=== PATIENT | male | born 1950 | race Hispanic/Latino ===

== ENCOUNTER 2020-10-14 10:15 | Day surgery (SDC) | payer OTHER ==
[2020-10-14 10:47] LABS: Absolute Lymphocytes (CBC) 1.8 K/uL (0.7-4.9); Basophils % 0.7 % (0-1.3); Hematocrit 34.5 % (39.6-49.0); Lymphocytes % 29.4 % (15.3-44.8); MPV 8.1 fL (7.6-11.3); RBC Red Blood Cell Count 3.85 M/uL (4.33-5.43)
[2020-10-14] MEDS ORDERED: NA CHLORIDE 0.9% 1,000 ML ONE (10:53)
[2020-10-14 11:06] LABS: Potassium 5.7 mmol/L (3.5-5.1)
--- NOTE | 2020-10-14 11:17 | RAD REPORT ---
EXAM DESCRIPTION: RAD - Chest Pa And Lat (2 Views) - 10/14/2020 10:48 am CLINICAL HISTORY: pre-op Chest pain. COMPARISON: Chest Pa And Lat (2 Views) dated 01/02/2018; CHEST PA AND LAT 2 VIEW dated 01/08/2008 FINDINGS: The lungs are clear. The heart is mildly prominent with single lead pacer/ defibrillator d evice. No displaced fractures. Sternotomy wires present.
[2020-10-14] MEDS ORDERED: CEFAZOLIN/SWI 1gm 1 GM/10 ML SYR ONE (11:39)
[2020-10-14] MEDS ORDERED: MIDAZOLAM HCL 2 MG/2 ML INJ ONE (11:56)
[2020-10-14] MEDS ORDERED: dexAMETHasone 10 MG/ML VIAL ONE (11:56)
[2020-10-14] MEDS ORDERED: propofoL 200 MG/20 ML VIAL IV ONE ×2 (11:56→13:23)
[2020-10-14] MEDS ORDERED: KETOROLAC 30 MG/ML INJ ONE (11:56)
[2020-10-14] MEDS ORDERED: FENTANYL CITR 100 MCG/2 ML ONE (11:56)
[2020-10-14] MEDS ORDERED: ONDANSETRON 4 MG/2 ML VIAL ONE (11:57)
[2020-10-14] MEDS ORDERED: LIDOCAINE 1% MPF 30 ML VIAL ONE (11:57)
--- NOTE | 2020-10-14 13:18 | P.BOP ---
Preoperative diagnosis: right buttock infected subQ mass with abscess, cellulitis Postoperative diagnosis: same Primary procedure: Excisional biopsy with abscess drainage of Secondary procedure: right buttock infected subQ mass with abscess Estimated blood loss: <10cc Specimen: right buttock infected subQ mass with abscess culture Findings: as above Anesthesia: MAC Transferred to: Recovery Room Condition: Good
[2020-10-14] MEDS: HYDROMORPHONE HCL 1 MG/ML INJ ONE ×2 (13:36→13:47)
[2020-10-14] MEDS ORDERED: HYDROMORPHONE HCL 1 MG/ML INJ ONE (14:24)
[2020-10-14] MEDS ORDERED: CODEINE 30MG/APAP 300MG TAB ONE (14:56)
[2020-10-14 15:18] VITALS: TEMP 98.1
[2020-10-14 15:20] VITALS: BP 111/64; O2SAT 98
--- NOTE | 2020-10-14 15:32 | DS ---
Diagnosis: Right buttock infected subcutaneous mass with abscess and cellulitis. Procedure: Excisional biopsy of infected right buttock subcutaneous mass with abscess drainage. Disposition: Home. Activity: As tolerated. No heavy lifting. Wet-to-dry dressing. Normal saline daily. NATY/WILFRED Voice ID: [id number] Report ID: [id number]
--- NOTE | 2020-10-14 15:35 | OP ---
Date of Procedure: 10/14/2020 Surgeon: Manuel Bae MD Preoperative Diagnosis: Right buttock infected subcutaneous mass with abscess and cellulitis. Postoperative Diagnosis: Right buttock infected subcutaneous mass with abscess and cellulitis. Procedure: Excisional biopsy of right buttock infected subcutaneus mass with abscess drainage. Anesthesia: MAC plus local. Indications: This is the case of a 70-year-old patient, came with a right buttock mass with an absce ss and cellulitis present, can barely sit. He came few hours ago to my office. He was booked today for excision of that lump and abscess drainage. The benefits, alternatives, and risks were fully exp lained, which include, but not limited to infection, bleeding, damage to adjacent structures, anesthe eric complication, recurrence, [place], and even . He also understands this may not relieve any sympt oms. He might need more than one surgical intervention. He also understands that he will need wound care. He signed a consent. Procedure In Detail: The patient was brought to the operating room, placed in supine position. Anes thesia was done without complication. The patient was placed in lateral decubitus position with prop er protection. The right buttock area and the sacral area were prepped and draped in usual sterile f ashion. Local anesthesia was applied followed by sharp incision of the skin all the way down to deep subcutaneous tissue. We noticed there was inflammatory mass present with an abscess deep inside. T he mass was removed. The pus was cultured. Then, the hemostasis was obtained with local anesthetic. The area was about 5 x 5 cm. The patient tolerated the procedure well. The area was packed with wet-to-dry dressing. The patient in his way to recovery in stable co ndition. HM/MODL Voice ID: [id number] Report ID: [id number]
--- NOTE | 2020-10-14 16:30 | EKG ---
Test Date: 2020-10-14 Test Time: 09:57:41 Acquisition Advisor: MEASUREMENT RESULTS: Intervals: Rate: 67 CT: 120 QRSD: 128 QT: 418 QTc: 441 [place]: P: 0 CT: 120 QRS: -5 T: 206 INTERPRETIVE STATEMENTS: Sinus tachycardia with blocked premature atrial complexes with premature supraventricular complexes Nonspecific intraventricular block T wave abnormality, consider inferior ischemia T wave abnormality, consider anterolateral ischemia Abnormal ECG Compared to ECG 06/05/2013 15:15:30 Atrial premature complex(es) now present T-wave abnormality now present Sinus rhythm no longer present ST (T wave) deviation no longer present Possible ischemia still present Electronically Signed On 10-14-20 16:29:38 CDT by Mason Zhang
--- NOTE | 2020-10-16 21:07 | OP ---
Surgeon: Manuel Bae MD Preoperative Diagnosis: Right buttock infected subcutaneous mass with abscess and cellulitis. Postoperative Diagnosis: Right buttock infected subcutaneous mass with abscess and cellulitis. Procedure: Excisional biopsy with abscess drainage of the right buttock infected subcutaneous mass. Specimen: Right buttock infected subcutaneous mass with abscess culture. Indication: This is the case of a 70-year-old patient who comes to us with a right buttock infected subcutaneous mass. There is cellulitis present. There is an abscess underneath. The benefits, alte rnatives, and risks of excision with drainage of an abscess were fully explained which include, but n ot limited to infection, bleeding, damage to adjacent structures, anesthesia complication, recurrence , [place], and even . He also understands this may not relieve his symptoms. He might need more mahad n one surgical intervention. He understood, signed a consent. Procedure In Detail: The patient was brought to the operating room, placed in supine position. Anes thesia was done without complication. The area of concern was marked by me and the patient in the ho lding room. The right buttock was prepped and draped in a sterile fashion. At that moment, I procee ded to make an incision in that area. Immediately we noticed this inflammatory mass present. We rem ron that area, removed the abscess that goes on and the pus was removed. Loculations were explored, opened. The patient tolerated the procedure well. Hemostasis was obtained. Area was packed with d ry dressing. The patient tolerated the procedure well. The patient was sent to Recovery in stable c ondition. Discharge Summary: Diagnosis: Right buttock inflammatory mass with abscess and cellulitis. Procedure: Excisional biopsy with abscess drainage of a right buttock infected subcutaneous mass. Disposition: Home. Condition: Stable. Activity: As tolerated. No heavy lifting. Wet-to-dry dressing. Normal saline. Medications: See orders. HM/MODL Voice ID: [id number] Report ID: [id number]
== END 2020-10-14 15:10 | disposition home or self-care (01) ==
LOC: OR 10:15
PROVIDERS: ATTEND Surgery
PROC: 0JB90ZZ Excision of Buttock Subcutaneous Tissue and Fascia, Open Approach (ICD-10-PCS; principal; 2020-10-14 12:15)
DX: R22.2 Localized swelling, mass and lump, trunk (principal)
CPT/HCPCS: 93005; 87070; 85025; 80048; 36415; 87205; 88305; 87075; 87077; 87186; 71046; 11403; J2704 ×2; J2250; J3010; J1170 ×2; J0690; J7030; J2405; J1100

== ENCOUNTER 2021-01-22 10:07 | Day surgery (SDC) | payer OTHER ==
[2021-01-21 12:37] LABS: Absolute Lymphocytes (CBC) 1.6 K/uL (0.7-4.9); Basophils % 0.8 % (0-1.3); Hematocrit 33.1 % (39.6-49.0); Lymphocytes % 21.6 % (15.3-44.8); MPV 8.9 fL (7.6-11.3); RBC Red Blood Cell Count 3.65 M/uL (4.33-5.43)
[2021-01-21 13:24] LABS: Potassium 4.5 mmol/L (3.5-5.1)
[2021-01-22] MEDS ORDERED: NA CHLORIDE 0.9% 1,000 ML ONE (10:36)
[2021-01-22] MEDS ORDERED: METHYLENE BLUE 0.5% 10 ML AMP ONE (11:40)
[2021-01-22] MEDS ORDERED: ROCURONIUM 50 MG/5 ML VIAL IV ONE (11:56)
[2021-01-22] MEDS ORDERED: propofoL 200 MG/20 ML VIAL IV ONE (11:56)
[2021-01-22] MEDS ORDERED: FENTANYL CITR 100 MCG/2 ML ONE (11:56)
[2021-01-22] MEDS ORDERED: MIDAZOLAM HCL 2 MG/2 ML INJ ONE (11:56)
[2021-01-22] MEDS ORDERED: LIDOCAINE 1% MPF 5 ML VIAL ONE (11:56)
[2021-01-22] MEDS ORDERED: CEFAZOLIN/NS 1gm 1 GM/50 ML BAG ONE (12:57)
[2021-01-22] MEDS: BUPIVACAINE 0.5% PF 10 ML VIAL ONE ×2 (13:15→13:30)
--- NOTE | 2021-01-22 13:35 | P.BOP ---
Preoperative diagnosis: infected pilonidal cyst Postoperative diagnosis: same Primary procedure: Wide excision of infected pilonidal cyst [id number] Estimated blood loss: <10cc Specimen: pilonidal cyst and culture Findings: infected pilonidal cyst Anesthesia: General Complications: None Drain(s): Other Transferred to: Recovery Room Condition: Good
[2021-01-22] MEDS ORDERED: NEOSTIGMINE 1 MG/ML -5 ML ONE (13:52)
[2021-01-22] MEDS ORDERED: KETOROLAC 30 MG/ML INJ ONE (13:52)
[2021-01-22] MEDS ORDERED: GLYCOPYRROLATE 0.2 MG/ML SYR ONE ×2 (13:52→13:53)
[2021-01-22] MEDS: MORPHINE 4 MG/ML SYR ONE ×2 (14:04→14:09)
[2021-01-22 14:07] VITALS: O2SAT 93
[2021-01-22 14:45] VITALS: BP 112/53; TEMP 97.5
[2021-01-22] MEDS ORDERED: HYDROCODONE/APAP 10/325 TAB ONE (15:00)
--- NOTE | 2021-01-23 00:42 | OP ---
Date of Procedure: 01/22/2021 Surgeon: Manuel Bae MD Preoperative Diagnosis: Infected pilonidal cyst. Postoperative Diagnosis: Infected pilonidal cyst. Procedure: Wide excision of infected pilonidal cyst, 8 x 4 x 3 cm. Anesthesia: General plus local. Complications: None. Packing: Kerlix roll, wet-to-dry. Findings: Infected pilonidal cyst. Specimen: Pilonidal cyst and culture. Indications: This is the case of a male who came to us with multiple abscess in the buttock and sacr um, diagnosed with infected pilonidal cyst underneath. The benefits, alternatives, and risk s of excision were fully explained which include, but not limited to infection, bleeding, damage to a djacent structures, anesthesia complication, recurrence, [place], and even . He also understands thi s may not relieve symptoms. He might need more than one surgical intervention. He understand he gilma l require wound care. He signed a consent. The area of concern was marked by me and the patient in the holding room. Procedure In Detail: The patient was brought to the operating room, placed in supine position. Anes thesia was done without complication. The patient was placed in prone position with proper protectio n. After that, perisacral and buttock area were prepped and draped in a sterile fashion. We found m ultiple openings. The patient has multiple sites of the buttocks and the sacrum, put methylene blue through that area to delineate the area and then proceed to do a wide excision of that region finding the patient to have a pilonidal cyst all the way down to coccyx. Mass was excised. Cultures were d one of the pus and the area was irrigated. Hemostasis obtained, covered with local anesthetic, and t hen the patient sent to recovery in stable condition. Sponge count and instrument counts correct. T he area was packed with Kerlix roll. The patient sent to recovery in stable condition. Disposition: Home. Wet-to-dry normal saline daily. The family had done wet dressing changes before . If they do not feel comfortable tomorrow, he might hold, and he can come also on Monday t o my office. We can help him do dressing changes too. NATY/WILFRED Voice ID: [id number] Report ID: [id number]
== END 2021-01-22 15:23 | disposition home or self-care (01) ==
LOC: OR 10:07
PROVIDERS: ATTEND Surgery
PROC: 0JB90ZZ Excision of Buttock Subcutaneous Tissue and Fascia, Open Approach (ICD-10-PCS; principal; 2021-01-22 12:00)
DX: L05.91 Pilonidal cyst without abscess (principal); Z20.822 Contact with and (suspected) exposure to COVID-19
CPT/HCPCS: 87070; 85025; 80048; 36415; 87205 ×2; 82947 ×2; 88304; 87075; 87077; 87186; 11770; U0003; J2704; J2250; J3010; J2710; J0690; J7030

== ENCOUNTER 2021-01-26 21:32 | Emergency (ER) | payer OTHER ==
[2021-01-27] MEDS ORDERED: HYDROCODONE/APAP 10/325 TAB ONE (00:41)
--- NOTE | 2021-01-27 01:21 | ER ---
Nurse's Notes [facility] Name: Hugo Liu JR. Age: 71 yrs Sex: Male : 1950 Arrival Date: 01/26/2021 Time: 21:36 Bed 12 Private MD: Diagnosis: Encounter for change or removal of surgical wound dressing Presentation: 01/26 22:30 Chief complaint: Patient states: post op bleeding. Coronavirus screen: Vaccine status: df1 Patient reports receiving the 2nd dose of the covid vaccine. The client reports previous COVID testing was negative. Date of collection: January 22, 2021. Ebola Screen: Patient negative for fever greater than or equal to 101.5 degrees Fahrenheit, and additional compatible Ebola Virus Disease symptoms Patient denies exposure to infectious person. Patient denies travel to an Ebola-affected area in the 21 days before illness onset. Initial Sepsis Screen: Does the patient meet any 2 criteria? No. Patient's initial sepsis screen is negative. Risk Assessment: Do you want to hurt yourself or someone else? Patient reports no desire to harm self or others. Onset of symptoms was January 26, 2021. 22:30 Method Of Arrival: Wheelchair df1 22:30 Acuity: MADDI 4 df1 22:32 Note Pt states excision of pilonidal cyst from left buttocks. Packing changed df1 yesterday. Pt states bleeding started after shower at 1700. Pressure applied but bleeding continues. Triage Assessment: 01/27 01:48 General: Appears obese, well groomed. Pain: Complains of pain in buttocks. wr Historical: - Allergies: 01:46 Codeine; wr - Social history:: Patient/guardian denies using. - Ebola Screening: : No symptoms or risks identified at this time. Vital Signs: 01/26 22:30 BP 149 / 83; Pulse 75; Resp 18; Temp 97.4; Pulse Ox 100% on R/A; Weight 106.59 kg; df1 Height 5 ft. 3 in. (160.02 cm); Pain 01/31; 01/27 01:48 BP 140 / 82; Pulse 76; Resp 20; Temp 97.4; Pulse Ox 100% ; Pain 8/10; wr 01/26 22:30 Body Mass Index 41.63 (106.59 kg, 160.02 cm) df1 ED Course: 01/26 21:36 Patient arrived in ED. wm 22:32 Triage completed. df1 22:38 Alfonso Masters NP is PHCP. pm1 22:38 Ceasar Espinoza MD is Attending Physician. pm1 01/27 01:19 Manuel Bae MD is Referral Physician. pm1 01:52 Arm band placed on. wr Administered Medications: 00:15 Drug: [place] (HYDROcodone-acetaminophen) 10 mg-325 mg 1 tabs Route: PO; wr Outcome: 01:20 Discharge ordered by . pm1 01:54 Patient left the ED. wr Signatures: Alfonso Masters NP DROSS PULLER pm1 Inga Barajas Willena Leny Ellison df1 Corrections: (The following items were deleted from the chart) 01:48 01:44 Allergies: PENICILLINS; wr wr
--- NOTE | 2021-01-27 01:21 | EDPHYS ---
Physician Documentation [facility] Name: Hugo Liu JR. Age: 71 yrs Sex: Male : 1950 Arrival Date: 01/26/2021 Time: 21:36 Bed 12 Private MD: ED Physician Ceasar Espinoza HPI: 01/26 23:56 This 71 yrs old Male presents to ER via Wheelchair with complaints of Recent pm1 Surgery, won't stop bleeding. 23:56 Patient presents to ED for recheck of: Surgical wound from pilonidal cyst removal. The pm1 affected area is on the coccyx. Previous treatment: Wound packing at home. The patient has been recently seen by a physician: Dr. Bae yesterday, Pilonidal cyst removal follow-up. Patient presenting to the ER today with complaints of bleeding from surgical wound. Patient with analysis removal by Dr. Bae last week. Patient followed up with in yesterday for reevaluation. Patient removed packing and was taking a shower. However bleeding would not stop after packing was replaced. Patient with planned visit by home health tomorrow. Historical: - Allergies: 01/27 01:46 Codeine; wr - Social history:: Patient/guardian denies using. - Ebola Screening: : No symptoms or risks identified at this time. ROS: 01/26 23:56 Constitutional: Negative for fever, chills, and weight loss, Cardiovascular: Negative pm1 for chest pain, palpitations, and edema, Respiratory: Negative for shortness of breath, cough, wheezing, and pleuritic chest pain, MS/Extremity: Negative for injury and deformity. Skin: Negative for injury, rash, and discoloration, Neuro: Negative for headache, weakness, numbness, tingling, and seizure. All other systems are negative. Exam: 23:56 Constitutional: This is a well developed, well nourished patient who is awake, alert, pm1 and in no acute distress. Head/Face: Normocephalic, atraumatic. 23:56 Cardiovascular: Exam negative for acute changes, Rate: normal, Rhythm: regular, Pulses: no pulse deficits are appreciated. 23:56 Respiratory: Exam negative for acute changes, respiratory distress, shortness of breath. 23:56 Skin: Wound recheck: Surgical wound to coccyx area without any signs of discharge, erythema, cellulitis. Mild bleeding present from packing. 23:56 Neuro: Exam negative for acute changes, Orientation: is normal, Motor: moves all fours. Vital Signs: 22:30 BP 149 / 83; Pulse 75; Resp 18; Temp 97.4; Pulse Ox 100% on R/A; Weight 106.59 kg; df1 Height 5 ft. 3 in. (160.02 cm); Pain 10; 01/27 01:48 BP 140 / 82; Pulse 76; Resp 20; Temp 97.4; Pulse Ox 100% ; Pain 8/10; wr 01/26 22:30 Body Mass Index 41.63 (106.59 kg, 160.02 cm) df1 MDM: 01/26 22:45 Patient medically screened. pm1 01/27 01:18 Data reviewed: vital signs. Data interpreted: Pulse oximetry: on room air is 100 %. pm1 Interpretation: normal. Counseling: I had a detailed discussion with the patient and/or guardian regarding: the historical points, exam findings, and any diagnostic results supporting the discharge/admit diagnosis, the need for outpatient follow up, a general surgeon, to return to the emergency department if symptoms worsen or persist or if there are any questions or concerns that arise at home. Administered Medications: 00:15 Drug: [place] (HYDROcodone-acetaminophen) 10 mg-325 mg 1 tabs Route: PO; wr Disposition Summary: 01/27/21 01:20 Discharge Ordered Location: Home pm1 Problem: new pm1 Symptoms: have improved pm1 Condition: Stable pm1 Diagnosis - Encounter for change or removal of surgical wound dressing pm1 Followup: pm1 - With: Emergency Department - When: As needed - Reason: Worsening of condition Followup: pm1 - With: Manuel Bae MD - When: 2 - 3 days - Reason: Recheck today's complaints, Continuance of care, Re-evaluation by your physician Discharge Instructions: - Discharge Summary Sheet pm1 - How to Change Your Wound Dressing, [id number] pm1 Forms: - Medication Reconciliation Form pm1 - Thank You Letter pm1 - Antibiotic Education pm1 - Prescription Opioid Use pm1 Addendum: 01/28/2021 03:01 Co-signature as Attending Physician, Ceasar Espinoza MD. m a2 Signatures: Alfonso Masters NP DICE MANAGER pm1 Ceasar Espinoza MD MD ma2 Anna Rosenbaum Corrections: (The following items were deleted from the chart) 01/27 01:48 01:44 Allergies: PENICILLINS; wr wr
[2021-01-27 02:07] VITALS: TEMP 97.4; O2SAT 100
[2021-01-27 02:09] VITALS: BP 140/82
== END 2021-01-27 01:54 | disposition home or self-care (01) ==
LOC: ER 21:32
DX: Z48.01 Encounter for change or removal of surgical wound dressing (principal)
CPT/HCPCS: 99283

== ENCOUNTER 2021-04-02 11:06 | Inpatient (IN) | payer OTHER ==
--- OUTSIDE RECORDS SUMMARY | 2021-04-02 11:08 | XMS REPORT | Continuity of Care Document ---
:1950 Author Organization [facility] t Address [address] [place] [address] [address] [place] [address] Care Team Providers Name Role Phone Antony VELA Attending Clinician Unavailable Problems This patient has no known problems. Allergies, Adverse Reactions, Alerts This patient has no known allergies or adverse reactions. Medications This patient has no known medications. Procedures This patient has no known procedures. Encounters Start End Encounter Admission Attending Care Care Encounter Source Date/Time Date/Time Type Type Clinicians Facility Department ID 2020-09-30 2020-09-30 Outpatient DANE [facility] [address] [facility] 05:08:00 13:20:00 SETH Results This patient has no known results.
[2021-04-02] MEDS ORDERED: ACETAMINOPHEN 500 MG TAB ONE ×2 (11:55→17:34)
--- NOTE | 2021-04-02 12:09 | RAD REPORT ---
EXAM DESCRIPTION: CT - Head Brain Wo Cont - 04/02/2021 12:02 pm CLINICAL HISTORY: repeated falls COMPARISON: Head Brain W/Wo Con dated 06/08/2018 TECHNIQUE: All CT scans are performed using dose optimization technique as appropriate and may inclu de automated exposure control or mA/KV adjustment according to patient size. FINDINGS: No intracranial hemorrhage, hydrocephalus or extra-axial fluid collection.No areas of brai n edema or evidence of midline shift. Remote right occipital infarct. The paranasal sinuses and mastoids are clear. The calvarium is intact. IMPRESSION: No acute intracranial abnormality.
[2021-04-02 12:56] LABS: Urine Blood Negative (Negative); Urine Glucose 2+ (Negative); Urine Protein 2+ (Negative); Urine pH 5.5 (5.0-7.0)
[2021-04-02] MEDS ORDERED: CEFTRIAXONE 1000 MG/VIAL ONE (12:57)
[2021-04-02] MEDS ORDERED: NA CHLORIDE 0.9% 3,000 ML ONE (13:04)
[2021-04-02 13:09] LABS: Urine Bacteria <20 /HPF (NONE SEEN); Urine Mucus 1+ /HPF (NONE SEEN); Urine RBC <5 /HPF (NONE SEEN)
[2021-04-02 13:11] LABS: SARS-COV-2 RT PCR NEGATIVE (NEGATIVE)
[2021-04-02 13:19] LABS: Absolute Lymphocytes (CBC) 0.6 K/uL (0.7-4.9); Basophils % 0.3 % (0-1.3); Hematocrit 29.3 % (39.6-49.0); Lymphocytes % 6.3 % (15.3-44.8); MPV 8.2 fL (7.6-11.3); RBC Red Blood Cell Count 3.58 M/uL (4.33-5.43)
[2021-04-02 13:24] LABS: Protime INR 1.1
[2021-04-02 13:38] LABS: ALT/SGPT 20 U/L (12-78); AST/SGOT 12 U/L (15-37); Albumin 2.7 g/dL (3.4-5.0); Alkaline Phosphatase 84 U/L (45-117); Amylase 39 U/L (25-115); BUN Blood Urea Nitrogen 36 mg/dL (7-18); Bicarbonate 23 mmol/L (21-32); Bilirubin Direct 0.1 mg/dL (0-0.2); Bilirubin Total 0.4 mg/dL (0.2-1.0); Creatine Phosphokinase 203 U/L (39-308); Glucose Level 331 mg/dL (74-106); Lipase 78 U/L (73-393); Potassium 4.5 mmol/L (3.5-5.1); Protein, Total 7.4 g/dL (6.4-8.2); Sodium Level 137 mmol/L (136-145); Troponin (Emerg Dept Use Only) < 0.02 ng/mL (0.0-0.045)
[2021-04-02 13:44] LABS: Blood Morphology Comment NOT SEEN (NOT SEEN); Platelet Estimate ADEQ; White Blood Cell Scan OK (OK)
[2021-04-02 13:49] LABS: CKMB Creatine Kinase MB < 1.0 ng/mL (1.0-3.6)
--- NOTE | 2021-04-02 14:23 | RAD REPORT ---
EXAM DESCRIPTION: RAD - Chest Single View - 04/02/2021 2:10 pm CLINICAL HISTORY: FEVER COMPARISON: Chest Pa And Lat (2 Views) dated 10/14/2020; Chest Pa And Lat (2 Views) dated 01/02/2018; CHEST PA AND LAT 2 VIEW dated 01/08/2008 FINDINGS: Lines: None. Lungs: No evidence of edema or pneumonia. Pleural: No significant pleural effusions or pneumothorax. Cardiac: Cardiomegaly. Defibrillator. Sternotomy. Bones: No acute fractures. Other: IMPRESSION: No acute cardiopulmonary disease.
--- NOTE | 2021-04-02 14:27 | RAD REPORT ---
EXAM DESCRIPTION: CTAbdomen Pelvis Wo Contrast - 04/02/2021 2:15 pm CLINICAL HISTORY: Fever, polyuria COMPARISON: CT ABD PELVIS W CONTRAST dated 08/26/2011 TECHNIQUE: CT of the abdomen and pelvis was performed. All CT scans are performed using dose optimization technique as appropriate and may include automated exposure control or mA/KV adjustment according to patient size. FINDINGS: Lower chest: Pacemaker. Coronary artery calcifications. Mild circumferential thickened dis sebas esophagus. Liver: No acute abnormality or suspicious lesions. Biliary: Cholecystectomy. Stomach: Valery-en-Y gastric bypass. Duodenum: No significant focal abnormality. Pancreas: No significant abnormality. Spleen: No significant abnormality. Adrenal: No suspicious lesions. Kidney/ureter: No hydronephrosis. Bilateral nephrolithiasis. No ureteral calculi identified. Retroperitoneum: No retroperitoneal adenopathy. Vascular: Atherosclerosis Bowel: No significant focal abnormality. Peritoneum: Tubular hypoattenuating structure within the small bowel mesenteries. See image 43, serie s 201. This is likely postsurgical from prior hernia repair. There were postsurgical changes at this location on the prior CT from 08/26/2011. Bladder: Grossly unremarkable. Reproductive: Mild prostatomegaly. Bones: No acute fracture. Moderate disc height loss at L4-5. Other: n/a IMPRESSION: No acute intra-abdominal or pelvic finding. Nonobstructive bilateral nephrolithiasis. Ad ditional findings as noted above.
--- NOTE | 2021-04-02 16:34 | ER ---
Nurse's Notes [facility] Name: Hugo Liu Jr Age: 71 yrs Sex: Male : 1950 Arrival Date: 04/02/2021 Time: 11:08 Bed 16 Private MD: Jose Boston Diagnosis: Sepsis, unspecified organism Presentation: 04/02 11:48 Chief complaint: Spouse and/or significant other states: fever, frequent falls, ss dizziness and frequent urination that began 2 days ago. Coronavirus screen: Client denies travel out of the [place] in the last 14 days. Ebola Screen: Patient denies exposure to infectious person. Patient denies travel to an Ebola-affected area in the 21 days before illness onset. Initial Sepsis Screen: Does the patient meet any 2 criteria? No. Patient's initial sepsis screen is negative. Does the patient have a suspected source of infection? No. Patient's initial sepsis screen is negative. Risk Assessment: Do you want to hurt yourself or someone else? Patient reports no desire to harm self or others. Onset of symptoms was March 31, 2021. 11:48 Method Of Arrival: Ambulatory ss 11:48 Acuity: MADDI 2 ss Historical: - Allergies: 11:50 Codeine; ss 11:50 Cipro; ss - PMHx: 11:50 Diabetes mellitus; Hypertensive disorder; [place]; Crohn's disease; ss - PSHx: 11:50 defibrillator; CABG; ss - Immunization history:: Client reports receiving the 2nd dose of the Covid vaccine. - Social history:: Smoking status: Patient denies any tobacco usage or history of. Screenin:26 Abuse screen: Denies threats or abuse. Nutritional screening: No deficits noted. bb Tuberculosis screening: Fall Risk None identified. Assessment: 13:00 General: Appears in no apparent distress. comfortable, Behavior is calm, cooperative, ld1 appropriate for age. Pain: Denies pain. Neuro: Level of Consciousness is awake, alert, obeys commands, Oriented to person, place, time, situation. 13:00 Cardiovascular: Capillary refill < 3 seconds Patient's skin is warm and dry. ld1 Respiratory: Airway is patent Respiratory effort is even, unlabored, Respiratory pattern is regular, symmetrical. GI: Abdomen is non-distended, obese. : Reports urinary frequency. EENT: No signs and/or symptoms were reported regarding the EENT system. Derm: No signs and/or symptoms reported regarding the dermatologic system. Musculoskeletal: No signs and/or symptoms reported regarding the musculoskeletal system. 14:31 Reassessment: Patient appears in no apparent distress at this time. No changes from ld1 previously documented assessment. Patient and/or family updated on plan of care and expected duration. Pain level reassessed. Patient is alert, oriented x 3, equal unlabored respirations, skin warm/dry/pink. 15:30 Reassessment: Patient appears in no apparent distress at this time. No changes from ld1 previously documented assessment. Patient and/or family updated on plan of care and expected duration. Pain level reassessed. 16:21 Reassessment: Patient appears in no apparent distress at this time. No changes from ld1 previously documented assessment. Patient and/or family updated on plan of care and expected duration. Pain level reassessed. 17:39 Reassessment: Notified ERP of VS. See [facility] for orders. ld1 17:44 Reassessment: Notified ERP of VS. ERP at bedside. ld1 18:12 Reassessment:. Reassessment: Patient states symptoms have not improved. Respiratory: ld1 Airway is patent Respiratory effort is labored, Respiratory pattern is hyperventilation tachypnea the patient has moderate shortness of breath. 18:12 Reassessment: Notified Dr. Arenas and ERP of change in patient vital signs. See MAR for ld1 orders. 20:24 Reassessment: report called to Darrius DAVIDSON for room 223. bb Vital Signs: 11:48 BP 120 / 71; Pulse 102; Resp 16; Temp 99.3(O); Pulse Ox 99% on R/A; Weight 111.13 kg; ss Height 5 ft. 3 in. (160.02 cm); Pain 0/10; 13:40 BP 92 / 41; Pulse 94; Resp 35; Pulse Ox 96% on R/A; ld1 13:51 Temp 100.3(O); ld1 14:31 BP 102 / 61; Pulse 90; Resp 30; Pulse Ox 96% on R/A; ld1 15:30 BP 104 / 58; Pulse 88; Resp 31; Pulse Ox 95% on R/A; ld1 16:21 BP 102 / 58; Pulse 85; Resp 26; Pulse Ox 95% on R/A; ld1 17:19 BP 125 / 84; Pulse 109; Resp 25; Temp 102.1; Pulse Ox 88% ; ld1 17:39 BP 132 / 113; Pulse 110; Resp 45; Pulse Ox 86% on 3 lpm NC; ld1 18:12 BP 100 / 63; Pulse 106; Resp 44; Temp 101.4(O); Pulse Ox 98% on 50% Venturi mask; ld1 20:08 BP 92 / 58; Pulse 90; Resp 28 S; Temp 100(O); Pulse Ox 98% on 2 lpm NC; bb 11:48 Body Mass Index 43.40 (111.13 kg, 160.02 cm) ss ED Course: 11:08 Patient arrived in ED. as 11:08 Jose Boston MD is Private Physician. as 11:50 Triage completed. ss 11:50 Arm band placed on left wrist. ss 12:02 CT Head Brain wo Cont In Process Unspecified. EDMS 12:11 Alfonso Masters NP is PHCP. pm1 12:11 Johnie Armenta MD is Attending Physician. pm1 12:41 Jesika Macario RN is Primary Nurse. ld1 12:59 Urine Microscopic Only Sent. ld1 13:09 Inserted saline lock: 20 gauge in left antecubital area, using aseptic technique. Blood tp1 collected. intraosseous access. 14:10 Chest Single View XRAY In Process Unspecified. EDMS 14:15 Abdomen In Process Unspecified. EDMS 16:33 Marcell Arenas DO is Hospitalizing Provider. pm1 20:25 No provider procedures requiring assistance completed. Patient admitted, IV remains in bb place. 20:26 Patient has correct armband on for positive identification. bb Administered Medications: 11:56 Drug: Tylenol 1000 mg Route: PO; ss 13:22 Drug: NS 0.9% (30 ml/kg) 30 ml/kg Route: IV; Rate: bolus; Site: right antecubital; ld1 20:23 Follow up: IV Intake: 3300ml ld1 13:22 Drug: Rocephin (cefTRIAXone) 1 grams Route: IV; Rate: calculated rate; Site: right ld1 antecubital; 14:02 CANCELLED (Physician Discretion): Tylenol 1000 mg PO once pm1 17:19 Drug: Cefepime 1 grams Route: IVPB; Rate: 200 ml/hr; Infused Over: 30 mins; Site: right ld1 antecubital; 18:11 Follow up: Response: No adverse reaction; IV Status: Completed infusion; IV Intake: ld1 100ml 17:39 Drug: Tylenol 1000 mg Route: PO; ld1 18:11 Follow up: Response: No adverse reaction ld1 18:08 CANCELLED (Physician Discretion): Lasix (furosemide) 20 mg IVP once; give over 2 minutespm1 18:08 CANCELLED (Physician Discretion): Lasix (furosemide) 20 mg IVP once; give over 2 minutespm1 18:10 Drug: Lasix (furosemide) 40 mg Route: IVP; Site: right forearm; ld1 18:11 Follow up: Response: No adverse reaction ld1 18:11 Drug: vancoMYCIN 1 grams Route: IVPB; Infused Over: 2 hrs; Site: right antecubital; ld1 Intake: 18:11 IV: 100ml; Total: 100ml. ld1 20:23 IV: 3300ml; Total: 3400ml. ld1 Outcome: 16:33 Decision to Hospitalize by Provider. pm1 20:25 Admitted to Tele accompanied by tech, family with patient, via wheelchair, room 223, bb Report called to Darrius DAVIDSON 20:25 Condition: stable 20:25 Instructed on the need for admit. 20:26 Patient left the ED. bb Signatures: Dispatcher [employer] Bridgette Elaine Brenda, RN RN bb Smirch, Shelby, RN RN ss Marinas, Patrick, NP CAFE SERVER pm1 Jesika Macario RN RN ld1 Savannah Renae [facility]
--- NOTE | 2021-04-02 16:35 | EDPHYS ---
Physician Documentation [facility] Name: Hugo Liu Jr Age: 71 yrs Sex: Male : 1950 Arrival Date: 04/02/2021 Time: 11:08 Bed 16 Private MD: Jose Boston ED Physician Johnie Armenta HPI: 04/02 12:49 This 71 yrs old Male presents to ER via Ambulatory with complaints of Fever, pm1 Urinary Frequency, repeated falls. 12:49 Onset: The symptoms/episode began/occurred 2 day(s) ago. Associated signs and symptoms: pm1 Pertinent positives: Dizziness with changing position, Pertinent negatives: chest pain, cough, diarrhea, nausea, shortness of breath, vomiting. Severity of symptoms: in the emergency department the symptoms are worse. The patient has not experienced similar symptoms in the past. The patient has not recently seen a physician. Patient presents ER with complaints of urinary frequency without any pain. Patient denies flank pain and abdominal pain. Patient also reports fever onset 2 days ago. Dizziness with changing positions resulting in fall. Pilonidal cyst removal from January still requiring packing and dressing change. Surgical wound has decreased in size and is almost healed per . Historical: - Allergies: 11:50 Codeine; ss 11:50 Cipro; ss - PMHx: 11:50 Diabetes mellitus; Hypertensive disorder; [place]; Crohn's disease; ss - PSHx: 11:50 defibrillator; CABG; ss - Immunization history:: Client reports receiving the 2nd dose of the Covid vaccine. - Social history:: Smoking status: Patient denies any tobacco usage or history of. ROS: 12:49 Eyes: Negative for injury, pain, redness, and discharge, ENT: Negative for injury, pm1 pain, and discharge, Neck: Negative for injury, pain, and swelling, Cardiovascular: Negative for chest pain, palpitations, and edema, Respiratory: Negative for shortness of breath, cough, wheezing, and pleuritic chest pain, Abdomen/GI: Negative for abdominal pain, nausea, vomiting, diarrhea, and constipation, Back: Negative for injury and pain. 12:49 MS/Extremity: Negative for injury and deformity, Skin: Negative for injury, rash, and discoloration, Neuro: Negative for headache, weakness, numbness, tingling, and seizure. 12:49 Constitutional: Positive for fever, Negative for body aches. 12:49 : Positive for urinary frequency, Negative for flank pain, burning with urination, difficulty urinating. 12:49 All other systems are negative. Exam: 12:49 Constitutional: This is a well developed, well nourished patient who is awake, alert, pm1 and in no acute distress. Head/Face: Normocephalic, atraumatic. 12:49 Back: No spinal tenderness. No costovertebral tenderness. Full range of motion. MS/ Extremity: Pulses equal, no cyanosis. Neurovascular intact. Full, normal range of motion. 12:49 Cardiovascular: Exam negative for acute changes, Rate: normal, Rhythm: regular, Pulses: no pulse deficits are appreciated, Heart sounds: normal. 12:49 Respiratory: Exam negative for acute changes, respiratory distress, shortness of breath, Breath sounds: are clear throughout. 12:49 Abdomen/GI: Exam negative for acute changes, Inspection: obese Palpation: abdomen is soft and non-tender, in all quadrants. 12:49 Skin: Appearance: normal except for affected area, Wound recheck: Pilonidal cyst removal without any signs of cellulitis -negative for warmth, redness, discharge. 12:49 Neuro: Exam negative for acute changes, Orientation: is normal, Mentation: is normal, Motor: is normal, moves all fours. Vital Signs: 11:48 BP 120 / 71; Pulse 102; Resp 16; Temp 99.3(O); Pulse Ox 99% on R/A; Weight 111.13 kg; ss Height 5 ft. 3 in. (160.02 cm); Pain 0/10; 13:40 BP 92 / 41; Pulse 94; Resp 35; Pulse Ox 96% on R/A; ld1 13:51 Temp 100.3(O); ld1 14:31 BP 102 / 61; Pulse 90; Resp 30; Pulse Ox 96% on R/A; ld1 15:30 BP 104 / 58; Pulse 88; Resp 31; Pulse Ox 95% on R/A; ld1 16:21 BP 102 / 58; Pulse 85; Resp 26; Pulse Ox 95% on R/A; ld1 17:19 BP 125 / 84; Pulse 109; Resp 25; Temp 102.1; Pulse Ox 88% ; ld1 17:39 BP 132 / 113; Pulse 110; Resp 45; Pulse Ox 86% on 3 lpm NC; ld1 18:12 BP 100 / 63; Pulse 106; Resp 44; Temp 101.4(O); Pulse Ox 98% on 50% Venturi mask; ld1 20:08 BP 92 / 58; Pulse 90; Resp 28 S; Temp 100(O); Pulse Ox 98% on 2 lpm NC; bb 11:48 Body Mass Index 43.40 (111.13 kg, 160.02 cm) MDM: 12:26 Patient medically screened. pm1 15:16 Physician consultation: Jose Boston MD was called at 15:16, was contacted at 15:16, pm1 regarding admission, would like admission per Dr. Paul Pierre MD. 15:29 Counseling: I had a detailed discussion with the patient and/or guardian regarding: the pm1 historical points, exam findings, and any diagnostic results supporting the discharge/admit diagnosis, lab results, radiology results, the need for further work-up and treatment in the hospital. 16:29 Data reviewed: vital signs. Data interpreted: Pulse oximetry: on room air is 95 %. pm1 Interpretation: normal. 16:29 Physician consultation: Marcell Arenas DO regarding admission, patient's condition, and pm1 will see patient in ED, would like further tests performed, echocardiogram. 04/02 11:54 Order name: COVID-19/FLU A+B (Document "Date of Onset" if Symptomatic) 04/02 11:54 Order name: COVID-19/FLU A+B; Complete Time: 13:16 EDMS 04/02 12:28 Order name: Amylase, Serum pm1 04/02 12:28 Order name: Basic Metabolic Panel pm1 04/02 12:28 Order name: Blood Culture Adult (2) pm1 04/02 12:28 Order name: CBC with Diff; Complete Time: 13:50 pm1 04/02 12:28 Order name: CPK; Complete Time: 13:50 pm1 04/02 12:28 Order name: Ckmb; Complete Time: 13:50 pm1 04/02 12:28 Order name: LFT's; Complete Time: 13:50 pm1 04/02 12:28 Order name: Lactate; Complete Time: 14:31 pm1 04/02 12:28 Order name: Lipase; Complete Time: 13:50 pm1 04/02 12:28 Order name: Procalcitonin; Complete Time: 14:31 pm1 04/02 12:28 Order name: Protime (+inr); Complete Time: 13:50 pm1 04/02 12:28 Order name: Ptt, Activated; Complete Time: 13:50 pm1 04/02 11:51 Order name: CT Head Brain wo Cont; Complete Time: 12:12 iw 04/02 12:28 Order name: Troponin (emerg Dept Use Only); Complete Time: 13:50 pm1 04/02 12:28 Order name: Urine Microscopic Only; Complete Time: 13:16 pm1 04/02 12:28 Order name: Chest Single View XRAY; Complete Time: 14:31 pm1 04/02 12:28 Order name: Amylase; Complete Time: 13:50 EDMS 04/02 12:28 Order name: Basic Metabolic Panel; Complete Time: 13:50 EDMS 04/02 12:57 Order name: Urine Dipstick-Ancillary; Complete Time: 13:16 EDMS 04/02 13:15 Order name: Glucose, Ancillary Testing; Complete Time: 13:16 EDMS 04/02 13:19 Order name: CBC Smear Scan; Complete Time: 13:50 EDMS 04/02 14:14 Order name: Abdomen ; Complete Time: 14:31 EDMS 04/02 16:28 Order name: Echo w/ Doppler pm1 04/02 18:07 Order name: Lactate Sepsis 2 HR Follow-up; Complete Time: 18:21 EDMS 04/02 19:08 Order name: Lactate; Complete Time: 20:09 EDMS 04/02 12:28 Order name: Accucheck; Complete Time: 13:22 pm1 04/02 12:28 Order name: Cardiac monitoring; Complete Time: 12:58 pm1 04/02 12:28 Order name: EKG - Nurse/Tech; Complete Time: 12:58 pm1 04/02 12:28 Order name: IV Saline Lock - Large Bore; Complete Time: 12:58 pm1 04/02 12:28 Order name: Labs collected and sent; Complete Time: 12:59 pm1 04/02 12:28 Order name: O2 Per Protocol; Complete Time: 12:59 pm1 04/02 12:28 Order name: O2 Sat Monitoring; Complete Time: 12:59 pm1 04/02 12:28 Order name: Urine Dipstick-Ancillary (obtain specimen); Complete Time: 12:59 pm1 Administered Medications: 11:56 Drug: Tylenol 1000 mg Route: PO; ss 13:22 Drug: NS 0.9% (30 ml/kg) 30 ml/kg Route: IV; Rate: bolus; Site: right antecubital; ld1 20:23 Follow up: IV Intake: 3300ml ld1 13:22 Drug: Rocephin (cefTRIAXone) 1 grams Route: IV; Rate: calculated rate; Site: right ld1 antecubital; 14:02 CANCELLED (Physician Discretion): Tylenol 1000 mg PO once pm1 17:19 Drug: Cefepime 1 grams Route: IVPB; Rate: 200 ml/hr; Infused Over: 30 mins; Site: right ld1 antecubital; 18:11 Follow up: Response: No adverse reaction; IV Status: Completed infusion; IV Intake: ld1 100ml 17:39 Drug: Tylenol 1000 mg Route: PO; ld1 18:11 Follow up: Response: No adverse reaction ld1 18:08 CANCELLED (Physician Discretion): Lasix (furosemide) 20 mg IVP once; give over 2 minutespm1 18:08 CANCELLED (Physician Discretion): Lasix (furosemide) 20 mg IVP once; give over 2 minutespm1 18:10 Drug: Lasix (furosemide) 40 mg Route: IVP; Site: right forearm; ld1 18:11 Follow up: Response: No adverse reaction ld1 18:11 Drug: vancoMYCIN 1 grams Route: IVPB; Infused Over: 2 hrs; Site: right antecubital; ld1 Disposition Summary: 04/02/21 16:33 Hospitalization Ordered Hospitalization Status: Inpatient Admission pm1 Provider: Marcell Arenas pm1 Location: Telemetry/MedSurg (Inpatient) pm1 Condition: Stable pm1 Problem: new pm1 Symptoms: have improved pm1 Bed/Room Type: Standard pm1 Room Assignment: 223(04/02/21 17:57) ja1 Diagnosis - Sepsis, unspecified organism pm1 Forms: - Medication Reconciliation Form pm1 - SBAR form pm1 Addendum: 04/05/2021 11:23 Co-signature as Attending Physician, Johnie Armenta MD I agree with the assessment and k dr plan of care. Signatures: Dispatcher [employer] EDMS Johnie Armenta MD MD [facility] Amberly Stevenson RN RN Jorge Cormier, COOKING CASING AND DRYING SUPERVISOR-C COOKING CASING AND DRYING SUPERVISOR-Cla1 Alfonso Masters, COMPUTER SECURITY COORDINATOR COMPUTER SECURITY COORDINATOR pm1 Richard Hernandez, RN RN ja1 Jesika Macario RN RN ld1 Corrections: (The following items were deleted from the chart) 04/02 14:02 14:02 Tylenol 1000 mg PO once ordered. pm1 pm1 14:14 12:29 Abdomen Pelvis W Con+CT.RAD.BRZ ordered. EDMS EDMS 17:57 16:33 pm1 ja1 18:08 17:52 Lasix (furosemide) 20 mg IVP once; give over 2 minutes ordered. pm1 pm1 18:08 18:08 Lasix (furosemide) 20 mg IVP once; give over 2 minutes ordered. pm1 pm1
--- NOTE | 2021-04-02 17:05 | P.HP ---
Certification for Inpatient Patient admitted to: Inpatient With expected LOS: >2 Midnights Patient will require the following post-hospital care: None Practitioner: I am a practitioner with admitting privileges, knowledge of patient current condition, hospital course, and medical plan of care. Services: Services provided to patient in accordance with Admission requirements found in Title 42 Section 412.3 of the Code of Federal Regulations Patient History Date of Service: 04/02/21 Primary Care Provider: Dr. Boston Reason for admission: fever History of Present Illness: 71-year-old male with history of diabetes, hypertension, hyperlipidemia, CAD with prior CABG, Crohn's. Patient presented with fever, dizziness and fall. Patient denies any cough, shortness of breath, chest pain, nausea, vomiting, diarrhea, constipation, or dysuria. Some polyuria noted. Patient reported fever over the last 2 days. T- max was 103. Patient had some fatigue and dizziness and fell today in his buttocks. Patient called PCP. PCP recommended for the patient to be evaluated in the emergency room. In the ER patient was evaluated. White count 9, hemoglobin 9.3. Platelet count of 180. Procalcitonin and lactic acid elevated. Troponin unremarkable. Sodium 137, potassium 4.5. BUN of 36, creatinine 1.69 with a GFR 40. Glucose 334. Urinalysis unremarkable. CT head unremarkable. Chest x-ray unremarkable. CT abdomen and pelvis unremarkable except nonobstructive nephrolithiasis. Patient given IV sepsis bolus in the emergency room for possible sepsis. Patient given Rocephin in the ER. Cultures obtained. Allergies ciprofloxacin [From Cipro] Adverse Reaction (Verified 01/21/21 11:48) Shortness of breath paper tape Adverse Reaction (Uncoded 01/21/21 11:48) blisters Home medications list reviewed: Yes Home Medications: Aspirin [Aspirin EC 81 MG] 81 mg PO DAILY 04/29/16 Clopidogrel Bisulfate [Plavix*] 75 mg PO DAILY 04/29/16 Cyanocobalamin [Vitamin B-12*] 1,000 mcg IM SEECOM 04/29/16 Metformin HCl [Glucophage] 1,000 mg PO BID 04/29/16 Simvastatin [Zocor*] 20 mg PO BEDTIME 04/29/16 Thiamine HCl [Vitamin B-1*] 100 mg PO DAILY 04/29/16 carvediloL [Coreg*] 1.5 tab PO BID 04/29/16 hydroCHLOROthiazide [Hydrodiuril*] 25 mg PO Q48H 04/29/16 Calcium Carbonate/Vitamin D3 [Calcium 600-Vit D3 200 Tablet] 1 each PO DAILY 06/17/16 Latanoprost [Xalatan] 1 drop OP DAILY 06/17/16 Liraglutide [Victoza 2-Gelacio] 1.8 mg SQ DAILY 06/17/16 Losartan Potassium 12.5 mg PO DAILY AT SUPPER 06/17/16 Multivitamin [Multivitamins] 1 each PO DAILY 06/17/16 Adalimumab [Humira Pen] 1 dose SQ SEECOM 10/14/20 Folic Acid 1 tab PO DAILY 10/14/20 Furosemide 1 tab PO DAILY 10/14/20 Magnesium Oxide [Magnesium] 2 tab PO DAILY 10/14/20 Mesalamine [Apriso] 3 tab PO DAILY 10/14/20 Methotrexate [Methotrexate*] 2.5 tab PO DAILY 10/14/20 Pantoprazole [Protonix Tab*] 1 tab PO DAILY 10/14/20 Spironolactone 1 tab PO BID 10/14/20 Vit A/Vit C/Vit E/Zinc/Copper [Preservision Areds Softgel] 1 each PO DAILY 02/03/21 - Past Medical/Surgical History Diabetic: Yes -: DM Type 2 -: HTN -: CAD with CABG -: Crohn's -: Pacemaker with defibrillator -: Hyperlipidemia -: GERD -: Anemia chronic disease -: ICD -: CABG -: Cholecystectomy Psychosocial/ Personal History: - Family History Family History: Reviewed- Non-Contributory - Social History Alcohol use: No CD- Drugs: No Caffeine use: No Place of Residence: Home Review of Systems General: Fever, Weakness, Malaise, As per HPI Eyes: Unremarkable Respiratory: Unremarkable Cardiovascular: Unremarkable Genitourinary: Frequency Musculoskeletal: As per HPI Integumentary: As per HPI Neurological: Unremarkable Lymphatics: Unremarkable Physical Examination - Studies Laboratory Data (last 24 hrs) 04/02/21 13:04: PT 12.7 H, INR 1.10, APTT 27.8 04/02/21 13:04: WBC 9.70, Hgb 9.3 L, Hct 29.3 L, Plt Count 180 04/02/21 13:04: Sodium 137, Potassium 4.5, BUN 36 H, Creatinine 1.69 H, Glucose 331 H, Total Bilirubin 0.4, AST 12 L, ALT 20, Alkaline Phosphatase 84, Amylase 39, Lipase 78 Assessment and Plan - Plan COVID: Negative Influenza: Negative CXR: COMPARISON: Chest Pa And Lat (2 Views) dated 10/14/2020; Chest Pa And Lat (2 Views) dated 01/02/2018; CHEST PA AND LAT 2 VIEW dated 01/08/2008 FINDINGS: Lines: None. Lungs: No evidence of edema or pneumonia. Pleural: No significant pleural effusions or pneumothorax. Cardiac: Cardiomegaly. Defibrillator. Sternotomy. Bones: No acute fractures. IMPRESSION: No acute cardiopulmonary disease. CT head: COMPARISON: Head Brain W/Wo Con dated 06/08/2018 TECHNIQUE: All CT scans are performed using dose optimization technique as appropriate and may include automated exposure control or mA/KV adjustment according to patient size. FINDINGS: No intracranial hemorrhage, hydrocephalus or extra-axial fluid collection.No areas of brain edema or evidence of midline shift. Remote right occipital infarct. The paranasal sinuses and mastoids are clear. The calvarium is intact. IMPRESSION: No acute intracranial abnormality. CT Ab/Pelvis: COMPARISON: CT ABD PELVIS W CONTRAST dated 08/26/2011 TECHNIQUE: CT of the abdomen and pelvis was performed. All CT scans are performed using dose optimization technique as appropriate and may include automated exposure control or mA/KV adjustment according to patient size. FINDINGS: Lower chest: Pacemaker. Coronary artery calcifications. Mild cir cumferential thickened distal esophagus. Liver: No acute abnormality or suspicious lesions. Biliary: Cholecystectomy. Stomach: Valery-en-Y gastric bypass. Duodenum: No significant focal abnormality. Pancreas: No significant abnormality. Spleen: No significant abnormality. Adrenal: No suspicious lesions. Kidney/ureter: No hydronephrosis. Bilateral nephrolithiasis. No ureteral calculi identified. Retroperitoneum: No retroperitoneal adenopathy. Vascular: Atherosclerosis Bowel: No significant focal abnormality. Peritoneum: Tubular hypoattenuating structure within the small bowel mesenteries. See image 43, series 201. This is likely postsurgical from prior hernia repair. There were postsurgical changes at this location on the prior CT from 08/26/2011. Bladder: Grossly unremarkable. Reproductive: Mild prostatomegaly. Bones: No acute fracture. Moderate disc height loss at L4-5. IMPRESSION: No acute intra-abdominal or pelvic finding. Nonobstructive bilateral nephrolithiasis. Additional findings as noted above. Physical Exam: GENERAL: Blood pressure improved. Blood pressure around 102/58. Patient had T- max of 100.3 in the ER. Patient appears warm. VITAL SIGNS: Reviewed HEENT: Head is normocephalic and atraumatic. Extraocular muscles are intact. Pupils are equal, round, and reactive to light and accommodation. Nares appeared normal. Mouth is well hydrated and without lesions. Mucous membranes are moist. NECK: Supple. No carotid bruits. No lymphadenopathy or thyromegaly. LUNGS: Clear to auscultation. No crackles or wheezes are heard. HEART: Regular rate and rhythm, no appreciable gallops, rubs, murmurs or extra heart sounds ABDOMEN: Soft, nontender, and nondistended. Positive bowel sounds. No hepatosplenomegaly was noted. EXTREMITIES: Patient with wound to the buttocks region. No significant erythema, exudate noted. Skin appears improved and healing from prior pilonidal cyst removal NEUROLOGIC: The patient is oriented to person, place and time. Strength and sensation are grossly intact. Face is symmetric. SKIN: No edema noted. Patient appears warm. Impression: Fever, fatigue with sepsis suspected bacteremia with history of pilonidal cyst with I&D and prior culture positive for MRSA Diabetes mellitus type 2 with hyperglycemia Hypertension CAD with prior CABG and pacemaker defibrillator Hyperlipidemia Chronic diastolic CHF History of Crohn's GERD Anemia chronic disease Plan: Fever, fatigue with sepsis suspected bacteremia with history of pilonidal cyst with wide excision of cyst and prior culture positive for MRSA: Patient mated for further valuation and treatment. Sepsis was suspected. Etiology unknown at this time. Patient with history of pilonidal cyst and wide excision of cyst. No evidence of cellulitis to the area. Covid test negative. Influenza test negative. Chest x-ray unremarkable. Urinalysis negative. CT abdomen unremarkable. Need to rule out other etiologies. Will obtain blood cultures, urine culture. Will obtain echocardiogram. With his history of MRSA will start IV cefepime and vancomycin. Will consult infectious disease for recommendations. We will continue monitor closely. Continue sepsis protocol. Patient given fluid bolus in the emergency room. Repeat lactic acid. Reassess tomorrow. Diabetes mellitus type 2 with hyperglycemia: Continue Accu-Cheks and sliding scale. Will check hemoglobin A1c. Hold Metformin. Patient also takes Victoza at home. Will need to consider starting Lantus. Hypertension: Continue with losartan and carvedilol. Will decrease dose due to his sepsis and low blood pressure. Parameters in place to hold if blood pressure systolic less than 120. CAD with prior CABG and pacemaker defibrillator: Continue aspirin and Plavix. Chronic CHF: Hold Lasix and Aldactone at this time due to current sepsis. May need to restart once blood pressure improved. Hyperlipidemia: Restart Zocor History of Crohn's: Continue with Plaquenil and mesalamine GERD: Continue Protonix Anemia of chronic disease: We will check iron and B12 studies. Code Status: Full Code DVT prophylaxis: Lovenox Advanced Care Planning-30 minutes: Home at discharge Discharge Plan: Home Plan to discharge in: Greater than 2 days - Advance Directives Does patient have a Living Will: No Does patient have a Durable POA for Healthcare: No - Code Status/Comfort Care Code Status Assessed: Yes (Full code) Time Spent Managing Pts Care (In Minutes): 55
[2021-04-02] MEDS ORDERED: CEFEPIME 1 GM/VIAL ONE (17:10)
[2021-04-02] MEDS ORDERED: NA CHLORIDE 0.9% 100 ML ONE (17:11)
[2021-04-02] MEDS ORDERED: VANCOMYCIN 1 GM in NA CHLORIDE 0.9% 250 ML IVPB SCH (17:49)
[2021-04-02] MEDS ORDERED: ONDANSETRON 4 MG/2 ML VIAL IV PRN (17:49)
[2021-04-02] MEDS: carvediloL 12.5 MG TAB PO SCH (18:00)
[2021-04-02] MEDS ORDERED: VANCOMYCIN 1 GM in NA CHLORIDE 0.9% 250 ML IVPB ONE ×2 (18:00→21:00)
[2021-04-02] MEDS ORDERED: FUROSEMIDE 20 MG/ 2ML VIAL ONE (18:06)
[2021-04-02] MEDS ORDERED: CEFEPIME 1 GM in NA CHLORIDE 0.9% 100 ML IV SCH (21:00)
[2021-04-02] MEDS: NA CHLORIDE 0.9% 1,000 ML IV SCH (21:17)
[2021-04-02] MEDS: ENOXAPARIN 40 MG/0.4 ML SQ SCH (22:53)
[2021-04-02] MEDS: INSULIN -REGULAR HUMAN 50 UNIT/0.5 ML ML SQ SCH (22:54)
[2021-04-02] MEDS: MESALAMINE 400 MG CAPSULE.DR PO SCH (22:55)
--- NOTE | 2021-04-03 00:16 | P.INFCA ---
Sepsis Focused Assessment - Focused Assessment Complete? Sepsis Focused Assessment Completed?: Yes - Sepsis Screen Result Severe Sepsis: Negative Septic Shock: Negative - Evaluation Current stage of sepsis: Resolved - Vital Signs Reviewed: Yes Temperature: 98.4 F Heart rate: 84 Blood Pressure: 109/58 Respiratory Rate: 18 O2 Sat by Pulse Oximetry: 94 - Examination Date exam was performed: 04/03/21 Time exam was performed: 20:00 Heart: Regular rate/rhythm Lungs: Crackles Peripheral pulses: 3+ Normal Peripheral pulse location: Radial Capillary refill: <2 Seconds Skin examination: Normal turgor
[2021-04-03] MEDS: ACETAMINOPHEN 500 MG TAB PO PRN ×4 (00:25→23:49)
[2021-04-03 02:37] VITALS: BMI 43.3
[2021-04-03] MEDS: NA CHLORIDE 0.9% 1,000 ML IV SCH (03:49)
[2021-04-03] MEDS: carvediloL 12.5 MG TAB PO SCH ×2 (05:04→17:35)
[2021-04-03] MEDS ORDERED: FUROSEMIDE 20 MG/ 2ML VIAL IV ONE (05:37)
--- NOTE | 2021-04-03 05:51 | P.PN ---
Subjective Date of Service: 04/03/21 Primary Care Provider: Dr. Boston Chief Complaint: fever Subjective: Other (Improvement. IV fluids held due to his CHF. Patient given Lasix. T-max 102.1) Physical Examination - Vital Signs Temperature: 99.4 F Blood Pressure: 96/60 Pulse: 80 Respirations: 19 Pulse Ox (%): 96 - Studies Laboratory Data (last 24 hrs) 04/02/21 13:04: PT 12.7 H, INR 1.10, APTT 27.8 04/02/21 13:04: WBC 9.70, Hgb 9.3 L, Hct 29.3 L, Plt Count 180 04/02/21 13:04: Sodium 137, Potassium 4.5, BUN 36 H, Creatinine 1.69 H, Glucose 331 H, Total Bilirubin 0.4, AST 12 L, ALT 20, Alkaline Phosphatase 84, Amylase 39, Lipase 78 Assessment & Plan Discharge Plan: Home Plan to discharge in: Greater than 2 days Physician Review Additional Text: COVID: Negative Influenza: Negative CXR: COMPARISON: Chest Pa And Lat (2 Views) dated 10/14/2020; Chest Pa And Lat (2 Views) dated 01/02/2018; CHEST PA AND LAT 2 VIEW dated 01/08/2008 FINDINGS: Lines: None. Lungs: No evidence of edema or pneumonia. Pleural: No significant pleural effusions or pneumothorax. Cardiac: Cardiomegaly. Defibrillator. Sternotomy. Bones: No acute fractures. IMPRESSION: No acute cardiopulmonary disease. CT head: COMPARISON: Head Brain W/Wo Con dated 06/08/2018 TECHNIQUE: All CT scans are performed using dose optimization technique as appropriate and may include automated exposure control or mA/KV adjustment according to patient size. FINDINGS: No intracranial hemorrhage, hydrocephalus or extra-axial fluid collection.No areas of brain edema or evidence of midline shift. Remote right occipital infarct. The paranasal sinuses and mastoids are clear. The calvarium is intact. IMPRESSION: No acute intracranial abnormality. CT Ab/Pelvis: COMPARISON: CT ABD PELVIS W CONTRAST dated 08/26/2011 TECHNIQUE: CT of the abdomen and pelvis was performed. All CT scans are performed using dose optimization technique as appropriate and may include automated exposure control or mA/KV adjustment according to patient size. FINDINGS: Lower chest: Pacemaker. Coronary artery calcifications. Mild circumferential thickened distal esophagus. Liver: No acute abnormality or suspicious lesions. Biliary: Cholecystectomy. Stomach: Valery-en-Y gastric bypass. Duodenum: No significant focal abnormality. Pancreas: No significant abnormality. Spleen: No significant abnormality. Adrenal: No suspicious lesions. Kidney/ureter: No hydronephrosis. Bilateral nephrolithiasis. No ureteral calculi identified. Retroperitoneum: No retroperitoneal adenopathy. Vascular: Atherosclerosis Bowel: No significant focal abnormality. Peritoneum: Tubular hypoattenuating structure within the small bowel mesenteries. See image 43, series 201. This is likely postsurgical from prior hernia repair. There were postsurgical changes at this location on the prior CT from 08/26/2011. Bladder: Grossly unremarkable. Reproductive: Mild prostatomegaly. Bones: No acute fracture. Moderate disc height loss at L4-5. IMPRESSION: No acute intra-abdominal or pelvic finding. Nonobstructive bilateral nephrolithiasis. Additional findings as noted above. Follow up CXR 04/03/2021 COMPARISON: Chest Single View dated 04/02/2021; Chest Pa And Lat (2 Views) dated 10/14/2020; Chest Pa And Lat (2 Views) dated 01/02/2018; CHEST PA AND LAT 2 VIEW dated 01/08/2008 FINDINGS: Lines: None. Lungs: Increased prominence of the pulmonary interstitium. Pleural: No significant pleural effusions or pneumothorax. Cardiac: Cardiomegaly. ICD. Sternotomy. Bones: No acute fractures. IMPRESSION: Interval development of interstitial edema. Physical Exam: GENERAL: T-max 100.1. Vital signs improved. Currently on 2 L per nasal cannula. VITAL SIGNS: Reviewed HEENT: Neck supple LUNGS: Decreased at the bases. Currently on 2 L per nasal cannula HEART: Regular rate and rhythm, no appreciable gallops, rubs, murmurs or extra heart sounds ABDOMEN: Soft, nontender, and nondistended. Positive bowel sounds. No hepatosplenomegaly was noted. EXTREMITIES: Patient with wound to the buttocks region. No significant erythema, exudate noted. Skin appears improved and healing from prior pilonidal cyst removal NEUROLOGIC: The patient is oriented to person, place and time. Strength and sensation are grossly intact. Face is symmetric. SKIN: No edema noted. Patient appears warm. Impression: Fever, fatigue with sepsis suspected bacteremia with history of pilonidal cyst with I&D and prior culture positive for MRSA Diabetes mellitus type 2 with hyperglycemia Hypertension CAD with prior CABG and pacemaker defibrillator Hyperlipidemia Acute on chronic diastolic CHF History of Crohn's GERD Anemia chronic disease with iron and B12 deficiency Acute on chronic renal disease stage II Plan: Fever, fatigue with sepsis suspected bacteremia with history of pilonidal cyst with wide excision of cyst and prior culture positive for MRSA: Patient overall stable. T-max 102.1. Patient currently on vancomycin and cefepime. Still no clear etiology of fever. Lasix was given yesterday after sepsis bolus. Will discontinue IV fluids for now due to his history of CHF. Now with acute on chronic CHF. Continue with his diuretic therapyLasix and Aldactone with parameters in place. I have made adjustments to decrease his blood pressure medication for now. Await echocardiogram. Chest x-ray shows CHF pattern. Await urine, wound, and blood culture results. Infectious disease consulted. Await recommendations. Continue to monitor for now. Diabetes mellitus type 2 with hyperglycemia: Hemoglobin A1c 8.4. Continue Accu- Cheks and sliding scale. Hold Metformin for now due to his acute renal insufficiency. Patient also takes Victoza at home. Will consider Lantus during his hospitalization if blood sugars remain elevated. Hypertension: Blood pressures have been low due to his sepsis. Will restart losartan and carvedilol but adjust dose accordingly due to his low blood pressure. Parameters in place. CAD with prior CABG and pacemaker defibrillator: Continue aspirin 81 mg daily and Plavix 25 mg daily Acute on chronic diastolic CHF: Patient was given sepsis bolus. This caused him to require oxygen. Patient appears overloaded. Patient was given Lasix yesterday. Will hold fluids at this time due to his CHF. Home medications restartedLasix and Aldactone with parameters in place. Hold hydrochlorot hiazide. Continue to wean off oxygen. Will recheck chest x-ray tomorrow. Continue to adjust medication accordingly. Hyperlipidemia: LDL 34. Continue statin medication. History of Crohn's: Patient takes Humira at home. Continue with home medication. Will verify home medication. GERD: Continue Protonix Anemia of chronic disease with iron and B12 deficiency: Restart iron. Continue with vitamin supplementation. Acute on chronic renal disease stage II: We will adjust medication accordingly. Continue with above plan of care. Hold IV fluids for right now Code Status: Full Code DVT prophylaxis: Lovenox Advanced Care Planning-30 minutes: Home at discharge Time Spent Managing Pts Care (In Minutes): 55
[2021-04-03 06:05] LABS: Absolute Lymphocytes (CBC) 1.2 K/uL (0.7-4.9); Basophils % 0.4 % (0-1.3); Hematocrit 28.8 % (39.6-49.0); Lymphocytes % 16.5 % (15.3-44.8); MPV 8.1 fL (7.6-11.3)
[2021-04-03 06:45] LABS: Ferritin 133.2 ng/mL (26-388); Magnesium 2.7 mg/dL (1.8-2.4); Potassium 4.4 mmol/L (3.5-5.1); Thyroid Stimulating Hormone 2.12 uIU/mL (0.360-3.740)
[2021-04-03] MEDS: INSULIN -REGULAR HUMAN 50 UNIT/0.5 ML ML SQ SCH ×4 (07:30→21:11)
--- NOTE | 2021-04-03 07:45 | RAD REPORT ---
EXAM DESCRIPTION: RAD - Chest Single View - 04/03/2021 6:51 am CLINICAL HISTORY: follow up sepsis COMPARISON: Chest Single View dated 04/02/2021; Chest Pa And Lat (2 Views) dated 10/14/2020; Chest Pa And Lat (2 Views) dated 01/02/2018; CHEST PA AND LAT 2 VIEW dated 01/08/2008 FINDINGS: Lines: None. Lungs: Increased prominence of the pulmonary interstitium. Pleural: No significant pleural effusions or pneumothorax. Cardiac: Cardiomegaly. ICD. Sternotomy. Bones: No acute fractures. Other: IMPRESSION: Interval development of interstitial edema.
[2021-04-03] MEDS ORDERED: DOCUSATE NA 100 MG CAP PO PRN (08:15)
[2021-04-03] MEDS: LOSARTAN POTASSIUM 50 MG TABLET PO SCH (09:00)
[2021-04-03] MEDS: SPIRONOLACTONE 25 MG TABLET PO SCH ×2 (09:00→20:44)
[2021-04-03] MEDS ORDERED: CALCIUM CARBONATE PO SCH (09:00)
[2021-04-03] MEDS ORDERED: MESALAMINE 0.375 GM PO SCH (09:00)
[2021-04-03] MEDS ORDERED: HOME MED 1 EA UNK (Magnesium Oxide [Magnesium] 400 MG Tablet) PO SCH (09:00)
[2021-04-03] MEDS ORDERED: HOME MED 1 EA UNK (Multivitamin [Multivitamins] Capsule) PO SCH (09:00)
[2021-04-03] MEDS ORDERED: VITAMIN D3 PO SCH (09:00)
[2021-04-03] MEDS ORDERED: VANCOMYCIN 2 GM in NA CHLORIDE 0.9% 500 ML IVPB SCH (09:00)
[2021-04-03] MEDS ORDERED: HOME MED 1 EA UNK (Vit A/Vit C/Vit E/Zinc/Copper [Preservision Areds Softgel] Capsule) PO SCH (09:00)
[2021-04-03] MEDS: MULTIVITAMIN TAB PO SCH (09:47)
[2021-04-03] MEDS: PANTOPRAZOLE 40MG TABLET PO SCH (09:47)
[2021-04-03] MEDS: FERROUS SULFATE 325 MG TAB PO SCH ×2 (09:47→20:45)
[2021-04-03] MEDS: CLOPIDOGREL 75 MG TABLET PO SCH (09:47)
[2021-04-03] MEDS: MESALAMINE 400 MG CAPSULE.DR PO SCH ×2 (09:47→20:44)
[2021-04-03] MEDS: CYANOCOBALAMIN 1,000 MCG TAB PO SCH (09:47)
[2021-04-03] MEDS: THIAMINE HCL 100 MG TABLET PO SCH (09:47)
[2021-04-03] MEDS: ENOXAPARIN 40 MG/0.4 ML SQ SCH (09:48)
[2021-04-03] MEDS: FOLIC ACID 1 MG TABLET PO SCH (09:48)
[2021-04-03] MEDS: ASPIRIN EC 81 MG TAB PO SCH (09:48)
[2021-04-03] MEDS: TRAMADOL HCL 50 MG TAB PO PRN (10:52)
--- NOTE | 2021-04-03 15:29 | CON ---
Date of Consultation: 04/03/2021 Reason For Service: Perisacral chronic wound. History Of Present Illness: This is a case of a male, known by us since patient has a history of inf ected pilonidal cyst several weeks ago with area left to close by secondary intention. He has been p acking for the last a little bit more than a month. He was seen a few days ago. The area is excelle nt, looking great. It is probably 90% already closed. He has some episodes of fever and the etiolog y of that is unknown. So, they admitted him to the hospital and they asked me to take a look at this wound, make sure it is not the cause of the fever. Past Medical History: Include diabetes, hypertension, hyperlipidemia, coronary artery disease, Crohn disease. Medications: Reviewed. Allergies: CIPRO. Past Surgical History: Cholecystectomy, CABG, excisional biopsy of pilonidal cyst. Infected pilonid al cyst. Social History: He does not smoke. He does not drink alcohol. Review of Systems: Ten-points is otherwise unremarkable. Physical Examination: General: The patient is awake, alert. Abdomen: Soft and depressible. Chest: Clear. Integumentary: The patient's sacral area shows a well-healing wound and is about 90% closed. Excell ent granulation tissue. No cellulitis present. No fluctuance. No crepitus. Extremities: Good capillary refill. Laboratory Data: WBC count is 7, hemoglobin of 8.9, INR is 1.1, and chloride is 111. Assessment: A 71-year-old patient with history of fever, but the area of the previous bilateral cyst looks intact. He is about 90% healed, at this moment healing good and solid granulation tissue form ing. No fluctuance. No crepitus. I encouraged the primary doctor to continue the search for any ot her etiologies of the fever. When he gets discharged, [facility] since we see him every week. NATY/WILFRED Voice ID: [id number] Report ID: [id number]
[2021-04-03] MEDS ORDERED: CEFEPIME 1 GM in NA CHLORIDE 0.9% 100 ML IV SCH (17:00)
[2021-04-03] MEDS: VANCOMYCIN 2 GM in NA CHLORIDE 0.9% 500 ML IVPB SCH (20:42)
[2021-04-03] MEDS: ATORVASTATIN 10 MG TAB PO SCH (20:45)
[2021-04-03] MEDS ORDERED: OCUVITE (VIT A,C & E/LUTEIN/MINERAL) TABLET PO SCH (21:00)
[2021-04-04] MEDS: carvediloL 12.5 MG TAB PO SCH ×2 (06:00→17:03)
[2021-04-04] MEDS: ACETAMINOPHEN 500 MG TAB PO PRN (06:04)
[2021-04-04 06:31] LABS: Basophils % 0.6 % (0-1.3); Hematocrit 27.5 % (39.6-49.0); Lymphocytes % 19.1 % (15.3-44.8); MPV 8.6 fL (7.6-11.3); RBC Red Blood Cell Count 3.39 M/uL (4.33-5.43)
--- NOTE | 2021-04-04 06:33 | P.PN ---
Subjective Date of Service: 04/04/21 Primary Care Provider: Dr. Boston Chief Complaint: fever Subjective: Improving Physical Examination - Vital Signs Temperature: 100.2 F Blood Pressure: 119/70 Pulse: 95 Respirations: 19 Pulse Ox (%): 97 Assessment & Plan Discharge Plan: Home Plan to discharge in: 48 Hours Physician Review Additional Text: COVID: Negative Influenza: Negative CXR: COMPARISON: Chest Pa And Lat (2 Views) dated 10/14/2020; Chest Pa And Lat (2 Views) dated 01/02/2018; CHEST PA AND LAT 2 VIEW dated 01/08/2008 FINDINGS: Lines: None. Lungs: No evidence of edema or pneumonia. Pleural: No significant pleural effusions or pneumothorax. Cardiac: Cardiomegaly. Defibrillator. Sternotomy. Bones: No acute fractures. IMPRESSION: No acute cardiopulmonary disease. CT head: COMPARISON: Head Brain W/Wo Con dated 06/08/2018 TECHNIQUE: All CT scans are performed using dose optimization technique as appropriate and may include automated exposure control or mA/KV adjustment according to patient size. FINDINGS: No intracranial hemorrhage, hydrocephalus or extra-axial fluid collection.No areas of brain edema or evidence of midline shift. Remote right occipital infarct. The paranasal sinuses and mastoids are clear. The calvarium is intact. IMPRESSION: No acute intracranial abnormality. CT Ab/Pelvis: COMPARISON: CT ABD PELVIS W CONTRAST dated 08/26/2011 TECHNIQUE: CT of the abdomen and pelvis was performed. All CT scans are performed using dose optimization technique as appropriate and may include automated exposure control or mA/KV adjustment according to patient size. FINDINGS: Lower chest: Pacemaker. Coronary artery calcifications. Mild circumferential thickened distal esophagus. Liver: No acute abnormality or suspicious lesions. Biliary: Cholecystectomy. Stomach: Valery-en-Y gastric bypass. Duodenum: No significant focal abnormality. Pancreas: No significant abnormality. Spleen: No significant abnormality. Adrenal: No suspicious lesions. Kidney/ureter: No hydronephrosis. Bilateral nephrolithiasis. No ureteral calculi identified. Retroperitoneum: No retroperitoneal adenopathy. Vascular: Atherosclerosis Bowel: No significant focal abnormality. Peritoneum: Tubular hypoattenuating structure within the small bowel mesenteri es. See image 43, series 201. This is likely postsurgical from prior hernia repair. There were postsurgical changes at this location on the prior CT from 08/26/2011. Bladder: Grossly unremarkable. Reproductive: Mild prostatomegaly. Bones: No acute fracture. Moderate disc height loss at L4-5. IMPRESSION: No acute intra-abdominal or pelvic finding. Nonobstructive bilateral nephrolithiasis. Additional findings as noted above. Follow up CXR 04/03/2021 COMPARISON: Chest Single View dated 04/02/2021; Chest Pa And Lat (2 Views) dated 10/14/2020; Chest Pa And Lat (2 Views) dated 01/02/2018; CHEST PA AND LAT 2 VIEW dated 01/08/2008 FINDINGS: Lines: None. Lungs: Increased prominence of the pulmonary interstitium. Pleural: No significant pleural effusions or pneumothorax. Cardiac: Cardiomegaly. ICD. Sternotomy. Bones: No acute fractures. IMPRESSION: Interval development of interstitial edema. Follow up CXR 04/04/21: COMPARISON: April 03 TECHNIQUE: AP portable chest image was obtained 04/04/2021 8:10 am . FINDINGS: No new mass or consolidation. Interstitial markings remain prominent but improved. Alveolar opacities show complete or near complete resolution as well. Cardiac silhouette is enlarged but improved. Upper lobe vasculature has decreased in prominence. Trachea is midline. Defibrillator is in place. No new tube or line. No measurable pleural effusion and no pneumothorax. No acute bony abnormality seen. No acute aortic findings suspected. IMPRESSION: The edema/ CHF pattern has shown substantial improvement from April 03. Physical Exam: GENERAL: T-max 100.4. Vital signs improved. Currently on 2 L per nasal cannula. VITAL SIGNS: Reviewed HEENT: Neck supple LUNGS: Breath sounds improved. Currently on 2 L per nasal cannula HEART: Regular rate and rhythm, no appreciable gallops, rubs, murmurs or extra heart sounds ABDOMEN: Soft, nontender, and nondistended. Positive bowel sounds. No hepatosplenomegaly was noted. EXTREMITIES: Patient with wound to the buttocks region. No erythema noted the other day. Surgery evaluated this yesterday. NEUROLOGIC: The patient is oriented to person, place and time. Strength and sensation are grossly intact. Face is symmetric. SKIN: No edema noted. Patient appears warm. Impression: Fever, fatigue with sepsis with no clear etiology suspect bacteremia with noted history of pilonidal cyst with I&D and prior culture positive for MRSA Diabetes mellitus type 2 with hyperglycemia Hypertension CAD with prior CABG and pacemaker defibrillator Hyperlipidemia Acute on chronic diastolic CHF History of Crohn's GERD Anemia chronic disease with iron and B12 deficiency Acute on chronic renal disease stage II Plan: Fever, fatigue with sepsis no clear etiology suspect bacteremia with noted history of pilonidal cyst with wide excision of cyst and prior culture positive for MRSA: Patient improved. Fever improved. Patient remains on IV vancomycin and cefepime. No clear etiology for fever. Blood culture still negative. Case discussed at length with surgery yesterday who evaluated wound. Surgery believes this is not the source of his infection. Covid negative. Influenza test negative. Initial chest x-ray did not reveal any evidence of pneumonia. Urinalysis unremarkable. CT abdomen pelvisnegative. Continue with current treatment at this time. Await blood culture results and echocardiogram. Infectious disease consulted. Await recommendations by infectious disease. Patient remains on medicine for treatment of his CHF. I will turn to service over to the hospitalist team tomorrow. I will go over the plan of care with him. Diabetes mellitus type 2 with hyperglycemia: Hemoglobin A1c 8.4. Continue Accu- Cheks and sliding scale. Restart Metformin. Patient also takes Victoza at home. Will consider Lantus during his hospitalization if blood sugars remain elevated. Hypertension: Blood pressures have been low due to his sepsis. Continue losartan 12.5 mg daily and carvedilol 12.5 mg twice daily but doses adjusted accordingly due to his low blood pressure. Parameters in place. CAD with prior CABG and pacemaker defibrillator: Continue aspirin 81 mg daily and Plavix 25 mg daily Acute on chronic diastolic CHF: Patient was overloaded after sepsis bolus. IV fluids discontinued yesterday. Continue with home medicationLasix 20 mg daily and Aldactone 25 mg twice daily. Continue to hold hydrochlorothiazide. CXR shows improvement. Continue to wean off oxygen. Echocardiogram to be obtained. Recheck chest x-ray tomorrow. Will provide incentive spirometer. Hyperlipidemia: LDL 34. Continue statin medication-Lipitor 10 mg daily. History of Crohn's: Patient takes Humira at home. HOLD Methotrexate. Will verify home medication. GERD: Continue Protonix 40 mg daily. Anemia of chronic disease with iron and B12 deficiency: Continue iron 325 mg twice daily and Vitamin B12 daily. Continue with vitamin supplementation. Acute on chronic renal disease stage II: Renal function improved. IV fluids discontinued. Continue to monitor and adjust medication. Code Status: Full Code DVT prophylaxis: Lovenox Advanced Care Planning-30 minutes: Home at discharge Time Spent Managing Pts Care (In Minutes): 55
[2021-04-04 06:41] LABS: Magnesium 2.3 mg/dL (1.8-2.4); Potassium 4.1 mmol/L (3.5-5.1)
[2021-04-04] MEDS: INSULIN -REGULAR HUMAN 50 UNIT/0.5 ML ML SQ SCH ×4 (07:30→21:46)
--- NOTE | 2021-04-04 08:29 | RAD REPORT ---
EXAM DESCRIPTION: RAD - Chest Single View - 04/04/2021 8:10 am CLINICAL HISTORY: CHF COMPARISON: April 03 TECHNIQUE: AP portable chest image was obtained 04/04/2021 8:10 am . FINDINGS: No new mass or consolidation. Interstitial markings remain prominent but improved. Alveola r opacities show complete or near complete resolution as well. Cardiac silhouette is enlarged but improved. Upper lobe vasculature has decreased in prominence. Trac hea is midline. Defibrillator is in place. No new tube or line. No measurable pleural effusion and no pneumothorax. No acute bony abnormality seen. No acute aortic findings suspected. IMPRESSION: The edema/ CHF pattern has shown substantial improvement from April 03.
[2021-04-04] MEDS: THIAMINE HCL 100 MG TABLET PO SCH (09:00)
[2021-04-04] MEDS: MULTIVITAMIN TAB PO SCH (09:00)
[2021-04-04] MEDS ORDERED: MESALAMINE 0.375 GM PO SCH (09:00)
[2021-04-04] MEDS ORDERED: [UNRECOGNIZED DRUG - OTHER] OPTH SCH (09:00)
[2021-04-04] MEDS ORDERED: VANCOMYCIN 2 GM in NA CHLORIDE 0.9% 500 ML IVPB SCH (09:00)
[2021-04-04] MEDS: LOSARTAN POTASSIUM 50 MG TABLET PO SCH (09:00)
[2021-04-04] MEDS ORDERED: MAGNESIUM OXIDE 400 MG TAB PO SCH (09:00)
[2021-04-04] MEDS ORDERED: MULTIVITAMIN TAB PO SCH (09:00)
[2021-04-04] MEDS: ENOXAPARIN 40 MG/0.4 ML SQ SCH (09:00)
[2021-04-04] MEDS: CALCIUM CARB 500MG/VIT D 200 IU TAB PO SCH (09:00)
[2021-04-04] MEDS: FERROUS SULFATE 325 MG TAB PO SCH ×2 (09:57→21:43)
[2021-04-04] MEDS: PANTOPRAZOLE 40MG TABLET PO SCH (09:57)
[2021-04-04] MEDS: CYANOCOBALAMIN 1,000 MCG TAB PO SCH (09:57)
[2021-04-04] MEDS: TRAMADOL HCL 50 MG TAB PO PRN (09:57)
[2021-04-04] MEDS: CLOPIDOGREL 75 MG TABLET PO SCH (09:57)
[2021-04-04] MEDS: FOLIC ACID 1 MG TABLET PO SCH (09:57)
[2021-04-04] MEDS: [UNRECOGNIZED DRUG - OTHER] PO SCH ×2 (09:58→21:54)
[2021-04-04] MEDS: SPIRONOLACTONE 25 MG TABLET PO SCH ×2 (09:58→21:43)
[2021-04-04] MEDS: ASPIRIN EC 81 MG TAB PO SCH (09:58)
[2021-04-04] MEDS: MESALAMINE 1.2 GM PO SCH ×2 (09:59→21:54)
[2021-04-04] MEDS: HYDROCODONE/APAP 5/325 MG TAB PO PRN (11:43)
[2021-04-04] MEDS: Meropenem 1 GM/100 ML BAG IV SCH (11:43)
[2021-04-04] MEDS: FUROSEMIDE 20 MG TABLET PO SCH (11:43)
--- NOTE | 2021-04-04 13:30 | CON ---
Reason For Consultation: Fevers of unknown origin. History Of Present Illness: Patient is a 71-year-old male with significant history of a pilonidal cy st which is being followed by surgical team. The patient's wound is improving. He came in with feve r and dizziness and fall which he believed that happened because he got up from his lying position ca using him to feel dizzy and falling down, which initiated discomfort to his lower back. The patient denies any headache, nausea, vomiting, chest pain, abdominal pain, constipation, or diarrhea. No cherise rtness of breath. Had some burning urination yesterday but which has resolved already. Patient also has noted increased frequency of urination T-max of 103. Patient was started on IV antibiotic, vanc omycin and cefepime. Past Medical History: Pilonidal cyst, diabetes mellitus, morbid obesity, hypertension, coronary javier ry disease with CABG, Crohn disease, pacemaker with defibrillator, hyperlipidemia, gastroesophageal r eflux disease, anemia of chronic disease, cholecystectomy. Social History: Nonsmoker, nondrinker. Family History: Noncontributory. Medications: Vancomycin, cefepime. See MAR for other medications. Allergies: CIPRO, CODEINE, PAPER TAPE. Review of Systems: A 10-point review was performed. Physical Examination: General: This is a 71-year-old male, sitting in the easy chair, not in any acute cardiopulmonary dis tress. Vital Signs: T-max of 100.2, pulse 95, respirations 18, blood pressure 119/70. HEENT: Unremarkable. Neck: Supple. Lungs: Clear to auscultation. Heart: S1, S2. Regular. Abdomen: Soft. Bowel sounds present. Extremity: No edema. Tenderness noted in the lower back region and pilonidal cyst, which has good g ranulation tissue. No foul odor noted. Packing gauze had no excessive secretions. Laboratory Data: Shows WBC 5, hemoglobin 8.6, platelets 161. Chemistry shows sodium 140, potassium 4.1, chloride 108, bicarb 22, BUN 19, creatinine 1.01, glucose is 192. Urinalysis shows less than 5 WBC. Micro data blood cultures no growth for 24 hours. Wound sacral cultures from the pilonidal cys t growing 2+ coag positive, most likely colonization. Assessment And Plan: A 71-year-old male with fevers of unknown etiology, possible viral versus bacte rial, as patient's procalcitonin was high at 4.07 today, down from 5.82 and also his lactic acid leve l was high, possible incidental bacterial infection with negative blood cultures. We will continue e mpiric antibiotic. Recommend to switch cefepime to meropenem. Continue vancomycin while cultures ar e still growing multiple medical problems as described in the history and physical. Prognosis guarde d. We will follow the patient closely. No other recommendation at this time other than switching ce fepime to meropenem. We will follow. Thank you Dr. Arenas for consult. NF/MODL Voice ID: [id number] Report ID: [id number]
[2021-04-04 18:21] VITALS: O2SAT 98
[2021-04-04] MEDS ORDERED: HOME MED 1 EA UNK (Metformin Hcl [Glucophage] 1,000 MG Tablet) PO SCH (21:00)
[2021-04-04] MEDS: ATORVASTATIN 10 MG TAB PO SCH (21:43)
[2021-04-04] MEDS: METFORMIN HCL 500 MG TAB PO SCH (21:43)
[2021-04-04] MEDS: LATANOPROST 0.005% OPTH SCH (21:55)
[2021-04-04] MEDS: VANCOMYCIN 2 GM in NA CHLORIDE 0.9% 500 ML IVPB SCH (21:56)
[2021-04-04] MEDS ORDERED: NA CHLORIDE 0.9% 0 ML ONE (22:03)
[2021-04-05] MEDS: Meropenem 1 GM/100 ML BAG IV SCH ×2 (00:55→11:39)
[2021-04-05 04:07] LABS: Absolute Lymphocytes (CBC) 1.5 K/uL (0.7-4.9); Basophils % 0.4 % (0-1.3); Hematocrit 24.9 % (39.6-49.0); Lymphocytes % 29.7 % (15.3-44.8); MPV 8.3 fL (7.6-11.3); RBC Red Blood Cell Count 3.08 M/uL (4.33-5.43)
[2021-04-05 04:25] LABS: Potassium 3.9 mmol/L (3.5-5.1)
[2021-04-05] MEDS: carvediloL 12.5 MG TAB PO SCH ×2 (06:00→17:06)
--- NOTE | 2021-04-05 07:46 | RAD REPORT ---
EXAM DESCRIPTION: [place] Single View04/05/2021 6:04 am CLINICAL HISTORY: Shortness of breath COMPARISON: April 04 FINDINGS: The lungs appear clear of acute infiltrate. The heart remains enlarged. Postsurgical farmer ges involve the chest. Pacemaker lead in place IMPRESSION: Interstitial pulmonary edema appears resolved
[2021-04-05] MEDS: INSULIN -REGULAR HUMAN 50 UNIT/0.5 ML ML SQ SCH ×4 (08:11→21:54)
[2021-04-05] MEDS: CYANOCOBALAMIN 1,000 MCG TAB PO SCH (08:11)
[2021-04-05] MEDS: FERROUS SULFATE 325 MG TAB PO SCH ×2 (08:12→21:50)
[2021-04-05] MEDS: SPIRONOLACTONE 25 MG TABLET PO SCH ×2 (08:12→21:49)
[2021-04-05] MEDS: FOLIC ACID 1 MG TABLET PO SCH (08:12)
[2021-04-05] MEDS: ASPIRIN EC 81 MG TAB PO SCH (08:12)
[2021-04-05] MEDS: CALCIUM CARB 500MG/VIT D 200 IU TAB PO SCH (08:12)
[2021-04-05] MEDS: THIAMINE HCL 100 MG TABLET PO SCH (08:12)
[2021-04-05] MEDS: MULTIVITAMIN TAB PO SCH (08:12)
[2021-04-05] MEDS: METFORMIN HCL 500 MG TAB PO SCH ×2 (08:12→21:50)
[2021-04-05] MEDS: CLOPIDOGREL 75 MG TABLET PO SCH (08:13)
[2021-04-05] MEDS: PANTOPRAZOLE 40MG TABLET PO SCH (08:13)
[2021-04-05] MEDS: FUROSEMIDE 20 MG TABLET PO SCH (08:13)
[2021-04-05] MEDS: MESALAMINE 1.2 GM PO SCH ×2 (08:16→21:51)
[2021-04-05] MEDS: MAGNESIUM 500 MG PO SCH (08:16)
[2021-04-05] MEDS: LOSARTAN POTASSIUM 25 MG TABLET PO SCH (08:16)
[2021-04-05] MEDS: [UNRECOGNIZED DRUG - OTHER] PO SCH ×2 (08:17→21:53)
[2021-04-05] MEDS: ENOXAPARIN 40 MG/0.4 ML SQ SCH (08:19)
[2021-04-05] MEDS ORDERED: FUROSEMIDE 20 MG TABLET PO SCH (09:00)
[2021-04-05] MEDS ORDERED: POTASSIUM CL SA 10 MEQ TAB PO ONE ×2 (09:00)
--- NOTE | 2021-04-05 11:59 | P.PN ---
Subjective Date of Service: 04/05/21 Primary Care Provider: Dr. Boston Chief Complaint: fever Patient seen examined at bedside, doing well with no acute complaints. Tolerating antibiotics well with no nausea/vomiting/diarrhea. Review of Systems 10-point ROS is otherwise unremarkable Physical Examination - Vital Signs Temperature: 97.9 F Blood Pressure: 113/63 Pulse: 82 Respirations: 16 Pulse Ox (%): 95 - Physical Exam General: Alert, In no apparent distress HEENT: Atraumatic Neck: Supple, JVD not distended Respiratory: Clear to auscultation bilaterally, Normal air movement Cardiovascular: Regular rate/rhythm Gastrointestinal: Normal bowel sounds, Soft and benign Integumentary: Other (Sacral wound status post removal of pilonidial cyst in January of this year.) Assessment And Plan - Plan Antibiotics: Vancomycin Start: 04/03 Assessment/plan Fever of unknown origin Patient had fever on admission. Was empirically placed on vancomycin and cefepime, cefepime was Dc discontinued in meropenem was started. However patient has been afebrile since 04/03, and as such Merrem has been discontinued. Continue monotherapy with vancomycin. Blood culture showed no growth. Wound cultures growing MRSA. Possible source of infection include: Sacral wound status post pilonidial cyst removal versus CHF exacerbation/pulmonary edema. Sacral wound not likely source of infection as area is clean dry and intact with no clinical signs infection. No drainage or odor noted. However wound cultures are growing MRSA. Interstitial pulmonary edema since resolved on repeat imaging. WBC within normal range, procalcitonin down trending. If patient continues to improve clinically, can be sent home on oral doxycycline for antibiotic duration of 7-10 days. Diabetes Hemoglobin A1c of 8.4%. Strict glucose monitoring needed for proper wound healing and infection control. Anemia Continue to monitor H&H CAD -medical management per primary team -plan of care discussed with Dr. Reddy -thank you for consultation Physician Review Additional Text: COVID: Negative Influenza: Negative CXR: COMPARISON: Chest Pa And Lat (2 Views) dated 10/14/2020; Chest Pa And Lat (2 Views) dated 01/02/2018; CHEST PA AND LAT 2 VIEW dated 01/08/2008 FINDINGS: Lines: None. Lungs: No evidence of edema or pneumonia. Pleural: No significant pleural effusions or pneumothorax. Cardiac: Cardiomegaly. Defibrillator. Sternotomy. Bones: No acute fractures. IMPRESSION: No acute cardiopulmonary disease. CT head: COMPARISON: Head Brain W/Wo Con dated 06/08/2018 TECHNIQUE: All CT scans are performed using dose optimization technique as appropriate and may include automated exposure control or mA/KV adjustment according to patient size. FINDINGS: No intracranial hemorrhage, hydrocephalus or extra-axial fluid collection.No areas of brain edema or evidence of midline shift. Remote right occipital infarct. The paranasal sinuses and mastoids are clear. The calvarium is intact. IMPRESSION: No acute intracranial abnormality. CT Ab/Pelvis: COMPARISON: CT ABD PELVIS W CONTRAST dated 08/26/2011 TECHNIQUE: CT of the abdomen and pelvis was performed. All CT scans are performed using dose optimization technique as appropriate and may include automated exposure control or mA/KV adjustment according to patient size. FINDINGS: Lower chest: Pacemaker. Coronary artery calcifications. Mild circumferential thickened distal esophagus. Liver: No acute abnormality or suspicious lesions. Biliary: Cholecystectomy. Stomach: Valery-en-Y gastric bypass. Duodenum: No significant focal abnormality. Pancreas: No significant abnormality. Spleen: No significant abnormality. Adrenal: No suspicious lesions. Kidney/ureter: No hydronephrosis. Bilateral nephrolithiasis. No ureteral calculi identified. Retroperitoneum: No retroperitoneal adenopathy. Vascular: Atherosclerosis Bowel: No significant focal abnormality. Peritoneum: Tubular hypoattenuating structure within the small bowel mesenteries. See image 43, series 201. This is likely postsurgical from prior hernia repair. There were postsurgical changes at this location on the prior CT from 08/26/2011. Bladder: Grossly unremarkable. Reproductive: Mild prostatomegaly. Bones: No acute fracture. Moderate disc height loss at L4-5. IMPRESSION: No acute intra-abdominal or pelvic finding. Nonobstructive bilateral nephrolithiasis. Additional findings as noted above. Follow up CXR 04/03/2021 COMPARISON: Chest Single View dated 04/02/2021; Chest Pa And Lat (2 Views) dated 10/14/2020; Chest Pa And Lat (2 Views) dated 01/02/2018; CHEST PA AND LAT 2 VIEW dated 01/08/2008 FINDINGS: Lines: None. Lungs: Increased prominence of the pulmonary interstitium. Pleural: No significant pleural effusions or pneumothorax. Cardiac: Cardiomegaly. ICD. Sternotomy. Bones: No acute fractures. IMPRESSION: Interval development of interstitial edema. Follow up CXR 04/04/21: COMPARISON: April 03 TECHNIQUE: AP portable chest image was obtained 04/04/2021 8:10 am . FINDINGS: No new mass or consolidation. Interstitial markings remain prominent but improved. Alveolar opacities show complete or near complete resolution as well. Cardiac silhouette is enlarged but improved. Upper lobe vasculature has decreas ed in prominence. Trachea is midline. Defibrillator is in place. No new tube or line. No measurable pleural effusion and no pneumothorax. No acute bony abnormality seen. No acute aortic findings suspected. IMPRESSION: The edema/ CHF pattern has shown substantial improvement from April 03. Physical Exam: GENERAL: T-max 100.4. Vital signs improved. Currently on 2 L per nasal cannula. VITAL SIGNS: Reviewed HEENT: Neck supple LUNGS: Breath sounds improved. Currently on 2 L per nasal cannula HEART: Regular rate and rhythm, no appreciable gallops, rubs, murmurs or extra heart sounds ABDOMEN: Soft, nontender, and nondistended. Positive bowel sounds. No hepatosplenomegaly was noted. EXTREMITIES: Patient with wound to the buttocks region. No erythema noted the other day. Surgery evaluated this yesterday. NEUROLOGIC: The patient is oriented to person, place and time. Strength and sensation are grossly intact. Face is symmetric. SKIN: No edema noted. Patient appears warm. Impression: Fever, fatigue with sepsis with no clear etiology suspect bacteremia with noted history of pilonidal cyst with I&D and prior culture positive for MRSA Diabetes mellitus type 2 with hyperglycemia Hypertension CAD with prior CABG and pacemaker defibrillator Hyperlipidemia Acute on chronic diastolic CHF History of Crohn's GERD Anemia chronic disease with iron and B12 deficiency Acute on chronic renal disease stage II Plan: Fever, fatigue with sepsis no clear etiology suspect bacteremia with noted hist ory of pilonidal cyst with wide excision of cyst and prior culture positive for MRSA: Patient improved. Fever improved. Patient remains on IV vancomycin and cefepime. No clear etiology for fever. Blood culture still negative. Case discussed at length with surgery yesterday who evaluated wound. Surgery believes this is not the source of his infection. Covid negative. Influenza t est negative. Initial chest x-ray did not reveal any evidence of pneumonia. Urinalysis unremarkable. CT abdomen pelvisnegative. Continue with current treatment at this time. Await blood culture results and echocardiogram. Infectious disease consulted. Await recommendations by infectious disease. Patient remains on medicine for treatment of his CHF. I will turn to service over to the hospitalist team tomorrow. I will go over the plan of care with him. Diabetes mellitus type 2 with hyperglycemia: Hemoglobin A1c 8.4. Continue Accu- Cheks and sliding scale. Restart Metformin. Patient also takes Victoza at home. Will consider Lantus during his hospitalization if blood sugars remain elevated. Hypertension: Blood pressures have been low due to his sepsis. Continue losartan 12.5 mg daily and carvedilol 12.5 mg twice daily but doses adjusted accordingly due to his low blood pressure. Parameters in place. CAD with prior CABG and pacemaker defibrillator: Continue aspirin 81 mg daily and Plavix 25 mg daily Acute on chronic diastolic CHF: Patient was overloaded after sepsis bolus. IV fluids discontinued yesterday. Continue with home medicationLasix 20 mg daily and Aldactone 25 mg twice daily. Continue to hold hydrochlorothiazide. CXR shows improvement. Continue to wean off oxygen. Echocardiogram to be obtained. Recheck chest x-ray tomorrow. Will provide incentive spirometer. Hyperlipidemia: LDL 34. Continue statin medication-Lipitor 10 mg daily. History of Crohn's: Patient takes Humira at home. HOLD Methotrexate. Will verify home medication. GERD: Continue Protonix 40 mg daily. Anemia of chronic disease with iron and B12 deficiency: Continue iron 325 mg twice daily and Vitamin B12 daily. Continue with vitamin supplementation. Acute on chronic renal disease stage II: Renal function improved. IV fluids discontinued. Continue to monitor and adjust medication. Code Status: Full Code DVT prophylaxis: Lovenox Advanced Care Planning-30 minutes: Home at discharge
--- NOTE | 2021-04-05 13:56 | ECHO ---
HEIGHT: 5 ft 3 in WEIGHT: 244 lb 11.41 oz DATE OF STUDY: 04/05/[address]: Marcell Arenas DO 2-DIMENSIONAL: YES M.MODE: YES DOPPLER: YES COLOR FLOW: YES TDS: NO PORTABLE: NO DEFINITY: NO BUBBLE STUDY: NO DIAGNOSIS: BACTEREMIA CARDIAC HISTORY: CATHERIZATION: SURGERY: PROSTHETIC VALVE: PACEMAKER: MEASUREMENTS (cm) DIASTOLIC (NORMALS) SYSTOLIC (NORMALS) IVSd (0.6-1.2) LA Diam (1.9-4.0) LVEF 55% LVIDd (3.5-5.7) LVIDs (2.0-3.5) %FS % LVPWd (0.6-1.2) Ao Diam 3.2 (2.0-3.7) 2 DIMENSIONAL ASSESSMENT: RIGHT ATRIUM: NORMAL LEFT ATRIUM: NORMAL RIGHT VENTRICLE: NORMAL LEFT VENTRICLE: NORMAL TRICUSPID VALVE: NORMAL MITRAL VALVE: TRACE OF MITRAL REGURGITATION PULMONIC VALVE: NORMAL AORTIC VALVE: TRACE OF AORTIC REGURGITATION PERICARDIAL EFFUSION: NONE AORTIC ROOT: NORMAL. LEFT VENTRICULAR WALL MOTION: NORMAL. DOPPLER/COLOR FLOW: SEE BELOW. COMMENTS: LEFT VENTRICULAR EJECTION FRACTION APPEARS NORMAL WITH 55%. POOR WINDOWS. NO CLEAR VEGETATION IS SSEEN BUT (POOR QUALITY ECHO) RECOMMEND TRANSESOPHAGEAL ECHOCARDIOGRAM IF CLINICALLY INDICATED. TECHNOLOGIST: MIKE MIKE
[2021-04-05] MEDS: VANCOMYCIN 2 GM in NA CHLORIDE 0.9% 500 ML IVPB SCH (21:00)
[2021-04-05] MEDS: JUVEN PACKET PO SCH (21:00)
[2021-04-05] MEDS: LATANOPROST 0.005% OPTH SCH (21:50)
[2021-04-05] MEDS: ATORVASTATIN 10 MG TAB PO SCH (21:50)
[2021-04-05] MEDS: HYDROCODONE/APAP 5/325 MG TAB PO PRN (23:00)
[2021-04-06] MEDS: carvediloL 12.5 MG TAB PO SCH (06:00)
[2021-04-06] MEDS: JUVEN PACKET PO SCH (09:00)
[2021-04-06] MEDS: LOSARTAN POTASSIUM 25 MG TABLET PO SCH (09:00)
[2021-04-06] MEDS: INSULIN -REGULAR HUMAN 50 UNIT/0.5 ML ML SQ SCH ×3 (09:56→16:38)
[2021-04-06] MEDS: CLOPIDOGREL 75 MG TABLET PO SCH (09:57)
[2021-04-06] MEDS: SPIRONOLACTONE 25 MG TABLET PO SCH (09:57)
[2021-04-06] MEDS: FOLIC ACID 1 MG TABLET PO SCH (09:57)
[2021-04-06] MEDS: CALCIUM CARB 500MG/VIT D 200 IU TAB PO SCH (09:57)
[2021-04-06] MEDS: ASPIRIN EC 81 MG TAB PO SCH (09:58)
[2021-04-06] MEDS: FUROSEMIDE 20 MG TABLET PO SCH (09:58)
[2021-04-06] MEDS: MULTIVITAMIN TAB PO SCH (09:58)
[2021-04-06] MEDS: FERROUS SULFATE 325 MG TAB PO SCH (09:58)
[2021-04-06] MEDS: CYANOCOBALAMIN 1,000 MCG TAB PO SCH (09:58)
[2021-04-06] MEDS: PANTOPRAZOLE 40MG TABLET PO SCH (09:58)
[2021-04-06] MEDS: THIAMINE HCL 100 MG TABLET PO SCH (09:58)
[2021-04-06] MEDS: ENOXAPARIN 40 MG/0.4 ML SQ SCH (10:06)
[2021-04-06] MEDS: METFORMIN HCL 500 MG TAB PO SCH (10:06)
[2021-04-06] MEDS: MESALAMINE 1.2 GM PO SCH (10:06)
[2021-04-06] MEDS: [UNRECOGNIZED DRUG - OTHER] PO SCH (10:07)
[2021-04-06] MEDS: MAGNESIUM 500 MG PO SCH (10:07)
--- NOTE | 2021-04-06 11:22 | P.PN ---
Subjective Date of Service: 04/06/21 Primary Care Provider: Dr. Boston Chief Complaint: fever Patient seen examined at bedside, clinically improving. Will Dc IV vancomycin and switched to oral Bactrim double-strength tabs b.i.d.. Review of Systems 10-point ROS is otherwise unremarkable Physical Examination - Vital Signs Temperature: 96.9 F Blood Pressure: 116/65 Pulse: 75 Respirations: 18 Pulse Ox (%): 98 - Studies Laboratory Last Values WBC 9.70 K/uL (4.3-10.9) 04/02/21 13:04 RBC 3.58 M/uL (4.33-5.43) L 04/02/21 13:04 Hgb 9.3 g/dL (13.6-17.9) L 04/02/21 13:04 Hct 29.3 % (39.6-49.0) L 04/02/21 13:04 MCV 81.8 fL (80-100) D 04/02/21 13:04 MCH 25.8 pg (27.0-35.0) L D 04/02/21 13:04 MCHC 31.6 g/dL (32.0-36.0) L 04/02/21 13:04 RDW 15.6 % (12.1-15.2) H 04/02/21 13:04 Plt Count 180 K/uL (152-406) 04/02/21 13:04 MPV 8.2 fL (7.6-11.3) 04/02/21 13:04 Neutrophils % 88.8 % (41.7-73.7) H 04/02/21 13:04 Lymphocytes % 6.3 % (15.3-44.8) L 04/02/21 13:04 Monocytes % 4.6 % (3.3-12.3) 04/02/21 13:04 Eosinophils % 0.0 % (0-4.4) 04/02/21 13:04 Basophils % 0.3 % (0-1.3) 04/02/21 13:04 Absolute Neutrophils 8.6 K/uL (1.8-8.0) H 04/02/21 13:04 Absolute Lymphocytes 0.6 K/uL (0.7-4.9) L 04/02/21 13:04 Absolute Monocytes 0.4 K/uL (0.1-1.3) 04/02/21 13:04 Absolute Eosinophils 0.0 K/uL (0-0.5) 04/02/21 13:04 Absolute Basophils 0.0 K/uL (0-0.5) 04/02/21 13:04 Platelet Estimate Adeq 04/02/21 13:04 Morphology Comment Not seen (NOT SEEN) 04/02/21 13:04 PT 12.7 SECONDS (9.5-12.5) H 04/02/21 13:04 INR 1.10 04/02/21 13:04 APTT 27.8 SECONDS (24.3-36.9) 04/02/21 13:04 Sodium 137 mmol/L (136-145) 04/02/21 13:04 Potassium 4.5 mmol/L (3.5-5.1) 04/02/21 13:04 Chloride 103 mmol/L (98-107) 04/02/21 13:04 Carbon Dioxide 23 mmol/L (21-32) 04/02/21 13:04 BUN 36 mg/dL (7-18) H 04/02/21 13:04 Creatinine 1.69 mg/dL (0.55-1.3) H 04/02/21 13:04 Estimated GFR 40 mL/min (=/>90) L 04/02/21 13:04 Glucose 331 mg/dL (74-106) H 04/02/21 13:04 POC Glucose 324 mg/dL (65-120) H 04/02/21 13:03 Lactic Acid 4.8 mmol/L (0.4-2.0) H* 04/02/21 13:04 Calcium 8.3 mg/dL (8.5-10.1) L 04/02/21 13:04 Total Bilirubin 0.4 mg/dL (0.2-1.0) 04/02/21 13:04 Direct Bilirubin 0.1 mg/dL (0-0.2) 04/02/21 13:04 AST 12 U/L (15-37) L 04/02/21 13:04 ALT 20 U/L (12-78) 04/02/21 13:04 Alkaline Phosphatase 84 U/L (45-117) 04/02/21 13:04 Creatine Kinase 203 U/L (39-308) 04/02/21 13:04 CK-MB (CK-2) < 1.0 ng/mL (1.0-3.6) L 04/02/21 13:04 Rapid Troponin I < 0.02 ng/mL (0.0-0.045) 04/02/21 13:04 Serum Total Protein 7.4 g/dL (6.4-8.2) 04/02/21 13:04 Albumin 2.7 g/dL (3.4-5.0) L 04/02/21 13:04 Globulin 4.7 g/dL (2.3-3.5) H 04/02/21 13:04 Albumin/Globulin Ratio 0.6 (1.1-1.8) L 04/02/21 13:04 Amylase 39 U/L (25-115) 04/02/21 13:04 Lipase 78 U/L (73-393) 04/02/21 13:04 Procalcitonin 5.82 ng/mL (<0.050) H 04/02/21 13:04 Urine pH 5.5 (5.0-7.0) 04/02/21 12:54 Ur Specific [place] 1.020 (1.005-1.030) 04/02/21 12:54 Glucose (UA)(Auto) 2+ (Negative) H 04/02/21 12:54 Urine Ketones Trace (Negative) H 04/02/21 12:54 Urine Blood Negative (Negative) 04/02/21 12:54 Urine Nitrite Negative (Negative) 04/02/21 12:54 Ur Leukocyte Esterase Negative (Negative) 04/02/21 12:54 Urine RBC <5 /HPF (NONE SEEN) 04/02/21 12:55 Urine WBC <5 /HPF (<5) 04/02/21 12:55 Ur Squamous Epith Cells <5 /HPF (NONE SEEN) 04/02/21 12:55 Urine Bacteria <20 /HPF (NONE SEEN) 04/02/21 12:55 Hyaline Casts >10 /LPF (NONE SEEN) 04/02/21 12:55 Urine Mucus 1+ /HPF (NONE SEEN) 04/02/21 12:55 Urine Culture Reflexed Not needed 04/02/21 12:55 Urine Total Protein 2+ (Negative) H 04/02/21 12:54 Influenza Type A RNA Negative (NEGATIVE) 04/02/21 11:54 Influenza Type B RNA Negative (NEGATIVE) 04/02/21 11:54 SARS-CoV-2 RNA (RT-PCR) Negative (NEGATIVE) 04/02/21 11:54 Smear Scan Ok (OK) 04/02/21 13:04 Assessment And Plan - Plan Physcial Exam: General: Alert, In no apparent distress HEENT: Atraumatic Neck: Supple, JVD not distended Respiratory: Clear to auscultation bilaterally, Normal air movement Cardiovascular: Regular rate/rhythm Gastrointestinal: Normal bowel sounds, Soft and benign Integumentary: Other (Sacral wound status post removal of pilonidial cyst in January of this year.) Antibiotics: Bactrim Start: 04/06 Vancomycin Start: 04/03 Stop: 04/06 Assessment/plan Fever of unknown origin Patient had fever on admission. Was empirically placed on vancomycin and cef epime, then switched to vancomycin and meropenem. Clinically improving, afebrile, no white count. De escalated to oral Bactrim double-strength tablets b.i.d. Recommend completing a 14 day total antimicrobial course. Blood culture showed no growth. Wound cultures growing MRSA. Possible source of infection include: Sacral wound status post pilonidial cyst removal versus CHF exacerbation/pulmonary edema. Sacral wound not likely source of infection as area is clean dry and intact with no clinical signs infection. No drainage or odor noted. However wound cultures are growing MRSA. Interstitial pulmonary edema since resolved on repeat imaging. WBC within normal range, procalcitonin down trending. Diabetes Hemoglobin A1c of 8.4%. Strict glucose monitoring needed for proper wound h ealing and infection control. Anemia Continue to monitor H&H CAD -medical management per primary team -plan of care discussed with Dr. Reddy -thank you for consultation Physician Review Additional Text: COVID: Negative Influenza: Negative CXR: COMPARISON: Chest Pa And Lat (2 Views) dated 10/14/2020; Chest Pa And Lat (2 Views) dated 01/02/2018; CHEST PA AND LAT 2 VIEW dated 01/08/2008 FINDINGS: Lines: None. Lungs: No evidence of edema or pneumonia. Pleural: No significant pleural effusions or pneumothorax. Cardiac: Cardiomegaly. Defibrillator. Sternotomy. Bones: No acute fractures. IMPRESSION: No acute cardiopulmonary disease. CT head: COMPARISON: Head Brain W/Wo Con dated 06/08/2018 TECHNIQUE: All CT scans are performed using dose optimization technique as appropriate and may include automated exposure control or mA/KV adjustment according to patient size. FINDINGS: No intracranial hemorrhage, hydrocephalus or extra-axial fluid collection.No areas of brain edema or evidence of midline shift. Remote right occipital infarct. The paranasal sinuses and mastoids are clear. The calvarium is intact. IMPRESSION: No acute intracranial abnormality. CT Ab/Pelvis: COMPARISON: CT ABD PELVIS W CONTRAST dated 08/26/2011 TECHNIQUE: CT of the abdomen and pelvis was performed. All CT scans are performed using dose optimization technique as appropriate and may include automated exposure control or mA/KV adjustment according to patient size. FINDINGS: Lower chest: Pacemaker. Coronary artery calcifications. Mild circumferential thickened distal esophagus. Liver: No acute abnormality or suspicious lesions. Biliary: Cholecystectomy. Stomach: Valery-en-Y gastric bypass. Duodenum: No significant focal abnormality. Pancreas: No significant abnormality. Spleen: No significant abnormality. Adrenal: No suspicious lesions. Kidney/ureter: No hydronephrosis. Bilateral nephrolithiasis. No ureteral calculi identified. Retroperitoneum: No retroperitoneal adenopathy. Vascular: Atherosclerosis Bowel: No significant focal abnormality. Peritoneum: Tubular hypoattenuating structure within the small bowel mesenteries. See image 43, series 201. This is likely postsurgical from prior hernia repair. There were postsurgical changes at this location on the prior CT from 08/26/2011. Bladder: Grossly unremarkable. Reproductive: Mild prostatomegaly. Bones: No acute fracture. Moderate disc height loss at L4-5. IMPRESSION: No acute intra-abdominal or pelvic finding. Nonobstructive bilateral nephrolithiasis. Additional findings as noted above. Follow up CXR 04/03/2021 COMPARISON: Chest Single View dated 04/02/2021; Chest Pa And Lat (2 Views) dated 10/14/2020; Chest Pa And Lat (2 Views) dated 01/02/2018; CHEST PA AND LAT 2 VIEW dated 01/08/2008 FINDINGS: Lines: None. Lungs: Increased prominence of the pulmonary interstitium. Pleural: No significant pleural effusions or pneumothorax. Cardiac: Cardiomegaly. ICD. Sternotomy. Bones: No acute fractures. IMPRESSION: Interval development of interstitial edema. Follow up CXR 04/04/21: COMPARISON: April 03 TECHNIQUE: AP portable chest image was obtained 04/04/2021 8:10 am . FINDINGS: No new mass or consolidation. Interstitial markings remain prominent but improved. Alveolar opacities show complete or near complete resolution as well. Cardiac silhouette is enlarged but improved. Upper lobe vasculature has decreased in prominence. Trachea is midline. Defibrillator is in place. No new tube or line. No measurable pleural effusion and no pneumothorax. No acute bony abnormality seen. No acute aortic findings suspected. IMPRESSION: The edema/ CHF pattern has shown substantial improvement from April 03. Physical Exam: GENERAL: T-max 100.4. Vital signs improved. Currently on 2 L per nasal cannula. VITAL SIGNS: Reviewed HEENT: Neck supple LUNGS: Breath sounds improved. Currently on 2 L per nasal cannula HEART: Regular rate and rhythm, no appreciable gallops, rubs, murmurs or extra heart sounds ABDOMEN: Soft, nontender, and nondistended. Positive bowel sounds. No hepatosplenomegaly was noted. EXTREMITIES: Patient with wound to the buttocks region. No erythema noted the other day. Surgery evaluated this yesterday. NEUROLOGIC: The patient is oriented to person, place and time. Strength and sensation are grossly intact. Face is symmetric. SKIN: No edema noted. Patient appears warm. Impression: Fever, fatigue with sepsis with no clear etiology suspect bacteremia with noted history of pilonidal cyst with I&D and prior culture positive for MRSA Diabetes mellitus type 2 with hyperglycemia Hypertension CAD with prior CABG and pacemaker defibrillator Hyperlipidemia Acute on chronic diastolic CHF History of Crohn's GERD Anemia chronic disease with iron and B12 deficiency Acute on chronic renal disease stage II Plan: Fever, fatigue with sepsis no clear etiology suspect bacteremia with noted history of pilonidal cyst with wide excision of cyst and prior culture positive for MRSA: Patient improved. Fever improved. Patient remains on IV vancomycin and cefepime. No clear etiology for fever. Blood culture still negative. Case discussed at length with surgery yesterday who evaluated wound. Surgery believes this is not the source of his infection. Covid negative. Influenza test negative. Initial chest x-ray did not reveal any evidence of pneumonia. Urinalysis unremarkable. CT abdomen pelvisnegative. Continue with current treatment at this time. Await blood culture results and echocardiogram. Infectious disease consulted. Await recommendations by infectious disease. Patient remains on medicine for treatment of his CHF. I will turn to service over to the hospitalist team tomorrow. I will go over the plan of care with him. Diabetes mellitus type 2 with hyperglycemia: Hemoglobin A1c 8.4. Continue Accu- Cheks and sliding scale. Restart Metformin. Patient also takes Victoza at home. Will consider Lantus during his hospitalization if blood sugars remain elevated. Hypertension: Blood pressures have been low due to his sepsis. Continue losartan 12.5 mg daily and carvedilol 12.5 mg twice daily but doses adjusted accordingly due to his low blood pressure. Parameters in place. CAD with prior CABG and pacemaker defibrillator: Continue aspirin 81 mg daily and Plavix 25 mg daily Acute on chronic diastolic CHF: Patient was overloaded after sepsis bolus. IV fluids discontinued yesterday. Continue with home medicationLasix 20 mg daily and Aldactone 25 mg twice daily. Continue to hold hydrochlorothiazide. CXR shows improvement. Continue to wean off oxygen. Echocardiogram to be obtained. Recheck chest x-ray tomorrow. Will provide incentive spirometer. Hyperlipidemia: LDL 34. Continue statin medication-Lipitor 10 mg daily. History of Crohn's: Patient takes Humira at home. HOLD Methotrexate. Will verify home medication. GERD: Continue Protonix 40 mg daily. Anemia of chronic disease with iron and B12 deficiency: Continue iron 325 mg twice daily and Vitamin B12 daily. Continue with vitamin supplementation. Acute on chronic renal disease stage II: Renal function improved. IV fluids discontinued. Continue to monitor and adjust medication. Code Status: Full Code DVT prophylaxis: Lovenox Advanced Care Planning-30 minutes: Home at discharge
[2021-04-06 12:08] LABS: Absolute Lymphocytes (CBC) 1.4 K/uL (0.7-4.9); Basophils % 0.6 % (0-1.3); Hematocrit 28.6 % (39.6-49.0); Lymphocytes % 27.6 % (15.3-44.8); MPV 8.3 fL (7.6-11.3); RBC Red Blood Cell Count 3.55 M/uL (4.33-5.43)
[2021-04-06] MEDS: HYDROCODONE/APAP 5/325 MG TAB PO PRN (12:21)
[2021-04-06 12:24] LABS: Potassium 3.7 mmol/L (3.5-5.1)
[2021-04-06 14:36] VITALS: BP 123/66; TEMP 97.2
[2021-04-06] MEDS ORDERED: SMZ./TMP. 800/160 MG TABLET PO SCH (21:00)
--- NOTE | 2021-04-07 08:44 | P.PN ---
Subjective Date of Service: 04/05/21 Patient is clinically doing well. Patient's cultures have been unremarkable. The wound culture shows MRSA but blood culture is negative. At this time, will await blood cultures in the morning. If afebrile and labs are stable anticipate discharge home. Review of Systems 10-point ROS is otherwise unremarkable Physical Examination - Vital Signs Temperature: 97.2 F Blood Pressure: 123/66 Pulse: 86 Respirations: 15 Pulse Ox (%): 98 - Physical Exam General: Alert, In no apparent distress, Oriented x3 HEENT: Atraumatic, PERRLA, EOMI Neck: Supple, JVD not distended Respiratory: Clear to auscultation bilaterally, Normal air movement Cardiovascular: Regular rate/rhythm, Normal S1 S2 Gastrointestinal: Normal bowel sounds, No tenderness Musculoskeletal: Erythema, Tenderness, Warmth Integumentary: Erythema, Warmth Neurological: Normal speech, Normal tone, Normal affect - Studies Medications List Reviewed: Yes Assessment & Plan - Problems (Diagnosis) (1) Pilonidal cyst with abscess Status: Acute (2) MRSA (methicillin resistant Staphylococcus aureus) infection Status: Acute (3) Crohn's disease Status: Acute (4) Diabetes Status: Acute (5) Hx of CABG Status: Acute (6) Hyperlipidemia Status: Acute (7) Hypertension Status: Acute (8) ICD (implantable cardioverter-defibrillator) in place Status: Acute - Plan 1. Continue with IV antibiotic 2. Continue with local wound care 3. Wound care consultation/surgical consultation; wound healing consultation 4. Hep-Lock IV 5. Monitor CBC 6. Strict blood sugar monitoring 7. Pain control 8. GI and DVT prophylaxis Discharge Plan: Home Plan to discharge in: Greater than 2 days - Advance Directives Does patient have a Living Will: No Does patient have a Durable POA for Healthcare: No - Code Status/Comfort Care Code Status Assessed: Yes Code Status: Full Code Critical Care: No Time Spent Managing PTS Care (In Minutes): 35
--- NOTE | 2021-04-07 08:45 | P.DS ---
Discharge Date: 04/06/21 Primary Care Provider: Dr. Boston Disposition: DC HOME/HOME HEALTH CARE Discharge Condition: GOOD Reason for Admission: fever - Problems (1) Pilonidal cyst with abscess Status: Acute (2) MRSA (methicillin resistant Staphylococcus aureus) infection Status: Acute (3) Crohn's disease Status: Acute (4) Diabetes Status: Acute (5) Hx of CABG Status: Acute (6) Hyperlipidemia Status: Acute (7) Hypertension Status: Acute (8) ICD (implantable cardioverter-defibrillator) in place Status: Acute Brief History of Present Illness: Patient is a 71-year-old male with history of diabetes, hypertension, hyperlipidemia, CAD with prior CABG, Crohn's. Patient presented with fever, dizziness and fall. Patient denies any cough, shortness of breath, chest pain, nausea, vomiting, diarrhea, constipation, or dysuria. Some polyuria noted. Patient reported fever over the last 2 days. T- max was 103. Patient had some fatigue and dizziness and fell today in his buttocks. Patient called PCP. PCP recommended for the patient to be evaluated in the emergency room. In the ER patient was evaluated. White count 9, hemoglobin 9.3. Platelet count of 180. Procalcitonin and lactic acid elevated. Troponin unremarkable. Sodium 137, potassium 4.5. BUN of 36, creatinine 1.69 with a GFR 40. Glucose 334. Urinalysis unremarkable. CT head unremarkable. Chest x-ray unremarkable. CT abdomen and pelvis unremarkable except nonobstructive nephrolithiasis. Patient given IV sepsis bolus in the emergency room for possible sepsis. Patient given Rocephin in the ER. Cultures obtained. Hospital Course: Patient clinical symptoms are stable. Patient has been afebrile. Patient's cultures are negative. Patient is clinically doing well and is stable for discharge home. Vital Signs/Physical Exam: Temp Pulse Resp BP Pulse Ox 97.2 F 86 15 123/66 98 04/07/21 08:44 04/07/21 08:44 04/07/21 08:44 04/07/21 08:44 04/07/21 08:44 General: Alert, In no apparent distress, Oriented x3 Laboratory Data at Discharge: WBC 5.00 K/uL (4.3-10.9) 04/06/21 12:00 Hgb 9.0 g/dL (13.6-17.9) L 04/06/21 12:00 Hct 28.6 % (39.6-49.0) L 04/06/21 12:00 Plt Count 215 K/uL (152-406) D 04/06/21 12:00 PT 12.7 SECONDS (9.5-12.5) H 04/02/21 13:04 INR 1.10 04/02/21 13:04 APTT 27.8 SECONDS (24.3-36.9) 04/02/21 13:04 Sodium 141 mmol/L (136-145) 04/06/21 12:00 Potassium 3.7 mmol/L (3.5-5.1) 04/06/21 12:00 BUN 17 mg/dL (7-18) 04/06/21 12:00 Creatinine 1.06 mg/dL (0.55-1.3) 04/06/21 12:00 Glucose 244 mg/dL (74-106) H 04/06/21 12:00 Magnesium 2.0 mg/dL (1.8-2.4) 04/05/21 03:35 Total Bilirubin 0.4 mg/dL (0.2-1.0) 04/02/21 13:04 AST 12 U/L (15-37) L 04/02/21 13:04 ALT 20 U/L (12-78) 04/02/21 13:04 Alkaline Phosphatase 84 U/L (45-117) 04/02/21 13:04 Triglycerides 205 mg/dL (<150) H 04/03/21 05:46 Cholesterol 137 mg/dL (<200) 04/03/21 05:46 HDL Cholesterol 62 mg/dL (40-60) H 04/03/21 05:46 Cholesterol/HDL Ratio 2.21 04/03/21 05:46 Amylase 39 U/L (25-115) 04/02/21 13:04 Lipase 78 U/L (73-393) 04/02/21 13:04 Home Medications: Aspirin [Aspirin EC 81 MG] 81 mg PO DAILY 04/29/16 Clopidogrel Bisulfate [Plavix*] 75 mg PO DAILY 04/29/16 Cyanocobalamin [Vitamin B-12*] 1,000 mcg IM SEECOM 04/29/16 Metformin HCl [Glucophage] 1,000 mg PO BID 04/29/16 Simvastatin [Zocor*] 20 mg PO BEDTIME 04/29/16 Thiamine HCl [Vitamin B-1*] 100 mg PO DAILY 04/29/16 carvediloL [Coreg*] 1.5 tab PO BID 04/29/16 hydroCHLOROthiazide [Hydrodiuril*] 25 mg PO Q48H 04/29/16 Calcium Carbonate/Vitamin D3 [Calcium 600-Vit D3 200 Tablet] 1 each PO DAILY 06/17/16 Latanoprost [Xalatan] 1 drop OP DAILY 06/17/16 Liraglutide [Victoza 2-Gelacio] 1.8 mg SQ DAILY 06/17/16 Losartan Potassium 12.5 mg PO DAILY AT SUPPER 06/17/16 Multivitamin [Multivitamins] 1 each PO DAILY 06/17/16 Adalimumab [Humira Pen] 1 dose SQ SEECOM 10/14/20 Folic Acid 1 tab PO DAILY 10/14/20 Furosemide 1 tab PO DAILY 10/14/20 Mesalamine [Apriso] 3 tab PO DAILY 10/14/20 Methotrexate [Methotrexate*] 5 tab PO DAILY 10/14/20 Pantoprazole [Protonix Tab*] 1 tab PO DAILY 10/14/20 Spironolactone 1 tab PO BID 10/14/20 Vit A/Vit C/Vit E/Zinc/Copper [Preservision Areds Softgel] 1 each PO BID 02/03/21 Magnesium Oxide 1 tab PO DAILY 04/04/21 Doxycycline Hyclate 100 mg PO BID #14 tablet. 04/06/21 rifAMPin [Rifampin] 300 mg PO DAILY #5 capsule 04/06/21 New Medications: Doxycycline Hyclate 100 mg PO BID #14 tablet. rifAMPin [Rifampin] 300 mg PO DAILY #5 capsule Physician Discharge Instructions: PROBLEM: Fever, MRSA GOAL: Clear understanding of disease process INSTRUCTIONS: OK TO DC IV AND DC HOME FOLLOW-UP WITH PRIMARY CARE PROVIDER IN 1-2 WEEKS FOLLOW-UP WITH SURGERY IN 1-2 WEEKS RETURN TO THE ER IF symptoms worsen CALL or TEXT DR. BLACK AT [phone] IF ANY QUESTIONS REGARDING HOSPITAL STAY. PLEASE CALL THE FLOOR AT [phone] IF ANY MEDICATION OR NURSING QUESTIONS. Diet: Diabetic Activity: Fall precautions E-script sent to [facility] in [place] Wound care: Wet to dry dressing on bottom with gauze and normal saline [facility] Services Needed: Home Health Name of Company: [facility] Date or Referral: IMMUNIZATION Influenza Vaccine Indicated: No Influenza Vaccine Given: Date Given: Pneumonia Vaccine Indicated: No Pneumonia Vaccine Given: Date Given: Diet: ADA Activity: Fall precautions Followup: Manuel Bae MD [ACTIVE - CAN ADMIT] - 1-2 Weeks (surgeon- call to schedule an appointment ) Jose Boston MD [Primary Care Provider] - 1-2 Weeks (PCP- call to schedule an appointment ) Time spent managing pt's care (in minutes): 35
== END 2021-04-06 17:00 | disposition home health service (06) | DRG 871 ==
LOC: ER 11:06 → ERHOLD 16:48 → 2ND 20:13
PROVIDERS: ADMIT Family Medicine; ATTEND Hospitalist
DX: A41.02 Sepsis due to Methicillin resistant Staphylococcus aureus (principal); I50.33 Acute on chronic diastolic (congestive) heart failure; K50.90 Crohn's disease, unspecified, without complications; I13.0 Hypertensive heart and chronic kidney disease with heart failure and stage 1 through stage 4 chronic kidney disease, or unspecified chronic kidney disease; L05.01 Pilonidal cyst with abscess; N18.2 Chronic kidney disease, stage 2 (mild); E11.22 Type 2 diabetes mellitus with diabetic chronic kidney disease; E11.65 Type 2 diabetes mellitus with hyperglycemia; D63.8 Anemia in other chronic diseases classified elsewhere; E78.5 Hyperlipidemia, unspecified; I25.10 Atherosclerotic heart disease of native coronary artery without angina pectoris; D50.9 Iron deficiency anemia, unspecified; E53.8 Deficiency of other specified B group vitamins; K21.9 Gastro-esophageal reflux disease without esophagitis; I25.2 Old myocardial infarction; Z88.5 Allergy status to narcotic agent; Z88.1 Allergy status to other antibiotic agents; Z95.1 Presence of aortocoronary bypass graft; Z91.048 Other nonmedicinal substance allergy status; Z79.82 Long term (current) use of aspirin; Z79.02 Long term (current) use of antithrombotics/antiplatelets; Z95.810 Presence of automatic (implantable) cardiac defibrillator; Z79.84 Long term (current) use of oral hypoglycemic drugs; Z79.899 Other long term (current) drug therapy; Z90.49 Acquired absence of other specified parts of digestive tract; Z20.822 Contact with and (suspected) exposure to COVID-19
CPT/HCPCS: 0240U; 11045; 36415; 36680; 70450; 71045; 74176; 80048; 80061; 80076; 80202; 81003; 81015; 82150; 82550; 82553; 82607; 82728; 82947; 83036; 83540; 83605; 83690; 83735; 84145; 84439; 84443; 84466; 84484; 85025; 85610; 85730; 87040; 87070; 87077; 87186; 87205; 93005; 93306; 94010; 99285; J0692; J1650; J1940; J2185; J3370; J7030; J7040; J7050

== ENCOUNTER 2022-11-02 07:36 | Day surgery (SDC) | payer OTHER ==
[2022-11-02] MEDS ORDERED: NA CHLORIDE 0.9% 1,000 ML ONE (08:15)
[2022-11-02] MEDS ORDERED: LIDOCAINE 1% MPF 5 ML VIAL ONE (09:52)
[2022-11-02] MEDS ORDERED: propofoL 200 MG/20 ML VIAL IV ONE (09:52)
[2022-11-02] MEDS ORDERED: SIMETHICONE 40 MG/ 0.6 ML ONE (10:15)
[2022-11-02 12:48] VITALS: O2SAT 98
[2022-11-02 12:50] VITALS: BP 119/72; TEMP 97.5
== END 2022-11-02 11:25 | disposition home or self-care (01) ==
LOC: OR 07:36
PROVIDERS: ATTEND Internal Medicine Gastroenterology
PROC: 0DBH8ZX Excision of Cecum, Via Natural or Artificial Opening Endoscopic, Diagnostic (ICD-10-PCS; 2022-11-02)
PROC: 0DBK8ZX Excision of Ascending Colon, Via Natural or Artificial Opening Endoscopic, Diagnostic (ICD-10-PCS; principal; 2022-11-02 10:15)
DX: R10.32 Left lower quadrant pain (principal); D12.2 Benign neoplasm of ascending colon; D50.9 Iron deficiency anemia, unspecified; Z86.010 Personal history of colon polyps; K64.8 Other hemorrhoids
CPT/HCPCS: 82947 ×2; 88305; 45380; J2704; J2001; J7030

== ENCOUNTER 2023-01-30 15:00 | Day surgery (SDC) | payer OTHER ==
[2023-01-27 15:41] LABS: Absolute Lymphocytes (CBC) 2.4 K/uL (0.7-4.9); Hematocrit 37.4 % (39.6-49.0); Lymphocytes % 35.9 % (15.3-44.8); MCV 90.2 fL (80-100); MPV 8.9 fL (7.6-11.3); Platelets 191 thou/uL (152-406); RBC Red Blood Cell Count 4.15 M/uL (4.33-5.43)
[2023-01-27 15:45] LABS: Protime INR 1.03
[2023-01-27 15:49] LABS: Potassium 4.4 mEq/L (3.5-5.1)
--- NOTE | 2023-01-27 16:35 | RAD REPORT ---
EXAM DESCRIPTION: RAD - Chest Pa And Lat (2 Views) - 01/27/2023 2:58 pm CLINICAL HISTORY: Preop . Hypertension COMPARISON: 2021 FINDINGS: The lungs appear clear of acute infiltrate. The heart is moderately enlarged. Pacemaker lead in place . Postsurgical changes involve the chest IMPRESSION: No acute abnormality is displayed
--- NOTE | 2023-01-30 12:23 | EKG ---
Test Date: 2023-01-27 Test Time: 14:46:32 Sales Development Specialist: ASA MEASUREMENT RESULTS: Intervals: Rate: 76 NV: 94 QRSD: 170 QT: 436 QTc: 490 [place]: P: NV: 94 QRS: 16 T: 207 INTERPRETIVE STATEMENTS: Sinus rhythm with short NV Nonspecific intraventricular block Possible Inferior infarct, age undetermined Abnormal ECG Compared to ECG 04/02/2021 12:49:37 Short NV interval now present Sinus tachycardia no longer present T-wave abnormality no longer present Possible ischemia no longer present Myocardial infarct finding still present Electronically Signed On 01-30-23 12:18:07 CDT by Brooks Glynn
[2023-01-30] MEDS ORDERED: NA CHLORIDE 0.9% 500 ML ONE (15:26)
[2023-01-30] MEDS ORDERED: LIDOCAINE 1% 20 ML MDV ONE (15:59)
[2023-01-30] MEDS ORDERED: ATROPINE SULF 1 MG/10 ML SYR IV ONE (16:00)
[2023-01-30] MEDS ORDERED: HEPARIN 10,000 UNIT/10 ML VIAL IV ONE (16:00)
[2023-01-30] MEDS ORDERED: FENTANYL CITR 100 MCG/2 ML ONE (16:00)
[2023-01-30] MEDS ORDERED: MIDAZOLAM HCL 2 MG/2 ML INJ ONE (16:00)
[2023-01-30] MEDS ORDERED: CLOPIDOGREL 75 MG TABLET ONE (16:01)
[2023-01-30 19:49] VITALS: BP 114/63; O2SAT 99
--- NOTE | 2023-01-31 03:20 | OP ---
Date of Procedure: 01/30/2023 Surgeon: ALEJO MONTERO Procedure Performed: 1.Selection coronary angiogram with bypass graft study. 2.Left heart catheterization. Indication: Chest pain with abnormal stress test. Access: Right femoral artery 6-Trinidadian closed with manual pressure. Complications: None. Bleeding: Less than 20 mL. Description Of Procedure: After risks, benefits, and alternatives were explained, patient agreed to procedure and signed informed consent. The patient was brought into the cardiac catheterization [facility], prepped and draped in usual sterile fashion. Then, I accessed the right femoral artery using micropuncture kit, fluoroscopy and ultrasound 6-Trinidadian Orbisonia sheath and then took a 6- Trinidadian JL4 catheter into aortic root, engaged left main, took standard views and then 6-Trinidadian JR4 ca theter engaged the RCA and SVG to OM and took standard views and then exchanged for 6-Trinidadian LI cath eter, engaged the ALLISON, took standard views and then the catheter was pushed over the wire into the L V, measured the LVEDP. Pullback not recorded in gradient. Then removed the catheter and sheath. Ma nual pressure was used for closure with good hemostasis. Findings: 1.Left main: Large with distal 30% stenosis. The LAD has proximal 70% stenosis and then becomes CT O. 2.Left circumflex: There is ostial 80% stenosis, but a large vessel. 3.RCA: Appears to be small and nondominant. 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 Bypass Graft Study: 1.Patent ALLISON to LAD. 2.Patent SVG to OM. 3.Occluded SVG to RCA. 4.LVEDP elevated at 26 mmHg. Conclusion: 1.Severe multivessel deering coronary artery disease as above with patent ALLISON to LAD, patent SVG to OM, and occluded SVG to RCA and RCA is occluded. 2.Elevated LVEDP. Plan: Medical management. /WILFRED Voice ID: [id number] Report ID: [id number]
== END 2023-01-30 20:02 | disposition home or self-care (01) ==
LOC: CCL 15:00
PROVIDERS: ATTEND Internal Medicine
DX: I25.10 Atherosclerotic heart disease of native coronary artery without angina pectoris (principal); I25.810 Atherosclerosis of coronary artery bypass graft(s) without angina pectoris; I25.82 Chronic total occlusion of coronary artery; I65.21 Occlusion and stenosis of right carotid artery; I48.11 Longstanding persistent atrial fibrillation; I10 Essential (primary) hypertension; E78.2 Mixed hyperlipidemia; E11.9 Type 2 diabetes mellitus without complications; Z95.810 Presence of automatic (implantable) cardiac defibrillator; Z87.891 Personal history of nicotine dependence; Z79.01 Long term (current) use of anticoagulants; Z79.84 Long term (current) use of oral hypoglycemic drugs; Z79.85 Long-term (current) use of injectable non-insulin antidiabetic drugs; Z79.899 Other long term (current) drug therapy; Z88.3 Allergy status to other anti-infective agents; Z91.09 Other allergy status, other than to drugs and biological substances
CPT/HCPCS: 93005; 85025; 80048; 36415; 83721; 85610; 82947; 85730; 71046; 93459; 76937; C1893; Q9966; C1887; J2001; J2250; J3010; J7040; J0461

== ENCOUNTER 2023-03-17 13:10 | Emergency (ER) | payer OTHER ==
--- OUTSIDE RECORDS SUMMARY | 2023-03-17 13:13 | XMS REPORT | Continuity of Care Document ---
:1950 Author Organization [facility] t Address [address] [place] [address] Care Team Providers Name Role Phone SETH VELA Attending Clinician Unavailable Problems This patient has no known problems. Allergies, Adverse Reactions, Alerts This patient has no known allergies or adverse reactions. Medications This patient has no known medications. Procedures This patient has no known procedures. Encounters Start End Encounter Admission Attending Care Care Encounter Source Date/Time Date/Time Type Type Clinicians Facility Department ID 2020-09-30 2020-09-30 Outpatient [facility] [id number] [facility] 05:08:00 13:20:00 SETH Results This patient has no known results.
--- NOTE | 2023-03-17 14:08 | RAD REPORT ---
EXAM DESCRIPTION: [place] Single View03/17/2023 1:57 pm CLINICAL HISTORY: Chest pain COMPARISON: 01/27/2023 FINDINGS: The lungs appear clear of acute infiltrate. The heart is borderline enlarged Postsurgical changes involve the chest left IMPRESSION: No acute abnormalities displayed
[2023-03-17 14:16] LABS: Absolute Lymphocytes (CBC) 1.5 K/uL (0.7-4.9); Hematocrit 39.2 % (39.6-49.0); Lymphocytes % 22.7 % (15.3-44.8); MCV 91.6 fL (80-100); MPV 9.1 fL (7.6-11.3); Platelets 201 thou/uL (152-406); RBC Red Blood Cell Count 4.28 M/uL (4.33-5.43)
[2023-03-17 14:30] LABS: Protime INR 1.05
[2023-03-17 14:41] LABS: ALT/SGPT 17 U/L (16-61); AST/SGOT 19 U/L (15-37); Albumin 3.5 g/dL (3.4-5.0); Alkaline Phosphatase 86 U/L (45-117); BUN Blood Urea Nitrogen 28 mg/dL (7-18); Bicarbonate 23 mEq/L (21-32); Bilirubin Total 0.3 mg/dL (0.2-1.0); Glomerular Filtration Rate 44 ml/min (=/>90); Glucose Level 229 mg/dL (74-106); Magnesium 2.4 mg/dL (1.6-2.4); NT PRO-BNP 1131 pg/mL (<125); Potassium 4.1 mEq/L (3.5-5.1); Protein, Total 7.5 g/dL (6.4-8.2); Sodium Level 138 mEq/L (136-145); Troponin High Sensitivity 23.1 pg/mL (<58.9)
[2023-03-17 15:18] LABS: Bilirubin Direct < 0.1 mg/dL (0-0.2); Bilirubin Indirect, Calculated ND mg/dL (0.2-0.8)
--- NOTE | 2023-03-17 15:37 | ER ---
Nurse's Notes [facility] Name: Hugo Liu Jr Age: 73 yrs Sex: Male : 1950 Arrival Date: 03/17/2023 Time: 13:10 Bed 16 Private MD: Diagnosis: Chest pain, dysrhythmia, defibrillator activation Presentation: 03/17 13:23 Chief complaint: Patient states: Left sided chest pain onset Monday. Pt states that cm10 his defibrillator has been going off. Pt states that the pain feels like a knife is being stabbed in his chest. Pt also reports, headache and dizziness. Coronavirus screen: Vaccine status: Patient reports receiving the 2nd dose of the covid vaccine. Ebola Screen: Patient denies travel to an Ebola-affected area in the 21 days before illness onset. No symptoms or risks identified at this time. Initial Sepsis Screen: Does the patient meet any 2 criteria? No. Patient's initial sepsis screen is negative. Does the patient have a suspected source of infection? No. Patient's initial sepsis screen is negative. Risk Assessment: Do you want to hurt yourself or someone else? Patient reports no desire to harm self or others. Onset of symptoms was March 17, 2023. 13:23 Method Of Arrival: Wheelchair cm10 13:23 Acuity: MADDI 2 cm10 Historical: - Allergies: 13:25 Cipro; cm10 13:25 Paper Tape; cm10 13:26 Codeine; cm10 - PMHx: 13:25 Crohn's Disease; diabetes mellitus; Hypertensive disorder; TN; cm10 - PSHx: 13:25 CABG; defibrillator; cm10 - Immunization history:: Adult Immunizations. - Social history:: Smoking status: Patient denies any tobacco usage or history of. Screenin:33 [facility] ED Fall Risk Assessment (Adult) History of falling in the last 3 months, db including since admission No falls in past 3 months (0 pts) Confusion or Disorientation No (0 pts) Intoxicated or Sedated No (0 pts) Impaired Gait No (0 pts) Mobility Assist Device Used No (0 pt) Altered Elimination No (0 pt) Score/Fall Risk Level 0 - 2 = Low Risk Oriented to surroundings, Maintained a safe environment. Abuse screen: Denies threats or abuse. Denies injuries from another. Nutritional screening: No deficits noted. Tuberculosis screening: No symptoms or risk factors identified. Assessment: 15:33 Reassessment: Patient appears in no apparent distress at this time. Patient and/or db family updated on plan of care and expected duration. Pain level reassessed. Patient is alert, oriented x 3, equal unlabored respirations, skin warm/dry/pink. General: Appears in no apparent distress. comfortable, Behavior is calm, cooperative. Pain: Complains of pain in chest Pain does not radiate. Pain began 1 day ago. Neuro: Level of Consciousness is awake, alert, obeys commands, Oriented to person, place, time, situation, Appropriate for age. Cardiovascular: Reports chest pain, since FEELING SHOCK FROM DEFIBRILLATOR YESTERDAY AND TODAY. 16:38 Reassessment: Patient appears in no apparent distress at this time. Patient and/or db family updated on plan of care and expected duration. Pain level reassessed. Patient is alert, oriented x 3, equal unlabored respirations, skin warm/dry/pink. RESTING FAMILY AT BEDSIDE. 16:39 Reassessment: ATTEMPTED TO GIVE REPORT. NURSE STATES IS IN A ROOM, UNAVAILABLE, AND db REQUESTS A CALL BACK. 16:42 Reassessment: Patient appears in no apparent distress at this time. PT AMBULATORY TO RESTROOM. 16:52 Reassessment: REPORT GIVEN TO SALVATORE DAVIDSON AT [facility]. 17:00 Reassessment: Patient appears in no apparent distress at this time. Patient and/or db family updated on plan of care and expected duration. Pain level reassessed. Patient is alert, oriented x 3, equal unlabored respirations, skin warm/dry/pink. 17:10 Reassessment: Patient appears in no apparent distress at this time. UPON HAVING PT SIGN db TRANSPORT FORM. PT REQUESTS TO GO TO [facility] IN [place] BECAUSE ASSISTANT DESIGNER IS THERE. NOTIFIED DR. POLANCO. DR. POLANCO ATTEMPTED TO CALL [facility] FOR TRANSFER. ROOM NOT AVAILABLE. NOTIFIED PT ROOM NOT AVAILABLE AT THIS TIME. PT STATES WILL GO TO [facility] BECAUSE ROOM IS AVAILABLE AND WILL NOTIFY HIS ASSISTANT DESIGNER. NOTIFIED DR. POLANCO THAT PATIENT NOW WILL GO TO [facility]. 17:33 Reassessment: EMS ARRIVAL FOR PATIENT TRANSPORT. Vital Signs: 13:23 BP 113 / 61; Pulse 79; Resp 18; Temp 97.7(IR); Pulse Ox 99% ; Weight 102.06 kg; Height cm10 5 ft. 3 in. ; Pain 7/10; 15:00 BP 110 / 59; Pulse 75; Resp 16; Pulse Ox 98% on R/A; db 16:00 BP 115 / 64; Pulse 72; Resp 20; Pulse Ox 96% on R/A; db 17:00 BP 130 / 83; Pulse 71; Resp 18; Pulse Ox 99% on R/A; db 13:23 Body Mass Index 39.86 (102.06 kg, 160.02 cm) cm10 13:23 Pain Scale: Adult cm10 ED Course: 13:13 Patient arrived in ED. mg5 13:13 Joe Polanco MD is Attending Physician. sp3 13:25 Triage completed. cm10 13:26 Arm band placed on Patient placed in an exam room. EKG completed in triage. Results cm10 shown to MD. 13:45 Missed attempt(s): 22 gauge in right forearm. bc6 13:51 Basic Metabolic Panel Sent. bc6 13:51 CBC with Diff Sent. bc6 13:51 LFT's Sent. bc6 13:51 Magnesium Sent. bc6 13:51 NT PRO-BNP Sent. bc6 13:51 PT-INR Sent. bc6 13:51 Troponin HS Sent. bc6 13:51 Inserted saline lock: 22 gauge in right forearm, using aseptic technique. Blood bc6 collected. 13:59 XRAY Chest (1 view) In Process Unspecified. EDMS 15:32 Sera Gordillo, RN is Primary Nurse. db 15:35 Patient has correct armband on for positive identification. Bed in low position. Call db light in reach. Side rails up X 1. Client placed on continuous cardiac and pulse oximetry monitoring. NIBP monitoring applied. Warm blanket given. 15:40 transfer initiated with [facility] transfer center to arrainge transfer to the [address] 15:57 Pt accepted in transfer to [facility] by Dr. Aleksandr Larsen. em1 16:58 Per pt request, transfer initiated with [facility]; appropriate bed not em available, will notify pt and provider. 17:50 Provided Education on: TRANSFER. db 17:50 No provider procedures requiring assistance completed. Patient transferred, IV remains db in place. Patient maintains SpO2 saturation greater than 95% on room air. Administered Medications: No medications were administered Medication: 15:34 VIS not applicable for this client. db Outcome: 15:36 ER care complete, transfer ordered by . sp3 17:50 Transferred by ground EMS to [facility] form completed. db X-rays sent w/ patient. 17:50 Condition: stable 17:50 Instructed on the need for transfer, 17:51 Patient left the ED. db Signatures: Dispatcher [employer] Thang Elaine em1 Joe Polanco MD MD sp3 Sera Gordillo RN RN db Alyson Adams 6 June Bae RN RN cm10 Monse Stevenson mg5 Corrections: (The following items were deleted from the chart) 13:26 13:25 Allergies: Codeine; cm10 cm10
--- NOTE | 2023-03-17 15:37 | EDPHYS ---
Physician Documentation [facility] Name: Hugo Liu Jr Age: 73 yrs Sex: Male : 1950 Arrival Date: 03/17/2023 Time: 13:10 Bed 16 Private MD: ED Physician Joe Polanco HPI: 03/17 13:40 This 73 yrs old Male presents to ER via Wheelchair with complaints of Chest sp3 Pain, Breathing Difficulty, Dizziness. 13:40 73-year-old male with a history of diabetes, hypertension, prior OR, defibrillator in sp3 place now presents to the ED with chest pain for 3 days and patient's defibrillator being discharged each of those 3 days with multiple discharges today. Patient states that he has had off-and-on episodes of dizziness and shortness of breath during these times as well. Currently he has only mild chest pain and is not as bad as it has been in the past 3 days. He currently denies headache, neck pain, fever, URI symptoms, back pain, abdominal pain, nausea, vomiting, diarrhea, extremity pain, syncope, near syncope, known sick contacts, travel history, or any other signs or symptoms at this time. . Historical: - Allergies: 13:25 Cipro; cm10 13:25 Paper Tape; cm10 13:26 Codeine; cm10 - PMHx: 13:25 Crohn's Disease; diabetes mellitus; Hypertensive disorder; OR; cm10 - PSHx: 13:25 CABG; defibrillator; cm10 - Immunization history:: Adult Immunizations. - Social history:: Smoking status: Patient denies any tobacco usage or history of. ROS: 13:42 Constitutional: Negative for fever, chills, and weight loss, Eyes: Negative for injury, sp3 pain, redness, and discharge, ENT: Negative for injury, pain, and discharge, Neck: Negative for injury, pain, and swelling, Abdomen/GI: Negative for abdominal pain, nausea, vomiting, diarrhea, and constipation, Back: Negative for injury and pain, MS/Extremity: Negative for injury and deformity, Skin: Negative for injury, rash, and discoloration, Neuro: Negative for headache, weakness, numbness, tingling, and seizure, Psych: Negative for depression, anxiety, suicide ideation, homicidal ideation, and hallucinations, Allergy/Immunology: Negative for hives, rash, and allergies, Endocrine: Negative for neck swelling, polydipsia, polyuria, polyphagia, and marked weight changes, Hematologic/Lymphatic: Negative for swollen nodes, abnormal bleeding, and unusual bruising, 13:42 All other systems are negative, Exam: 13:42 Constitutional: This is a well developed, well nourished patient who is awake, alert, sp3 and in no acute distress. Head/Face: Normocephalic, atraumatic. Eyes: Pupils equal round and reactive to light, extra-ocular motions intact. Lids and lashes normal. Conjunctiva and sclera are non-icteric and not injected. Cornea within normal limits. Periorbital areas with no swelling, redness, or edema. ENT: Nares patent. No nasal discharge, no septal abnormalities noted. External auditory canals are clear. Oropharynx with no redness, swelling, or masses, exudates, or evidence of obstruction, uvula midline. Mucous membranes moist. Neck: Trachea midline, no thyromegaly or masses palpated, and no cervical lymphadenopathy. Supple, full range of motion without nuchal rigidity, or vertebral point tenderness. No Meningismus. Chest/axilla: Normal chest wall appearance and motion. Nontender with no deformity. No lesions are appreciated. Cardiovascular: Regular rate and rhythm with a normal S1 and S2. No gallops, murmurs, or rubs. Normal PMI, no JVD. No pulse deficits. Respiratory: Lungs have equal breath sounds bilaterally, clear to auscultation and percussion. No rales, rhonchi or wheezes noted. No increased work of breathing, no retractions or nasal flaring. Abdomen/GI: Soft, non-tender, with normal bowel sounds. No distension or tympany. No guarding or rebound. No evidence of tenderness throughout. Back: No spinal tenderness. No costovertebral tenderness. Full range of motion. Skin: Warm, dry with normal turgor. Normal color with no rashes, no lesions, and no evidence of cellulitis. MS/ Extremity: Pulses equal, no cyanosis. Neurovascular intact. Full, normal range of motion. Neuro: Awake and alert, GCS 15, oriented to person, place, time, and situation. Cranial nerves II-XII grossly intact. Motor strength 5/5 in all extremities. Sensory grossly intact. Cerebellar exam normal. Normal gait. Psych: Awake, alert, with orientation to person, place and time. Behavior, mood, and affect are within normal limits. 13:42 ECG was reviewed by the Attending Physician. EKG demonstrates atrial fibrillation at a ventricular capture of 82 bpm with an intraventricular block noted consistent with incomplete left bundle and nonspecific diffuse ST/T changes without evidence of ischemia and unchanged from prior EKG dated January 27, 2023. Vital Signs: 13:23 BP 113 / 61; Pulse 79; Resp 18; Temp 97.7(IR); Pulse Ox 99% ; Weight 102.06 kg; Height cm10 5 ft. 3 in. ; Pain 7/10; 15:00 BP 110 / 59; Pulse 75; Resp 16; Pulse Ox 98% on R/A; db 16:00 BP 115 / 64; Pulse 72; Resp 20; Pulse Ox 96% on R/A; db 17:00 BP 130 / 83; Pulse 71; Resp 18; Pulse Ox 99% on R/A; db 13:23 Body Mass Index 39.86 (102.06 kg, 160.02 cm) cm10 13:23 Pain Scale: Adult cm10 MDM: 13:15 Patient medically screened. sp3 13:43 Data reviewed: vital signs, nurses notes, old medical records, lab test result(s), EKG, sp3 radiologic studies. ED course: 73-year-old male with chest pain for 3 days with multiple episodes of his defibrillator being discharged. Only mild chest pain currently. Work-up will include EKG, chest x-ray, laboratory values and general observation. Differential diagnosis is broad and includes angina, dysrhythmia, acute coronary syndrome, electrolyte abnormality, among others. I am not highly suspicious for sepsis, shock, aortic pathology including dissection and/or aneurysm, or any other critical pathology at this time.. 15:34 ED course: Patient troponin is negative and no cardiac events here in the ED. Due to sp3 over capacity, we will be transferring patient to Dr. Sandhu at [facility] with cardiology consultation over there with subsequent defibrillator query. I spoke to Dr. Trevino who has accepted the patient on Dr. Sandhu's behalf. I have discussed this with patient and they are okay with the transfer and subsequent care there.. 17:07 ED course: Patient has ready bed at [facility] in [place] however he wants to be sp3 transferred to [facility]. Unsuccessful attempts x2 to contact [facility]. Patient at this point wants to leave AMA with his paperwork and results and he wants to drive himself there. I have urged him to the stay within our system secondary to him already having a bed. However we will oblige with his request at this time and he knows he may return here at any time if he changes his mind. His defibrillator has not fired while he has been in this emergency department. Vital signs are currently stable and he is in no acute distress.. 03/17 13:15 Order name: Basic Metabolic Panel; Complete Time: 15:21 3 03/17 13:15 Order name: CBC with Diff; Complete Time: 15:3 03/17 13:15 Order name: LFT's; Complete Time: 15:3 03/17 13:15 Order name: Magnesium; Complete Time: 15: 3 03/17 13:15 Order name: NT PRO-BNP; Complete Time: 15:21 sp3 03/17 13:15 Order name: PT-INR; Complete Time: 15:10 3 03/17 13:15 Order name: Troponin HS; Complete Time: 15:21 3 03/17 13:15 Order name: XRAY Chest (1 view); Complete Time: 14:12 3 03/17 13:15 Order name: EKG; Complete Time: 13:15 3 03/17 13:15 Order name: Cardiac monitoring; Complete Time: 15:34 3 03/17 13:15 Order name: EKG - Nurse/Tech; Complete Time: 13:28 sp3 03/17 13:15 Order name: IV Saline Lock; Complete Time: 13:51 3 03/17 13:15 Order name: Labs collected and sent; Complete Time: 13:51 sp3 03/17 13:15 Order name: O2 Per Protocol; Complete Time: 15:34 sp3 03/17 13:15 Order name: O2 Sat Monitoring; Complete Time: 15:34 sp3 Administered Medications: No medications were administered Disposition Summary: 03/17/23 15:36 Transfer Ordered Notes: Transfer Location: [facility] sp3 Reason: Higher level of care sp3 Condition: Stable sp3 Problem: an acute exacerbation sp3 Symptoms: have worsened sp3 Accepting Physician: Dr. Sandhu(03/17/23 17:51) db Diagnosis - Chest pain, dysrhythmia, defibrillator activation sp3 Forms: - Medication Reconciliation Form sp3 - SBAR form sp3 Signatures: Dispatcher [employer] EDJoe Garcia MD MD sp3 Sera Gordillo RN RN db June Bae RN RN cm10 Corrections: (The following items were deleted from the chart) 13:26 13:25 Allergies: Codeine; cm10 cm10 17:51 15:36 Dr. Sandhu sp3 db
[2023-03-17 18:55] VITALS: TEMP 97.7
[2023-03-17 19:28] VITALS: BP 130/83; O2SAT 99
--- NOTE | 2023-03-20 16:55 | EKG ---
Test Date: 2023-03-17 Test Time: 13:19:30 [employer] Depositing Machine Operator: CARROLL MEASUREMENT RESULTS: Intervals: Rate: 82 UT: 142 QRSD: 168 QT: 426 QTc: 497 [place]: P: UT: 142 QRS: 21 T: 205 INTERPRETIVE STATEMENTS: Sinus rhythm with occasional premature ventricular complexes Nonspecific intraventricular block Abnormal ECG Compared to ECG 01/27/2023 14:46:32 Ventricular premature complex(es) now present Short UT interval no longer present Myocardial infarct finding no longer present Electronically Signed On 03-20-23 16:52:31 RIVETER by Brooks Glynn
== END 2023-03-17 17:51 | disposition short-term general hospital (02) ==
LOC: ER 13:10
DX: R07.9 Chest pain, unspecified (principal); I49.9 Cardiac arrhythmia, unspecified; T82.897A Other specified complication of cardiac prosthetic devices, implants and grafts, initial encounter; Z95.810 Presence of automatic (implantable) cardiac defibrillator; E11.9 Type 2 diabetes mellitus without complications; I10 Essential (primary) hypertension; Z88.1 Allergy status to other antibiotic agents; Z88.5 Allergy status to narcotic agent; Z91.048 Other nonmedicinal substance allergy status
CPT/HCPCS: 36415; 71045; 80048; 80076; 83735; 83880; 84484; 85025; 85610; 93005; 99285

== ENCOUNTER 2023-12-03 06:35 | Inpatient (IN) | payer OTHER ==
[2023-12-03] MEDS ORDERED: ASPIRIN 81 MG CHEWABLE TABLET ONE (07:03)
[2023-12-03 07:17] LABS: Absolute Lymphocytes (CBC) 1.8 K/uL (0.7-4.9); Absolute Monocytes 0.5 K/uL (0.1-1.3); Absolute Neutrophil 3.9 K/uL (1.8-8.0); Basophils % 0.7 % (0-1.3); Eosinophils % 0.6 % (0-4.4); Hematocrit 38.2 % (39.6-49.0); Hemoglobin 12.3 g/dL (13.6-17.9); Lymphocytes % 28.7 % (15.3-44.8); MCH 30.1 pg (27.0-35.0); MCHC 32.3 g/dL (32.0-36.0); MCV 93.3 fL (80-100); MPV 8.7 fL (7.6-11.3); Monocytes % 7.8 % (3.3-12.3); Neutrophils % 62.2 % (41.7-73.7); Nucleated Red Blood Cells % 0.2 % (0-0); Platelets 242 thou/uL (152-406); RBC Red Blood Cell Count 4.09 M/uL (4.33-5.43); Red Cell Distribution Width 15.5 % (12.1-15.2)
[2023-12-03] MEDS ORDERED: MAGNESIUM SULFATE 1 gm IVPB 1 GM/100 ML BAG IV ONE (07:22)
[2023-12-03] MEDS ORDERED: AMIODARONE HCL 150 MG/3 ML INJ IV ONE (07:22)
[2023-12-03] MEDS ORDERED: AMIODARONE IN DEXTROSE,ISO-OSM 360 MG/200 ML BAG IV ONE (07:29)
--- NOTE | 2023-12-03 07:30 | RAD REPORT ---
EXAM DESCRIPTION: RAD - Chest Single View - 12/03/2023 7:21 am CLINICAL HISTORY: CHEST PAIN COMPARISON: <Comparisons> FINDINGS: Lines: Defibrillator. Lungs: Low lung volumes with pulmonary vascular engorgement. Pleural: No significant pleural effusions or pneumothorax. Cardiac: Cardiomegaly. Mediastinum: Within normal limits. Bones: No acute fractures. Other: Sternotomy. IMPRESSION: Decreased lung volumes with pulmonary vascular congestion and likely interstitial edema.
[2023-12-03 07:35] LABS: Anion Gap 14.7 mEq/L (5.0-15.0); Magnesium 2.2 mg/dL (1.6-2.4); Potassium 4.7 mEq/L (3.5-5.1); Troponin High Sensitivity 26.2 pg/mL (<58.9)
--- NOTE | 2023-12-03 08:41 | ER ---
Nurse's Notes [facility] Name: Hugo Liu Jr Age: 73 yrs Sex: Male : 1950 Arrival Date: 12/03/2023 Time: 06:35 Bed 15 Private MD: Diagnosis: Persistent atrial fibrillation-with rapid ventricular rate;Hypotension, unspecified Presentation: 12/02 06:45 Chief complaint: Patient states: chest pain for the past two days. pain 01/01. ha1 06:45 Coronavirus screen: Vaccine status: Patient reports receiving the 2nd dose of the covid ha1 vaccine. Agile. Ebola Screen: No symptoms or risks identified at this time. Initial Sepsis Screen: Does the patient meet any 2 criteria? No. Patient's initial sepsis screen is negative. Does the patient have a suspected source of infection? No. Patient's initial sepsis screen is negative. Risk Assessment: Do you want to hurt yourself or someone else? Patient reports no desire to harm self or others. Onset of symptoms was December 03, 2023. 06:45 Method Of Arrival: Wheelchair ha1 06:45 Acuity: MADDI 2 ha1 Triage Assessment: 06:46 General: Appears uncomfortable, Behavior is calm, cooperative. Pain: Complains of pain ha1 in chest Pain does not radiate. Pain currently is 9 out of 10 on a pain scale. Quality of pain is described as heavy, pressure, sharp, Pain began suddenly. Neuro: Level of Consciousness is awake, alert, obeys commands, Oriented to person, place, time, situation. Cardiovascular: Reports chest pain, Heart tones S1 S2 present Capillary refill < 3 seconds Patient's skin is warm and dry. Rhythm is atrial fibrillation Chest pain began 2 days ago. Respiratory: Airway is patent Respiratory effort is even, unlabored, Respiratory pattern is regular, symmetrical. GI: No signs and/or symptoms were reported involving the gastrointestinal system. Abdomen is round non-distended. : No signs and/or symptoms were reported regarding the genitourinary system. Musculoskeletal: Circulation, motion, and sensation intact. Historical: - Allergies: 06:56 Cipro; ha1 06:56 Codeine; ha1 06:56 paper tape; ha1 - PMHx: 06:56 Congestive heart failure; Crohn's Disease; diabetes mellitus; Hypercholesterolemia; ha1 Hypertensive disorder; MA; - PSHx: 06:56 CABG; defibrillator; ha1 - Immunization history:: Adult Immunizations up to date. - Infectious Disease History:: Denies. - Social history:: Smoking status: Patient denies any tobacco usage or history of. - Family history:: not pertinent. - Hospitalizations: : No recent hospitalization is reported. Screenin:46 [facility] ED Fall Risk Assessment (Adult) History of falling in the last 3 months, ha1 including since admission No falls in past 3 months (0 pts) Confusion or Disorientation No (0 pts) Intoxicated or Sedated No (0 pts) Impaired Gait Yes (1 pt) Mobility Assist Device Used Yes (1 pt) Altered Elimination No (0 pt) Score/Fall Risk Level 3 or more points = High Risk Oriented to surroundings, Maintained a safe environment, Educated pt \T\ family on fall prevention, incl call for assistance when getting out of bed, Hourly rounding (assess needs \T\ fall precautionary measures) done. Abuse screen: Denies threats or abuse. Denies injuries from another. Nutritional screening: No deficits noted. Tuberculosis screening: No symptoms or risk factors identified. Assessment: 06:50 General: Appears uncomfortable, Behavior is calm, cooperative, appropriate for age. rg5 06:50 Pain: Complains of pain in chest Pain currently is 10 out of 10 on a pain scale. rg5 Quality of pain is described as crushing, Pain began 2 hours ago. Is continuous. Neuro: Level of Consciousness is awake, alert, obeys commands, Oriented to person, place, time, Denies weakness. Cardiovascular: Chest pain is described as Pain is 10 out of 10 on a pain scale. quality is crushing. Respiratory: Airway is patent Trachea midline Respiratory effort is even, unlabored, Respiratory pattern is regular, symmetrical. GI: No signs and/or symptoms were reported involving the gastrointestinal system. Abdomen is round. : No signs and/or symptoms were reported regarding the genitourinary system. EENT: No deficits noted. Derm: Skin is intact, Skin is dry, Skin is normal, Skin temperature is warm. Musculoskeletal: Range of motion: intact in all extremities. 07:57 Reassessment: No changes from previously documented assessment. Patient is alert, bp oriented x 3, equal unlabored respirations, skin warm/dry/pink. Cardiovascular: Rhythm is atrial fibrillation with rapid ventricular response. 10:38 Reassessment: ICU ADMIT IN PROCESS, ROOM CLEAN ETA 30 MIN. bp 10:59 Reassessment: REPORT TO MITZY DAVIDSON ICU. bp Vital Signs: 06:46 BP 96 / 73; Pulse 136; Resp 19; Temp 98; Pulse Ox 98% on R/A; Pain 10/10; rg5 07:00 BP 88 / 73; Pulse 142; Resp 20; Pulse Ox 96% ; bp 07:57 BP 101 / 86; Pulse 125; Resp 24; Pulse Ox 97% ; bp 08:03 BP 101 / 86; Pulse 110; rn 09:10 BP 98 / 69; Pulse 103; Resp 22; Pulse Ox 97% ; bp 10:27 BP 109 / 68; Pulse 89; Resp 15; Pulse Ox 96% ; bp 10:58 BP 109 / 68; Pulse 92; Resp 16; Pulse Ox 95% ; bp 06:46 Pain Scale: Adult rg5 ED Course: 06:38 Patient arrived in ED. [id number] 06:44 Inserted saline lock: 20 gauge in left forearm, using aseptic technique. Blood rg5 collected. Flushed with 10 mL NS. 06:46 Patient has correct armband on for positive identification. Placed in gown. Bed in low ha1 position. Call light in reach. Adult w/ patient. 06:46 Client placed on continuous cardiac and pulse oximetry monitoring. NIBP monitoring ha1 applied. night monitor on. 06:48 Rey Frank MD is Attending Physician. bo1 06:50 Door closed. Noise minimized. Warm blanket given. rg5 06:50 Inserted saline lock: 20 gauge in right forearm, using aseptic technique. Blood rg5 collected. Flushed with 10 mL NS. 06:56 Triage completed. ha1 07:00 Real Merlos, STUART is Primary Nurse. rg5 07:15 Attending Physician role handed off by Rey Frank MD rn 07:15 Austen Pierre MD is Attending Physician. rn 07:23 XRAY Chest (1 view) In Process Unspecified. EDMS 08:39 Ceasar Bravo MD is Hospitalizing Provider. rn 10:26 No provider procedures requiring assistance completed. Patient admitted, IV remains in bp place. Patient maintains SpO2 saturation greater than 95% on room air. 10:30 Provided Education on: N/A. bp 10:30 Arm band placed on. bp Administered Medications: 07:07 Drug: Aspirin PO Chewable Tablet 324 mg PO once; 81 mg tablets x 4 Route: PO; rg5 10:33 Follow up: Response: No adverse reaction bp 07:10 Drug: Magnesium Sulfate IVPB 1 grams IVPB once over 1 hrs Route: IVPB; Infused Over: 1 rg5 hrs; Site: left forearm; 10:32 Follow up: IV Status: Completed infusion; IV Intake: 100ml bp 07:15 CANCELLED (Duplicate Order): [id number] mg IVP once; Over 2 minutes rn 07:16 Not Given (Duplicate Order): calcium chloride1 grams IVP once rn 07:20 Drug: amiodarone IVPB 150 mg 100 ml IVPB once over 10 mins; (mix in D5W) Volume: 100 rg5 ml; Route: IVPB; Infused Over: 10 mins; Site: right forearm; 10:32 Follow up: IV Status: Completed infusion; IV Intake: 100ml bp 07:56 Drug: amiodarone IVPB 900 mg, D5W IV 500 ml IVPB at 1 mg/min continuous; for 6 hrs, bp then change to 0.5 mg/min Route: IVPB; Rate: 1 mg/min; Site: right antecubital; 10:32 Follow up: IV Status: Infusion continued upon admission bp Medication: 06:50 VIS not applicable for this client. rg5 Intake: 10:32 IV: 100ml; Total: 100ml. bp 10:32 IV: 100ml; Total: 200ml. bp Outcome: 08:40 Decision to Hospitalize by Provider. rn 10:26 Instructed on the need for admit, bp 10:30 Admitted to ICU accompanied by nurse, family with patient, via stretcher, room 6, with bp chart, Report called to MITZY DAVIDSON 10:30 Condition: stable 11:05 Patient left the ED. eb Signatures: Dispatcher [employer] EDMS Austen Pierre MD MD rn Peltier, Brian, RN RN bp Botello, Elizabeth eb Jeffries, Jennifer [id number] Rufina Sweeney RN RN [email or web address] Rey Frank MD MD bo1 Gallardo, Rommel RN RN rg5 Corrections: (The following items were deleted from the chart) 07:48 06:50 Inserted saline lock: 20 gauge in right forearm, using aseptic technique. rg5 rg5 10:58 10:30 Admitted to ICU accompanied by nurse, family with patient, via stretcher, room 6, bp with chart, Report called to MITZY DAVIDSON bp
--- NOTE | 2023-12-03 08:41 | EDPHYS ---
Physician Documentation [facility] Name: Hugo Liu Jr Age: 73 yrs Sex: Male : 1950 Arrival Date: 12/03/2023 Time: 06:35 Bed 15 Private MD: ED Physician Austen Pierre HPI: 12/02 07:21 This 73 yrs old Male presents to ER via Wheelchair with complaints of rn palpitations, heart racing. 07:21 The patient presents with a history of irregular heart beat, heart racing. Context: The rn symptoms occur at rest. Onset: The symptoms/episode began/occurred 2 day(s) ago. Duration: The patient or guardian reports a single episode, that is still ongoing. Modifying factors: The symptoms are aggravated by nothing. The symptoms are alleviated by nothing. Associated signs and symptoms: Pertinent positives: chest pain, SOB, Pertinent negatives: fever. Severity of symptoms: At their worst the symptoms were moderate in the emergency department the symptoms are unchanged. The patient has experienced similar episodes in the past. Pt reports heart racing and palpitations for 2 days, still ongoing, saw Dr. Glynn recently, patient has not been taking his metoprolol or lasix in preparation for study. No fever/chills. + chest pain/sob/palpitations. No abd pain. No bleeding. . Historical: - Allergies: 06:56 Cipro; ha1 06:56 Codeine; ha1 06:56 paper tape; ha1 - PMHx: 06:56 Congestive heart failure; Crohn's Disease; diabetes mellitus; Hypercholesterolemia; ha1 Hypertensive disorder; VT; - PSHx: 06:56 CABG; defibrillator; ha1 - Immunization history:: Adult Immunizations up to date. - Infectious Disease History:: Denies. - Social history:: Smoking status: Patient denies any tobacco usage or history of. - Family history:: not pertinent. - Hospitalizations: : No recent hospitalization is reported. ROS: 07:21 Constitutional: Negative for fever, chills, and weight loss, Neck: Negative for injury, rn pain, and swelling, Cardiovascular: + palpitations and chest pain Respiratory: + sob Abdomen/GI: Negative for abdominal pain, nausea, vomiting, diarrhea, and constipation, MS/Extremity: Negative for injury and deformity, Skin: Negative for injury, rash, and discoloration, Neuro: Negative for headache, weakness, numbness, tingling, and seizure, Exam: 07:21 Constitutional: This is a well developed, well nourished patient who is awake, alert, rn appears anxious Cardiovascular: Tachycardic, irregular Respiratory: Mild tachypnea, diminished at bases Abdomen/GI: Soft, non-tender MS/ Extremity: Pulses equal, no cyanosis. Neuro: Awake and alert, GCS 15 Vital Signs: 06:46 BP 96 / 73; Pulse 136; Resp 19; Temp 98; Pulse Ox 98% on R/A; Pain 10/10; rg5 07:00 BP 88 / 73; Pulse 142; Resp 20; Pulse Ox 96% ; bp 07:57 BP 101 / 86; Pulse 125; Resp 24; Pulse Ox 97% ; bp 08:03 BP 101 / 86; Pulse 110; rn 09:10 BP 98 / 69; Pulse 103; Resp 22; Pulse Ox 97% ; bp 10:27 BP 109 / 68; Pulse 89; Resp 15; Pulse Ox 96% ; bp 10:58 BP 109 / 68; Pulse 92; Resp 16; Pulse Ox 95% ; bp 06:46 Pain Scale: Adult rg5 MDM: 06:48 Patient medically screened. bo1 08:37 Differential diagnosis: arrythmia, dehydration, stress disorder. Data reviewed: vital rn signs, nurses notes, lab test result(s), EKG, radiologic studies, and as a result, I will admit patient. Consideration of Admission/Observation Patient was admitted/placed on observation. Escalation of care including admission/observation considered. Care significantly affected by the following chronic conditions: Diabetes, Hypertension, Afib. Counseling: I had a detailed discussion with the patient and/or guardian regarding the historical points, exam findings, and any diagnostic results supporting the discharge/admit diagnosis, lab results, radiology results, the need for further work-up and treatment in the hospital. Response to treatment: the patient's symptoms have markedly improved after treatment, and as a result, I will admit patient. ED course: I personally spent 35 minutes engaged in work directly related to the individual patient's care. This does not include any time spent performing procedures. The patient has been deemed critically ill because of wide-complex tachycardia, most likely atrial fibrillation with rapid ventricular rate and aberrant conduction, requiring resuscitation as well as amiodarone infusion for rate control in the setting of hypotension and chest pain.. 12/02 06:49 Order name: Basic Metabolic Panel; Complete Time: 07:36 bo1 12/02 06:49 Order name: CBC with Diff; Complete Time: 07:33 bo1 12/02 06:49 Order name: Troponin HS; Complete Time: 07:36 bo1 12/02 06:49 Order name: D-Dimer; Complete Time: 07:33 bo1 12/02 06:49 Order name: Magnesium; Complete Time: 07:36 bo1 12/02 06:49 Order name: NT PRO-BNP; Complete Time: 07:36 bo1 12/02 09:23 Order name: Basic Metabolic Panel EDMS 12/02 09:23 Order name: Basic Metabolic Panel EDMS 12/02 09:23 Order name: Basic Metabolic Panel EDMS 12/02 09:23 Order name: CBC with Automated Diff EDMS 12/02 09:23 Order name: CBC with Automated Diff EDMS 12/02 09:23 Order name: CBC with Automated Diff EDMS 12/02 09:23 Order name: Magnesium EDMS 12/02 09:23 Order name: Magnesium EDMS 12/02 09:23 Order name: Magnesium EDMS 12/02 09:23 Order name: NT PRO-BNP EDMS 12/02 09:23 Order name: NT PRO-BNP EDMS 12/02 09:23 Order name: NT PRO-BNP EDMS 12/02 09:23 Order name: Troponin High Sensitivity EDMS 12/02 09:23 Order name: Troponin High Sensitivity EDMS 12/02 09:23 Order name: Troponin High Sensitivity EDMS 12/02 09:23 Order name: Troponin High Sensitivity EDMS 12/02 06:49 Order name: XRAY Chest (1 view); Complete Time: 07:33 bo1 12/02 10:55 Order name: CT; Complete Time: 11:02 EDMS 12/02 09:18 Order name: CONS Physician Consult EDMS 12/02 06:49 Order name: Cardiac monitoring; Complete Time: 06:54 bo1 12/02 06:49 Order name: EKG - Nurse/Tech; Complete Time: 06:54 bo1 12/02 06:49 Order name: IV Saline Lock; Complete Time: 06:54 bo1 12/02 06:49 Order name: Labs collected and sent; Complete Time: 06:54 bo1 12/02 06:49 Order name: O2 Per Protocol; Complete Time: 06:54 bo1 12/02 06:49 Order name: O2 Sat Monitoring; Complete Time: 06:54 bo1 Administered Medications: 07:07 Drug: Aspirin PO Chewable Tablet 324 mg PO once; 81 mg tablets x 4 Route: PO; rg5 10:33 Follow up: Response: No adverse reaction bp 07:10 Drug: Magnesium Sulfate IVPB 1 grams IVPB once over 1 hrs Route: IVPB; Infused Over: 1 rg5 hrs; Site: left forearm; 10:32 Follow up: IV Status: Completed infusion; IV Intake: 100ml bp 07:15 CANCELLED (Duplicate Order): mg IVP once; Over 2 minutes rn 07:16 Not Given (Duplicate Order): calcium chloride1 grams IVP once rn 07:20 Drug: amiodarone IVPB 150 mg 100 ml IVPB once over 10 mins; (mix in D5W) Volume: 100 rg5 ml; Route: IVPB; Infused Over: 10 mins; Site: right forearm; 10:32 Follow up: IV Status: Completed infusion; IV Intake: 100ml bp 07:56 Drug: amiodarone IVPB 900 mg, D5W IV 500 ml IVPB at 1 mg/min continuous; for 6 hrs, bp then change to 0.5 mg/min Route: IVPB; Rate: 1 mg/min; Site: right antecubital; 10:32 Follow up: IV Status: Infusion continued upon admission bp Disposition Summary: 12/03/23 08:40 Hospitalization Ordered Notes: Hospitalization Status: Inpatient Admission rn Provider: Ceasar Bravo rn Location: Intensive Care Unit rn Condition: Fair rn Problem: new rn Symptoms: have improved rn Bed/Room Type: Standard rn Room Assignment: 6-(12/03/23 09:56) ja1 Diagnosis - Persistent atrial fibrillation - with rapid ventricular rate rn - Hypotension, unspecified rn Forms: - Medication Reconciliation Form rn - SBAR form rn - Leadership Thank You Letter management intern time excluding procedures: 08:37 Critical care time: Bedside Care: 35 minutes. Total time: 35 minutes rn Signatures: Dispatcher [employer] Austen Barnett MD MD rn Aguilar, Jose, RN RN Ganesh Gudino RN RN bp Rufina Sweeney RN RN ha1 Rey Frank MD MD bo1 Real Merlos, RN RN rg5 Corrections: (The following items were deleted from the chart) 06:49 06:49 Chest Single View+RAD.RAD.BRZ ordered. EDMS EDMS 06:50 06:50 D-DIMER+COAG.LAB.BRZ ordered. EDMS EDMS 06:50 06:50 MAGNESIUM+C.LAB.BRZ ordered. EDMS EDMS 06:50 06:50 PROBNP+C.LAB.BRZ ordered. EDMS EDMS 07:15 07:03 Diltiazem IVP 20 mg IVP once; Over 2 minutes ordered. albino colin 09:56 08:40 cristi ring
[2023-12-03] MEDS ORDERED: AMIODARONE HCL 450 MG in D5W 241 ML IV SCH (09:00)
--- NOTE | 2023-12-03 09:13 | P.HP ---
Patient History Date of Service: 12/03/23 Allergies ciprofloxacin [From Cipro] Adverse Reaction (Verified 01/30/23 13:57) Shortness of breath paper tape Adverse Reaction (Uncoded 01/30/23 13:57) blisters Home Medications: Cyanocobalamin [Vitamin B-12*] 1,000 mcg IM SEECOM 04/29/16 Metformin HCl [Glucophage] 1,000 mg PO BID 04/29/16 Simvastatin [Zocor*] 20 mg PO BEDTIME 04/29/16 Calcium Carbonate/Vitamin D3 [Calcium 600-Vit D3 200 Tablet] 1 each PO DAILY 06/17/16 Latanoprost [Xalatan] 1 drop OP DAILY 06/17/16 Liraglutide [Victoza 2-Gelacio] 1.8 mg SQ DAILY 06/17/16 Multivitamin [Multivitamins] 1 each PO DAILY 06/17/16 Adalimumab [Humira Pen] 1 dose SQ SEECOM 10/14/20 Folic Acid 1 tab PO DAILY 10/14/20 Furosemide 1 tab PO DAILY 10/14/20 Mesalamine [Apriso] 3 tab PO DAILY 10/14/20 Methotrexate [Methotrexate*] 5 tab PO DAILY 10/14/20 Pantoprazole [Protonix Tab*] 1 tab PO DAILY 10/14/20 Spironolactone 1 tab PO BID 10/14/20 Magnesium Oxide 1 tab PO DAILY 04/04/21 Dapagliflozin Propanediol [Farxiga] 10 mg PO DAILY 10/31/22 Rivaroxaban [Xarelto] 20 mg PO DAILY 10/31/22 Vit C/E/Zn/Coppr/Lutein/Zeaxan [Preservision Areds 2 Softgel] 1 each PO BID 10/31/22 - Past Medical/Surgical History Diabetic: Yes -: DM Type 2 -: HTN -: CAD with CABG -: Crohn's -: Pacemaker with defibrillator -: Hyperlipidemia -: GERD -: Anemia chronic disease -: ICD -: CABG -: Cholecystectomy Psychosocial/ Personal History: - Social History Alcohol use: No CD- Drugs: No Caffeine use: No Physical Examination - Studies Laboratory Data (last 24 hrs) 12/03/23 12/03/23 07:00 07:00 WBC 6.30 Hgb 12.3 L Hct 38.2 L Plt Count 242 Sodium 137 Potassium 4.7 BUN 30 H Creatinine 1.68 H Glucose 155 H Magnesium 2.2 Assessment and Plan - Advance Directives Does patient have a Living Will: No Does patient have a Durable POA for Healthcare: No
--- NOTE | 2023-12-03 09:14 | P.HP ---
Certification for Inpatient Patient admitted to: Inpatient With expected LOS: <2 Midnights <Jennifer Armas - Last Filed: 12/03/23 13:58> Patient History Date of Service: 12/03/23 Reason for admission: A-fib RVR History of Present Illness: 73-year-old male with history of diabetes, hypertension, hyperlipidemia, CAD with prior CABG, congestive heart failure, chronic anticoagulation Xarelto, congestive heart failure, ND, Crohn's presents to the emergency room with palpitations. He reports symptoms started 2 days ago, he report recently discontinued metoprolol and Lasix by cardiology Dr. Glynn. He reports medication was discontinued for an upcoming test. He reports associated chest pain, shortness of breath, shortness of breath worse with exertion. He reports headache, no reported slurred speech, facial drooping, focal deficits, is at bedside, plan to admit for A-fib RVR to ICU on amiodarone drip, chest pain rule out ND, cardiology to consult. EKG wide-complex tachycardia, most likely atrial fibrillation with rapid ventricular rate and aberrant conduction, on telemetry - Past Medical/Surgical History Diabetic: Yes -: DM Type 2 -: HTN -: CAD with CABG -: Crohn's -: Pacemaker with defibrillator -: Hyperlipidemia -: GERD -: Anemia chronic disease -: ICD -: CABG -: Cholecystectomy Psychosocial/ Personal History: - Family History Mother -: Heart disease, Hypertension, Diabetes, Stroke - Social History Alcohol use: No CD- Drugs: No Caffeine use: No <Jennifer Armas - Last Filed: 12/03/23 13:58> Date of Service: 12/03/23 <Ceasar Bravo - Last Filed: 12/04/23 01:59> Allergies ciprofloxacin [From Cipro] Adverse Reaction (Verified 01/30/23 13:57) Shortness of breath paper tape Adverse Reaction (Uncoded 01/30/23 13:57) blisters Home Medications: Cyanocobalamin [Vitamin B-12*] 1,000 mcg IM SEECOM 04/29/16 Metformin HCl [Glucophage] 1,000 mg PO BID 04/29/16 Simvastatin [Zocor*] 20 mg PO BEDTIME 04/29/16 Latanoprost [Xalatan] 1 drop OP DAILY 06/17/16 Multivitamin [Multivitamins] 1 each PO DAILY 06/17/16 Adalimumab [Humira Pen] 1 dose SQ SEECOM 10/14/20 Mesalamine [Apriso] 2.4 gm PO BID 10/14/20 Methotrexate [Methotrexate*] 5 tab PO DAILY 10/14/20 Pantoprazole [Protonix Tab*] 1 tab PO DAILY 10/14/20 Spironolactone 1 tab PO BID 10/14/20 Magnesium Oxide 800 mg PO BID 04/04/21 Dapagliflozin Propanediol [Farxiga] 10 mg PO DAILY 10/31/22 Rivaroxaban [Xarelto] 20 mg PO DAILY 10/31/22 Vit C/E/Zn/Coppr/Lutein/Zeaxan [Preservision Areds 2 Softgel] 1 each PO BID 10/31/22 Amiodarone HCl [Pacerone] 400 mg PO DAILY 12/03/23 Aspirin 81 mg PO DAILY 12/03/23 Calcium Carb/Vitamin D3/Vit K1 [Calcium + D Soft Chewable Tab] 500 mg PO BID 12/03/23 Tirzepatide [Mounjaro] 7.5 mg SQ Q7D 12/03/23 Review of Systems Per HPI <Jennifer Armas - Last Filed: 12/03/23 13:58> Physical Examination - Physical Exam General: Alert, Oriented x3, Mild distress HEENT: Atraumatic, Normocephalic Neck: Supple, JVD not distended Respiratory: Normal air movement, Crackles/rales Cardiovascular: Normal pulses, Irregular heart rate/rhythm Capillary refill: <2 Seconds Gastrointestinal: No tenderness, Other (Obese abdomen) Musculoskeletal: No swelling, No contractures Integumentary: No breakdown, No significant lesion Neurological: Normal speech, Normal strength at 5/5 x4 extr, Cranial nerves 3-12 intact - Studies Laboratory Data (last 24 hrs) 12/03/23 12/03/23 07:00 07:00 WBC 6.30 Hgb 12.3 L Hct 38.2 L Plt Count 242 Sodium 137 Potassium 4.7 BUN 30 H Creatinine 1.68 H Glucose 155 H Magnesium 2.2 <Jennifer Armas - Last Filed: 12/03/23 13:58> - Studies Laboratory Data (last 24 hrs) 12/03/23 12/03/23 07:00 07:00 WBC 6.30 Hgb 12.3 L Hct 38.2 L Plt Count 242 Sodium 137 Potassium 4.7 BUN 30 H Creatinine 1.68 H Glucose 155 H Magnesium 2.2 <Ceasar Bravo Saima - Last Filed: 12/04/23 01:59> Assessment and Plan - Plan A-fib RVR wide-complex tachycardia, Elevated troponin Chest pain rule out ND Cardiology consult, telemetry, admit to ICU Amiodarone drip, Trend troponin 73-year-old male with history of diabetes, hypertension, hyperlipidemia, CAD with prior CABG, congestiv he reports being on chronic anticoagulation Xarelto, e heart failure, ND, Crohn's presents to the emergency room with palpitations. He reports symptoms started 2 days ago, he report recently discontinued metoprolol and Lasix by cardiology Dr. Glynn. He reports medication was discontinued for an upcoming test. He reports associated chest pain, shortness of breath, shortness of breath worse with exertion. He reports headache, no reported slurred speech, facial drooping, focal deficits, is at bedside, EKG wide-complex tachycardia, likely atrial fibrillation with rapid ventricular rate and aberrant conduction, on telemetry Hyperlipidemia Hypertension Resume home meds Diabetes Accu-Cheks, sliding scale Full code DVT Diet cardiac Disposition Home independent prior Discharge Plan: Home - Advance Directives Does patient have a Living Will: No Does patient have a Durable POA for Healthcare: No - Code Status/Comfort Care Code Status: Full Code Critical Care: Yes Time Spent Managing Pts Care (In Minutes): 65 <Jennifer Armas - Last Filed: 12/03/23 13:58> Date of Service: 12/03/23 Patient was seen and examined. Events of the last 24 hours have been noted. Spoke with with RUBEN regarding patient's clinical picture after evaluating and examining the patient independently. I performed a substantial part of the MDM d uring this patient's care today. I personally made or approved the documented management plan and acknowledge its risk of complications. I agree with the findings and documentation provided in the RUBEN's notes. Patient presented with atrial fibrillation with rapid ventricular response. Patient also with non-STEMI. Contiue amiodarone and lovenox for now-on Xarelto at home. Patient with recent cardiac catheterization. Seen by Cardiology today and plan is to continue with medical intervention. No additional interventions at this time. <Ceasar Bravo - Last Filed: 12/04/23 01:59>
[2023-12-03] MEDS ORDERED: ONDANSETRON 4 MG/2 ML VIAL IV PRN (09:19)
[2023-12-03] MEDS: FUROSEMIDE 40 MG/4 ML VIAL IV ONE (09:22)
[2023-12-03] MEDS: MORPHINE 4 MG/ML SYR IV ONE (09:56)
[2023-12-03] MEDS ORDERED: FUROSEMIDE 40 MG/4 ML VIAL ONE (10:04)
--- NOTE | 2023-12-03 10:55 | RAD REPORT ---
EXAM DESCRIPTION: CT - Head Brain Wo Cont - 12/03/2023 10:17 am CLINICAL HISTORY: SU COMPARISON: Head Brain Wo Cont dated 04/02/2021; Head Brain W/Wo Con dated 06/08/2018 TECHNIQUE: All CT scans are performed using dose optimization technique as appropriate and may inclu de automated exposure control or mA/KV adjustment according to patient size. FINDINGS: No intracranial hemorrhage, hydrocephalus or extra-axial fluid collection.No areas of brai n edema or evidence of midline shift. Remote right occipital lobe infarct. The paranasal sinuses and mastoids are clear. The calvarium is intact. IMPRESSION: No acute intracranial abnormality.
[2023-12-03] MEDS: ENOXAPARIN 100 MG/ML SYR SQ SCH (13:43)
[2023-12-03] MEDS: HYDROCODONE/APAP 5/325 MG TAB PO PRN (16:25)
--- NOTE | 2023-12-03 19:57 | CON ---
Date of Consultation: 12/03/2023 Reason For Consultation: Atrial fibrillation with left ventricular response and chest pain. History Of Present Illness: A 73-year-old male with history of diabetes; hypertension; dyslipidemia; coronary artery disease, status post CABG, status post coronary angiogram in January; has congestive heart failure; atrial fibrillation, on Xarelto, presented to the emergency room with shortness of br eath with palpitations and chest discomfort. He apparently was on Lasix, recently was discontinued d ue to significant low blood pressure and while evaluation in the emergency room, he was in atrial fib rillation with rapid ventricular response. After the heart rate went down, the patient is chest pain free. Past Medical History: As outlined above in the HPI. Medications: Refer consult sheet for detailed list. Allergies: CIPROFLOXACIN. Past Surgical History: CABG. Family History: No premature coronary artery disease or cancer. Social History: He does not smoke or drink. Does not use any drugs. Review of Systems: All systems reviewed and were negative except mentioned in HPI. Physical Examination: Vital Signs: Reviewed. Head and Neck: Pupils are equal, reactive to light. Intact eye movements. No JVD. No cervical lym phadenopathy. Neck is supple. Thyroid is not enlarged. Lungs: Clear to auscultation bilaterally. No rhonchi, wheezing, or crackles. No accessory muscle u se. Heart: Irregular. No extra sounds. Abdomen: Soft, nontender. Bowel sounds positive. No organomegaly. No masses or hernia. No rigidi ty or rebound. Extremities: No clubbing, cyanosis. Intact pulses. Trace edema. Neurologic: Alert, awake, oriented x3. No acute focal deficits appreciated. Investigations: BUN 30, creatinine 1.68. Troponin 26, then 279. NT proBNP is 2639. Assessment And Recommendations: 1.Atrial fibrillation with rapid ventricular response. Agree with amiodarone now. Continue IV amio darone load and once the 24 hours load is completed, change to 200 mg twice a day. Also, start him o n anticoagulant with Eliquis 2.5 mg twice a day. 2.Elevated troponin. There is no chest pain now. This is probably related to the fast heart rate t hat he had earlier as a demand. He is known to have 3 bypass grafts, one of them is occluded and the right coronary artery is totally occluded and no intervention was recommended back on January. At t his point, continue medical management for coronary artery disease including aspirin, high-dose stati n, Lipitor 40 mg at bedtime, and we will try to get his heart rate controlled with amiodarone. He mi ght benefit from low-dose beta-rosa. However, the limitation is his blood pressure. 3.Acute renal failure and this is much better now to keep the diuretics on hold for now and we will re-dose Lasix based on his symptoms. 4.Dyslipidemia. Recommend Lipitor 40 mg at bedtime. 5.Congestive heart failure, appears to be euvolemic. Avoid diuresis for now given the kidney dysfun ction. SR/MODL Voice ID: [id number] Report ID: [id number]
[2023-12-04] MEDS ORDERED: CYANOCOBALAMIN 1000 MCG IM SCH (02:00)
[2023-12-04] MEDS: Tirzepatide [Mounjaro] 7.5 MG/0.5 ML Pen.Injctr SQ SCH (02:00)
[2023-12-04 05:02] LABS: Absolute Lymphocytes (CBC) 1.2 K/uL (0.7-4.9); Absolute Monocytes 0.7 K/uL (0.1-1.3); Absolute Neutrophil 6.5 K/uL (1.8-8.0); Basophils % 0.5 % (0-1.3); Eosinophils % 0.3 % (0-4.4); Hemoglobin 12.4 g/dL (13.6-17.9); Lymphocytes % 13.9 % (15.3-44.8); MCH 30.6 pg (27.0-35.0); MCHC 32.7 g/dL (32.0-36.0); MCV 93.4 fL (80-100); MPV 8.5 fL (7.6-11.3); Monocytes % 7.8 % (3.3-12.3); Neutrophils % 77.5 % (41.7-73.7); Nucleated Red Blood Cells % 0.2 % (0-0); Platelets 219 thou/uL (152-406); RBC Red Blood Cell Count 4.07 M/uL (4.33-5.43); Red Cell Distribution Width 14.9 % (12.1-15.2)
[2023-12-04 05:13] LABS: Albumin 3.5 g/dL (3.4-5.0); Bilirubin Direct 0.2 mg/dL (0-0.2); Bilirubin Indirect, Calculated 0.2 mg/dL (0.2-0.8); Bilirubin Total 0.4 mg/dL (0.2-1.0); Globulin 3.5 g/dL (2.3-3.5)
[2023-12-04 05:15] LABS: Anion Gap 9.8 mEq/L (5.0-15.0); Magnesium 2.1 mg/dL (1.6-2.4); Potassium 4.8 mEq/L (3.5-5.1)
[2023-12-04] MEDS: PANTOPRAZOLE 40MG TABLET PO SCH (08:17)
[2023-12-04] MEDS: AMIODARONE HCL 200 MG TAB PO SCH (08:17)
[2023-12-04] MEDS: SPIRONOLACTONE 25 MG TABLET PO SCH (08:17)
[2023-12-04] MEDS: METFORMIN HCL 500 MG TAB PO SCH (08:17)
[2023-12-04] MEDS: ASPIRIN 81 MG CHEWABLE TABLET PO SCH (08:17)
[2023-12-04] MEDS: MAGNESIUM OXIDE 400 MG TAB PO SCH (08:18)
[2023-12-04] MEDS ORDERED: ADALIMUMAB 40 MG/0.8 ML SQ SCH (09:00)
[2023-12-04] MEDS: **PT MED**Dapagliflozin Propanediol [Farxiga] 10 MG Tablet PO SCH (09:00)
[2023-12-04] MEDS: MESALAMINE 1.2 GM PO SCH (09:00)
[2023-12-04] MEDS: LATANOPROST OPTH SCH ×2 (09:00→21:14)
[2023-12-04] MEDS: [UNRECOGNIZED DRUG - OTHER] PO SCH (09:00)
[2023-12-04] MEDS: CALCIUM CARB 500MG/VIT D 200 IU TAB PO SCH (09:33)
[2023-12-04] MEDS: METHOTREXATE 2.5 MG TAB PO SCH (09:33)
[2023-12-04] MEDS: MULTIVITAMIN TAB PO SCH (09:33)
--- NOTE | 2023-12-04 10:16 | P.PN ---
Subjective Date of Service: 12/04/23 Chief Complaint: A-fib RVR Pt is resting comfortably in bed. He reports that he is feeling better. Off amiodarone drip. Pt is getting amiodarone drip 200mg po BID and eliquis. Waiting for cardiology recommendation. Troponin is trending down. Continue medical management for elevated troponin. No other complaints. Review of Systems General: Unremarkable Eyes: Unremarkable ENT: Unremarkable Respiratory: Unremarkable Cardiovascular: Palpitations Gastrointestinal: Unremarkable Genitourinary: Unremarkable Musculoskeletal: Unremarkable Integumentary: Unremarkable Neurological: Unremarkable Lymphatics: Unremarkable Physical Examination - Vital Signs Temperature: 98.1 F Blood Pressure: 107/59 Pulse: 89 Respirations: 22 Pulse Ox (%): 94 - Physical Exam General: Alert, In no apparent distress, Oriented x3 HEENT: Atraumatic, Normocephalic, PERRLA Neck: Supple, 2+ carotid pulse no bruit, JVD not distended Respiratory: Clear to auscultation bilaterally Cardiovascular: No edema, Normal pulses, Regular rate/rhythm Capillary refill: <2 Seconds Gastrointestinal: Normal bowel sounds, Soft and benign, Non-distended Musculoskeletal: No clubbing, No swelling Integumentary: No rashes, No breakdown, No significant lesion Neurological: Normal gait, Normal speech, Normal strength at 5/5 x4 extr Lymphatics: No axilla or inguinal lymphadenopathy Assessment And Plan - Plan Atrial fibrillation with rapid ventricular response: Will continue telemetry, amiodarone 200mg po BID and Eliquis 2.5mg po BID. cardiology is following. Off amiodarone drip. . Hx of CAD and Elevated troponin. Pt denies any chest pain. Likely due to A. fib with RVR. troponin is trending down. Will continue medical management. Pt has history of 3 bypass grafts, one of them is occluded and the right coronary artery is totally occluded and no intervention. Will continue aspirin, high-dose statin, Lipitor 40 mg qhs. Pt complains of dizziness. Will check EKG and troponin. Acute renal failure: cr is 1.52. Rico avoid nephrotxins and monitor renal function. Dyslipidemia: Recommend Lipitor 40 mg at bedtime. Congestive heart failure: Will monitor volume status and BP. Hold diuretic to due ANNA MARIE. Pt appear euvolemic. DM II: Continue accuchek, SSI and ADA diet. DVT ppx: SCD Code: full
--- NOTE | 2023-12-04 12:06 | P.PN ---
Subjective Date of Service: 12/04/23 Chief Complaint: A-fib RVR Subjective: No new changes, No C/O voiced, Tolerating diet, Ambulating, Improving Review of Systems 10-point ROS is otherwise unremarkable Physical Examination - Vital Signs Temperature: 98.1 F Blood Pressure: 99/68 Pulse: 104 Respirations: 15 Pulse Ox (%): 97 - Physical Exam General: Alert, In no apparent distress HEENT: Atraumatic, PERRLA, EOMI Neck: Supple, JVD not distended Respiratory: Clear to auscultation bilaterally, Normal air movement Cardiovascular: Regular rate/rhythm, Normal S1 S2 Gastrointestinal: Normal bowel sounds, No tenderness Musculoskeletal: No tenderness Integumentary: No rashes Neurological: Normal speech, Normal tone, Normal affect Lymphatics: No axilla or inguinal lymphadenopathy - Studies Medications List Reviewed: Yes Assessment And Plan - Current Problems (Diagnosis) (1) Atrial fibrillation Current Visit: Yes Status: Acute Plan: rate better controlled, in sinus rhythm today continue amiodarone 200 mg po BID switch loveon to patient home xarelto on discharge. (2) Hx of CABG Current Visit: No Status: Acute Plan: patient had recent angiogram that shows patent ALLISON and SVG-OM, occluded SVG- Rpda Cardiac enzymes are trending down. continue ASAa Lipitor 40 mg daily (3) Hypertension Current Visit: No Status: Acute Plan: patient BP is soft, continue to monitor.
--- NOTE | 2023-12-04 13:44 | EKG ---
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
[2023-12-04] MEDS: ATORVASTATIN 10 MG TAB PO SCH (21:09)
[2023-12-05 05:47] LABS: Absolute Basophils 0.1 K/uL (0-0.5); Absolute Eosinophils 0.1 K/uL (0-0.5); Absolute Lymphocytes (CBC) 2.1 K/uL (0.7-4.9); Absolute Monocytes 0.7 K/uL (0.1-1.3); Absolute Neutrophil 3.8 K/uL (1.8-8.0); Basophils % 0.8 % (0-1.3); Eosinophils % 1.1 % (0-4.4); Hematocrit 37.9 % (39.6-49.0); Hemoglobin 12.4 g/dL (13.6-17.9); Lymphocytes % 31.7 % (15.3-44.8); MCH 30.6 pg (27.0-35.0); MCHC 32.6 g/dL (32.0-36.0); MCV 93.6 fL (80-100); MPV 9.1 fL (7.6-11.3); Neutrophils % 56.4 % (41.7-73.7); Nucleated Red Blood Cells % 0.2 % (0-0); Platelets 236 thou/uL (152-406); RBC Red Blood Cell Count 4.05 M/uL (4.33-5.43); Red Cell Distribution Width 15.7 % (12.1-15.2)
[2023-12-05 06:05] LABS: Anion Gap 12.6 mEq/L (5.0-15.0); Magnesium 2.6 mg/dL (1.6-2.4); Potassium 4.6 mEq/L (3.5-5.1)
[2023-12-05 07:24] LABS: Phosphorus 4.3 mg/dL (2.5-4.9)
[2023-12-05] MEDS: MIDODRINE HCL 5 MG TABLET PO SCH ×2 (09:59→20:44)
--- NOTE | 2023-12-05 10:52 | P.PN ---
Subjective Date of Service: 12/05/23 Chief Complaint: A-fib RVR Pt is resting comfortably in bed. He feels tired and dizzy. BP is low. Will add midodrine. Continue amiodarone drip 200mg po BID and eliquis. Troponin is trending down. Continue medical management for elevated troponin per cardiology. No other complaints. Review of Systems General: Weakness Eyes: Unremarkable ENT: Unremarkable Respiratory: Unremarkable Cardiovascular: Unremarkable Gastrointestinal: Unremarkable Genitourinary: Unremarkable Musculoskeletal: Unremarkable Neurological: Unremarkable Lymphatics: Unremarkable Physical Examination - Vital Signs Temperature: 97.6 F Blood Pressure: 87/65 Pulse: 99 Respirations: 15 Pulse Ox (%): 96 - Physical Exam General: Alert, In no apparent distress, Oriented x3 HEENT: Atraumatic, Normocephalic, PERRLA Neck: Supple, 2+ carotid pulse no bruit, JVD not distended Respiratory: Clear to auscultation bilaterally, Normal air movement, Diminished Cardiovascular: No edema, Normal pulses, Regular rate/rhythm, Normal S1 S2 Capillary refill: <2 Seconds Gastrointestinal: Normal bowel sounds, Soft and benign, Non-distended Musculoskeletal: No clubbing, No swelling, No contractures Integumentary: No rashes, No breakdown, No significant lesion Neurological: Normal gait, Normal speech, Normal strength at 5/5 x4 extr, Normal tone, Sensation intact Lymphatics: No axilla or inguinal lymphadenopathy - Studies Medications List Reviewed: Yes Assessment And Plan - Plan Atrial fibrillation with rapid ventricular response: Will continue telemetry, amiodarone 200mg po BID and Eliquis 2.5mg po BID. Cardiology is following. Off amiodarone drip. Hx of CAD and Elevated troponin. Pt denies any chest pain. Likely due to A. fib with RVR. troponin is trending down. Will continue medical management. Pt has history of 3 bypass grafts, one of them is occluded and the right coronary artery is totally occluded and no intervention. Will continue aspirin, high-dose statin, Lipitor 40 mg qhs. Pt complains of dizziness. Will check EKG and troponin. Hypotension: Will hold BP meds and add midodrine. Monitor BP. Acute renal failure: Cr is 2.14 <- 1.52. Will avoid nephrotxins and monitor renal function. Dyslipidemia: Recommend Lipitor 40 mg at bedtime. Congestive heart failure: Will monitor volume status and BP. Hold diuretic to due ANNA MARIE. Pt appear euvolemic. DM II: Continue accuchek, SSI and ADA diet. Will stop Metformin. DVT ppx: SCD Code: full
[2023-12-05 11:24] LABS: Specific Gravity 1.029 (1.005-1.030); Sqamous Epithelial <5 /HPF (None Seen); Urine Bacteria None Seen /HPF (<20); Urine Bilirubin 1+ (Negative); Urine Blood 3+ (Negative); Urine Clarity Extremely Turbid (Clear); Urine Color Yellow (Yellow); Urine Culture Reflex Order REFLEXED; Urine Glucose 4+ (Over) (Negative); Urine Ketones NEGATIVE (Negative); Urine Microscopic Reflex YN ORDER UMIC; Urine Mucus Slight /HPF (None Seen); Urine Nitrite NEGATIVE (Negative); Urine Protein TRACE (Negative); Urine RBC >50 /HPF (None Seen); Urine Urobilinogen 1+ (Normal); Urine pH 5.5 (5.0-7.0)
[2023-12-05] MEDS: FUROSEMIDE 100 MG in NA CHLORIDE 0.9% 90 ML IV SCH (13:22)
[2023-12-05] MEDS: CEFTRIAXONE 1,000 MG in NA CHLORIDE 0.9% 50 ML IVPB SCH (16:13)
--- NOTE | 2023-12-05 16:35 | P.PN ---
Subjective Date of Service: 12/05/23 Chief Complaint: A-fib RVR Subjective: No new changes, No C/O voiced, Tolerating diet, Ambulating, Improving Review of Systems 10-point ROS is otherwise unremarkable Physical Examination - Vital Signs Temperature: 97.6 F Blood Pressure: 91/73 Pulse: 99 Respirations: 19 Pulse Ox (%): 95 - Physical Exam General: Alert, In no apparent distress HEENT: Atraumatic, PERRLA, EOMI Neck: Supple, JVD not distended Respiratory: Clear to auscultation bilaterally, Normal air movement Cardiovascular: Regular rate/rhythm, Normal S1 S2 Gastrointestinal: Normal bowel sounds, No tenderness Musculoskeletal: No tenderness Integumentary: No rashes Neurological: Normal speech, Normal tone, Normal affect Lymphatics: No axilla or inguinal lymphadenopathy - Studies Medications List Reviewed: Yes Assessment And Plan - Current Problems (Diagnosis) (1) Atrial fibrillation Current Visit: Yes Status: Acute Plan: rate better controlled, in sinus rhythm today continue amiodarone 200 mg po BID switch loveonx to patient home xarelto on discharge. (2) Hx of CABG Current Visit: No Status: Acute Plan: patient had recent angiogram that shows patent ALLISON and SVG-OM, occluded SVG- Rpda but still report angina plan for coronary angiogram in am continue ASA Lipitor 40 mg daily (3) Hypertension Current Visit: No Status: Acute Plan: patient BP is soft, continue to monitor. (4) SOB (shortness of breath) Current Visit: Yes Status: Acute Plan: start patient on lasix drip at 2.5 mg/hr and monitor input and output plan for right heart cath in am
[2023-12-05 16:44] LABS: Thyroid Stimulating Hormone 16.5 uIU/mL (0.358-3.740); Uric Acid 6.6 mg/dL (3.5-7.2)
--- NOTE | 2023-12-05 17:42 | CON ---
Date of Consultation: 12/05/2023 Reason For Consultation: Elevated BUN and creatinine. History Of Present Illness: This is a pleasant 73-year-old gentleman with significant past medical h istory of hypertension, diabetes since 1999, complicated with neuropathy, no retinopathy, hypertensio n, hyperlipidemia, chronic kidney disease, baseline creatinine 1.6. The patient apparently had some lab workup as outpatient, found to have abnormality in his thyroid function. For that reason, he vis ited with his Primary. His Primary advised to hold his diuresis. Visited with the cardiology to get approval. Cardiology evaluated, held the diuresis, placed on Lovenox, and they planned for cardiac cath. The patient also mentioned that he was on amiodarone 400 b.i.d., which is decreased lately. The patient denied taking any nonsteroidal. No IV contrast. The patient found to have some decrease in his urine output. As outpatient, patient is on spironolactone, methotrexate, mesalamine, metform in, and calcium carbonate. The patient not on any SASHA inhibitor. The patient admitted to the hospital 2 days ago. Blood pressure being on the lower side on the mid 9 0. Patient was orthostatic. The patient was started on low dose of Lasix with midodrine. Reviewing the record for the patient, the patient's creatinine as an outpatient back in January 2023, 1.6; in February, 1.6; and in October 2023, it is 2.2, with the GFR used to be in November 21 and upon admission it was 43. Past Medical History: Includes: 1.Diabetes complicated with neuropathy since 1999. 2.Hypertension. 3.CAD complicated with congestive heart failure, status post CABG and ICD. 4.Crohn disease. 5.GERD. Past Surgical History: Include CABG, cholecystectomy, ICD. Family History: Positive for heart disease. Social History: Denied smoking. Denied drinking. Denied drugs abuse. Allergies: TO CIPRO. Home Medications: Include vitamins, metformin, lansoprazole, Humira, mesalamine, methotrexate, panto prazole, spironolactone, amiodarone, aspirin, calcium carbonate. Review of Systems: Head and Neck: No red eye. No ear pain. GI: No nausea. No vomiting. : No polyuria. No dysuria. No hematuria. Has decreased urine output. 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 Respiratory: Has shortness of breath. Has palpitation. Cardiovascular: Has chest pain. Endocrine: No polydipsia. Skin: No rash. Neuro: Has neuropathy. Physical Examination: Vital Signs: Blood pressure of 94/69, pulse of 109, afebrile. Chest: Clear to auscultation. Heart: S1, S2. Regular. Tachycardic. Abdomen: Soft, nontender. Extremity: No edema. Neurologic: Alert. No focality. Laboratory Data: For the patient, upon admission, creatinine 1.5, GFR of 31. Today's lab data; sodi um 137, potassium 4.6, bicarb 20, BUN 32, creatinine 2.1, GFR 32. WBC 6.7, hemoglobin 12.4. Current Medications: The patient on, include Lasix drip 2.5, methotrexate, midodrine 5 mg, calcium c arbonate, spironolactone, amiodarone 200 b.i.d., atorvastatin, pantoprazole. Assessment And Plan: 1.Acute kidney injury, mostly secondary to cardiorenal. Looked to me even with the finding on the c hest x-ray and elevation in BNP, looked to me it is more cardiorenal with poor perfusion ATN secondar y to overdiuresis. The patient lying flat. No respiratory symptoms. I will discuss with the cardio logy, especially with the preparation for cardiac cath. 2.To hold the diuresis. Increase midodrine. Start the patient on gentle hydration and we will foll ow up. I had long discussion with the patient in the presence of the that planning for cardiac cath is mandatory to check for the heart, but that is going to carry a risk for acute kidney injury i ncluding exposing to dialysis, recommended to proceed with the cardiac cath taking the risk with the gentle hydration. The patient verbalized understanding with his . 3.Hypertension, currently blood pressure on the lower side. Hold all blood pressure medications and we will consider holding the diuresis. I will hold spironolactone for the time being. 4.Marginal electrolyte imbalance. Hold spironolactone. 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 I will send for a workup to evaluate the chronicity of the disease. We will send for renal ultrasound with history o f autoimmune disease. We will send for serology and we will follow up the patient. Thank you, Dr. Bravo, for allowing us to participate in the care of your patient. MICAH Voice ID: [id number] Report ID: [id number]
[2023-12-05] MEDS: NA CHLORIDE 0.9% 1,000 ML IV SCH (18:22)
--- NOTE | 2023-12-05 20:14 | RAD REPORT ---
EXAM DESCRIPTION: US - Renal Ultrasound-Complete - 12/05/2023 5:20 pm CLINICAL HISTORY: ANNA MARIE COMPARISON: Renal Ultrasound-Complete dated 04/14/2022 TECHNIQUE: Sonographic grayscale and color flow images of the kidneys and bladder were obtained. FINDINGS: Both kidneys are normal in size, and morphology. Bilateral mild cortical thinning. The right kidney measures 9.7 cm in length. No hydronephrosis, or focal mass. Small calculi at the pe lvis, largest measuring 7 mm. The left kidney measures 12.5 cm in length. No hydronephrosis, focal mass, or echogenic calculi. The urinary bladder is decompressed with Law catheter placed. IMPRESSION: Small right renal echogenic calculi, up to 7 mm. No hydronephrosis.
[2023-12-05] MEDS: ACETYLCYST 20% 800 MG/4 ML VIAL PO SCH (20:43)
[2023-12-06 06:19] LABS: Percent Reticulocyte Count 2.33 % (0.4-2.05); RBC Red Blood Cell Count 3.76 M/uL (4.33-5.43)
[2023-12-06 06:37] LABS: Albumin 3.1 g/dL (3.4-5.0); Anion Gap 12.5 mEq/L (5.0-15.0); Phosphorus 4.1 mg/dL (2.5-4.9); Potassium 4.5 mEq/L (3.5-5.1)
[2023-12-06 07:04] LABS: Rheumatoid Factor NEG (NEG)
[2023-12-06] MEDS ORDERED: NA CHLORIDE 0.9% 500 ML ONE (08:52)
[2023-12-06] MEDS ORDERED: LIDOCAINE 1% 20 ML MDV ONE (08:53)
[2023-12-06] MEDS ORDERED: HEPA 1000U/500MLS 2,000 UNIT/1,000 ML BAG IV ONE (08:53)
[2023-12-06] MEDS ORDERED: MIDAZOLAM HCL 2 MG/2 ML INJ ONE (08:53)
[2023-12-06] MEDS ORDERED: FENTANYL CITR 100 MCG/2 ML ONE (08:54)
[2023-12-06] MEDS ORDERED: HEPARIN 10,000 UNIT/10 ML VIAL IV ONE (08:54)
[2023-12-06] MEDS ORDERED: ATROPINE SULF 1 MG/10 ML SYR IV ONE (08:54)
[2023-12-06] MEDS ORDERED: HEPARIN 5000 UNIT/ML 1 ML VIAL ONE (08:54)
[2023-12-06] MEDS ORDERED: TICAGRELOR 90 MG TABLET PO ONE (08:54)
[2023-12-06] MEDS ORDERED: CLOPIDOGREL 75 MG TABLET ONE (08:55)
[2023-12-06] MEDS ORDERED: ASPIRIN 325 MG TAB ONE (08:55)
[2023-12-06] MEDS: METHOTREXATE 2.5 MG TAB PO SCH (10:00)
--- NOTE | 2023-12-06 10:26 | P.PN ---
Subjective Date of Service: 12/06/23 Chief Complaint: A-fib RVR Pt is resting comfortably in bed. He is NPO for cardiac cath. Pt received lasix drip yesterday. Continue amiodarone drip 200mg po BID and eliquis. Troponin is trending down. No other complaints. Review of Systems General: Weakness Eyes: Unremarkable ENT: Unremarkable Respiratory: Unremarkable Cardiovascular: Unremarkable Gastrointestinal: Unremarkable Genitourinary: Unremarkable Musculoskeletal: Unremarkable Integumentary: Unremarkable Neurological: Unremarkable Lymphatics: Unremarkable Physical Examination - Vital Signs Temperature: 97.6 F Blood Pressure: 95/73 Pulse: 105 Respirations: 17 Pulse Ox (%): 97 - Physical Exam General: Alert, In no apparent distress, Oriented x3 HEENT: Atraumatic, Normocephalic, PERRLA Neck: Supple, 2+ carotid pulse no bruit, JVD not distended Respiratory: Clear to auscultation bilaterally, Normal air movement Cardiovascular: No edema, Normal pulses, Regular rate/rhythm Capillary refill: <2 Seconds Gastrointestinal: Normal bowel sounds, Soft and benign, Non-distended Musculoskeletal: No clubbing, No swelling, No contractures Integumentary: No rashes, No breakdown, No significant lesion Neurological: Normal gait, Normal speech, Normal strength at 5/5 x4 extr Lymphatics: No axilla or inguinal lymphadenopathy - Studies Medications List Reviewed: Yes Assessment And Plan - Plan Atrial fibrillation with rapid ventricular response: Will continue telemetry, amiodarone 200mg po BID and Eliquis 2.5mg po BID. Cardiology is following. Off amiodarone drip. Hx of CAD and Elevated troponin. Pt denies any chest pain. Likely due to A. fib with RVR. troponin is trending down. He is NPO for cardiac cath this am. Cardiology is following. Pt has history of 3 bypass grafts, one of them is occluded and the right coronary artery is totally occluded and no intervention. Will continue aspirin, high-dose statin, Lipitor 40 mg qhs. Hypotension: Will hold BP meds and add midodrine. Monitor BP. Acute renal failure: Cr is 1.61<- 2.14 <- 1.52. Will avoid nephrotxins and monitor renal function. Dyslipidemia: Recommend Lipitor 40 mg at bedtime. Congestive heart failure: Will monitor volume status and BP. Pt received lasix drip on 12/05/23. Pt appear euvolemic. Hypothyroidism: TSH is 16.5, free T4 1.4. Will continue synthroid. DM II: Continue accuchek, SSI and ADA diet. Will stop Metformin. DVT ppx: SCD Code: full
[2023-12-06] MEDS: LEVOTHYROXINE SOD 0.075 MG TAB PO SCH (12:18)
--- NOTE | 2023-12-06 16:33 | EKG ---
Test Date: 2023-12-03 Test Time: 06:46:39 [employer] Bookkeeper: LORRI MEASUREMENT RESULTS: Intervals: Rate: 133 MT: QRSD: 164 QT: 310 QTc: 461 [place]: P: MT: QRS: 30 T: 217 INTERPRETIVE STATEMENTS: Atrial fibrillation with rapid ventricular response with premature ventricular or aberrantly conducted complexes Nonspecific intraventricular block Abnormal ECG Compared to ECG 10/30/2023 15:03:33 Ventricular premature complex(es) now present Sinus rhythm no longer present Electronically Signed On 12-06-23 16:30:36 CDT by Brooks Glynn
--- NOTE | 2023-12-06 17:20 | P.PN ---
Subjective Date of Service: 12/06/23 Chief Complaint: A-fib RVR Subjective: No new changes, No C/O voiced, Tolerating diet, Ambulating, Improving Review of Systems 10-point ROS is otherwise unremarkable Physical Examination - Vital Signs Temperature: 97.6 F Blood Pressure: 102/68 Pulse: 107 Respirations: 17 Pulse Ox (%): 97 - Physical Exam General: Alert, In no apparent distress HEENT: Atraumatic, PERRLA, EOMI Neck: Supple, JVD not distended Respiratory: Clear to auscultation bilaterally, Normal air movement Cardiovascular: Regular rate/rhythm, Normal S1 S2 Gastrointestinal: Normal bowel sounds, No tenderness Musculoskeletal: No tenderness Integumentary: No rashes Neurological: Normal speech, Normal tone, Normal affect Lymphatics: No axilla or inguinal lymphadenopathy - Studies Medications List Reviewed: Yes Assessment And Plan - Current Problems (Diagnosis) (1) Atrial fibrillation Current Visit: Yes Status: Acute Plan: rate better controlled, in sinus rhythm today continue amiodarone 200 mg po BID switch loveonx to patient home xarelto on discharge. 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 (4) SOB (shortness of breath) Current Visit: Yes Status: Acute Plan: patient right heart cath done today and shows mild pulmonary hypertension with normal filling pressure and high wedge, most likely secondary to diastolic dysfunction continue with gentle hydration after recent heart cath to avoid contrast nephropathy. appreciate Nephrology team input.
--- NOTE | 2023-12-07 02:07 | PN ---
Date of Progress Note: 12/06/2023 Subjective: The patient was admitted with acute kidney injury secondary to cardiorenal. The patient was planned for cardiac cath today, status post cardiac cath, tolerated the cath. The patient was p repared with hydration. The patient was seen by Cardiology. Right heart cath showed mild pulmonary hypertension with normal filling pressure and high wedge. Physical Examination: Vital Signs: Blood pressure of 96/58, pulse of 107, afebrile. Chest: Clear to auscultation. Heart: S1, S2. Regular. Abdomen: Soft, nontender. Extremities: No edema. Neuro: Alert. No focality. Laboratory Data: Hemoglobin 12.4. Sodium 137, potassium 4.5, bicarb 26, BUN 29, creatinine down to 1.6. Calcium 8.8, phosphorus 4.1. Current Medications: The patient is on include aspirin, ceftriaxone, methotrexate, midodrine, Loveno x, amiodarone, pantoprazole, Mucomyst. Assessment And Plan: 1.Acute kidney injury secondary to over diuresis, status post contrast exposure. I am going to cont inue hydration for the time being for 10 hours after the cardiac cath, and we will continue to monito r. We will review cardiac cath with Cardiology and decide about the diuresis after. 2.Hypertension. Currently, blood pressure on the lower side. Continue hydration. Hold blood press ure medication. Continue midodrine. 3.Coronary artery disease with congestive heart failure, stable. Looks on the dry side. We will follow up with Cardiology. 4.Right heart failure, as by Cardiology. EMILY/WILFRED Voice ID: [id number] Report ID: [id number]
[2023-12-07] MEDS: NA CHLORIDE 0.9% 500 ML ONE (04:38)
[2023-12-07] MEDS: NA CHLORIDE 0.9% 500 ML IV ONE (04:41)
--- NOTE | 2023-12-07 07:12 | ECHO ---
HEIGHT: 5 ft 3 in WEIGHT: 208 lb 11.2 oz DATE OF STUDY: 12/05/[address]: Khanh Duff MD 2-DIMENSIONAL: YES M.MODE: YES DOPPLER: YES COLOR FLOW: YES TDS: YES PORTABLE: YES DEFINITY: BUBBLE STUDY: DIAGNOSIS: ORTHOSTATIC HYPOTENSION/ CONGESTIVE HEART FAILURE CARDIAC HISTORY: CATHERIZATION: YES SURGERY: YES PROSTHETIC VALVE: NO PACEMAKER: NO MEASUREMENTS (cm) DIASTOLIC (NORMALS) SYSTOLIC (NORMALS) IVSd 1.0 (0.6-1.2) LA Diam (1.9-4.0) LVEF 25-30% LVIDd 4.3 (3.5-5.7) LVIDs 3.9 (2.0-3.5) %FS 10% LVPWd 0.9 (0.6-1.2) Ao Diam 3.3 (2.0-3.7) 2 DIMENSIONAL ASSESSMENT: RIGHT ATRIUM: NORMAL LEFT ATRIUM: NORMAL RIGHT VENTRICLE: NORMAL, PACEMAKER LEAD SEEN LEFT VENTRICLE: MODERATE DILATED TRICUSPID VALVE: TRACE TRICUSPID REGURGITATION MITRAL VALVE: MILD MITRAL REGURGITATION PULMONIC VALVE: NORMAL AORTIC VALVE: NORMAL PERICARDIAL EFFUSION: NONE AORTIC ROOT: NORMAL LEFT VENTRICULAR WALL MOTION: SEVERE GLOBAL HYPOKINESIS WITH ANTERIOR/ SEPTAL LATERAL WALL SEVERE HYPOKINESIS DOPPLER/COLOR FLOW: DIASTOLIC DYSFUNCTION COMMENTS: 1. SEVERE GLOBAL HYPOKINESIS, EJECTION FRACTION 25-30%, SEVERE REDUCED LEFT VENTRICULAR SYSTOLIC FUCNTION 2. DIASTOLIC DYSFUNCTION 3. NORMAL FILLING PRESSURE TECHNOLOGIST: MIKE AVILA [facility]
[2023-12-07 07:15] LABS: Absolute Lymphocytes (CBC) 1.5 K/uL (0.7-4.9); Absolute Monocytes 0.4 K/uL (0.1-1.3); Absolute Neutrophil 4.2 K/uL (1.8-8.0); Basophils % 0.6 % (0-1.3); Eosinophils % 0.7 % (0-4.4); Hematocrit 36.5 % (39.6-49.0); Hemoglobin 11.5 g/dL (13.6-17.9); Lymphocytes % 24.3 % (15.3-44.8); MCHC 31.5 g/dL (32.0-36.0); MCV 95.1 fL (80-100); MPV 9.6 fL (7.6-11.3); Monocytes % 6.8 % (3.3-12.3); Neutrophils % 67.6 % (41.7-73.7); Platelets 197 thou/uL (152-406); RBC Red Blood Cell Count 3.83 M/uL (4.33-5.43); Red Cell Distribution Width 15.5 % (12.1-15.2)
[2023-12-07 07:37] LABS: Albumin 3.2 g/dL (3.4-5.0); T3 Free 1.41 pg/mL (2.18-3.98)
[2023-12-07] MEDS ORDERED: DEXTROSE 50% IV SCH (09:15)
[2023-12-07] MEDS ORDERED: NA CHLORIDE 0.9% IV SCH (09:15)
[2023-12-07] MEDS ORDERED: AMIODARONE HCL IV SCH ×2 (09:15)
[2023-12-07] MEDS ORDERED: WATER IV SCH (09:15)
--- NOTE | 2023-12-07 09:35 | P.PN ---
Subjective Date of Service: 12/07/23 Chief Complaint: A-fib RVR Subjective: No new changes, No C/O voiced, Tolerating diet, Ambulating, Improving Review of Systems 10-point ROS is otherwise unremarkable Physical Examination - Vital Signs Temperature: 97.4 F Blood Pressure: 84/63 Pulse: 105 Respirations: 20 Pulse Ox (%): 92 - Physical Exam General: Alert, In no apparent distress HEENT: Atraumatic, PERRLA, EOMI Neck: Supple, JVD not distended Respiratory: Clear to auscultation bilaterally, Normal air movement Cardiovascular: Irregular heart rate/rhythm Gastrointestinal: Normal bowel sounds, No tenderness Musculoskeletal: No tenderness Integumentary: No rashes Neurological: Normal speech, Normal tone, Normal affect Lymphatics: No axilla or inguinal lymphadenopathy - Studies Medications List Reviewed: Yes Assessment And Plan - Current Problems (Diagnosis) (1) Atrial fibrillation Current Visit: Yes Status: Acute Plan: rate still running fast overnight, will give amiodarone 150 mg IV x1 then start drip pat next 24 hours switch loveonx to patient home xarelto on discharge. 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 continue midodrine (4) SOB (shortness of breath) Current Visit: Yes Status: Acute Plan: patient right heart cath done today and shows mild pulmonary hypertension with normal filling pressure and high wedge, most likely secondary to diastolic dysfunction continue with gentle hydration after recent heart cath to avoid contrast nephropathy. appreciate Nephrology team input.
[2023-12-07] MEDS: AMIODARONE HCL 150 MG in D5W 100 ML IV SCH (09:36)
[2023-12-07] MEDS: AMIODARONE HCL 900 MG in Dextrose 5%-Water 482 ML IV SCH (10:27)
--- NOTE | 2023-12-07 13:26 | OP ---
Date of Procedure: 12/06/2023 Surgeon: Khanh Duff Procedures Performed: 1.Left heart catheterization. 2.Right heart catheterization. 3.Selective coronary angiogram of bypass graft. Indication For Procedure: Acute exacerbation of heart failure. Complications: None. Estimated Blood Loss: Less than 50 cc. Sedation Time: 30 minutes with 1 of Versed and 25 of fentanyl. Access: Right common femoral artery, closed by Angioseal . Description Of Procedure: After risks, and benefits, and alternatives were explained to the patient, the patient agreed to proceed with procedure and signed informed consent. The patient was brought [facility] to the lab pack chemist, prepped and draped in a sterile fashion. Time-out was performed. Sedation was administered. Next, IJ access ultrasound guided micropuncture technique was obtained. A 7-Maltese sh eath introduced, groin catheter was advanced for measurement, the measurement wand was removed. Ahmadi th was removed. Then, manual compression was applied. Also, right common femoral artery access was obtained using an ultrasound-guided micropuncture technique. JL4 catheter was advanced over a J-wire . The catheter was pulled back to the that was exchanged for the angiogram. A t the end of procedure, catheter was removed over the J-wire. Sheath was removed and Airseal was raisa lied. The patient was moved back to recovery in stable condition. Findings: 1.Left main, distal 50% to 60% disease. 2.LAD, proximal mild luminal irregularities, mid stent diffuse 60% disease, then arteries occluded. proximal 70% disease and mild LI, mid to distally occluded. Continues as small OM1 that had 80% disease. 3.RCA, proximal mild LI, then mid 90% to 100% multiple lesion and then mid to distal LAD 100% occlud ed. Grafts: 1.ALLISON to LAD branch patent. and diagonal. 2.SVG to OM2 is patent and gives collaterals to the RPDA and RPLV. SU/MODL Voice ID: [id number] Report ID: [id number]
--- NOTE | 2023-12-07 13:47 | P.PN ---
Subjective Date of Service: 12/07/23 Chief Complaint: A-fib RVR Pt is resting comfortably in bed. Pt received lasix drip on 12/05/23 before the cardiac cath. Cardiac cath shows mild pulm htn due to diastolic heart failure. Continue amiodarone drip 200mg po BID and eliquis. Troponin is trending down. He was transferred out of the ICU yesterday. No other complaints. Review of Systems General: Unremarkable Eyes: Unremarkable ENT: Unremarkable Respiratory: Unremarkable Cardiovascular: Unremarkable Gastrointestinal: Unremarkable Genitourinary: Unremarkable Musculoskeletal: Unremarkable Integumentary: Unremarkable Neurological: Unremarkable Lymphatics: Unremarkable Physical Examination - Vital Signs Temperature: 97.2 F Blood Pressure: 105/69 Pulse: 111 Respirations: 20 Pulse Ox (%): 96 - Physical Exam General: Alert, In no apparent distress, Oriented x3 HEENT: Atraumatic, Normocephalic, PERRLA Neck: Supple, 2+ carotid pulse no bruit, JVD not distended Respiratory: Clear to auscultation bilaterally, Normal air movement Cardiovascular: No edema, Normal pulses, Regular rate/rhythm, Normal S1 S2 Capillary refill: <2 Seconds Gastrointestinal: Normal bowel sounds, Soft and benign, Non-distended Musculoskeletal: No clubbing, No swelling, No contractures Integumentary: No rashes, No breakdown, No significant lesion, No tenderness/swelling Neurological: Normal gait, Normal speech, Normal strength at 5/5 x4 extr, Normal tone, Sensation intact Lymphatics: No axilla or inguinal lymphadenopathy - Studies Medications List Reviewed: Yes Assessment And Plan - Plan Atrial fibrillation with rapid ventricular response: Will continue telemetry, amiodarone 200mg po BID and Eliquis 2.5mg po BID. Cardiology is following. Off amiodarone drip. Hx of CAD and Elevated troponin. Pt denies any chest pain. Likely due to A. fib with RVR. troponin is trending down. Cardiology did right heart cath which showed mild pulm htn. Pt has history of 3 bypass grafts, one of them is occluded and the right coronary artery is totally occluded and no intervention. Will continue aspirin, high-dose statin, Lipitor 40 mg qhs. Mild Pulm Htn: per right heart cath. This is due to diastolic heart failure. Hypotension: Will hold BP meds. Continue midodrine and gentle hydration. Monitor BP. Acute renal failure: Cr is 1.3 <- 1.61<- 2.14 <- 1.52. Will avoid nephrotxins and monitor renal function. Dyslipidemia: Recommend Lipitor 40 mg at bedtime. Congestive heart failure: Will monitor volume status and BP. Pt received lasix drip on 12/05/23. Pt appear euvolemic. Hypothyroidism: TSH is 16.5, free T4 1.4. Will continue synthroid. DM II: Continue accuchek, SSI and ADA diet. Will stop Metformin. DVT ppx: SCD Code: full
[2023-12-07] MEDS: CEFDINIR 300 MG CAP PO SCH (15:53)
--- NOTE | 2023-12-07 19:44 | PN ---
Date of Progress Note: 12/07/2023 Subjective: The patient was admitted to the hospital with congestive heart failure and acute kidney injury secondary to cardiorenal/prerenal. The patient had cardiac cath, no intervention, found to goins ve pulmonary hypertension, elevation of the wedge pressure. Physical Examination: Vital Signs: Blood pressure 106/69, pulse of 111, afebrile. The patient had good urine output of 13 00. Chest: Faint crackles on the right base. Heart: S1, S2. Regular. Tachy. Abdomen: Soft, nontender. Extremities: No edema. Laboratory Data: Hemoglobin 11.5. Sodium 139, potassium 4, bicarb 25, BUN 22, creatinine 1.3, GFR 5 9, calcium 8.7, phosphorus 3, albumin 3.2, corrected calcium is 9.5. Current Medications: The patient on include: 1.Aspirin. 2.Methotrexate. 3.Cefdinir. 4.Amiodarone drip. 5.Atorvastatin. 6.Zofran. 7.Levothyroxine. Assessment And Plan: 1.Acute kidney injury secondary to overdiuresis/superimposed with contrast, recovered, back close to baseline. Looked to me with the presence of the high wedge pressure and the finding on the lung exa m, I am going to resume the patient on low dose of Lasix. We will discontinue IV fluid and we will m onitor. 2.Cardiac arrhythmia, as by Cardiology. 3.Elevated wedge pressure, right heart failure, coronary artery disease. Follow up Cardiology. Res ume Lasix. EMILY/WILFRED Voice ID: [id number] Report ID: [id number]
[2023-12-08 06:27] LABS: Anion Gap 7.9 mEq/L (5.0-15.0); Phosphorus 2.7 mg/dL (2.5-4.9); Potassium 3.9 mEq/L (3.5-5.1)
[2023-12-08] MEDS: FUROSEMIDE 20 MG/ 2ML VIAL IV SCH (09:41)
[2023-12-08] MEDS: FUROSEMIDE 20 MG TABLET PO SCH (11:00)
--- NOTE | 2023-12-08 14:48 | P.PN ---
Subjective Date of Service: 12/08/23 Chief Complaint: A-fib RVR Subjective: New changes (still in atrial flutter/Fib) Review of Systems 10-point ROS is otherwise unremarkable Physical Examination - Vital Signs Temperature: 97.2 F Blood Pressure: 95/60 Pulse: 112 Respirations: 16 Pulse Ox (%): 97 - Physical Exam General: Alert, In no apparent distress HEENT: Atraumatic, PERRLA, EOMI Neck: Supple, JVD not distended Respiratory: Clear to auscultation bilaterally, Normal air movement Cardiovascular: Regular rate/rhythm, Normal S1 S2 Gastrointestinal: Normal bowel sounds, No tenderness Musculoskeletal: No tenderness Integumentary: No rashes Neurological: Normal speech, Normal tone, Normal affect Lymphatics: No axilla or inguinal lymphadenopathy - Studies Medications List Reviewed: Yes Assessment And Plan - Current Problems (Diagnosis) (1) Atrial fibrillation Current Visit: Yes Status: Acute Plan: rate still running fast overnight, EKG shows 2:1 atrial flutter, have been loaded with Amiodarone and was on drip until IV infiltrated will give amiodarone 150 mg IV x1 agree with Digoxin 500 mcg IV x1 then 250 mcg IV in 8 hours followed by another 250 mcg IV in another 8 hours if patient stays in AF overnight then consider transferring to tertiary center for EP evaluation for possible ablation. switch loveonx to patient home xarelto on discharge. 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 continue midodrine (4) SOB (shortness of breath) Current Visit: Yes Status: Acute Plan: patient right heart cath done today and shows mild pulmonary hypertension with normal filling pressure and high wedge, most likely secondary to diastolic dysfunction continue with gentle hydration after recent heart cath to avoid contrast nephropathy. appreciate Nephrology team input.
[2023-12-08] MEDS: DIGOXIN 0.25 MG/ML AMP IV ONE (15:16)
[2023-12-08] MEDS: AMIODARONE HCL 150 MG in D5W 100 ML IV SCH (15:34)
[2023-12-08] MEDS: NA CHLORIDE 0.9% 50 ML ONE (15:35)
[2023-12-08] MEDS: DIGOXIN 0.25 MG/ML AMP IV SCH (23:00)
--- NOTE | 2023-12-09 02:21 | PN ---
Date of Progress Note: 12/08/2023 Chief Complaint: Acute on chronic kidney injury, cardiorenal syndrome. Subjective: The patient underwent cardiac catheterization during this admission. Right heart cardiac cath showed mild pulmonary hypertension. Review of Systems: Denies chest pain, palpitation. Physical Examination: Lungs: Diminished breath sounds in the bases. Heart: S1, S2. Abdomen: Soft, benign. Extremities: Slight edema. Laboratory Data: BUN 29, creatinine 1.6, calcium 8.8, phosphorus 4.1, potassium 4.5, sodium 137, bicarbonate 26. Impression And Plan: 1. Acute kidney injury secondary to volume depletion. Diuretics were stopped when the patient developed hypovolemia. The patient will continue hydration. The patient underwent hydration with IV fluids. After cardiac catheterization, he was medicated with Mucomyst. 2. Hypertension. Blood pressure somewhat declining. Continue hydration. Blood pressure medication on hold. Continue midodrine. 3. Coronary artery disease, congestive heart failure. Continue IV fluids. Monitor urine output. 4. Right heart failure, fu with cardiology. HUMBERTO/WILFRED Voice ID: [id number] Report ID: [id number] MTDD
[2023-12-09 05:14] LABS: Hepatitis C RNA (PCR) <15 IU/mL; Hepatitis C Virus RNA (PCR)log <1.18 log IU/mL
[2023-12-09] MEDS: DIGOXIN 0.25 MG/ML AMP IV SCH (06:18)
[2023-12-09 08:43] LABS: Albumin 3.2 g/dL (3.4-5.0); Anion Gap 6.4 mEq/L (5.0-15.0); Phosphorus 3.5 mg/dL (2.5-4.9); Potassium 4.4 mEq/L (3.5-5.1)
--- NOTE | 2023-12-09 11:48 | P.PN ---
Subjective Date of Service: 12/09/23 Chief Complaint: A-fib RVR Subjective: No new changes, No C/O voiced, Tolerating diet, Ambulating, Improving Review of Systems 10-point ROS is otherwise unremarkable Physical Examination - Vital Signs Temperature: 96.4 F Blood Pressure: 109/61 Pulse: 113 Respirations: 16 Pulse Ox (%): 96 - Physical Exam General: Alert, In no apparent distress HEENT: Atraumatic, PERRLA, EOMI Neck: Supple, JVD not distended Respiratory: Clear to auscultation bilaterally, Normal air movement Cardiovascular: Irregular heart rate/rhythm Gastrointestinal: Normal bowel sounds, No tenderness Musculoskeletal: No tenderness Integumentary: No rashes Neurological: Normal speech, Normal tone, Normal affect Lymphatics: No axilla or inguinal lymphadenopathy - Studies Medications List Reviewed: Yes Assessment And Plan - Current Problems (Diagnosis) (1) Atrial fibrillation Current Visit: Yes Status: Acute Plan: rate still running fast overnight, EKG shows 2:1 atrial flutter, have been loaded with Amiodarone and was on drip until IV infiltrated will give amiodarone 150 mg IV x1 agree with Digoxin 500 mcg IV x1 then 250 mcg IV in 8 hours followed by another 250 mcg IV in another 8 hours if patient stays in AF by monday then will attempt DELPHINE DCCV switch loveonx to patient home xarelto on discharge. 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 continue midodrine (4) SOB (shortness of breath) Current Visit: Yes Status: Acute Plan: patient right heart cath done today and shows mild pulmonary hypertension with normal filling pressure and high wedge, most likely secondary to diastolic dysfunction continue with gentle hydration after recent heart cath to avoid contrast nephropathy. appreciate Nephrology team input.
--- NOTE | 2023-12-09 12:05 | P.PN ---
Subjective Date of Service: 12/09/23 Chief Complaint: A-fib RVR Subjective: No new changes Physical Examination - Vital Signs Temperature: 96.4 F Blood Pressure: 109/61 Pulse: 113 Respirations: 16 Pulse Ox (%): 96 - Physical Exam General: Other (chronically ill-appearing) HEENT: Atraumatic, Normocephalic Neck: Supple, JVD not distended Respiratory: Other (symmetric chest expansion) Cardiovascular: No rubs, No murmurs Gastrointestinal: No rebound, No guarding Musculoskeletal: No warmth Integumentary: No warmth Neurological: Other (nonfocal) Urinary: Other (no bladder distention) External genitalia: Deferred Rectal: Deferred - Studies Medications List Reviewed: Yes Assessment And Plan - Plan 1. ANNA MARIE 2/2 prerenal state. [place] by mouth fluid intake. Monitor renal panel. 2. Hypertension. BP low normal. Hold BP meds. 3. Coronary artery disease, chronic diastolic heart failure. TTE on 12/05/2023 showed low LVEF 25-30%. Continue cardioprudent medications. Do not limit by mouth fluid intake and less he develops hyponatremia less than 130 mEq/L.
--- NOTE | 2023-12-09 12:46 | P.PN ---
Subjective Date of Service: 12/09/23 Chief Complaint: A-fib RVR Pt is resting comfortably in bed. Pt received lasix drip on 12/05/23 before the cardiac cath. Cardiac cath showed mild pulm htn due to diastolic heart failure. Continue amiodarone drip 200mg po BID and eliquis. Troponin is trending down. Cardiology plans to do DELPHINE cardioversion if heart rate is elevated over the weekend. No other complaints. Review of Systems General: Unremarkable Eyes: Unremarkable ENT: Unremarkable Respiratory: Unremarkable Cardiovascular: Palpitations Gastrointestinal: Unremarkable Genitourinary: Unremarkable Musculoskeletal: Unremarkable Integumentary: Unremarkable Neurological: Unremarkable Lymphatics: Unremarkable Physical Examination - Vital Signs Temperature: 96.4 F Blood Pressure: 109/61 Pulse: 113 Respirations: 16 Pulse Ox (%): 96 - Physical Exam General: Alert, In no apparent distress, Oriented x3, Obese HEENT: Atraumatic, Normocephalic, PERRLA Neck: Supple, 2+ carotid pulse no bruit Respiratory: Clear to auscultation bilaterally, Normal air movement Cardiovascular: No edema, Normal pulses, Regular rate/rhythm Capillary refill: <2 Seconds Gastrointestinal: Normal bowel sounds, Soft and benign, Non-distended Musculoskeletal: No clubbing, No swelling, No contractures Integumentary: No rashes, No breakdown, No significant lesion Neurological: Normal gait, Normal speech, Normal strength at 5/5 x4 extr, Normal tone, Sensation intact Lymphatics: No axilla or inguinal lymphadenopathy - Studies Medications List Reviewed: Yes Assessment And Plan - Plan Atrial fibrillation with rapid ventricular response: Will continue telemetry, amiodarone 200mg po BID and lovenox 100mg subq BID. Cardiology is following. His heart rate is high. EKG shows 2:1 atrial flutter. cardiology loaded him with Amiodarone and was on drip until IV infiltrated. We gave amiodarone 150 mg IV x1. We gave Digoxin 500 mcg IV x1, then 250 mcg IV in 8 hours followed by another 250 mcg IV in another 8 hours. Will do DELPHINE cardioversion if A. fib persists over the weekend. Hx of CAD and Elevated troponin. Pt denies any chest pain. Likely due to A. fib with RVR. troponin is trending down. Cardiology did right heart cath which showed mild pulm htn. Pt has history of 3 bypass grafts, one of them is occluded and the right coronary artery is totally occluded and no intervention. Will continue aspirin, high-dose statin, Lipitor 40 mg qhs. Mild Pulm Htn: per right heart cath. This is due to diastolic heart failure. Hypotension: Will hold BP meds. Continue midodrine and gentle hydration. Monitor BP. Acute renal failure: Cr is 1.13 <- 1.3 <- 1.61<- 2.14 <- 1.52. Will avoid nephrotxins and monitor renal function. Dyslipidemia: Recommend Lipitor 40 mg at bedtime. Congestive heart failure: Will monitor volume status and BP. Pt received lasix drip on 12/05/23. Pt appear euvolemic. Hypothyroidism: TSH is 16.5, free T4 1.4. Will continue synthroid 75mg po daily. DM II: Continue accuchek, SSI and ADA diet. Will stop Metformin. DVT ppx: lovenox Code: full
--- NOTE | 2023-12-10 04:32 | P.PN ---
Date of Service: 12/08/23 Subjective Patient's heart rate is still been elevated. I added digoxin. Cardiology said to give another dose of amiodarone. Reassess tachyarrhythmia after digoxin completed. Physical Examination - Vitals - Physical Exam General: Alert, Oriented x3, Mild distress Respiratory: Normal air movement, Crackles/rales Cardiovascular: Irregular heart rate/rhythm Gastrointestinal: No tenderness, Other (Obese abdomen) Musculoskeletal: No swelling, No contractures Integumentary: No breakdown, No significant lesion Neurological: No focal deficits Assessment and Plan - Assessment/Plan Assessment/Plan A-fib RVR Wide-complex tachycardia, Elevated troponin Chest pain rule out ME Rate still not controlled and will continue with amiodarone but will add digoxin Hyperlipidemia Hypertension Strict blood pressure control Diabetes Strict blood sugar control Full code DVT Diet cardiac Disposition Home independent prior Discharge Plan: Home - Advance Directives Does patient have a Living Will: No Does patient have a Durable POA for Healthcare: No - Code Status/Comfort Care Code Status: Full Code Critical Care: Yes Time Spent Managing Pts Care (In Minutes): 65
[2023-12-10 07:26] LABS: Absolute Eosinophils 0.1 K/uL (0-0.5); Absolute Lymphocytes (CBC) 1.7 K/uL (0.7-4.9); Absolute Monocytes 0.6 K/uL (0.1-1.3); Absolute Neutrophil 3.3 K/uL (1.8-8.0); Basophils % 0.4 % (0-1.3); Eosinophils % 1.6 % (0-4.4); Hematocrit 34.3 % (39.6-49.0); Lymphocytes % 29.8 % (15.3-44.8); MCH 30.4 pg (27.0-35.0); MCHC 32.2 g/dL (32.0-36.0); MCV 94.3 fL (80-100); MPV 8.5 fL (7.6-11.3); Monocytes % 10.3 % (3.3-12.3); Neutrophils % 57.9 % (41.7-73.7); Nucleated Red Blood Cells % 0.2 % (0-0); Platelets 232 thou/uL (152-406); RBC Red Blood Cell Count 3.64 M/uL (4.33-5.43); Red Cell Distribution Width 15.2 % (12.1-15.2)
[2023-12-10 07:44] LABS: Albumin 3.1 g/dL (3.4-5.0); Anion Gap 10.1 mEq/L (5.0-15.0); Potassium 4.1 mEq/L (3.5-5.1)
--- NOTE | 2023-12-10 08:24 | P.PN ---
Subjective Date of Service: 12/10/23 Chief Complaint: A-fib RVR Pt is resting comfortably in bed. Pt received lasix drip on 12/05/23 before the cardiac cath. Cardiac cath showed mild pulm htn due to diastolic heart failure. Continue amiodarone drip 200mg po BID and eliquis. Troponin is trending down. Cardiology plans to do DELPHINE cardioversion if A. fib persists over the weekend. No other complaints. Review of Systems General: Unremarkable Eyes: Unremarkable ENT: Unremarkable Respiratory: Unremarkable Cardiovascular: Palpitations Gastrointestinal: Unremarkable Genitourinary: Unremarkable Musculoskeletal: Unremarkable Integumentary: Unremarkable Neurological: Unremarkable Lymphatics: Unremarkable Physical Examination - Vital Signs Temperature: 96.4 F Blood Pressure: 109/61 Pulse: 113 Respirations: 16 Pulse Ox (%): 96 - Physical Exam General: Alert, In no apparent distress, Oriented x3 HEENT: Atraumatic, Normocephalic, PERRLA Neck: Supple, 2+ carotid pulse no bruit Respiratory: Clear to auscultation bilaterally, Normal air movement Cardiovascular: No edema, Normal pulses, Regular rate/rhythm, Normal S1 S2 Capillary refill: <2 Seconds Gastrointestinal: Normal bowel sounds, Soft and benign, Non-distended Musculoskeletal: No clubbing, No swelling, No contractures Integumentary: No rashes, No breakdown, No significant lesion Neurological: Normal gait, Normal speech, Normal strength at 5/5 x4 extr Lymphatics: No axilla or inguinal lymphadenopathy - Studies Medications List Reviewed: Yes Assessment And Plan - Plan Atrial fibrillation with rapid ventricular response: Will continue telemetry, amiodarone 200mg po BID and lovenox 100mg subq BID. Cardiology is following. His heart rate is high. EKG shows 2:1 atrial flutter. cardiology loaded him with Amiodarone and was on drip until IV infiltrated. We gave amiodarone 150 mg IV x1. We gave Digoxin 500 mcg IV x1, then 250 mcg IV in 8 hours followed by another 250 mcg IV in another 8 hours. Will do DELPHINE cardioversion if A. fib persists over the weekend. Hx of CAD and Elevated troponin. Pt denies any chest pain. Likely due to A. fib with RVR. troponin is trending down. Cardiology did right heart cath which showed mild pulm htn. Pt has history of 3 bypass grafts, one of them is occluded and the right coronary artery is totally occluded and no intervention. Will continue aspirin, high-dose statin, Lipitor 40 mg qhs. Mild Pulm Htn: per right heart cath. This is due to diastolic heart failure. Hypotension: Will hold BP meds. Continue midodrine and gentle hydration. Monitor BP. Acute renal failure: Cr is 1.25<-1.13 <- 1.3 <- 1.61<- 2.14 <- 1.52. Will avoid nephrotxins and monitor renal function. Dyslipidemia: Recommend Lipitor 40 mg at bedtime. Congestive heart failure: Will monitor volume status and BP. Pt received lasix drip on 12/05/23. Pt appear euvolemic. Hypothyroidism: TSH is 16.5, free T4 1.4. Will continue synthroid 75mg po daily. DM II: Continue accuchek, SSI and ADA diet. Will stop Metformin. DVT ppx: lovenox Code: full
--- NOTE | 2023-12-10 11:23 | P.PN ---
Subjective Date of Service: 12/10/23 Chief Complaint: A-fib RVR Subjective: No new changes Physical Examination - Vital Signs Temperature: 96.4 F Blood Pressure: 124/82 Pulse: 90 Respirations: 16 Pulse Ox (%): 96 - Physical Exam General: Other (chronically ill-appearing) HEENT: Atraumatic, Normocephalic Neck: Supple, JVD not distended Respiratory: Other (symmetric chest expansion) Cardiovascular: No rubs, No murmurs Gastrointestinal: Soft and benign, No rebound Musculoskeletal: No clubbing Integumentary: No warmth Neurological: Other (nonfocal) Urinary: Other (no bladder distention) External genitalia: Deferred Rectal: Deferred - Studies Medications List Reviewed: Yes Assessment And Plan - Plan 1. ANNA MARIE 2/2 prerenal state. SCr decreased to 1.3. Bantam by mouth fluid intake. Monitor renal panel. 2. Hypertension. BP low normal. Hold BP meds. 3. Coronary artery disease, chronic diastolic heart failure. TTE on 12/05/2023 showed low LVEF 25-30%. Continue cardioprudent medications. Do not limit by mouth fluid intake and less he develops hyponatremia less than 130 mEq/L. 4. Anemia. Monitor CBC.
--- NOTE | 2023-12-10 11:46 | P.PN ---
Subjective Date of Service: 12/10/23 Chief Complaint: A-fib RVR Subjective: No new changes, No C/O voiced, Tolerating diet, Ambulating, Other (felt dizzy upon walking to bathroom.) Review of Systems 10-point ROS is otherwise unremarkable Physical Examination - Vital Signs Temperature: 96.4 F Blood Pressure: 124/82 Pulse: 90 Respirations: 16 Pulse Ox (%): 96 - Physical Exam General: Alert, In no apparent distress HEENT: Atraumatic, PERRLA, EOMI Neck: Supple, JVD not distended Respiratory: Clear to auscultation bilaterally, Normal air movement Cardiovascular: Irregular heart rate/rhythm Gastrointestinal: Normal bowel sounds, No tenderness Musculoskeletal: No tenderness Integumentary: No rashes Neurological: Normal speech, Normal tone, Normal affect Lymphatics: No axilla or inguinal lymphadenopathy - Studies Medications List Reviewed: Yes Assessment And Plan - Current Problems (Diagnosis) (1) Atrial fibrillation Current Visit: Yes Status: Acute Plan: rate still running fast overnight, EKG shows 2:1 atrial flutter, continue Amiodarone 200 mg po BID continue Digoxin 125 mcg daily DELPHINE DCCV in am switch loveonx to patient home xarelto on discharge. (2) Hx of CABG Current Visit: No Status: Acute Plan: patient had coronary angiogram today that shows patent ALLISON and SVG-OM, occluded SVG-Rpda patient will need staged PCI of LM into LCX and possible RCA SUPERVISOR DRYING AND SOFTENING PCI as outpatient continue ASA Lipitor 40 mg daily (3) Hypertension Current Visit: No Status: Acute Plan: patient BP is soft, continue to monitor. continue midodrine (4) SOB (shortness of breath) Current Visit: Yes Status: Acute Plan: patient right heart cath done today and shows mild pulmonary hypertension with normal filling pressure and high wedge, most likely secondary to diastolic dysfunction on lasix 20 mg daily appreciate Nephrology team input.
[2023-12-10 14:07] LABS: Abnormal Protein Band 1 REPORT; Albumin, (SPE) 3.3 g/dL (3.8-4.8); Alpha-1-Globulins 0.3 g/dL (0.2-0.3); Alpha-2-Globulins 0.8 g/dL (0.5-0.9); Beta 1 Globulin 0.5 g/dL (0.4-0.6); Gamma Globulins 0.7 g/dL (0.8-1.7); INTERPRETATION REPORT
[2023-12-10 20:24] LABS: Complement C3 110 mg/dL (82-185)
[2023-12-11 05:09] VITALS: BMI 37.0
[2023-12-11 06:33] LABS: Absolute Eosinophils 0.1 K/uL (0-0.5); Absolute Lymphocytes (CBC) 1.7 K/uL (0.7-4.9); Absolute Monocytes 0.7 K/uL (0.1-1.3); Absolute Neutrophil 2.7 K/uL (1.8-8.0); Basophils % 0.9 % (0-1.3); Eosinophils % 1.6 % (0-4.4); Hematocrit 34.7 % (39.6-49.0); Hemoglobin 11.2 g/dL (13.6-17.9); Lymphocytes % 32.3 % (15.3-44.8); MCH 30.5 pg (27.0-35.0); MCHC 32.4 g/dL (32.0-36.0); MCV 94.1 fL (80-100); MPV 8.3 fL (7.6-11.3); Monocytes % 12.7 % (3.3-12.3); Neutrophils % 52.5 % (41.7-73.7); Nucleated Red Blood Cells % 0.2 % (0-0); Platelets 241 thou/uL (152-406); RBC Red Blood Cell Count 3.69 M/uL (4.33-5.43); Red Cell Distribution Width 15.6 % (12.1-15.2)
[2023-12-11 06:42] LABS: Anion Gap 6.9 mEq/L (5.0-15.0); Potassium 4.9 mEq/L (3.5-5.1)
[2023-12-11] MEDS ORDERED: NA CHLORIDE 0.9% 500 ML ONE (07:34)
[2023-12-11] MEDS ORDERED: ATROPINE SULF 1 MG/10 ML SYR IV ONE (07:49)
[2023-12-11] MEDS ORDERED: METOPROLOL TARTRATE 5 MG/5 ML INJ IV ONE (07:49)
[2023-12-11] MEDS ORDERED: propofoL 200 MG/20 ML VIAL IV ONE (08:07)
[2023-12-11] MEDS ORDERED: LIDOCAINE 1% MPF 5 ML VIAL ONE (08:07)
[2023-12-11 08:40] VITALS: O2SAT 99
--- NOTE | 2023-12-11 08:45 | OP ---
Date of Procedure: 12/11/2023 Surgeon: Khanh Duff Procedure Performed: DELPHINE cardioversion. Indication For Procedure: Atrial fibrillation. Complications: None. Estimated Blood Loss: None. Sedation: Sedation was done by Anesthesia Team. Description Of Procedure: After risks, benefits, and alternatives were explained to the patient, the patient agreed to proceed with the procedure and signed informed consent. The patient was brought b k to the OR and a time-out was performed. Sedation was administered by Anesthesia Team. Next, DELPHINE probe was inserted. Images were obtained and DELPHINE probe was removed. After that, synchronized cardi oversion with 200 joules was applied. The patient was converted back into sinus rhythm. The patient was moved to recovery in stable condition. Assessment And Plan: Atrial fibrillation, status post successful DELPHINE cardioversion. Plan will be to continue amiodarone 200 b.i.d. and start Eliquis 5 mg p.o. b.i.d. mary. SIRISHA Voice ID: [id number] Report ID: [id number]
[2023-12-11] MEDS: APIXABAN 5 MG TABLET PO SCH (09:43)
[2023-12-11 09:47] VITALS: BP 119/60
[2023-12-11 10:41] VITALS: TEMP 97.4
[2023-12-11 12:01] LABS: Anti-Double Strand DNA Antibod <1 IU/mL (<=4)
--- NOTE | 2023-12-11 12:27 | P.PN ---
Subjective Date of Service: 12/11/23 Chief Complaint: A-fib RVR Pt is resting comfortably in bed. Pt received lasix drip on 12/05/23 before the cardiac cath. Cardiac cath showed mild pulm htn due to diastolic heart failure. Continue amiodarone drip 200mg po BID and eliquis. Troponin is trending down. Cardiology did DELPHINE cardioversion today. No other complaints. Review of Systems General: Unremarkable Eyes: Unremarkable ENT: Unremarkable Respiratory: Unremarkable Cardiovascular: Unremarkable Gastrointestinal: Unremarkable Genitourinary: Unremarkable Musculoskeletal: Unremarkable Integumentary: Unremarkable Neurological: Unremarkable Lymphatics: Unremarkable Physical Examination - Vital Signs Temperature: 97.4 F Blood Pressure: 119/60 Pulse: 69 Respirations: 16 Pulse Ox (%): 98 - Physical Exam General: Alert, In no apparent distress, Oriented x3 HEENT: Atraumatic, Normocephalic, PERRLA Neck: Supple, 2+ carotid pulse no bruit Respiratory: Clear to auscultation bilaterally Cardiovascular: No edema, Normal pulses, Regular rate/rhythm, Normal S1 S2 Capillary refill: <2 Seconds Gastrointestinal: Normal bowel sounds, Soft and benign, Non-distended Musculoskeletal: No clubbing, No swelling, No contractures Integumentary: No rashes, No breakdown, No significant lesion Neurological: Normal gait, Normal speech, Normal strength at 5/5 x4 extr, Normal tone, Sensation intact Lymphatics: No axilla or inguinal lymphadenopathy - Studies Medications List Reviewed: Yes Assessment And Plan - Plan Atrial fibrillation with rapid ventricular response: Will continue telemetry, amiodarone 200mg po BID and lovenox 100mg subq BID. Cardiology is following. His heart rate is high. EKG shows 2:1 atrial flutter. cardiology loaded him with Amiodarone and was on drip until IV infiltrated. We gave amiodarone 150 mg IV x1. We gave Digoxin 500 mcg IV x1, then 250 mcg IV in 8 hours followed by another 250 mcg IV in another 8 hours. Cardiology did DELPHINE cardioversion this am. Hx of CAD and Elevated troponin. Pt denies any chest pain. Likely due to A. fib with RVR. troponin is trending down. Cardiology did right heart cath which showed mild pulm htn. Pt has history of 3 bypass grafts, one of them is occluded and the right coronary artery is totally occluded and no intervention. Will continue aspirin, high-dose statin, Lipitor 40 mg qhs. Mild Pulm Htn: per right heart cath. This is due to diastolic heart failure. Hypotension: Will hold BP meds. Continue midodrine and gentle hydration. Monitor BP. Acute renal failure: Cr is 1.3<- 1.25<-1.13 <- 1.3 <- 1.61<- 2.14 <- 1.52. Will avoid nephrotxins and monitor renal function. Dyslipidemia: Recommend Lipitor 40 mg at bedtime. Congestive heart failure: Will monitor volume status and BP. Pt received lasix drip on 12/05/23. Pt appear euvolemic. Hypothyroidism: TSH is 16.5, free T4 1.4. Will continue synthroid 75mg po daily. DM II: Continue accuchek, SSI and ADA diet. Will stop Metformin. DVT ppx: lovenox. Will start eliquis on dc. Code: full Dispo:pending hospital course.
--- NOTE | 2023-12-11 14:41 | P.PN ---
Subjective Date of Service: 12/11/23 Chief Complaint: A-fib RVR Subjective: No new changes, No C/O voiced, Tolerating diet, Ambulating, Improving Review of Systems 10-point ROS is otherwise unremarkable Physical Examination - Vital Signs Temperature: 97.4 F Blood Pressure: 119/60 Pulse: 69 Respirations: 16 Pulse Ox (%): 98 - Physical Exam General: Alert, In no apparent distress HEENT: Atraumatic, PERRLA, EOMI Neck: Supple, JVD not distended Respiratory: Clear to auscultation bilaterally, Normal air movement Cardiovascular: Regular rate/rhythm, Normal S1 S2 Gastrointestinal: Normal bowel sounds, No tenderness Musculoskeletal: No tenderness Integumentary: No rashes Neurological: Normal speech, Normal tone, Normal affect Lymphatics: No axilla or inguinal lymphadenopathy - Studies Medications List Reviewed: Yes Assessment And Plan - Current Problems (Diagnosis) (1) Atrial fibrillation Current Visit: Yes Status: Acute Plan: continue Amiodarone 200 mg po BID DELPHINE DCCV done switch loveonx to patient home xarelto on discharge. (2) Hx of CABG Current Visit: No Status: Acute Plan: patient had coronary angiogram today that shows patent ALLISON and SVG-OM, occluded SVG-Rpda patient will need staged PCI of LM into LCX and possible RCA PICKLE CUTTER PCI as outpatient continue ASA Lipitor 40 mg daily (3) Hypertension Current Visit: No Status: Acute Plan: patient BP is soft, continue to monitor. continue midodrine (4) SOB (shortness of breath) Current Visit: Yes Status: Acute Plan: patient right heart cath done today and shows mild pulmonary hypertension with normal filling pressure and high wedge, most likely secondary to diastolic dysfunction on lasix 20 mg daily appreciate Nephrology team input.
--- NOTE | 2023-12-11 14:45 | P.DS ---
Admission Date: 12/03/23 Discharge Date: 12/11/23 Disposition: ROUTINE DISCHARGE Discharge Condition: GOOD Reason for Admission: A-fib RVR Brief History of Present Illness: 73-year-old male with history of diabetes, hypertension, hyperlipidemia, CAD with prior CABG, congestive heart failure, chronic anticoagulation Xarelto, congestive heart failure, [place], Crohn's presents to the emergency room with palpitations. He reports symptoms started 2 days ago, he report recently discontinued metoprolol and Lasix by cardiology Dr. Glynn. He reports medication was discontinued for an upcoming test. He reports associated chest pain, shortness of breath, shortness of breath worse with exertion. He reports headache, no reported slurred speech, facial drooping, focal deficits, is at bedside, plan to admit for A-fib RVR to ICU on amiodarone drip, chest pain rule out TN, cardiology to consult. EKG wide-complex tachycardia, most likely atrial fibrillation with rapid ventricular rate and aberrant conduction, on telemetry Hospital Course: Pt is a 73yo male with past medical history of diabetes, hypertension, hyperlipidemia, CAD with prior CABG, congestive heart failure, chronic anticoagulation Xarelto, congestive heart failure, TN, and Crohn's disease who presented with palpitations x 2 days. Of note, pt's Bag Bleacher stopped his metoprolol and lasix. Pt started having palpitation, SOB and chest pain which made him to come to the ER for evaluation. Pt was admitted for A. fib with RVR. We gave lovenox 100mgsubq BID, amiodarone drip and later switched to amiodarone 200mg po BID. The palpitation persisted and the Bag Bleacher gave another round of amiodarone drip and iv digoxin. Cardiology later did DELPHINE cardioversion. Pt remained in normal sinus rhythm. Cardiology also did right heart cath which showed mild pulmonary hypertension due to diastolic heart failure. We gave a short course of midodrine for hypotension and monitored renal function. Cardiology resumed lasix 20mg po daily for CHF. Thyroid studies showed TSH of 16.5 and free T4 of 1.4. We continued synthroid 75mg po daily. We continued home med for other chronic medical problems. Pt was in NAD prior to discharge. Vital Signs/Physical Exam: Temp Pulse Resp BP Pulse Ox 97.4 F 69 16 119/60 98 12/11/23 14:41 08/19/24 14:41 12/11/23 14:41 12/11/23 14:41 12/11/23 14:41 Laboratory Data at Discharge: WBC 5.20 thou/uL (4.3-10.9) 12/11/23 05:56 Hgb 11.2 g/dL (13.6-17.9) L 12/11/23 05:56 Hct 34.7 % (39.6-49.0) L 12/11/23 05:56 Plt Count 241 thou/uL (152-406) 12/11/23 05:56 Sodium 141 mEq/L (136-145) 12/11/23 05:56 Potassium 4.9 mEq/L (3.5-5.1) D 12/11/23 05:56 BUN 21 mg/dL (7-18) H 12/11/23 05:56 Creatinine 1.30 mg/dL (0.70-1.30) 12/11/23 05:56 Glucose 131 mg/dL (74-106) H 12/11/23 05:56 Uric Acid 6.6 mg/dL (3.5-7.2) 12/05/23 05:01 Phosphorus 4.0 mg/dL (2.5-4.9) 12/10/23 06:22 Magnesium 2.6 mg/dL (1.6-2.4) H 12/05/23 05:01 Total Bilirubin 0.4 mg/dL (0.2-1.0) 12/04/23 04:44 AST 21 U/L (15-37) 12/04/23 04:44 ALT 30 U/L (16-61) 12/04/23 04:44 Alkaline Phosphatase 67 U/L (45-117) 12/04/23 04:44 Home Medications: Cyanocobalamin [Vitamin B-12*] 1,000 mcg IM SEECOM 04/29/16 Metformin HCl [Glucophage] 1,000 mg PO BID 04/29/16 Simvastatin [Zocor*] 20 mg PO BEDTIME 04/29/16 Latanoprost [Xalatan] 1 drop OP DAILY 06/17/16 Multivitamin [Multivitamins] 1 each PO DAILY 06/17/16 Adalimumab [Humira Pen] 1 dose SQ SEECOM 10/14/20 Mesalamine [Apriso] 2.4 gm PO BID 10/14/20 Methotrexate [Methotrexate*] 5 tab PO DAILY 10/14/20 Pantoprazole [Protonix Tab*] 1 tab PO DAILY 10/14/20 Spironolactone 1 tab PO BID 10/14/20 Magnesium Oxide 800 mg PO BID 04/04/21 Dapagliflozin Propanediol [Farxiga] 10 mg PO DAILY 10/31/22 Vit C/E/Zn/Coppr/Lutein/Zeaxan [Preservision Areds 2 Softgel] 1 each PO BID 10/31/22 Aspirin 81 mg PO DAILY 12/03/23 Calcium Carb/Vitamin D3/Vit K1 [Calcium + D Soft Chewable Tab] 500 mg PO BID 12/03/23 Tirzepatide [Mounjaro] 7.5 mg SQ Q7D 12/03/23 Amiodarone HCl [Cordarone*] 200 mg PO BID 30 Days #60 tab 12/11/23 Apixaban [Eliquis] 5 mg PO BID 30 Days #60 tab 12/11/23 Furosemide [Lasix*] 20 mg PO DAILY 60 Days #60 tab 12/11/23 Levothyroxine [Synthroid*] 0.075 mg PO DAILYAC 60 Days #60 tab 12/11/23 New Medications: Amiodarone HCl [Cordarone*] 200 mg PO BID 30 Days #60 tab Apixaban [Eliquis] 5 mg PO BID 30 Days #60 tab Furosemide [Lasix*] 20 mg PO DAILY 60 Days #60 tab Levothyroxine [Synthroid*] 0.075 mg PO DAILYAC 60 Days #60 tab Physician Discharge Instructions: Continue ad christina activity as tolerated. Take Lasix 20mg po daily, Eliquis 5mg po BID, amiodarone 200mg po BID and other home meds. Follow up with Cardiology and PCP within 1 - 2 weeks. Diet: AHA Activity: Ad christina Followup: Jose Boston MD [Primary Care Provider] -
--- NOTE | 2023-12-12 00:57 | PN ---
Date of Progress Note: 12/11/2023 Chief Complaint: Chronic kidney disease, acute kidney injury. Subjective: The patient developed acute kidney injury secondary to prerenal state and nonoliguric AT N. Renal function has improved. The patient has adequate p.o. fluid intake. Review of Systems: Denies chest pain, palpitation. Physical Examination: Lungs: Clear to auscultation bilaterally. Heart: S1, S2. Abdomen: Soft and benign. No rebound. Extremities: No edema. No clubbing. No cyanosis. Vital Signs: Blood pressure 124/82, heart rate 80, respiration 16, SpO2 of 96%. Impression And Plan: 1.Acute kidney injury secondary to prerenal state. Serum creatinine level is stabilizing. Continue p.o. fluid intake. Adequate hydration by mouth. 2.Hypertension. Blood pressure log will be evaluated. Blood pressure medication is on hold due to borderline hypotension. 3.Coronary artery disease, chronic diastolic congestive heart failure. TTE on December 05, 2023, show ed low LVEF 25% to 30%. The patient will continue beta-rosa. The patient will continue adequate hydration. The patient has chronic cardiorenal syndrome. Avoid nephrotoxic medication. Monitor blo od pressure and volemia. Continue low-sodium diet. 4.Anemia due to chronic kidney disease. Monitor CBC. Re-evaluate anemia outpatient. HUMBERTO/WILFRED Voice ID: [id number] Report ID: [id number]
--- NOTE | 2023-12-12 07:55 | TEE ---
TRANSESOPHAGEAL ECHOCARDIOGRAM REPORT CARDIOLOGY DEPARTMENT DATE OF STUDY: 12/11/2023 HEIGHT: 5'3" WEIGHT: 208 lbs DIAGNOSIS: ATRIAL FIBRILLATION/ CARDIOVERSION [employer]ER COMMENTS: DELPHINE CARDIAC HISTORY: CATHERIZATION: SURGERY: PROSTHETIC VALVE: PACEMAKER: 2 DIMENSIONAL ASSESSMENT: RIGHT ATRIUM: NOT ASSESSED LEFT ATRIUM: MODERATE DILATED RIGHT VENTRICLE: NOT ASSESSED LEFT VENTRICLE: NOT ASSESSED TRICUSPID VALVE: NOT ASSESSED MITRAL VALVE: NOT ASSESSED PULMONIC VALVE: NOT ASSESSED AORTIC VALVE: NOT ASSESSED PERICARDIAL EFFUSION: NONE AORTIC ROOT: NOT ASSESSED EJECTION FRACTION: LEFT VENTRICULAR WALL MOTION: DOPPLER/COLOR FLOW: COMMENTS: 1. NORMAL LEFT ATRIUM APPENDAGE, NO CLOT. TECHNOLOGIST: CEE RUSS
[2023-12-12] MEDS ORDERED: METHOTREXATE 2.5 MG TAB PO SCH (09:00)
--- NOTE | 2023-12-14 10:51 | OP ---
Date of Procedure: 12/06/2023 Surgeon: Khanh Duff Procedures Performed: 1.Left heart catheterization and right heart catheterization. 2.Selective coronary angiogram. Indication For Procedure: Heart failure. Complications: None. Estimated Blood Loss: Less than 50 cc. Sedation Time: 20 minutes with 1 of Versed and 25 of fentanyl. Access: Right common femoral artery, closed via an Angio-Seal. Right IJ, closed by manual compressi on. Description Of Procedure: After risks, and benefits, and alternatives were explained to patient, pat ient agreed to proceed with the procedure and signed informed consent. The patient was brought back to the earthmoving labourer, prepped and draped in a sterile fashion. Time-out was performed. Sedation was admi nistered. Next, the right IJ access was obtained using ultrasound-guided micropuncture technique. A 7-Mongolian sheath was inserted. The [place] catheter was inserted. Right heart numbers were got and the n the [place] was removed and sheath was removed. Manual compression was applied. Next, in the right c ommon femoral artery, 6-Mongolian access was obtained using ultrasound-guided micropuncture technique, a nd then we used a JL4 catheter to the left coronary angiogram and that was followed by JR4 catheter f or the right coronary angiogram and the graft angiogram and that was exchanged later for an LI beronica ter for a ALLISON angiogram. At the end of procedure, catheter was removed. Sheath was removed. Angio -Seal was applied. Findings: 1.Left main; distal 50% disease. 2.LAD; proximal mild luminal irregularities in mid stent, diffuse 50% disease, then occluded. 3.Left circ; ostial/proximal 70% calcified disease, then large OM2 that got diffuse 80% disease whic h gives collaterals also to RPDA. 4.RCA; proximal mild luminal irregularities, mid diffuse 90% to 100% disease, then distal occluded w ith [id number] collaterals. 5.ALLISON to LAD branch is patent, fill back into the LAD, diagonal. 6.SVG to OM is patent. Assessment And Plan: Significant [place] CAD with patent ALLISON to LAD and SVG to OM. Plan is to: 1.Continue medical management. 2.Consider staged PCI of left main into circ and possibly RCA MOTHER HELPER if patient is symptomatic. US/MODL Voice ID: [id number] Report ID: [id number]
--- NOTE | 2023-12-15 13:36 | EKG ---
Test Date: 2023-12-11 Test Time: 08:18:32 Resource Engineer: TYLER MEASUREMENT RESULTS: Intervals: Rate: 65 IL: 144 QRSD: 174 QT: 476 QTc: 495 [place]: P: 14 IL: 144 QRS: 39 T: 190 INTERPRETIVE STATEMENTS: Normal sinus rhythm Possible Left atrial enlargement Left ventricular hypertrophy with QRS widening Abnormal ECG Compared to ECG 12/08/2023 12:31:43 Left ventricular hypertrophy now present Uncertain supraventricular rhythm no longer present Electronically Signed On 12-15-23 13:30:33 CDT by Khanh Duff
--- NOTE | 2023-12-15 13:38 | EKG ---
Test Date: 2023-12-08 Test Time: 12:31:43 Tree Wrapper: HUMBERTO MEASUREMENT RESULTS: Intervals: Rate: 111 MT: QRSD: 162 QT: 448 QTc: 609 [place]: P: MT: QRS: 19 T: 224 INTERPRETIVE STATEMENTS: Atrial fibrillation vs Flutter with 2:1 block Nonspecific intraventricular block Abnormal ECG Compared to ECG 12/04/2023 10:19:47 Sinus rhythm no longer present Myocardial infarct finding no longer present Electronically Signed On 12-15-23 13:31:49 CDT by Khanh Duff
--- NOTE | 2023-12-15 13:40 | EKG ---
Test Date: 2023-12-03 Test Time: 14:22:58 Maintenance Machine Repairer: NT MEASUREMENT RESULTS: Intervals: Rate: 84 ID: [id number] QRSD: 204 QT: 470 QTc: 555 [place]: P: ID: [id number] QRS: 28 T: 219 INTERPRETIVE STATEMENTS: Sinus rhythm with 1st degree AV block with premature supraventricular complexes Nonspecific intraventricular block Possible Inferior infarct, age undetermined T wave abnormality, consider anterolateral ischemia Abnormal ECG Compared to ECG 12/03/2023 14:21:21 Atrial premature complex(es) now present First degree AV block now present Atrial fibrillation no longer present Myocardial infarct finding still present T-wave abnormality still present Possible ischemia still present Electronically Signed On 12-15-23 13:32:45 CDT by Khanh Duff
--- NOTE | 2023-12-15 13:41 | EKG ---
Test Date: 2023-12-03 Test Time: 14:17:46 Hand Shaker: RNNT MEASUREMENT RESULTS: Intervals: Rate: 81 NM: 238 QRSD: 200 QT: 472 QTc: 548 [place]: P: NM: 238 QRS: 25 T: 219 INTERPRETIVE STATEMENTS: Sinus rhythm with 1st degree AV block with premature atrial complexes Nonspecific intraventricular block Cannot rule out Septal infarct, age undetermined T wave abnormality, consider inferior ischemia T wave abnormality, consider anterolateral ischemia Abnormal ECG Compared to ECG 12/03/2023 06:46:39 Atrial premature complex(es) now present First degree AV block now present Myocardial infarct finding now present T-wave abnormality now present Possible ischemia now present Atrial fibrillation no longer present Ventricular premature complex(es) no longer present Electronically Signed On 12-15-23 13:33:03 CDT by Khanh Duff
--- NOTE | 2023-12-15 13:41 | EKG ---
Test Date: 2023-12-03 Test Time: 14:21:21 Vehicle Mechanic: NT MEASUREMENT RESULTS: Intervals: Rate: 88 IA: QRSD: 200 QT: 468 QTc: 566 [place]: P: IA: QRS: 26 T: 221 INTERPRETIVE STATEMENTS: Atrial fibrillation Nonspecific intraventricular block Cannot rule out Septal infarct, age undetermined T wave abnormality, consider inferior ischemia or digitalis effect T wave abnormality, consider anterolateral ischemia or digitalis effect Abnormal ECG Compared to ECG 12/03/2023 14:17:46 Sinus rhythm no longer present Atrial premature complex(es) no longer present First degree AV block no longer present Myocardial infarct finding still present T-wave abnormality still present Possible ischemia still present Electronically Signed On 12-15-23 13:32:52 CDT by Khanh Duff
[2023-12-15 19:18] LABS: C-ANCA Anti-Proteinase 3 <1.0 AI (<1.0); P-ANCA Anti-Myeloperoxidase Ab <1.0 AI (<1.0)
== END 2023-12-11 15:59 | disposition home or self-care (01) | DRG 280 ==
LOC: ER 06:35 → ERHOLD 09:14 → 3RD-ICU 10:40 → 4TH 12-06 14:58
PROVIDERS: ADMIT Hospitalist; ATTEND Hospitalist
PROC: 0T9B70Z Drainage of Bladder with Drainage Device, Via Natural or Artificial Opening (ICD-10-PCS; 2023-12-04)
PROC: 4A023N7 Measurement of Cardiac Sampling and Pressure, Left Heart, Percutaneous Approach (ICD-10-PCS; principal; 2023-12-06)
PROC: B2131ZZ Fluoroscopy of Multiple Coronary Artery Bypass Grafts using Low Osmolar Contrast (ICD-10-PCS; 2023-12-06)
PROC: B2111ZZ Fluoroscopy of Multiple Coronary Arteries using Low Osmolar Contrast (ICD-10-PCS; 2023-12-06)
PROC: B24BZZ4 Ultrasonography of Heart with Aorta, Transesophageal (ICD-10-PCS; 2023-12-11)
PROC: 5A2204Z Restoration of Cardiac Rhythm, Single (ICD-10-PCS; 2023-12-11)
DX: I48.19 Other persistent atrial fibrillation (principal); I50.23 Acute on chronic systolic (congestive) heart failure; I21.4 Non-ST elevation (NSTEMI) myocardial infarction; N17.0 Acute kidney failure with tubular necrosis; I13.0 Hypertensive heart and chronic kidney disease with heart failure and stage 1 through stage 4 chronic kidney disease, or unspecified chronic kidney disease; E87.1 Hypo-osmolality and hyponatremia; I27.20 Pulmonary hypertension, unspecified; N18.9 Chronic kidney disease, unspecified; E11.22 Type 2 diabetes mellitus with diabetic chronic kidney disease; E11.40 Type 2 diabetes mellitus with diabetic neuropathy, unspecified; D63.1 Anemia in chronic kidney disease; E78.00 Pure hypercholesterolemia, unspecified; I95.9 Hypotension, unspecified; E03.9 Hypothyroidism, unspecified; I48.92 Unspecified atrial flutter; I49.9 Cardiac arrhythmia, unspecified; I25.2 Old myocardial infarction; I25.10 Atherosclerotic heart disease of native coronary artery without angina pectoris; R00.0 Tachycardia, unspecified; Z88.5 Allergy status to narcotic agent; Z88.1 Allergy status to other antibiotic agents; Z95.1 Presence of aortocoronary bypass graft; Z79.82 Long term (current) use of aspirin; Z79.01 Long term (current) use of anticoagulants; Z90.49 Acquired absence of other specified parts of digestive tract; Z79.890 Hormone replacement therapy; Z91.048 Other nonmedicinal substance allergy status; Z95.810 Presence of automatic (implantable) cardiac defibrillator
CPT/HCPCS: 36415; 70450; 71045; 76770; 76937; 80048; 80069; 80076; 81001; 82533; 82570; 83520; 83735; 83880; 83970; 84100; 84156; 84165; 84439; 84443; 84481; 84484; 84550; 85025; 85044; 85379; 86021; 86038; 86160; 86225; 86430; 87086; 87088; 87522; 92960; 93005; 93306; 93312; 93461; 99152; 99285; C1887; C1893; J0282; J0461; J0696; J1160; J1644; J1650; J1940; J2001; J2250; J2704; J3010; J3475; J7030; J7040; J7060; J8610; Q9967

== ENCOUNTER 2024-04-02 15:20 | Inpatient (IN) | payer OTHER ==
--- NOTE | 2024-04-02 16:58 | RAD REPORT ---
EXAMINATION: ONE VIEW CHEST XR CLINICAL INDICATION: DYSPNEA TECHNIQUE: Frontal chest projection is submitted. Examination is limited by patient positioning and t echnique. COMPARISON: 01/16/2024 FINDINGS: Moderate bilateral pulmonary opacities likely represents pulmonary edema. The heart is moderately enl arged in size. No displaced fractures identified. Single-lead pacer defibrillator. IMPRESSION: Moderate CHF versus volume overload.
--- NOTE | 2024-04-02 19:44 | ER ---
Nurse's Notes [facility] Name: Hugo Liu Jr Age: 74 yrs Sex: Male : 1950 Arrival Date: 04/02/2024 Time: 15:20 Bed 17 Private MD: Diagnosis: CHF exacerbation Presentation: 04/02 16:01 Chief complaint: Patient states: SENT TO THE ER BY DR. ESPAÑA FOR SHORTNESS OF BREATH. cm10 PT REPORTS THAT HE HAS HAD SHORTNESS OF BREATH SINCE THANKS. Coronavirus screen: Client denies travel out of the [place] in the last 14 days. Ebola Screen: Patient denies travel to an Ebola-affected area in the 21 days before illness onset. No symptoms or risks identified at this time. Initial Sepsis Screen: Does the patient meet any 2 criteria? No. Patient's initial sepsis screen is negative. Does the patient have a suspected source of infection? No. Patient's initial sepsis screen is negative. Risk Assessment: Do you want to hurt yourself or someone else? Patient reports no desire to harm self or others. Onset of symptoms was April 02, 2024. 16:01 Method Of Arrival: Ambulatory cm10 16:01 Acuity: MADDI 3 cm10 Triage Assessment: 16:08 General: Appears in no apparent distress. comfortable, Behavior is calm, cooperative. cm10 Pain: Denies pain. Neuro: No deficits noted. Level of Consciousness is awake, alert, obeys commands, Oriented to person, place, time, situation, Appropriate for age. Respiratory: No deficits noted. Airway is patent Respiratory effort is even, unlabored, Respiratory pattern is regular, symmetrical. Historical: - Allergies: 16:02 Cipro; cm10 16:02 Codeine; cm10 16:02 paper tape; cm10 - Home Meds: 16:02 furosemide 20 mg oral tablet 1 tab daily [Active]; pantoprazole 40 mg oral tablet, cm10 delayed release (enteric coated) 1 tab daily [Active]; metformin 1,000 mg Oral tablet 1 tab 2 times per day [Active]; simvastatin 20 mg Oral tablet 1 tab every day at bedtime [Active]; Mounjaro 5 mg/0.5 mL subcutaneous Pen Injector 5 mg every week [Active]; mesalamine 1.2 gram oral tablet, delayed release (enteric coated) 2 tabs twice a day [Active]; Farxiga 10 mg oral tablet 1 tab daily [Active]; Humira Pen subcutaneous [Active]; Magnesium Oxide Oral [Active]; cyanocobalamin (vitamin B-12) 1,000 mcg/mL injection Kit every week [Active]; latanoprost 0.005 % ophthalmic (eye) drops 1 drop daily [Active]; AREDS [Active]; aspirin 81 mg Oral tablet,chewable [Active]; amiodarone 200 mg Oral tablet 1 tab daily [Active]; Eliquis 5 mg oral tablet 1 tab 2 times per day [Active]; levothyroxine 75 mcg tablet 1 tab daily [Active]; clopidogrel 75 mg oral tablet 1 tab daily [Active]; - PMHx: 16:02 Congestive heart failure; Crohn's Disease; diabetes mellitus; Hypercholesterolemia; cm10 Hypertensive disorder; IA; - PSHx: 16:02 CABG; defibrillator; cm10 - Immunization history:: Adult Immunizations up to date. - Infectious Disease History:: Denies. - Social history:: Smoking status: unknown. Screenin:15 Abuse screen: Denies threats or abuse. Nutritional screening: No deficits noted. ap3 Tuberculosis screening: No symptoms or risk factors identified. 19:15 [facility] ED Fall Risk Assessment (Adult) History of falling in the last 3 months, kj2 including since admission No falls in past 3 months (0 pts) Confusion or Disorientation No (0 pts) Intoxicated or Sedated No (0 pts) Impaired Gait No (0 pts) Mobility Assist Device Used No (0 pt) Altered Elimination No (0 pt) Score/Fall Risk Level 0 - 2 = Low Risk Maintained a safe environment, Hourly rounding (assess needs \T\ fall precautionary measures) done. Assessment: 19:00 Reassessment: Patient appears in no apparent distress at this time. Patient and/or kj2 family updated on plan of care and expected duration. Pain level reassessed. Patient is alert, oriented x 3, equal unlabored respirations, skin warm/dry/pink. 19:26 General: Appears in no apparent distress. Behavior is calm, cooperative, appropriate ap3 for age. Pain: Denies pain. Neuro: Level of Consciousness is awake, alert, obeys commands, Oriented to person, place, time, situation, Appropriate for age. Cardiovascular: Patient's skin is warm and dry. Respiratory: Reports shortness of breath Airway is patent Respiratory effort is even, unlabored. 20:30 Reassessment: Patient appears in no apparent distress at this time. Patient and/or kj2 family updated on plan of care and expected duration. Pain level reassessed. Patient is alert, oriented x 3, equal unlabored respirations, skin warm/dry/pink. 21:30 Reassessment: Patient appears in no apparent distress at this time. Patient and/or kj2 family updated on plan of care and expected duration. Pain level reassessed. Patient is alert, oriented x 3, equal unlabored respirations, skin warm/dry/pink. 22:34 Reassessment: Patient appears in no apparent distress at this time. Patient and/or kj2 family updated on plan of care and expected duration. Pain level reassessed. Patient is alert, oriented x 3, equal unlabored respirations, skin warm/dry/pink. 23:38 Reassessment: Patient appears in no apparent distress at this time. Patient and/or kj2 family updated on plan of care and expected duration. Pain level reassessed. Patient is alert, oriented x 3, equal unlabored respirations, skin warm/dry/pink. 04/03 00:30 Reassessment: Patient appears in no apparent distress at this time. Patient and/or kj2 family updated on plan of care and expected duration. Pain level reassessed. Patient is alert, oriented x 3, equal unlabored respirations, skin warm/dry/pink. 01:30 Reassessment: Patient appears in no apparent distress at this time. Patient and/or kj2 family updated on plan of care and expected duration. Pain level reassessed. Patient is alert, oriented x 3, equal unlabored respirations, skin warm/dry/pink. 02:30 Reassessment: Patient appears in no apparent distress at this time. Patient and/or kj2 family updated on plan of care and expected duration. Pain level reassessed. Patient is alert, oriented x 3, equal unlabored respirations, skin warm/dry/pink. 03:30 Reassessment: Patient appears in no apparent distress at this time. Patient and/or kj2 family updated on plan of care and expected duration. Pain level reassessed. Patient is alert, oriented x 3, equal unlabored respirations, skin warm/dry/pink. 04:30 Reassessment: Patient appears in no apparent distress at this time. Patient and/or kj2 family updated on plan of care and expected duration. Pain level reassessed. Patient is alert, oriented x 3, equal unlabored respirations, skin warm/dry/pink. 05:38 Reassessment: Patient appears in no apparent distress at this time. Patient and/or kj2 family updated on plan of care and expected duration. Pain level reassessed. Patient is alert, oriented x 3, equal unlabored respirations, skin warm/dry/pink. Vital Signs: 04/02 16:01 BP 113 / 63; Pulse 66; Resp 16; Temp 97.7(TE); Pulse Ox 98% ; Weight 97.52 kg; Height 5 cm10 ft. 3 in. ; Pain 0/10; 19:16 BP 119 / 67; Pulse 65; Pulse Ox 100% on R/A; ap3 20:15 BP 121 / 70; Pulse 62; Resp 18; Pulse Ox 100% on R/A; kj2 21:15 BP 116 / 60; Pulse 62; Resp 18; Pulse Ox 100% on R/A; kj2 22:36 BP 113 / 57; Pulse 63; Resp 20; Pulse Ox 99% on R/A; kj2 23:31 BP 101 / 63; Pulse 68; Resp 20; Pulse Ox 100% ; kj2 04/03 00:30 BP 118 / 64; Pulse 62; Resp 18; Pulse Ox 97% on R/A; kj2 01:30 BP 116 / 66; Pulse 60; Resp 18; Pulse Ox 100% on R/A; kj2 02:30 BP 118 / 62; Pulse 60; Resp 20; Pulse Ox 99% ; kj2 03:30 BP 100 / 60; Pulse 60; Resp 16; Pulse Ox 99% on R/A; kj2 04/02 16:01 Body Mass Index 38.09 (97.52 kg, 160.02 cm) cm10 04/02 16:01 Pain Scale: Adult cm10 ED Course: 04/02 15:25 Patient arrived in ED. sj2 15:29 Joe Polanco MD is Attending Physician. sp3 16:02 Triage completed. cm10 16:08 Arm band placed on left wrist. Patient placed in waiting room. cm10 16:54 XRAY Chest (1 view) In Process Unspecified. EDMS 19:04 EKG done, by ED staff, reviewed by Joe Polanco MD. ap3 19:14 Inserted saline lock: in right antecubital area, using aseptic technique. Blood ap3 collected. Flushed with 10 mL NS. 19:14 IV discontinued, bleeding controlled, Pressure dressing applied, IV blew when flushing. ap3 19:15 Patient has correct armband on for positive identification. Bed in low position. Call ap3 light in reach. Side rails up X 1. Adult w/ patient. Provided Education on: fall risk education. 19:21 Terrie Galicia, RN is Primary Nurse. kj2 19:43 Justine Donato MD is Hospitalizing Provider. sp3 22:39 No provider procedures requiring assistance completed. kj2 23:30 Inserted saline lock: 18 gauge in right upper arm, using aseptic technique. Blood kj2 collected. Flushed with 10 mL NS. Administered Medications: 20:47 Drug: Furosemide IVP 40 mg IVP once; give over 2 minutes Route: IVP; Site: left wrist; kj2 22:40 Follow up: Response: No adverse reaction kj2 Medication: 22:39 VIS not applicable for this client. kj2 Outcome: 19:43 Decision to Hospitalize by Provider. sp3 04/03 15:56 Patient left the ED. tm6 Signatures: Dispatcher [employer] EDMS Candelaria Pham, RN RN ap3 Joe Polanco MD MD sp3 June Bae, RN RN cm10 Tammy Lim RN RN tm6 Terrie Galicia, STUART RN kj2 Jonas [facility]
--- NOTE | 2024-04-02 19:44 | EDPHYS ---
Physician Documentation [facility] Name: Hugo Liu Jr Age: 74 yrs Sex: Male : 1950 Arrival Date: 04/02/2024 Time: 15:20 Bed 17 Private MD: ED Physician Joe Polanco HPI: 04/02 17:33 This 74 yrs old Male presents to ER via Ambulatory with complaints of sp3 Shortness Of Breath. 17:33 74-year-old male with history of CHF, Crohn's disease, diabetes presents with shortness sp3 of breath sent from Dr. Miner's office for evaluation and probable admission. Patient denies any other symptoms including fever, headache, neck pain, chest pain, back pain, abdominal pain, vomiting, diarrhea, syncope, near syncope, prolonged immobilization, prior DVT or PE, or any other signs or symptoms on ROS at this time.. Historical: - Allergies: 16:02 Cipro; cm10 16:02 Codeine; cm10 16:02 paper tape; cm10 - Home Meds: 16:02 furosemide 20 mg oral tablet 1 tab daily [Active]; pantoprazole 40 mg oral tablet, cm10 delayed release (enteric coated) 1 tab daily [Active]; metformin 1,000 mg Oral tablet 1 tab 2 times per day [Active]; simvastatin 20 mg Oral tablet 1 tab every day at bedtime [Active]; Mounjaro 5 mg/0.5 mL subcutaneous Pen Injector 5 mg every week [Active]; mesalamine 1.2 gram oral tablet, delayed release (enteric coated) 2 tabs twice a day [Active]; Farxiga 10 mg oral tablet 1 tab daily [Active]; Humira Pen subcutaneous [Active]; Magnesium Oxide Oral [Active]; cyanocobalamin (vitamin B-12) 1,000 mcg/mL injection Kit every week [Active]; latanoprost 0.005 % ophthalmic (eye) drops 1 drop daily [Active]; AREDS [Active]; aspirin 81 mg Oral tablet,chewable [Active]; amiodarone 200 mg Oral tablet 1 tab daily [Active]; Eliquis 5 mg oral tablet 1 tab 2 times per day [Active]; levothyroxine 75 mcg tablet 1 tab daily [Active]; clopidogrel 75 mg oral tablet 1 tab daily [Active]; - PMHx: 16:02 Congestive heart failure; Crohn's Disease; diabetes mellitus; Hypercholesterolemia; cm10 Hypertensive disorder; SD; - PSHx: 16:02 CABG; defibrillator; cm10 - Immunization history:: Adult Immunizations up to date. - Infectious Disease History:: Denies. - Social history:: Smoking status: unknown. ROS: 17:34 Constitutional: Negative for fever, chills, and weight loss, Eyes: Negative for injury, sp3 pain, redness, and discharge, ENT: Negative for injury, pain, and discharge, Neck: Negative for injury, pain, and swelling, Abdomen/GI: Negative for abdominal pain, nausea, vomiting, diarrhea, and constipation, Back: Negative for injury and pain, MS/Extremity: Negative for injury and deformity, Skin: Negative for injury, rash, and discoloration, Neuro: Negative for headache, weakness, numbness, tingling, and seizure, Psych: Negative for depression, anxiety, suicide ideation, homicidal ideation, and hallucinations, Allergy/Immunology: Negative for hives, rash, and allergies, Endocrine: Negative for neck swelling, polydipsia, polyuria, polyphagia, and marked weight changes, Hematologic/Lymphatic: Negative for swollen nodes, abnormal bleeding, and unusual bruising, 17:34 All other systems are negative, Exam: 17:34 Constitutional: This is a well developed, well nourished patient who is awake, alert, sp3 and in no acute distress. Head/Face: Normocephalic, atraumatic. Eyes: Pupils equal round and reactive to light, extra-ocular motions intact. Lids and lashes normal. Conjunctiva and sclera are non-icteric and not injected. Cornea within normal limits. Periorbital areas with no swelling, redness, or edema. Neck: Trachea midline, no thyromegaly or masses palpated, and no cervical lymphadenopathy. Supple, full range of motion without nuchal rigidity, or vertebral point tenderness. No Meningismus. Chest/axilla: Normal chest wall appearance and motion. Nontender with no deformity. No lesions are appreciated. Cardiovascular: Regular rate and rhythm with a normal S1 and S2. No gallops, murmurs, or rubs. Normal PMI, no JVD. No pulse deficits. Back: No spinal tenderness. No costovertebral tenderness. Full range of motion. Skin: Warm, dry with normal turgor. Normal color with no rashes, no lesions, and no evidence of cellulitis. Neuro: Awake and alert, GCS 15, oriented to person, place, time, and situation. Cranial nerves II-XII grossly intact. Motor strength 5/5 in all extremities. Sensory grossly intact. Cerebellar exam normal. Normal gait. Psych: Awake, alert, with orientation to person, place and time. Behavior, mood, and affect are within normal limits. 17:34 Respiratory: Bilateral Rales/crackles noted. Peripheral edema also noted. Vital signs are normal. Pulse oxygenation on room air 98%., 19:06 ECG was reviewed by the Attending Physician. EKG demonstrates normal sinus rhythm at 64 sp3 bpm with left bundle branch block nonspecific diffuse ST/T changes without evidence of acute ischemia. Vital Signs: 16:01 BP 113 / 63; Pulse 66; Resp 16; Temp 97.7(TE); Pulse Ox 98% ; Weight 97.52 kg; Height 5 cm10 ft. 3 in. ; Pain 0/10; 19:16 BP 119 / 67; Pulse 65; Pulse Ox 100% on R/A; ap3 20:15 BP 121 / 70; Pulse 62; Resp 18; Pulse Ox 100% on R/A; kj2 21:15 BP 116 / 60; Pulse 62; Resp 18; Pulse Ox 100% on R/A; kj2 22:36 BP 113 / 57; Pulse 63; Resp 20; Pulse Ox 99% on R/A; kj2 23:31 BP 101 / 63; Pulse 68; Resp 20; Pulse Ox 100% ; kj2 04/03 00:30 BP 118 / 64; Pulse 62; Resp 18; Pulse Ox 97% on R/A; kj2 01:30 BP 116 / 66; Pulse 60; Resp 18; Pulse Ox 100% on R/A; kj2 02:30 BP 118 / 62; Pulse 60; Resp 20; Pulse Ox 99% ; kj2 03:30 BP 100 / 60; Pulse 60; Resp 16; Pulse Ox 99% on R/A; kj2 04/02 16:01 Body Mass Index 38.09 (97.52 kg, 160.02 cm) cm10 04/02 16:01 Pain Scale: Adult cm10 MDM: 04/02 16:08 Medical Screening Exam initiated sp3 17:35 Data reviewed: vital signs, old medical records, lab test result(s), EKG, radiologic sp3 studies. ED course: 74-year-old male with shortness of breath with history of CHF. Differential diagnosis includes CHF, pneumonia, other peripheral edema, electrolyte abnormality and to lesser degree acute coronary syndrome or other abnormality. I am not highly suspicious of infection, sepsis, shock or any other critical process. Workup will include general labs, EKG, chest x-ray with probable pharmaceutical intervention with Lasix as needed and probable admission.. 04/02 16:21 Order name: Basic Metabolic Panel; Complete Time: 20:22 sp3 04/02 16:21 Order name: CBC with Diff; Complete Time: 19:58 sp3 04/02 16:21 Order name: LFT's; Complete Time: 20:22 sp3 04/02 16:21 Order name: Magnesium; Complete Time: 20:22 sp3 04/02 16:21 Order name: NT PRO-BNP; Complete Time: 20:22 sp3 04/02 16:21 Order name: PT-INR; Complete Time: 19:58 sp3 04/02 16:21 Order name: Troponin HS; Complete Time: 20:22 sp3 04/02 22:00 Order name: T4 Free EDMS 04/02 22:00 Order name: Thyroid Stimulating Hormone EDMS 04/02 22:00 Order name: Urinalysis w/ reflexes EDMS 04/02 22:00 Order name: CBC with Automated Diff EDMS 04/02 22:00 Order name: CBC with Automated Diff EDMS 04/02 22:00 Order name: Comprehensive Metabolic Panel EDMS 04/02 22:00 Order name: Comprehensive Metabolic Panel EDMS 04/02 22:00 Order name: Troponin High Sensitivity EDMS 04/03 08:21 Order name: Glucose, Ancillary Testing EDMS 04/02 16:21 Order name: XRAY Chest (1 view); Complete Time: 17:33 sp3 04/02 22:00 Order name: Echo with Doppler EDMS 04/02 16:21 Order name: EKG; Complete Time: 16:22 sp3 04/02 16:21 Order name: Cardiac monitoring; Complete Time: 18:58 sp3 04/02 16:21 Order name: EKG - Nurse/Tech; Complete Time: 19:05 sp3 04/02 16:21 Order name: IV Saline Lock; Complete Time: 01:56 sp3 04/02 16:21 Order name: Labs collected and sent; Complete Time: 19:14 sp3 04/02 16:21 Order name: O2 Per Protocol; Complete Time: 18:58 sp3 04/02 16:21 Order name: O2 Sat Monitoring; Complete Time: 18:58 sp3 Administered Medications: 20:47 Drug: Furosemide IVP 40 mg IVP once; give over 2 minutes Route: IVP; Site: left wrist; kj2 22:40 Follow up: Response: No adverse reaction kj2 Disposition Summary: 04/02/24 19:43 Hospitalization Ordered Notes: Hospitalization Status: Observation sp3 Provider: Justine Donato sp3 Condition: Stable sp3 Problem: an acute exacerbation sp3 Symptoms: have worsened sp3 Bed/Room Type: Standard sp3 Location: Telemetry/MedSurg (observation)(04/03/24 14:39) bd Room Assignment: 405(04/03/24 14:39) bd Diagnosis - CHF exacerbation sp3 Forms: - Medication Reconciliation Form sp3 - SBAR form sp3 - Leadership Thank You Letter sp3 Signatures: Dispatcher [employer] EDMS Ailyn Hyde Lacie, RN RN lg3 Joe Polanco MD MD sp3 June Bae RN RN cm10 Radha Caldwell f Terrie Galicia RN RN kj2 Corrections: (The following items were deleted from the chart) 20:49 19:43 Telemetry/MedSurg (observation) sp3 kmf 20:49 19:43 sp3 kmf 20:53 20:49 HLD3 kmf lg3 04/03 14:39 04/02 20:49 [facility] ER HOLD kmf bd 04/03 14:39 12 20:53 ERHOLD- lg3 bd
[2024-04-02 19:45] LABS: Absolute Lymphocytes (CBC) 1.1 K/uL (0.7-4.9); Absolute Monocytes 0.5 K/uL (0.1-1.3); Absolute Neutrophil 3.6 K/uL (1.8-8.0); Basophils % 0.7 % (0-1.3); Eosinophils % 0.8 % (0-4.4); Hematocrit 32.5 % (39.6-49.0); Hemoglobin 10.4 g/dL (13.6-17.9); Lymphocytes % 21.7 % (15.3-44.8); MCH 29.7 pg (27.0-35.0); MCV 92.7 fL (80-100); MPV 9.3 fL (7.6-11.3); Monocytes % 8.9 % (3.3-12.3); Neutrophils % 67.9 % (41.7-73.7); Nucleated Red Blood Cells % 0.1 % (0-0); Platelets 221 thou/uL (152-406); RBC Red Blood Cell Count 3.51 M/uL (4.33-5.43); Red Cell Distribution Width 15.7 % (12.1-15.2)
[2024-04-02 19:54] LABS: PT Prothrombin Time 14.5 SECONDS (9.4-12.5); Protime INR 1.3
[2024-04-02 20:11] LABS: Albumin 3.3 g/dL (3.4-5.0); Anion Gap 7.3 mEq/L (5.0-15.0); Bilirubin Direct 0.2 mg/dL (0-0.2); Bilirubin Indirect, Calculated 0.3 mg/dL (0.2-0.8); Bilirubin Total 0.5 mg/dL (0.2-1.0); Protein, Total 7.1 g/dL (6.4-8.2)
[2024-04-02 20:12] LABS: Albumin/Globulin Ratio 0.9 (1.1-1.8); Globulin 3.8 g/dL (2.3-3.5); Troponin High Sensitivity 21.2 pg/mL (<58.9)
[2024-04-02 20:14] LABS: Magnesium 1.8 mg/dL (1.6-2.4); Potassium 4.3 mEq/L (3.5-5.1)
[2024-04-02] MEDS ORDERED: FUROSEMIDE 40 MG/4 ML VIAL ONE (20:27)
--- NOTE | 2024-04-02 21:49 | P.HP ---
Certification for Inpatient Patient admitted to: Inpatient With expected LOS: >2 Midnights Practitioner: I am a practitioner with admitting privileges, knowledge of patient current condition, hospital course, and medical plan of care. Services: Services provided to patient in accordance with Admission requirements found in Title 42 Section 412.3 of the Code of Federal Regulations Patient History Date of Service: 04/02/24 Reason for admission: CHF exacerbation History of Present Illness: 74-year-old male presents to the ER with complaints of 2-week history of progressive shortness of breath. Worse in the last 3 days. He does report some orthopnea. Denies any fevers, chills or productive cough. Reports that he was recommended by his hook up to come to the ER. The patient does have a history of congestive heart failure, Crohn's disease, diabetes, hyperlipidemia, hypertension, coronary disease with previous CABG and placement of a defibrillator. He denies any recent changes in medications. States diet may not be tightly controlled. In addition to increased shortness of breath he does also report leg swelling. An echocardiogram from November 2023 showed an ejection fraction between 25 to 30% with diastolic dysfunction. His blood work did show an elevated BNP as well as an abnormal chest x-ray with concern of volume overload CHF exacerbation Allergies ciprofloxacin [From Cipro] Adverse Reaction (Verified 01/30/23 13:57) Shortness of breath paper tape Adverse Reaction (Uncoded 01/30/23 13:57) blisters Home Medications: Cyanocobalamin [Vitamin B-12*] 1,000 mcg IM SEECOM 04/29/16 Metformin HCl [Glucophage] 1,000 mg PO BID 04/29/16 Simvastatin [Zocor*] 20 mg PO BEDTIME 04/29/16 Latanoprost [Xalatan] 1 drop OP DAILY 06/17/16 Multivitamin [Multivitamins] 1 each PO DAILY 06/17/16 Adalimumab [Humira Pen] 1 dose SQ SEECOM 10/14/20 Mesalamine [Apriso] 2.4 gm PO BID 10/14/20 Methotrexate [Methotrexate*] 5 tab PO SEECOM 10/14/20 Pantoprazole [Protonix Tab*] 1 tab PO DAILY 10/14/20 Magnesium Oxide 800 mg PO BID 04/04/21 Dapagliflozin Propanediol [Farxiga] 10 mg PO DAILY 10/31/22 Vit C/E/Zn/Coppr/Lutein/Zeaxan [Preservision Areds 2 Softgel] 1 each PO BID 10/31/22 Aspirin 81 mg PO DAILY 12/03/23 Calcium Carb/Vitamin D3/Vit K1 [Calcium + D Soft Chewable Tab] 500 mg PO DAILY 12/03/23 Tirzepatide [Mounjaro] 7.5 mg SQ Q7D 12/03/23 Amiodarone HCl [Cordarone*] 200 mg PO BID 30 Days #60 tab 12/11/23 Apixaban [Eliquis] 5 mg PO BID 30 Days #60 tab 12/11/23 Levothyroxine [Synthroid*] 0.075 mg PO DAILYAC 60 Days #60 tab 12/11/23 Clopidogrel Bisulfate [Plavix*] 75 mg PO DAILY 30 Days #30 tab 01/20/24 - Past Medical/Surgical History Diabetic: Yes -: DM Type 2 -: HTN -: CAD with CABG -: Crohn's -: Pacemaker with defibrillator -: Hyperlipidemia -: GERD -: Anemia chronic disease -: pilonidal cyst -: ICD -: CABG -: Cholecystectomy Psychosocial/ Personal History: - Family History Mother -: Heart disease, Hypertension, Diabetes, Stroke - Social History Alcohol use: No CD- Drugs: No Caffeine use: No Review of Systems 10-point ROS is otherwise unremarkable Respiratory: Shortness of Breath, SOB with Excertion Cardiovascular: Orthopnea Physical Examination - Physical Exam General: Alert, Oriented x3 HEENT: Atraumatic, Normocephalic Respiratory: Normal air movement, Crackles/rales Cardiovascular: Regular rate/rhythm, Edema Gastrointestinal: Soft and benign, Non-distended Musculoskeletal: Swelling Integumentary: No rashes Neurological: Normal speech - Studies Laboratory Data (last 24 hrs) 04/02/24 04/02/24 04/02/24 19:10 19:10 19:10 WBC 5.30 Hgb 10.4 L Hct 32.5 L Plt Count 221 PT 14.5 H INR 1.30 Sodium 139 Potassium 4.3 BUN 24 H Creatinine 1.30 Glucose 121 H Magnesium 1.8 Total Bilirubin 0.5 AST 36 ALT 31 Alkaline Phosphatase 80 Assessment and Plan - Problems (Diagnosis) (1) CHF (congestive heart failure) Current Visit: Yes Status: Acute (2) Edema Current Visit: Yes Status: Acute (3) Dyspnea Current Visit: Yes Status: Acute - Plan 74-year-old male presents to the ER for progressive shortness of breath. CHF exacerbation, acute combined systolic and diastolic heart failure Pulmonary edema Coronary artery disease Hypertension Hyperlipidemia -- Admit patient to telemetry unit. Continue IV diuretics. Check echocardiogra m. Consider cardiology consultation. Await home medication reconciliation to be completed. History of Crohn's disease --Does not appear to be active currently. On Humira and methotrexate. Await f or medication reconciliation to confirm home medicines He may need to be taken off TNF inhibitors if he has severe heart failure diabetes -- Check blood sugars, sliding scale insulin Hypothyroidism -- TSH, free T4 restart home medications DVT: On Eliquis at home Code: Full - Advance Directives Does patient have a Living Will: Yes Does patient have a Durable POA for Healthcare: No
[2024-04-03 00:33] LABS: Thyroid Stimulating Hormone 4.32 uIU/mL (0.358-3.740)
[2024-04-03 03:00] VITALS: BMI 37.9
[2024-04-03 05:46] LABS: Absolute Eosinophils 0.1 K/uL (0-0.5); Absolute Lymphocytes (CBC) 1.5 K/uL (0.7-4.9); Absolute Monocytes 0.6 K/uL (0.1-1.3); Absolute Neutrophil 2.5 K/uL (1.8-8.0); Basophils % 0.6 % (0-1.3); Eosinophils % 1.1 % (0-4.4); Hematocrit 31.1 % (39.6-49.0); Hemoglobin 9.8 g/dL (13.6-17.9); Lymphocytes % 31.5 % (15.3-44.8); MCH 29.1 pg (27.0-35.0); MCHC 31.5 g/dL (32.0-36.0); MCV 92.2 fL (80-100); MPV 8.9 fL (7.6-11.3); Monocytes % 13.2 % (3.3-12.3); Neutrophils % 53.6 % (41.7-73.7); Platelets 203 thou/uL (152-406); RBC Red Blood Cell Count 3.37 M/uL (4.33-5.43)
[2024-04-03 05:53] LABS: Renal Epithelial <5 /HPF (None Seen); Specific Gravity 1.021 (1.005-1.030); Sqamous Epithelial None Seen /HPF (None Seen); Urine Bacteria <20 /HPF (<20); Urine Bilirubin NEGATIVE (Negative); Urine Blood Negative (Negative); Urine Clarity Clear (Clear); Urine Color Yellow (Yellow); Urine Culture Reflex Order NOT NEEDED; Urine Glucose NEGATIVE (Negative); Urine Ketones NEGATIVE (Negative); Urine Microscopic Reflex YN ORDER UMIC; Urine Nitrite NEGATIVE (Negative); Urine Protein NEGATIVE (Negative); Urine RBC <5 /HPF (None Seen); Urine Urobilinogen Normal (Normal); Urine WBC <5 /HPF (<5); Urine pH 5.5 (5.0-7.0)
[2024-04-03 05:57] LABS: Albumin 3.1 g/dL (3.4-5.0); Albumin/Globulin Ratio 0.9 (1.1-1.8); Anion Gap 7.5 mEq/L (5.0-15.0); Bilirubin Total 0.6 mg/dL (0.2-1.0); Globulin 3.4 g/dL (2.3-3.5); Potassium 3.5 mEq/L (3.5-5.1); Protein, Total 6.5 g/dL (6.4-8.2)
[2024-04-03] MEDS ORDERED: FUROSEMIDE 40 MG/4 ML VIAL ONE (08:09)
[2024-04-03] MEDS: FUROSEMIDE 40 MG/4 ML VIAL IV SCH (09:00)
[2024-04-03] MEDS ORDERED: ADALIMUMAB 40 MG/0.8 ML SQ SCH (18:15)
[2024-04-03] MEDS: FUROSEMIDE 20 MG/ 2ML VIAL IV ONE (18:26)
[2024-04-03] MEDS ORDERED: CYANOCOBALAMIN 1000MCG/ML INJ IM SCH (19:00)
[2024-04-03] MEDS: APIXABAN 5 MG TABLET PO SCH (20:03)
[2024-04-03] MEDS: HYDROCODONE/APAP 5/325 MG TAB PO ONE (20:03)
[2024-04-03] MEDS: MESALAMINE 400 MG CAPSULE.DR PO SCH (20:03)
[2024-04-03] MEDS: ATORVASTATIN 10 MG TAB PO SCH (20:03)
[2024-04-03] MEDS ORDERED: HOME MED 1 EA UNK (Simvastatin [Zocor*] 20 MG Tablet) PO SCH (21:00)
[2024-04-03] MEDS ORDERED: MESALAMINE 0.375 GM PO SCH (21:00)
[2024-04-03 23:57] VITALS: O2SAT 96
[2024-04-04] MEDS: LEVOTHYROXINE SOD 0.075 MG TAB PO SCH (05:14)
--- NOTE | 2024-04-04 07:53 | RAD REPORT ---
EXAMINATION: ONE VIEW CHEST XR CLINICAL INDICATION: Male, 74 years old.,CHF TECHNIQUE: Frontal chest projection is submitted. Examination is limited by patient positioning and t echnique. COMPARISON: 04/02/2024 FINDINGS: The lungs are well inflated and clear. Interval improvement of central interstitial prominence. No pn eumothorax or sizable effusion. Stable cardiomegaly. Mediastinal contours are unchanged with sequelae of median sternotomy and left chest wall pacer placement. IMPRESSION: No acute intrathoracic abnormalities. Stable cardiomegaly, with improvement of central congestive olu nges.
[2024-04-04] MEDS: ASPIRIN 81 MG CHEWABLE TABLET PO SCH (08:46)
[2024-04-04] MEDS: AMIODARONE HCL 200 MG TAB PO SCH (08:46)
[2024-04-04] MEDS: PANTOPRAZOLE 40MG TABLET PO SCH (08:46)
[2024-04-04] MEDS: CLOPIDOGREL 75 MG TABLET PO SCH (08:47)
[2024-04-04] MEDS: CALCIUM CARB PO SCH (09:00)
[2024-04-04] MEDS: **PT MED**Dapagliflozin Propanediol [Farxiga] 10 MG Tablet PO SCH (09:00)
[2024-04-04] MEDS: VITAMIN D3 PO SCH (09:00)
[2024-04-04] MEDS: VIT K1 PO SCH (09:00)
--- NOTE | 2024-04-04 11:10 | P.CNS ---
Date of Consult: 04/04/24 Chief Complaint: CHF exacerbation History of Present Illness: Patient with PMH of CAD, VT/AF, HFrEF, CABG, recent PCI from LM into LCX presented with worsening SOB, bilateral lower extremities edema, denies chest pain, no palpitations, no syncope. Allergies ciprofloxacin [From Cipro] Adverse Reaction (Verified 01/30/23 13:57) Shortness of breath paper tape Adverse Reaction (Uncoded 01/30/23 13:57) blisters Home medications list reviewed: Yes Home Medications: Cyanocobalamin [Vitamin B-12*] 1,000 mcg IM SEECOM 04/29/16 Metformin HCl [Glucophage] 1,000 mg PO BID 04/29/16 Simvastatin [Zocor*] 20 mg PO BEDTIME 04/29/16 Latanoprost [Xalatan] 1 drop OP DAILY 06/17/16 Multivitamin [Multivitamins] 1 each PO DAILY 06/17/16 Adalimumab [Humira Pen] 1 dose SQ SEECOM 10/14/20 Mesalamine [Apriso] 1.2 gm PO BID 10/14/20 Methotrexate [Methotrexate*] 5 tab PO SEECOM 10/14/20 Pantoprazole [Protonix Tab*] 1 tab PO DAILY 10/14/20 Magnesium Oxide 800 mg PO BID 04/04/21 Dapagliflozin Propanediol [Farxiga] 10 mg PO DAILY 10/31/22 Vit C/E/Zn/Coppr/Lutein/Zeaxan [Preservision Areds 2 Softgel] 1 each PO BID 10/31/22 Aspirin 81 mg PO DAILY 12/03/23 Calcium Carb/Vitamin D3/Vit K1 [Calcium + D Soft Chewable Tab] 500 mg PO DAILY 12/03/23 Tirzepatide [Mounjaro] 5 mg SQ Q7D 12/03/23 Apixaban [Eliquis] 5 mg PO BID 30 Days #60 tab 12/11/23 Levothyroxine [Synthroid*] 0.075 mg PO DAILYAC 60 Days #60 tab 12/11/23 Clopidogrel Bisulfate [Plavix*] 75 mg PO DAILY 30 Days #30 tab 01/20/24 Amiodarone HCl [Cordarone*] 200 mg PO DAILY 04/03/24 Furosemide 20 mg PO DAILY 04/03/24 - Past Medical/Surgical History Diabetic: Yes -: DM Type 2 -: HTN -: CAD with CABG -: Crohn's -: Pacemaker with defibrillator -: Hyperlipidemia -: GERD -: Anemia chronic disease -: pilonidal cyst -: ICD -: CABG -: Cholecystectomy Psychosocial/ Personal History: - Family History Mother Medical History: Heart disease, Hypertension, Diabetes, Stroke - Social History Smoking Status: Unknown if ever smoked Alcohol use: No CD- Drugs: No Caffeine use: No Review of Systems 10-point ROS is otherwise unremarkable Physical Examination Temp Pulse Resp BP Pulse Ox 97.6 F 65 20 96/49 L 96 04/04/24 08:00 04/04/24 08:46 04/04/24 08:00 04/04/24 08:46 04/04/24 08:00 General: Alert, In no apparent distress HEENT: Atraumatic, PERRLA, Mucous membr. moist/pink, EOMI, Sclerae nonicteric Neck: Supple, 2+ carotid pulse no bruit, No LAD, Without JVD or thyroid abnormality Respiratory: Clear to auscultation bilaterally, Normal air movement Cardiovascular: Regular rate/rhythm, Normal S1 S2 Gastrointestinal: Normal bowel sounds, No tenderness Musculoskeletal: No tenderness Integumentary: No rashes Neurological: Normal gait, Normal speech, Normal tone, Normal affect Lymphatics: No axilla or inguinal lymphadenopathy - Problems (1) Acute on chronic combined systolic (congestive) and diastolic (congestive) heart failure Current Visit: Yes Status: Acute Plan: agree with IV diuresis, monitor input and output and electrolytes Patient BP is always soft, so it was hard to place him on goal directed medical therapy. will continue to monitor (2) CAD (coronary artery disease) of artery bypass graft Current Visit: Yes Status: Acute Plan: VABG with patent ALLISON-D and SVG to OM and recent PCI of LM into LCX continue Plavix 75 mg daily and ASA 81 mg daily (3) Ventricular arrhythmia Current Visit: No Status: Acute Plan: continue amiodarone 200 mg o daily (4) Atrial fibrillation Current Visit: No Status: Acute Plan: continue amiodarone 200 mg daily continue Eliquis 5 mg po BID
[2024-04-04 16:09] VITALS: BP 101/53; TEMP 98
[2024-04-04] MEDS ORDERED: LATANOPROST 0.005% OPTH SCH (21:00)
[2024-04-04] MEDS ORDERED: EYE OPTH SCH (21:00)
[2024-04-05] MEDS ORDERED: OCUVITE WITH LUTEIN PO SCH (09:00)
--- NOTE | 2024-04-05 15:54 | EKG ---
Test Date: 2024-04-02 Test Time: 19:03:40 Aging Box Hand: ALP MEASUREMENT RESULTS: Intervals: Rate: 64 OK: QRSD: 190 QT: 516 QTc: 532 [place]: P: OK: QRS: 38 T: 222 INTERPRETIVE STATEMENTS: Wide QRS rhythm Nonspecific intraventricular block Abnormal ECG Compared to ECG 01/16/2024 19:11:52 Uncertain supraventricular rhythm now present Atrial fibrillation no longer present Electronically Signed On 04-05-24 15:50:21 [employer] by Khanh Duff
--- NOTE | 2024-04-09 02:42 | P.PN ---
Date of Service: 04/03/24 Subjective Patient is feeling better after diuresis. Continue with diuretics at this time. Monitor volume status closely. Physical Examination - Vitals Reviewed - Physical Exam General: Alert, Oriented x3 HEENT: Atraumatic, Normocephalic Respiratory: Normal air movement, Crackles/rales Cardiovascular: Regular rate/rhythm, Edema Gastrointestinal: Soft and benign, Non-distended Neurological: No focal deficits Assessment and Plan - Problems (Diagnosis) (1) CHF (congestive heart failure) Current Visit: Yes Status: Acute (2) Edema Current Visit: Yes Status: Acute (3) Dyspnea Current Visit: Yes Status: Acute - Plan 1. CHF exacerbation, acute combined systolic and diastolic heart failure Pulmonary edema; Continue with diuretics; Echocardiogram and cardiology consultation appreciated. 2. Coronary artery disease/Hypertension/Hyperlipidemia -- Admit patient to telemetry unit. Continue IV diuretics. Check echocardiogram. Consider cardiology consultation. Await home medication reconciliation to be completed. 3. History of Crohn's disease --Does not appear to be active currently. On Humira and methotrexate. Await for medication reconciliation to confirm home medicines He may need to be taken off TNF inhibitors if he has severe heart failure 4. Diabetes Type 2 -- Check blood sugars, sliding scale insulin 5. Hypothyroidism -- TSH, free T4 restart home medications DVT: On Eliquis at home Code: Full - Advance Directives Does patient have a Living Will: Yes Does patient have a Durable POA for Healthcare: No
--- NOTE | 2024-04-09 02:43 | P.DS ---
Discharge Date: 04/04/24 Disposition: ROUTINE DISCHARGE Discharge Condition: GOOD Reason for Admission: CHF exacerbation Brief History of Present Illness: Patient is a 74-year-old male presents to the ER with complaints of 2-week history of progressive shortness of breath. Worse in the last 3 days. He does report some orthopnea. Denies any fevers, chills or productive cough. Reports that he was recommended by his stringer machine tender to come to the ER. The patient does have a history of congestive heart failure, Crohn's disease, diabetes, hyperlipidemia, hypertension, coronary disease with previous CABG and placement of a defibrillator. He denies any recent changes in medications. States diet may not be tightly controlled. In addition to increased shortness of breath he does also report leg swelling. An echocardiogram from November 2023 showed an ej ection fraction between 25 to 30% with diastolic dysfunction. His blood work did show an elevated BNP as well as an abnormal chest x-ray with concern of volume overload CHF exacerbation Hospital Course: Patient is clinically doing much better.Patient respiratory status has improved. Patient was diuresed aggressively and patient much better at this time. Patient will follow-up with cardiology as an outpatient. Patient is walking laps around the nurses station at this time. Vital Signs/Physical Exam: Temp Pulse Resp BP Pulse Ox 98.0 F 60 20 101/53 L 98 04/04/24 16:00 04/04/24 17:41 04/04/24 16:00 04/04/24 17:41 04/04/24 16:00 General: Alert, In no apparent distress, Oriented x3 Laboratory Data at Discharge: WBC 4.70 thou/uL (4.3-10.9) 04/03/24 05:23 Hgb 9.8 g/dL (13.6-17.9) L 04/03/24 05:23 Hct 31.1 % (39.6-49.0) L 04/03/24 05:23 Plt Count 203 thou/uL (152-406) 04/03/24 05:23 PT 14.5 SECONDS (9.4-12.5) H 04/02/24 19:10 INR 1.30 04/02/24 19:10 Sodium 141 mEq/L (136-145) 04/03/24 05:23 Potassium 3.5 mEq/L (3.5-5.1) D 12/11/24 05:23 BUN 21 mg/dL (7-18) H 04/03/24 05:23 Creatinine 1.13 mg/dL (0.70-1.30) 04/03/24 05:23 Glucose 94 mg/dL (74-106) 04/03/24 05:23 Magnesium 1.8 mg/dL (1.6-2.4) 04/02/24 19:10 Total Bilirubin 0.6 mg/dL (0.2-1.0) 04/03/24 05:23 AST 24 U/L (15-37) 04/03/24 05:23 ALT 26 U/L (16-61) 04/03/24 05:23 Alkaline Phosphatase 73 U/L (45-117) 04/03/24 05:23 Home Medications: Cyanocobalamin [Vitamin B-12*] 1,000 mcg IM SEECOM 04/29/16 Metformin HCl [Glucophage] 1,000 mg PO BID 04/29/16 Simvastatin [Zocor*] 20 mg PO BEDTIME 04/29/16 Latanoprost [Xalatan] 1 drop OP DAILY 06/17/16 Multivitamin [Multivitamins] 1 each PO DAILY 06/17/16 Adalimumab [Humira Pen] 1 dose SQ SEECOM 10/14/20 Mesalamine [Apriso] 1.2 gm PO BID 10/14/20 Methotrexate [Methotrexate*] 5 tab PO SEECOM 10/14/20 Pantoprazole [Protonix Tab*] 1 tab PO DAILY 10/14/20 Magnesium Oxide 800 mg PO BID 04/04/21 Dapagliflozin Propanediol [Farxiga] 10 mg PO DAILY 10/31/22 Vit C/E/Zn/Coppr/Lutein/Zeaxan [Preservision Areds 2 Softgel] 1 each PO BID 10/31/22 Aspirin 81 mg PO DAILY 12/03/23 Calcium Carb/Vitamin D3/Vit K1 [Calcium + D Soft Chewable Tab] 500 mg PO DAILY 12/03/23 Tirzepatide [Mounjaro] 5 mg SQ Q7D 12/03/23 Apixaban [Eliquis] 5 mg PO BID 30 Days #60 tab 12/11/23 Levothyroxine [Synthroid*] 0.075 mg PO DAILYAC 60 Days #60 tab 12/11/23 Clopidogrel Bisulfate [Plavix*] 75 mg PO DAILY 30 Days #30 tab 01/20/24 Amiodarone HCl [Cordarone*] 200 mg PO DAILY 04/03/24 Furosemide 40 mg PO DAILY #30 tab 04/04/24 Potassium Chloride 10 meq PO DAILY #30 tab 04/04/24 Spironolactone [Aldactone] 25 mg PO DAILY #30 tab 04/04/24 New Medications: Spironolactone [Aldactone] 25 mg PO DAILY #30 tab Furosemide 40 mg PO DAILY #30 tab Potassium Chloride 10 meq PO DAILY #30 tab Physician Discharge Instructions: -DC IV and DC home -Follow-up with PCP in 1 to 2 weeks -Follow-up with Cardiology in 1 to 2 weeks -Please call Dr. Bravo at [phone] if any questions regarding hospital stay -Please call nursing station at [phone] if any nursing or medication questions -Return to the emergency room if symptoms worsen -Respiratory status worsens or increased weight gain above 5 pounds please take an extra Lasix if blood pressure is greater than 120/80s Diet: Low sodium Activity: Fall precautions Followup: Jose Boston MD [Primary Care Provider] - 1-2 Weeks Time spent managing pt's care (in minutes): 35
== END 2024-04-04 17:55 | disposition home or self-care (01) | DRG 291 ==
LOC: ER 15:20 → ERHOLD 21:49 → 4TH 04-03 15:53
PROVIDERS: ADMIT Internal Medicine; ATTEND Hospitalist
DX: I11.0 Hypertensive heart disease with heart failure (principal); I50.43 Acute on chronic combined systolic (congestive) and diastolic (congestive) heart failure; K50.90 Crohn's disease, unspecified, without complications; E11.9 Type 2 diabetes mellitus without complications; E03.9 Hypothyroidism, unspecified; E78.00 Pure hypercholesterolemia, unspecified; I48.91 Unspecified atrial fibrillation; I25.10 Atherosclerotic heart disease of native coronary artery without angina pectoris; I49.8 Other specified cardiac arrhythmias; I25.2 Old myocardial infarction; Z79.4 Long term (current) use of insulin; Z88.5 Allergy status to narcotic agent; Z88.1 Allergy status to other antibiotic agents; Z95.1 Presence of aortocoronary bypass graft; Z79.82 Long term (current) use of aspirin; Z79.01 Long term (current) use of anticoagulants; Z79.84 Long term (current) use of oral hypoglycemic drugs; Z79.890 Hormone replacement therapy; Z79.899 Other long term (current) drug therapy; Z95.810 Presence of automatic (implantable) cardiac defibrillator
CPT/HCPCS: 36415; 71045; 80048; 80053; 80076; 81001; 82947; 83735; 83880; 84439; 84443; 84484; 85025; 85610; 93005; 93306; 96374; 99284; J1940

== ENCOUNTER 2024-06-05 19:26 | Inpatient (IN) | payer OTHER ==
[2024-06-05] MEDS ORDERED: ASPIRIN 81 MG CHEWABLE TABLET ONE (19:35)
[2024-06-05] MEDS ORDERED: HEPARIN 5000 UNIT/ML 1 ML VIAL ONE (20:04)
[2024-06-05] MEDS ORDERED: AMIODARONE HCL 150 MG/3 ML INJ IV ONE (20:04)
[2024-06-05] MEDS ORDERED: AMIODARONE IN DEXTROSE,ISO-OSM 360 MG/200 ML BAG IV ONE (20:04)
[2024-06-05] MEDS ORDERED: HEPARIN/D5W 25,000 UNIT/500 ML BAG IV ONE (20:07)
[2024-06-05] MEDS ORDERED: MAGNESIUM SULFATE 1 gm IVPB 1 GM/100 ML BAG IV ONE (20:07)
[2024-06-05] MEDS ORDERED: NA CHLORIDE 0.9% 500 ML ONE (20:11)
[2024-06-05 20:35] LABS: Absolute Lymphocytes (CBC) 0.7 K/uL (0.7-4.9); Absolute Monocytes 0.5 K/uL (0.1-1.3); Basophils % 0.4 % (0-1.3); Eosinophils % 0.2 % (0-4.4); Hemoglobin 11.9 g/dL (13.6-17.9); MCH 28.6 pg (27.0-35.0); MCHC 31.4 g/dL (32.0-36.0); MCV 91.1 fL (80-100); MPV 8.7 fL (7.6-11.3); Monocytes % 7.6 % (3.3-12.3); Neutrophils % 80.8 % (41.7-73.7); Nucleated Red Blood Cells % 0.3 % (0-0); Platelets 202 thou/uL (152-406); RBC Red Blood Cell Count 4.17 M/uL (4.33-5.43); Red Cell Distribution Width 17.5 % (12.1-15.2)
[2024-06-05 20:43] LABS: PT Prothrombin Time 10.6 SECONDS (9.4-12.5); Protime INR 1.01
[2024-06-05 21:01] LABS: Albumin 3.4 g/dL (3.4-5.0); Albumin/Globulin Ratio 0.9 (1.1-1.8); Anion Gap 16.3 mEq/L (5.0-15.0); Bilirubin Direct 0.2 mg/dL (0-0.2); Bilirubin Indirect, Calculated 0.3 mg/dL (0.2-0.8); Bilirubin Total 0.5 mg/dL (0.2-1.0); Magnesium 2.1 mg/dL (1.6-2.4); Potassium 5.3 mEq/L (3.5-5.1); Protein, Total 7.4 g/dL (6.4-8.2); Troponin High Sensitivity 26.9 pg/mL (<58.9)
--- NOTE | 2024-06-05 21:07 | RAD REPORT ---
EXAMINATION: ONE VIEW CHEST XR CLINICAL INDICATION: CHEST PAIN TECHNIQUE: Frontal chest projection is submitted. Examination is limited by patient positioning and t echnique. COMPARISON: 04/04/2024 FINDINGS: Moderate bilateral pulmonary opacities likely represent pulmonary edema or pneumonia. The heart is mo derately enlarged. Single-lead pacer/defibrillator device. No displaced fractures identified. Sternotomy wires. IMPRESSION: Moderate CHF versus volume overload.
[2024-06-05] MEDS ORDERED: FAMOTIDINE 20 MG/2 ML VIAL IV ONE (21:55)
--- NOTE | 2024-06-05 22:00 | RAD REPORT ---
EXAM: CT CHEST, ABDOMEN AND PELVIS WITHOUT CONTRAST CLINICAL INDICATION: liver failure and chest pain TECHNIQUE: CT chest, abdomen and pelvis was performed without contrast, as per department protocol. A xial, sagittal and coronal reconstructions were obtained. One or more of the following dose reduction techniques were used: Automated exposure control, adjustment of the mA and/or kV according to patient size, and/or iterative reconstruction. Unless otherwise specified, incidental findings do not require dedicated imaging follow-up. Examination is limited by the lack of intravenous contrast material. COMPARISON: 06/05/2024, 04/04/2024 FINDINGS: LUNGS: Moderate bilateral groundglass lung opacities are present compatible with pulmonary edema. The heart is moderately enlarged with dual lead pacer device present. PLEURA: Trace left pleural fluid. MEDIASTINUM AND LYMPH NODES: No mediastinal mass or fluid collection. Normal size mediastinal, hilar, and axillary lymph nodes. OSSEOUS STRUCTURES AND CHEST WALL: Sternotomy wires. LIVER: Normal in size and contour. No focal lesion or biliary dilatation. Cholecystectomy clips. PANCREAS: No mass, ductal dilation, or jazz-pancreatic fluid. SPLEEN: Normal size. No focal lesion. ADRENALS: Normal; no mass. KIDNEYS: Bilateral nephrolithiasis without hydronephrosis. URINARY BLADDER: Normal contour. GASTROINTESTINAL TRACT: No bowel obstruction, free air, significant free fluid or abscess. Moderate rectosigmoid stool. Small fat-containing umbilical hernia. Postsurgical changes are present of gastric bypass. APPENDIX: Normal appendix. LYMPH NODES: No lymphadenopathy. MUSCULOSKELETAL: Moderate lumbar degenerative changes. OTHER: IMPRESSION: [id number] CHF versus volume overload pattern. Bilateral nephrolithiasis without hydronephrosis.
--- NOTE | 2024-06-05 22:21 | EDPHYS ---
Physician Documentation [facility] Name: Hugo Liu Jr Age: 74 yrs Sex: Male : 1950 Arrival Date: 06/05/2024 Time: 19:26 Bed 20 Private MD: ED Physician Deondre Restrepo HPI: 06/05 20:09 This 74 yrs old Male presents to ER via Wheelchair with complaints of Chest sp4 Pain, Shortness Of Breath, Arm Pain - left. 20:09 This 74 yrs old Male presents to ER via Wheelchair with complaints of Chest olu Pain, Shortness Of Breath, Arm Pain - left. 20:09 The patient or guardian reports chest pain that is located primarily in the substernal olu area. Onset: 3 hour(s) ago. The pain radiates to Associated signs and symptoms: Pertinent positives: shortness of breath. The chest pain is described as a pressure, squeezing. Duration: The patient or guardian reports a single episode, that is still ongoing. Modifying factors: The symptoms are alleviated by remaining still, the symptoms are aggravated by nothing. Severity of pain: At its worst the pain was moderate in the emergency department the pain is unchanged. The patient has experienced similar episodes in the past, multiple times. 21:02 EDC is 75-year-old male. Patient's care assumed from Dr. Bass. Patient presented sp4 with chest pain shortness of breath left arm pain and wide-complex tachycardia consistent with atrial fibrillation with RVR. Patient's past medical history includes coronary artery disease status post CABG status post defibrillator , medications include vitamin B12, metformin, simvastatin, latanoprost, multivitamins, adalimumab, mesalamine, methotrexate, pantoprazole, magnesium oxide. Fark CIGA 10 mg p.o. daily, aspirin 81 mg daily, calcium vitamin D3, Mounjaro 5 mg subcu weekly, apixaban 5 mg p.o. twice daily, levothyroxine 75 mcg daily, clopidogrel 75 mg daily, amiodarone 200 mg daily, furosemide 20 mg daily.. Historical: - Allergies: 19:39 Cipro; me1 19:39 Codeine; me1 19:39 paper tape; me1 - PMHx: 19:39 Congestive heart failure; Crohn's Disease; diabetes mellitus; Hypercholesterolemia; me1 Hypertensive disorder; WA; - PSHx: 19:39 CABG; defibrillator; gastric bypass (defibrillator); Coronary Angioplasty; me1 - Immunization history:: Adult Immunizations. - Infectious Disease History:: Denies. - Social history:: Smoking status: Patient denies any tobacco usage or history of. - Family history:: not pertinent. ROS: 20:09 Constitutional: Negative for fever, chills, and weight loss, Eyes: Negative for injury, olu pain, redness, and discharge, ENT: Negative for injury, pain, and discharge, Neck: Negative for injury, pain, and swelling, Abdomen/GI: Negative for abdominal pain, nausea, vomiting, diarrhea, and constipation, Back: Negative for injury and pain, : Negative for injury, bleeding, discharge, and swelling, MS/Extremity: Negative for injury and deformity, Skin: Negative for injury, rash, and discoloration, Neuro: Negative for headache, weakness, numbness, tingling, and seizure, Psych: Negative for depression, anxiety, suicide ideation, homicidal ideation, and hallucinations, Allergy/Immunology: Negative for hives, rash, and allergies, Endocrine: Negative for neck swelling, polydipsia, polyuria, polyphagia, and marked weight changes, Hematologic/Lymphatic: Negative for swollen nodes, abnormal bleeding, and unusual bruising, 20:09 Cardiovascular: Positive for chest pain, palpitations, 20:09 Respiratory: Positive for shortness of breath, at rest. 20:09 MS/extremity: Negative for acute changes, 20:09 Neuro: Positive for weakness, Negative for altered mental status, Exam: 20:09 Constitutional: This is a well developed, well nourished patient who is awake, alert, olu and in no acute distress. Head/Face: Normocephalic, atraumatic. Eyes: Pupils equal round and reactive to light, extra-ocular motions intact. Lids and lashes normal. Conjunctiva and sclera are non-icteric and not injected. Cornea within normal limits. Periorbital areas with no swelling, redness, or edema. ENT: Nares patent. No nasal discharge, no septal abnormalities noted. Tympanic membranes are normal and external auditory canals are clear. Oropharynx with no redness, swelling, or masses, exudates, or evidence of obstruction, uvula midline. Mucous membranes moist. Neck: Trachea midline, no thyromegaly or masses palpated, and no cervical lymphadenopathy. Supple, full range of motion without nuchal rigidity, or vertebral point tenderness. No Meningismus. Chest/axilla: Normal chest wall appearance and motion. Nontender with no deformity. No lesions are appreciated. Respiratory: Lungs have equal breath sounds bilaterally, clear to auscultation and percussion. No rales, rhonchi or wheezes noted. No increased work of breathing, no retractions or nasal flaring. Abdomen/GI: Soft, non-tender, with normal bowel sounds. No distension or tympany. No guarding or rebound. No evidence of tenderness throughout. Back: No spinal tenderness. No costovertebral tenderness. Full range of motion. Male : Normal genitalia with no discharge or lesions. Skin: Warm, dry with normal turgor. Normal color with no rashes, no lesions, and no evidence of cellulitis. MS/ Extremity: Pulses equal, no cyanosis. Neurovascular intact. Full, normal range of motion., bilateral aka Neuro: Awake and alert, GCS 15, oriented to person, place, time, and situation. Cranial nerves II-XII grossly intact. Motor strength 5/5 in all extremities. Sensory grossly intact. Cerebellar exam normal. Normal gait. Psych: Awake, alert, with orientation to person, place and time. Behavior, mood, and affect are within normal limits. 20:09 Cardiovascular: Rate: actual rate is 129 bpm, Rhythm: regular, Pulses: Pulses are 4+ in bilateral radial, brachial, femoral, popliteal, posterior tibial and and dorsalis pedis arteries.. Heart sounds: normal, normal S1and S2, no S3 or S4, no murmur, no rub, no gallop, Edema: is not appreciated, JVD: is not appreciated, 20:09 ECG was reviewed by the Attending Physician. 20:19 ECG was reviewed by the Attending Physician. [facility] 06/06 01:56 ECG was reviewed by the Attending Physician. EKG at 201206/05/2024 -- sinus sp4 bradycardia rate 49 , left bundle branch block unchanged from prior, otherwise unremarkable. Vital Signs: 06/05 19:38 BP 90 / 67; Pulse 129; Resp 20; Temp 97.7; Pulse Ox 100% ; Weight 89.81 kg; Height 5 me1 ft. 2 in. ; Pain 10/10; 20:00 BP 84 / 66; Pulse 128; Resp 18; Pulse Ox 100% ; ha1 21:00 BP 101 / 59; Pulse 72; Resp 18; Pulse Ox 98% ; ha1 22:00 BP 104 / 64; Pulse 70; Resp 18; Pulse Ox 98% ; ha1 19:38 Body Mass Index 36.21 (89.81 kg, 157.48 cm) me1 19:38 Pain Scale: Adult me1 MDM: 19:27 Medical Screening Exam initiated olu 20:14 Differential diagnosis: abnormal EKG, acute myocardial infarction, acute pericarditis, olu anxiety, coronary artery disease chest wall pain, costochondritis, pancreatitis, peptic ulcer disease, pericarditis, pleurisy, pulmonary embolus, stable angina, thoracic aortic disection, unstable angina. HEART Score: History: Moderately Suspicious (1), ECG: Significant ST-deviation (2), Age: > or = 65 years (2), Risk Factors: > or = 3 Risk factors for atherosclerotic disease (2), [Hypercholesterolemia] [Hypertension] [DM] [+ Family HX] [Obesity] Troponin:. The patient was given aspirin in the Emergency Department. ALFREDA Risk Score: 1 - patient's age is greater or equal to 65 years, 1 - Three or more CAD risk factors, [Family Hx], [HTN], [Elevated Cholesterol], [DM], 1- Known CAD, 1 - ST deviation >0.5mm, TOTAL SCORE = 4. Data reviewed: vital signs, nurses notes, lab test result(s), EKG, radiologic studies, plain films. Consideration of Admission/Observation Escalation of care including admission/observation considered. I considered the following discharge prescriptions or medication management in the emergency department Medications were administered in the Emergency Department. See MAR. Independent interpretation of the following test(s) in the Emergency Department EKG: See my EKG interpretation above. Test considered but Not performed: Ultrasound no 2 d echo. Historians other than the Patient: Spouse/Significant Other: well informed. Care significantly affected by the following chronic conditions: Diabetes, Hypertension, Congestive Heart Failure, Obesity. Counseling: I had a detailed discussion with the patient and/or guardian regarding the historical points, exam findings, and any diagnostic results supporting the discharge/admit diagnosis, lab results, radiology results, the need for further work-up and treatment in the hospital. 20:17 ED course: dw dr valdes give heparin 4000/1000 despite eliquis, amio 150/then drip / olu transfer. 22:16 ED course: COMPARISON: 06/05/2024, 04/04/2024 FINDINGS: LUNGS: Moderate bilateral sp4 groundglass lung opacities are present compatible with pulmonary edema. The heart is moderately enlarged with dual lead pacer device present. PLEURA: Trace left pleural fluid. MEDIASTINUM AND LYMPH NODES: No mediastinal mass or fluid collection. Normal size mediastinal, hilar, and axillary lymph nodes. OSSEOUS STRUCTURES AND CHEST WALL: Sternotomy wires. LIVER: Normal in size and contour. No focal lesion or biliary dilatation. Cholecystectomy clips. PANCREAS: No mass, ductal dilation, or jazz-pancreatic fluid. SPLEEN: Normal size. No focal lesion. ADRENALS: Normal; no mass. KIDNEYS: Bilateral nephrolithiasis without hydronephrosis. URINARY BLADDER: Normal contour. GASTROINTESTINAL TRACT: No bowel obstruction, free air, significant free fluid or abscess. Moderate rectosigmoid stool. Small fat-containing umbilical hernia. Postsurgical changes are present of RADIOLOGY SERVICES REPORT gastric bypass. APPENDIX: Normal appendix. LYMPH NODES: No lymphadenopathy. MUSCULOSKELETAL: Moderate lumbar degenerative changes. OTHER: IMPRESSION: [id number] CHF versus volume overload pattern. Bilateral nephrolithiasis without hydronephrosis. . ED course: CLINICAL INDICATION: CHEST PAIN TECHNIQUE: Frontal chest projection is submitted. Examination is limited by patient positioning and technique. COMPARISON: 04/04/2024 FINDINGS: Moderate bilateral pulmonary opacities likely represent pulmonary edema or pneumonia. The heart is moderately enlarged. Single-lead pacer/defibrillator device. No displaced fractures identified. Sternotomy wires. IMPRESSION: Moderate CHF versus volume overload. . 06/06 01:56 ED course: Patient was discussed with manager mortgage in detail and admitted for acute sp4 heart failure with hepatic congestion.. 06/05 19:28 Order name: Basic Metabolic Panel; Complete Time: 21:06 [facility] 06/05 19:28 Order name: CBC with Diff; Complete Time: 20:48 [facility] 06/05 19:28 Order name: LFT's; Complete Time: 21:06 [facility] 06/05 19:28 Order name: Magnesium; Complete Time: 21:06 [facility] 06/05 19:28 Order name: NT PRO-BNP; Complete Time: 21:06 olu 06/05 19:28 Order name: PT-INR; Complete Time: 20:48 olu 06/05 19:28 Order name: Troponin HS; Complete Time: 21:06 olu 06/05 19:28 Order name: Lipase; Complete Time: 21:06 olu 06/05 19:28 Order name: Urinalysis w/ reflexes olu 06/05 22:42 Order name: Magnesium EDMS 06/05 22:42 Order name: Phosphorus EDMS 06/05 22:42 Order name: Basic Metabolic Panel EDMS 06/05 22:42 Order name: Basic Metabolic Panel EDMS 06/05 22:42 Order name: CBC with Automated Diff EDMS 06/05 22:42 Order name: CBC with Automated Diff; Complete Time: 07:53 EDMS 06/05 22:42 Order name: Lipid Profile EDMS 06/05 22:42 Order name: Lipid Profile EDMS 06/05 22:42 Order name: NT PRO-BNP EDMS 06/05 22:42 Order name: NT PRO-BNP EDMS 06/05 22:42 Order name: Troponin High Sensitivity EDMS 06/05 22:42 Order name: Troponin High Sensitivity EDMS 06/05 22:42 Order name: Troponin High Sensitivity EDMS 06/05 22:42 Order name: Troponin High Sensitivity EDMS 06/05 22:42 Order name: Troponin High Sensitivity EDMS 06/06 03:16 Order name: Ptt, Activated ha1 06/06 03:40 Order name: PTT, Activated Partial Thromb; Complete Time: 06:03 EDMS 06/06 04:33 Order name: PTT, Activated Partial Thromb; Complete Time: 06:03 EDMS 06/06 08:18 Order name: Glucose, Ancillary Testing EDMS 06/06 08:52 Order name: PTT, Activated Partial Thromb EDMS 06/06 09:12 Order name: Urinalysis w/ reflexes EDMS 06/06 10:01 Order name: Phosphorus EDMS 06/06 10:01 Order name: Magnesium EDMS 06/06 11:09 Order name: Troponin High Sensitivity EDMS 06/06 12:29 Order name: Glucose, Ancillary Testing EDMS 06/06 14:05 Order name: PTT, Activated Partial Thromb EDMS 06/05 19:28 Order name: XRAY Chest (1 view); Complete Time: 22:11 olu 06/05 21:11 Order name: CT Chest Abdomen Pelvis W/O Contrast; Complete Time: 22:11 sp4 06/05 22:42 Order name: Echo with Doppler EDMS 06/05 19:28 Order name: EKG; Complete Time: 19:29 olu 06/05 20:19 Order name: EKG; Complete Time: 20:19 olu 06/05 19:28 Order name: Cardiac monitoring; Complete Time: 20:47 olu 06/05 19:28 Order name: EKG - Nurse/Tech; Complete Time: 20:47 olu 06/05 19:28 Order name: IV Saline Lock; Complete Time: 20:47 olu 06/05 19:28 Order name: Labs collected and sent; Complete Time: 20:47 [facility] 06/05 19:28 Order name: O2 Per Protocol; Complete Time: 20:47 olu 06/05 19:28 Order name: O2 Sat Monitoring; Complete Time: 20:47 olu 06/05 19:53 Order name: IV Saline Lock - Large Bore; Complete Time: 20:47 [facility] 06/05 20:19 Order name: EKG - Nurse/Tech; Complete Time: 20:21 olu 06/06 07:49 Order name: Labs - recollect needed: green; Complete Time: 08:31 bc6 EC/12 20:09 Rate is 128 beats/min. Rhythm is regular. QRS [place] is Normal. QRS interval is prolonged olu at 156 msec. QT interval is normal. No Q waves. T waves are Normal. No ST changes noted. Clinical impression: Atrial Fibrillation. Interpreted by me. Reviewed by me. 20:19 Rate is 49 beats/min. Rhythm is regular. QRS [place] is Normal. [place] interval is normal. QRS olu interval is prolonged at 162 msec. QT interval is normal. No Q waves. T waves are Normal. No ST changes noted. Clinical impression: Atrial Fibrillation. Interpreted by me. Reviewed by me. Administered Medications: 20:05 Drug: amiodarone IVP 150 mg IVP once Route: IVP; Site: left jugular; cp4 21:52 Follow up: Response: No adverse reaction cp4 20:05 Drug: Heparin (WA-Bolus with thrombolytic) - HEParin IVP 60 units/kg IVP once; Max 4000 cp4 units {Co-Signature: dd2 (THERON MARS RN).} Route: IVP; Site: left jugular; 06/06 11:07 Follow up: Response: No adverse reaction db 06/05 20:05 Drug: NS 0.9% IV 500 ml 500 ml IV at 1 bolus once; to be given as a bolus over 30 cp4 minutes Volume: 500 ml; Route: IV; Rate: 1 bolus; Site: left jugular; 21:52 Follow up: Response: No adverse reaction; IV Status: Completed infusion cp4 20:20 Drug: Heparin (WA Drip) 12 units/kg/hr - ([place] [address] units, D5W IV 500 ml) IV at cp4 calculated rate Per protocol; Max initial rate 1000 units/hr {Co-Signature: dd2 (THERON MARS RN).} Route: IV; Rate: calculated rate; Site: left jugular; 06/06 11:08 Follow up: Rate change 1100 units/hr db 06/05 20:22 Drug: Magnesium Sulfate IVPB 1 grams IVPB once over 1 hrs Route: IVPB; Infused Over: 1 cp4 hrs; Site: left hand; 21:52 Follow up: IV Status: Completed infusion cp4 20:47 Drug: Aspirin PO Chewable Tablet 81 mg PO once Route: PO; cp4 21:52 Drug: Famotidine IVP 20 mg IVP once; dilute with 10 mL 0.9% NaCl; give over 2 minutes cp4 Route: IVP; Site: left hand; 22:55 Follow up: Response: No adverse reaction ha1 22:54 Drug: Albumin IVPB 25 grams 100 ml IVPB once; (Note: Albumin 25% concentration) Volume: ha1 100 ml; Route: IVPB; Site: left hand; 06/06 07:00 Follow up: Response: No adverse reaction; IV Status: Completed infusion; IV Intake: 50mldb 06/05 22:54 Drug: Furosemide IVP 40 mg IVP once; give over 2 minutes Route: IVP; Site: left hand; 1 06/06 07:00 Follow up: Response: No adverse reaction db 00:08 Not Given (Physician Discretion): [id number] mg, d5w iv 500 ml IVPB at 1 mg/min dd2 continuous; for 6 hrs, then change to 0.5 mg/min Disposition: 06/05 20:18 Critical Care:. 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 Total time: 65 minutes Signatures: Dispatcher [employer] EDMS Cuba Bass MD MD cha Aguilar, Jose RN STUART ja1 Rufina Sweeney, RN RN 1 Alyson Adams Sergey, MD MD sp4 Jo Ann Meza RN RN me1 Ang Mcmillan MD MD ec2 Rhina Cabrales cpSera Escoto RN, DIANA RN dd2 THERON MARS RN dd2 Corrections: (The following items were deleted from the chart) 19:29 19:29 BASIC METABOLIC PANEL+C.LAB.BRZ ordered. EDMS EDMS 19:29 19:29 CBC+H.LAB.BRZ ordered. EDMS EDMS 19:29 19:29 HEPATIC FUNCTION+C.LAB.BRZ ordered. EDMS EDMS 19:29 19:29 MAGNESIUM+C.LAB.BRZ ordered. EDMS EDMS 19:29 19:29 PROBNP+C.LAB.BRZ ordered. EDMS EDMS 19:29 19:29 PROTIME (+INR)+COAG.LAB.BRZ ordered. EDMS EDMS 19:29 19:29 Troponin High Sensitivity+C.LAB.BRZ ordered. EDMS EDMS 19:29 19:29 LIPASE+C.LAB.BRZ ordered. EDMS EDMS 19:29 19:29 Urinalysis+U.LAB.BRZ ordered. EDMS EDMS 21:12 21:12 Chest Abdomen Pelvis Wo Con+CT.RAD.BRZ ordered. EDMS EDMS 06/06 03:32 03:32 PTT, ACTIVATED+COAG.LAB.BRZ ordered. EDMS EDMS 04:53 06/05 22:20 Intensive Care Unit sp4 ha1 06/06 04:53 06/05 22:20 sp4 ha1 06/06 13:13 04:53 [facility] ER HOLD ha1 ja1 13:13 04:53 ERHOLD- ha1 ja1
--- NOTE | 2024-06-05 22:21 | ER ---
Nurse's Notes [facility] Name: Hugo Liu Jr Age: 74 yrs Sex: Male : 1950 Arrival Date: 06/05/2024 Time: 19:26 Bed 20 Private MD: Diagnosis: Acute on chronic combined systolic (congestive) and diastolic (congestive) heart failure;Paroxysmal atrial fibrillation;Acute pulmonary edema, angina unstable, CHF exacerbation, hepatic congestion Presentation: 06/05 19:38 Chief complaint: Patient states: left sided chest pain that started about 3 hours ago me1 w/SOB. pain is heavy in nature, 01/31. Coronavirus screen: Vaccine status: Patient reports receiving the 2nd dose of the covid vaccine. Ebola Screen: No symptoms or risks identified at this time. Initial Sepsis Screen: Does the patient meet any 2 criteria? No. Patient's initial sepsis screen is negative. Does the patient have a suspected source of infection? No. Patient's initial sepsis screen is negative. Risk Assessment: Do you want to hurt yourself or someone else? Patient reports no desire to harm self or others. Onset of symptoms was June 05, 2024 at 16:00. 19:38 Method Of Arrival: Wheelchair me1 19:38 Acuity: MADDI 3 me1 Historical: - Allergies: 19:39 Cipro; me1 19:39 Codeine; me1 19:39 paper tape; me1 - PMHx: 19:39 Congestive heart failure; Crohn's Disease; diabetes mellitus; Hypercholesterolemia; me1 Hypertensive disorder; PA; - PSHx: 19:39 CABG; defibrillator; gastric bypass (defibrillator); Coronary Angioplasty; me1 - Immunization history:: Adult Immunizations. - Infectious Disease History:: Denies. - Social history:: Smoking status: Patient denies any tobacco usage or history of. - Family history:: not pertinent. Screenin:45 [facility] ED Fall Risk Assessment (Adult) History of falling in the last 3 months, ha1 including since admission No falls in past 3 months (0 pts) Confusion or Disorientation No (0 pts) Intoxicated or Sedated No (0 pts) Impaired Gait No (0 pts) Mobility Assist Device Used No (0 pt) Altered Elimination No (0 pt) Score/Fall Risk Level 0 - 2 = Low Risk Oriented to surroundings, Maintained a safe environment, Assessed \T\ reinforced patient's understanding of fall precautions, Hourly rounding (assess needs \T\ fall precautionary measures) done. Abuse screen: Denies threats or abuse. Denies injuries from another. Nutritional screening: No deficits noted. Tuberculosis screening: No symptoms or risk factors identified. Assessment: 19:45 General: Appears in no apparent distress. uncomfortable, Behavior is calm, cooperative, ha1 appropriate for age. Pain: Complains of pain in chest Pain radiates to left arm Pain currently is 7 out of 10 on a pain scale. Pain began 30 min ago. Neuro: Level of Consciousness is awake, alert, obeys commands, Oriented to person, place, time, situation. 19:45 Cardiovascular: Reports chest pain, Patient's skin is warm and dry. Rhythm is atrial ha1 fibrillation with rapid ventricular response. Respiratory: Airway is patent Respiratory effort is even, unlabored. GI: No signs and/or symptoms were reported involving the gastrointestinal system. : No signs and/or symptoms were reported regarding the genitourinary system. EENT: No signs and/or symptoms were reported regarding the EENT system. Derm: No signs and/or symptoms reported regarding the dermatologic system. Musculoskeletal: No signs and/or symptoms reported regarding the musculoskeletal system. Vital Signs: 19:38 BP 90 / 67; Pulse 129; Resp 20; Temp 97.7; Pulse Ox 100% ; Weight 89.81 kg; Height 5 me1 ft. 2 in. ; Pain 10/10; 20:00 BP 84 / 66; Pulse 128; Resp 18; Pulse Ox 100% ; ha1 21:00 BP 101 / 59; Pulse 72; Resp 18; Pulse Ox 98% ; ha1 22:00 BP 104 / 64; Pulse 70; Resp 18; Pulse Ox 98% ; ha1 19:38 Body Mass Index 36.21 (89.81 kg, 157.48 cm) me1 19:38 Pain Scale: Adult me1 ED Course: 19:27 Patient arrived in ED. im 19:27 Cuba Bass MD is Attending Physician. olu 19:30 Radiology exam delayed due to IV insertion attempt and/or patient not having az appropriate IV at this time. pt is being worked on. 19:39 Triage completed. me1 19:39 Arm band placed on Patient placed in an exam room. me1 19:45 Placed in gown. Bed in low position. Call light in reach. Side rails up X2. Provided ha1 Education on: admission. Client placed on continuous cardiac and pulse oximetry monitoring. NIBP monitoring applied. pvc monitor on. Pulse ox on. NIBP on. 19:45 No provider procedures requiring assistance completed. Inserted saline lock: 22 gauge ha1 in left hand, using aseptic technique. Inserted saline lock: 18 gauge in left EJ, using aseptic technique. Blood collected. Flushed with 10 mL NS. 20:09 Attending Physician role handed off by Cuba Bass MD sp4 20:09 Deondre Restrepo MD is Attending Physician. sp4 20:47 XRAY Chest (1 view) In Process Unspecified. EDMS 20:47 Rhina Cabrales is Primary Nurse. cp4 21:44 CT Chest Abdomen Pelvis W/O Contrast In Process Unspecified. EDMS 22:19 Prince Keller MD is Hospitalizing Provider. sp4 Administered Medications: 20:05 Drug: amiodarone IVP 150 mg IVP once Route: IVP; Site: left jugular; cp4 21:52 Follow up: Response: No adverse reaction cp4 20:05 Drug: Heparin (PA-Bolus with thrombolytic) - HEParin IVP 60 units/kg IVP once; Max 4000 cp4 units {Co-Signature: dd2 (THERON MARS RN).} Route: IVP; Site: left jugular; 06/06 11:07 Follow up: Response: No adverse reaction db 06/05 20:05 Drug: NS 0.9% IV 500 ml 500 ml IV at 1 bolus once; to be given as a bolus over 30 cp4 minutes Volume: 500 ml; Route: IV; Rate: 1 bolus; Site: left jugular; 21:52 Follow up: Response: No adverse reaction; IV Status: Completed infusion cp4 20:20 Drug: Heparin (PA Drip) 12 units/kg/hr - ([place] [address] units, D5W IV 500 ml) IV at cp4 calculated rate Per protocol; Max initial rate 1000 units/hr {Co-Signature: dd2 (THERON MARS RN).} Route: IV; Rate: calculated rate; Site: left jugular; 06/06 11:08 Follow up: Rate change 1100 units/hr db 06/05 20:22 Drug: Magnesium Sulfate IVPB 1 grams IVPB once over 1 hrs Route: IVPB; Infused Over: 1 cp4 hrs; Site: left hand; 21:52 Follow up: IV Status: Completed infusion cp4 20:47 Drug: Aspirin PO Chewable Tablet 81 mg PO once Route: PO; cp4 21:52 Drug: Famotidine IVP 20 mg IVP once; dilute with 10 mL 0.9% NaCl; give over 2 minutes cp4 Route: IVP; Site: left hand; 22:55 Follow up: Response: No adverse reaction ha1 22:54 Drug: Albumin IVPB 25 grams 100 ml IVPB once; (Note: Albumin 25% concentration) Volume: ha1 100 ml; Route: IVPB; Site: left hand; 06/06 07:00 Follow up: Response: No adverse reaction; IV Status: Completed infusion; IV Intake: 50mldb 06/05 22:54 Drug: Furosemide IVP 40 mg IVP once; give over 2 minutes Route: IVP; Site: left hand; 1 06/06 07:00 Follow up: Response: No adverse reaction db 00:08 Not Given (Physician Discretion): [id number] mg, d5w iv 500 ml IVPB at 1 mg/min dd2 continuous; for 6 hrs, then change to 0.5 mg/min Medication: 06/05 19:45 VIS not applicable for this client. ha1 Intake: 06/06 07:00 IV: 50ml; Total: 50ml. db Outcome: 06/05 22:20 Decision to Hospitalize by Provider. sp4 06/06 14:24 Patient left the ED. iw Signatures: Dispatcher [employer] Cuba Marie MD MD cha Williams, Irene, RN RN iw Toyin Fitzgerald Heidy, RN RN ha1 Sera Gordillo RN Deondre Chery MD MD sp4 Kenisha Liu Michelle RN RN ga1 Rhina Cabrales cp4 THERON MARS RN dd2 THERON MARS RN dd2
[2024-06-05] MEDS ORDERED: ALBUTEROL 2.5 MG/3 ML NEB SOL NEB PRN (22:37)
[2024-06-05] MEDS ORDERED: IPRATROPIUM BROM 0.5MG/2.5ML NEB PRN (22:37)
[2024-06-05] MEDS ORDERED: ONDANSETRON 4 MG/2 ML VIAL IV PRN (22:37)
[2024-06-05] MEDS ORDERED: FUROSEMIDE 40 MG/4 ML VIAL ONE (22:44)
[2024-06-05] MEDS ORDERED: ALBUMIN HUMAN 25% 100 ML IV ONE (22:44)
--- NOTE | 2024-06-05 22:45 | P.HP ---
Certification for Inpatient Patient admitted to: Inpatient With expected LOS: >2 Midnights Practitioner: I am a practitioner with admitting privileges, knowledge of patient current condition, hospital course, and medical plan of care. Services: Services provided to patient in accordance with Admission requirements found in Title 42 Section 412.3 of the Code of Federal Regulations Patient History Date of Service: 06/05/24 Reason for admission: Shortness of breath History of Present Illness: Patient is 74 years male who presented with shortness of breath and chest pain radiating to his left arm. He has a history of systolic and diastolic CHF with last echo 2 months ago showing EF of 25% and global hypokinesis. Patient has an AICD in place. Additional medical issues include CABG, hypertension diabetes mellitus. He has had a recent admission for CHF exacerbation March 2024. He supposed to be on 40 mg of p.o. Lasix daily, 25 mg of Aldactone daily along with Farxiga. During evaluation, patient had borderline blood pressure. Was on heparin and amiodarone infusion after an episode of uncontrolled atrial fibrillation. He had received IV Lasix and IV a lbumin. Patient will be admitted inpatient. Cardiology has been notified by ER. Allergies ciprofloxacin [From Cipro] Adverse Reaction (Verified 01/30/23 13:57) Shortness of breath paper tape Adverse Reaction (Uncoded 01/30/23 13:57) blisters Home Medications: Cyanocobalamin [Vitamin B-12*] 1,000 mcg IM SEECOM 04/29/16 Metformin HCl [Glucophage] 1,000 mg PO BID 04/29/16 Simvastatin [Zocor*] 20 mg PO BEDTIME 04/29/16 Latanoprost [Xalatan] 1 drop OP DAILY 06/17/16 Multivitamin [Multivitamins] 1 each PO DAILY 06/17/16 Adalimumab [Humira Pen] 1 dose SQ SEECOM 10/14/20 Mesalamine [Apriso] 1.2 gm PO BID 10/14/20 Methotrexate [Methotrexate*] 5 tab PO SEECOM 10/14/20 Pantoprazole [Protonix Tab*] 1 tab PO DAILY 10/14/20 Magnesium Oxide 800 mg PO BID 04/04/21 Dapagliflozin Propanediol [Farxiga] 10 mg PO DAILY 10/31/22 Vit C/E/Zn/Coppr/Lutein/Zeaxan [Preservision Areds 2 Softgel] 1 each PO BID 10/31/22 Aspirin 81 mg PO DAILY 12/03/23 Calcium Carb/Vitamin D3/Vit K1 [Calcium + D Soft Chewable Tab] 500 mg PO DAILY 12/03/23 Tirzepatide [Mounjaro] 5 mg SQ Q7D 12/03/23 Apixaban [Eliquis] 5 mg PO BID 30 Days #60 tab 12/11/23 Levothyroxine [Synthroid*] 0.075 mg PO DAILYAC 60 Days #60 tab 12/11/23 Clopidogrel Bisulfate [Plavix*] 75 mg PO DAILY 30 Days #30 tab 01/20/24 Amiodarone HCl [Cordarone*] 200 mg PO DAILY 04/03/24 Furosemide 40 mg PO DAILY #30 tab 04/04/24 Potassium Chloride 10 meq PO DAILY #30 tab 04/04/24 Spironolactone [Aldactone] 25 mg PO DAILY #30 tab 04/04/24 - Past Medical/Surgical History Diabetic: Yes -: DM Type 2 -: HTN -: CAD with CABG -: Crohn's -: Pacemaker with defibrillator -: Hyperlipidemia -: GERD -: Anemia chronic disease -: pilonidal cyst -: ICD -: CABG -: Cholecystectomy Psychosocial/ Personal History: - Family History Mother -: Heart disease, Hypertension, Diabetes, Stroke - Social History Alcohol use: No CD- Drugs: No Caffeine use: No Physical Examination - Physical Exam General: Acute distress, Other HEENT: Atraumatic, Normocephalic Respiratory: Crackles/rales Cardiovascular: No edema, Normal pulses, No murmurs, Irregular heart rate/rhythm Musculoskeletal: No clubbing, No swelling, No contractures, No erythema, No tenderness, No warmth Neurological: Normal speech - Studies Laboratory Data (last 24 hrs) 06/05/24 06/05/24 06/05/24 20:16 20:16 20:16 WBC 6.20 Hgb 11.9 L Hct 38.0 L Plt Count 202 PT 10.6 INR 1.01 Sodium 134 L Potassium 5.3 H BUN 24 H Creatinine 1.82 H Glucose 232 H Magnesium 2.1 Total Bilirubin 0.5 AST 214 H ALT 99 H Alkaline Phosphatase 132 H Lipase 93 H Assessment and Plan - Problems (Diagnosis) (1) Acute on chronic combined systolic (congestive) and diastolic (congestive) heart failure Current Visit: No Status: Acute (2) Atrial fibrillation Current Visit: No Status: Acute (3) CAD (coronary artery disease) of artery bypass graft Current Visit: No Status: Acute (4) Crohn's disease Current Visit: No Status: Acute (5) Diabetes Current Visit: No Status: Acute (6) GERD (gastroesophageal reflux disease) Current Visit: No Status: Acute (7) Hypertension Current Visit: No Status: Acute (8) ICD (implantable cardioverter-defibrillator) in place Current Visit: No Status: Acute (9) Morbid obesity with BMI of 40.0-44.9, adult Current Visit: No Status: Acute - Plan Assessment Patient is 74-year-old male with extensive cardiovascular history including coronary disease status post CABG, combined systolic and diastolic dysfunction last EF of 25%. He has AICD in place. He is being admitted after he presented with shortness of breath and chest pain radiating to his left arm. His first troponin is negative. Patient has evidence of acute kidney injury, hyperkalemia and hyponatremia. Chest x-ray with pulmonary edema suggestive of decompensated CHF. He went into rapid A-fib in the ER. He is currently on ami odarone infusion and heparin drip. Cardiology has been notified. Acute hypoxemic respiratory failure Acute on chronic combined systolic and diastolic CHF Rapid atrial fibrillation Borderline BP ANNA MARIE Cardiorenal syndrome Hyperkalemia HTN DM-2 PLAN: Admit inpatient with telemery Will continue scheduled IV lasix and IV albumin Continue amiodarone and heparin infusion No need to repeat TTE Cardiology has been consulted BIPAP if needed Kayexalate for hyperkalemia Resume rest of home medications once reconciled. - Advance Directives Does patient have a Living Will: No Does patient have a Durable POA for Healthcare: No
[2024-06-05] MEDS: SOD POLYSTYREN SUL 15 GM/60 ML UCUP PO ONE (23:12)
[2024-06-05 23:56] VITALS: BMI 36.1
[2024-06-06] MEDS: ALBUMIN HUMAN 25% 100 ML IV SCH
[2024-06-06] MEDS: HEPARIN 5000 UNIT/ML 1 ML VIAL SQ SCH (01:00)
[2024-06-06] MEDS ORDERED: SOD POLYSTYREN SUL 15 GM/60 ML UCUP ONE (02:56)
[2024-06-06] MEDS ORDERED: ACETAMINOPHEN 500 MG TAB ONE (04:45)
[2024-06-06] MEDS: ACETAMINOPHEN 500 MG TAB PO PRN (04:48)
[2024-06-06] MEDS ORDERED: ALBUMIN HUMAN 25% 100 ML IV ONE ×2 (06:29→12:44)
[2024-06-06 06:55] LABS: Absolute Lymphocytes (CBC) 1.2 K/uL (0.7-4.9); Absolute Monocytes 0.4 K/uL (0.1-1.3); Absolute Neutrophil 2.6 K/uL (1.8-8.0); Basophils % 0.7 % (0-1.3); Eosinophils % 0.3 % (0-4.4); Hematocrit 32.8 % (39.6-49.0); Hemoglobin 10.6 g/dL (13.6-17.9); Lymphocytes % 27.9 % (15.3-44.8); MCH 29.1 pg (27.0-35.0); MCHC 32.4 g/dL (32.0-36.0); MCV 89.8 fL (80-100); MPV 8.5 fL (7.6-11.3); Monocytes % 9.9 % (3.3-12.3); Neutrophils % 61.2 % (41.7-73.7); Nucleated Red Blood Cells % 0.2 % (0-0); Platelets 194 thou/uL (152-406); RBC Red Blood Cell Count 3.65 M/uL (4.33-5.43); Red Cell Distribution Width 16.8 % (12.1-15.2)
[2024-06-06] MEDS: HEPARIN/D5W 25,000 UNIT/500 ML BAG IV SCH (07:06)
[2024-06-06] MEDS ORDERED: D10W 125 ML IV PRN (07:26)
[2024-06-06] MEDS ORDERED: GLUCAGON 1 MG/VIAL IM PRN (07:26)
[2024-06-06] MEDS: INSULIN REGULAR (HUMAN) 100 UNIT/ML SQ SCH (07:30)
[2024-06-06] MEDS: MESALAMINE 0.375 GM PO SCH (09:00)
[2024-06-06] MEDS: FUROSEMIDE 40 MG/4 ML VIAL IV SCH (09:00)
[2024-06-06] MEDS: APIXABAN 5 MG TABLET PO SCH (09:00)
[2024-06-06] MEDS: PANTOPRAZOLE 40MG TABLET PO SCH (09:00)
[2024-06-06] MEDS: AMIODARONE HCL 200 MG TAB PO SCH (09:00)
[2024-06-06] MEDS: CLOPIDOGREL 75 MG TABLET PO SCH (09:00)
[2024-06-06] MEDS: MAGNESIUM OXIDE 400 MG TAB PO SCH (09:00)
[2024-06-06] MEDS: ASPIRIN 81 MG CHEWABLE TABLET PO SCH (09:00)
[2024-06-06 09:12] LABS: Specific Gravity 1.012 (1.005-1.030); Urine Bilirubin NEGATIVE (Negative); Urine Blood Negative (Negative); Urine Clarity Clear (Clear); Urine Color Light-Yellow (Yellow); Urine Glucose 4+ (Over) (Negative); Urine Ketones NEGATIVE (Negative); Urine Microscopic Reflex YN NO UMIC; Urine Nitrite NEGATIVE (Negative); Urine Protein NEGATIVE (Negative); Urine Urobilinogen Normal (Normal)
[2024-06-06] MEDS ORDERED: APIXABAN 5 MG TABLET ONE (09:48)
[2024-06-06] MEDS ORDERED: MAGNESIUM OXIDE 400 MG TAB ONE (09:48)
[2024-06-06] MEDS ORDERED: PANTOPRAZOLE 40MG TABLET PO ONE (09:48)
[2024-06-06] MEDS ORDERED: AMIODARONE HCL 200 MG TAB ONE (09:49)
[2024-06-06] MEDS ORDERED: CLOPIDOGREL 75 MG TABLET ONE (09:49)
[2024-06-06] MEDS ORDERED: FUROSEMIDE 40 MG/4 ML VIAL ONE (09:49)
[2024-06-06] MEDS ORDERED: ASPIRIN 81 MG CHEWABLE TABLET ONE (09:49)
[2024-06-06 09:58] LABS: Anion Gap 9.7 mEq/L (5.0-15.0); Phosphorus 3.7 mg/dL (2.5-4.9); Potassium 3.7 mEq/L (3.5-5.1)
--- NOTE | 2024-06-06 10:52 | P.PN ---
Subjective Date of Service: 06/06/24 Chief Complaint: Shortness of breath Subjective: Improving Patient states that her shortness of breath has improved after she urinated a lot after IV furosemide. His chest pain has resolved overnight. Denied any dizziness or productive cough or palpitation. Review of Systems Other: Consitutional; fever(-), chills (-), rigor(-), night sweat(-), unintentional weight loss(-), malaise (+) HEENT; diplopia (-), rhinorrhea (-), epistaxis (-), otorrhea (-), otalgia (-) Respiratory; shortness of breath (+), wheezing (-), cough (-), sputum (-), pleuritic chest pain (-) Cardiovascular; chest pain (-), peripheral edema (-), paroxysmal nocturnal dyspnea (-), orthopnea (-) Gastrointestinal; nausea (-), vomiting (-), abdominal pain (-), diarrhea (-), constipation (-), melena (-), hematochezia (-) Genitourinary; urinary frequency (-), dysuria (-), urgency (-), flank pain (-), gross hematuria (-), incontinence (-) Skin; rash (-), pruritus (-) [employer]; headache (-), paresthesia (-), numbness (-), paralysis (-) Physical Examination - Vital Signs Temperature: 98.6 F Blood Pressure: 98/61 Pulse: 61 Respirations: 16 Pulse Ox (%): 97 - Physical Exam Other Physical/Emotional Findings: - Physical Exam. General: Obese, chronic ill-looking, in no apparent distress,. HEENT: Normocephalic, atraumatic, nonicteric sclera, nonanemic conjunctive. Neck: Supple, without JVD or goiter or thyroid mass. Respiratory: Normal breathing effort, clear to auscultation bilaterally, no crackles no wheezing or rhonchi. Cardiovascular: Irregularly irregular heartbeat, , no murmur no gallop. Gastrointestinal: Normal bowel sounds, nondistended, nontender, No ascites, , No masses, no hepatosplenomegaly. Extremities : No clubbing, No peripheral edema,. Integumentary: No rashes, petechia, suspected lesions. Lymphatics: No axilla or cervical lymphadenopathy. Neurology; alert awake oriented x3, no focal neurologic deficit, normal affection . mood and behavior. - Studies Laboratory Data (last 24 hrs) 06/05/24 06/05/24 06/05/24 20:16 20:16 20:16 WBC 6.20 Hgb 11.9 L Hct 38.0 L Plt Count 202 PT 10.6 INR 1.01 APTT 29.0 Sodium Potassium BUN Creatinine Glucose Magnesium Total Bilirubin AST ALT Alkaline Phosphatase Lipase 06/05/24 20:16 WBC Hgb Hct Plt Count PT INR APTT Sodium 134 L Potassium 5.3 H BUN 24 H Creatinine 1.82 H Glucose 232 H Magnesium 2.1 Total Bilirubin 0.5 AST 214 H ALT 99 H Alkaline Phosphatase 132 H Lipase 93 H Assessment And Plan - Plan Patient is 74-year-old male with extensive cardiovascular history including coronary disease status post CABG, combined systolic and diastolic dysfunction last EF of 25% status post AICD, Crohn's disease on immunosuppressants, type II DM, A-fib on apixaban. He is being admitted after h e presented with shortness of breath and chest pain radiating to his left arm for 2 days. His first troponin is negative. Patient has evidence of acute kidney injury, hyperkalemia and hyponatremia. Chest x-ray with pulmonary edema suggestive of decompensated CHF. He went into rapid A-fib in the ER. Acute hypoxemic respiratory failure Pulmonary edema related to #2 Acute on chronic combined systolic and diastolic CHF with borderline hypotension Atrial fibrillation with controlled ventricular response on apixaban ANNA MARIE likely Cardiorenal syndrome Hyperkalemia related to #6 DM-2 Elevated liver enzyme suspected ischemic hepatitis associated with #3 CT of the chest, abdomen and pelvis personally reviewed moderate pulmonary edema, no obstructive neuropathy, no hepatic region or biliary obstruction, his chest pain resolved, troponin x 1, likely related to acute decompensated heart failure, low clinical suspicion for acute coronary syndrome, his heart rate down to 60 minute, patient seems to responding to IV furosemide but his blood pressure is running low, I will upgrade patient to ICU, discontinue heparin drip, resume apixaban, hold spironolactone, continue oral amiodarone, IV furo semide, dapagliflozin and insulin sliding scale. Patient has a high risk of clinical deterioration given his multiple comorbidities and advanced heart failure.
[2024-06-06 11:08] LABS: Troponin High Sensitivity 13748.3 pg/mL (<58.9)
[2024-06-06] MEDS ORDERED: HEPARIN 5000 UNIT/ML 1 ML VIAL ONE (11:53)
[2024-06-06] MEDS: AMIODARONE HCL 900 MG in Dextrose 5%-Water 482 ML IV SCH (17:00)
[2024-06-06] MEDS: DIGOXIN 0.25 MG/ML AMP IV SCH (17:00)
[2024-06-06] MEDS ORDERED: AMIODARONE HCL 450 MG in D5W 241 ML IV SCH (17:00)
[2024-06-06] MEDS: METOPROLOL TARTRATE 5 MG/5 ML INJ IV ONE (17:10)
[2024-06-06] MEDS: MIDAZOLAM HCL 2 MG/2 ML INJ ONE (17:10)
[2024-06-06] MEDS: AMIODARONE HCL 150 MG in D5W 100 ML IV ONE (17:11)
[2024-06-06] MEDS: DIGOXIN 0.25 MG/ML AMP ONE (17:11)
[2024-06-06] MEDS: HYDROCODONE/APAP 5/325 MG TAB PO PRN (20:58)
[2024-06-06] MEDS: MESALAMINE 400 MG CAPSULE.DR PO SCH (20:58)
[2024-06-06] MEDS ORDERED: ATORVASTATIN 10 MG TAB PO SCH (21:00)
[2024-06-06] MEDS ORDERED: HOME MED 1 EA UNK (Simvastatin [Zocor*] 20 MG Tablet) PO SCH (21:00)
--- NOTE | 2024-06-06 21:36 | CON ---
Date of Consultation: 06/06/2024 Reason For Consultation: Decompensated heart failure and positive troponin as well as tachyarrhythmi a. History Of Present Illness: A 74-year-old male who presented to the emergency room with shortness of breath and chest discomfort. He is noted to have severe systolic dysfunction with ICD in place and status post CABG in the past and PCI of left main to left circ in December. The patient when arrive d, he was in atrial fibrillation. Heart rate was fast and troponin was drawn. After that, it was in the range of 15,000, but started to come down and evaluated the patient by bedside, he was chest viral n free. Then, patient was admitted to ICU and we are planning to do heart cath on him tomorrow lanny wren. Then, a nurse called me and said that he went into fast rhythm. I saw him by bedside and he was in either atrial fibrillation with rapid ventricular response or ventricular tachycardia. His systo lic blood pressure was in the low 80s, so I did give him Versed 4 mg and I did unsynchronized cardio version, required 2 shocks of 200 joules and then he went into a regular rhythm. Blood pressure impr ron immediately and started on amiodarone drip. At the present time, he is chest pain free. Past Medical History: As outlined above in the HPI, CHF, hypertension, coronary artery disease, diab etes, ICD is in place. Past Surgical History: CABG, cholecystectomy. Medications: Refer reconciliation sheet for detailed list. Allergies: CIPRO. Family History: No premature coronary artery disease or cancer. Social History: Does not smoke or drink. Does not use any drugs. Review of Systems: All systems reviewed are negative except as mentioned in HPI. Physical Examination: Vital Signs: Reviewed. Head and Neck: Pupils are equal, reactive to light. Intact eye movements. No cervical lymphadenopa thy. No JVD. Lungs: Clear to auscultation bilaterally. No rhonchi, wheezing, or crackles. No accessory muscle u se. Heart: Irregular. No extra sounds. Abdomen: Soft, nontender. Bowel sounds positive. No organomegaly. No masses or hernia. No rigidi ty or rebound. Extremities: No edema, clubbing, cyanosis. Intact pulses. Skin: No rash. No nodule. Neuro: alert awake oriented x3. No acute focal deficits appreciated. Investigations: BUN 22, creatinine is 1.49, potassium is 3.7. Troponin 13,748, down to 11,209. NT -proBNP is 4351. Assessment/recommendations: 1. Fnr-DM-nuyfpdeyu myocardial infarction. Troponin is trending down. I repeated bedside echo and e jection fraction has not changed. Keep him on heparin drip and dual antiplatelets with aspirin, Plav ix, and keep n.p.o. past midnight. Plan for coronary angiogram in the morning with Dr. Duff. 2. Congestive heart failure exacerbation, on diuretics. Carefully monitor BUN, creatinine, electroly junior. To hold the Lasix if blood pressure is less than 110 systolic. 3. Ventricular tachycardia versus atrial fibrillation, required shock due to instability. Blood pres sure was low, I shocked him twice at bedside. I gave him 4 mg of Versed and did a cardioversion, adis t into regular rhythm and then blood pressure improved significantly. The patient tolerated that jess y well. Load with amiodarone drip 150 mg over 10 minutes and then 1 mg/minutes for 6 hours and then 0.5 mg/minute for 16 hours and if blood pressure improves, start him on metoprolol 25 mg twice a day. 4. Congestive heart failure. Appears to be doing well, not decompensated. Diurese only on as-needed basis. SR/MODL Voice ID: [id number] Report ID: [id number]
[2024-06-07 05:44] LABS: Absolute Lymphocytes (CBC) 1.3 K/uL (0.7-4.9); Absolute Monocytes 0.5 K/uL (0.1-1.3); Absolute Neutrophil 2.6 K/uL (1.8-8.0); Basophils % 0.6 % (0-1.3); Eosinophils % 0.9 % (0-4.4); Hematocrit 31.5 % (39.6-49.0); Hemoglobin 10.3 g/dL (13.6-17.9); Lymphocytes % 29.6 % (15.3-44.8); MCH 29.1 pg (27.0-35.0); MCHC 32.7 g/dL (32.0-36.0); MCV 89.1 fL (80-100); MPV 8.6 fL (7.6-11.3); Monocytes % 10.6 % (3.3-12.3); Neutrophils % 58.3 % (41.7-73.7); Nucleated Red Blood Cells % 0.1 % (0-0); Platelets 190 thou/uL (152-406); RBC Red Blood Cell Count 3.54 M/uL (4.33-5.43); Red Cell Distribution Width 16.8 % (12.1-15.2)
[2024-06-07 06:29] LABS: Albumin 3.7 g/dL (3.4-5.0); Albumin/Globulin Ratio 1.2 (1.1-1.8); Anion Gap 8.9 mEq/L (5.0-15.0); Bilirubin Total 0.6 mg/dL (0.2-1.0); Magnesium 2.3 mg/dL (1.6-2.4); Potassium 2.9 mEq/L (3.5-5.1); Protein, Total 6.7 g/dL (6.4-8.2)
[2024-06-07] MEDS ORDERED: HEPA 1000U/500MLS 2,000 UNIT/1,000 ML BAG IV ONE (07:05)
[2024-06-07] MEDS ORDERED: ATROPINE SULF 1 MG/10 ML SYR IV ONE (07:06)
[2024-06-07] MEDS ORDERED: MIDAZOLAM HCL 2 MG/2 ML INJ ONE ×2 (07:06→07:22)
[2024-06-07] MEDS ORDERED: HEPARIN 10,000 UNIT/10 ML VIAL IV ONE (07:06)
[2024-06-07] MEDS ORDERED: LIDOCAINE 1% 20 ML MDV ONE (07:06)
[2024-06-07] MEDS ORDERED: NA CHLORIDE 0.9% 500 ML ONE (07:06)
[2024-06-07] MEDS ORDERED: CLOPIDOGREL 75 MG TABLET ONE (07:06)
[2024-06-07] MEDS ORDERED: ASPIRIN 325 MG TAB ONE (07:07)
[2024-06-07] MEDS ORDERED: HEPARIN 5000 UNIT/ML 1 ML VIAL ONE (07:07)
[2024-06-07] MEDS ORDERED: TICAGRELOR 90 MG TABLET PO ONE (07:07)
[2024-06-07] MEDS ORDERED: FENTANYL CITR 100 MCG/2 ML ONE ×2 (07:07→07:23)
[2024-06-07] MEDS: TIRZEPATIDE 7.5 MG/0.5 ML SQ SCH (07:30)
[2024-06-07] MEDS: KCL 20 MEQ/100 mL IVPB 100 ML IV SCH (08:00)
--- NOTE | 2024-06-07 08:29 | ECHO ---
HEIGHT: 5 ft 2 in WEIGHT: 197 lb 6 oz DATE OF STUDY: 06/06/[address]: Jorge Cormier NP 2-DIMENSIONAL: YES M.MODE: YES DOPPLER: YES COLOR FLOW: YES TDS: PORTABLE: YES DEFINITY: BUBBLE STUDY: DIAGNOSIS: NON ST ELEVATION MYOCARDIAL INFARCTION CARDIAC HISTORY: CATHERIZATION: YES SURGERY: YES PROSTHETIC VALVE: NO PACEMAKER: YES MEASUREMENTS (cm) DIASTOLIC (NORMALS) SYSTOLIC (NORMALS) IVSd 1.2 (0.6-1.2) LA Diam 3.8 (1.9-4.0) LVEF 28% LVIDd 6.0 (3.5-5.7) LVIDs 5.2 (2.0-3.5) %FS 13% LVPWd 1.3 (0.6-1.2) Ao Diam (2.0-3.7) 2 DIMENSIONAL ASSESSMENT: RIGHT ATRIUM: POOR ECHOCARDIOGRAM LEFT ATRIUM: POOR ECHOCARDIOGRAM RIGHT VENTRICLE: POOR ECHOCARDIOGRAM LEFT VENTRICLE: POOR ECHOCARDIOGRAM TRICUSPID VALVE: POOR ECHOCARDIOGRAM MITRAL VALVE: POOR ECHOCARDIOGRAM PULMONIC VALVE: POOR ECHOCARDIOGRAM AORTIC VALVE: POOR ECHOCARDIOGRAM PERICARDIAL EFFUSION: POOR ECHOCARDIOGRAM AORTIC ROOT: POOR ECHOCARDIOGRAM LEFT VENTRICULAR WALL MOTION: DOPPLER/COLOR FLOW: COMMENTS: 1. VERY LIMITED EXAM AND VIEWS 2. OVERALL LEFT VENTRICULAR EJECTION FRACTION IS MILDLY DEPRESSED TECHNOLOGIST: OLIVIA BLAKE
[2024-06-07] MEDS: POTASSIUM 25 MEQ EFFERV TAB PO ONE (08:53)
[2024-06-07] MEDS: **PT MED**Dapagliflozin Propanediol [Farxiga] 10 MG Tablet PO SCH (09:00)
[2024-06-07] MEDS: LATANOPROST 0.005% OPTH SCH (09:00)
[2024-06-07] MEDS: OPTH OPTH SCH (09:00)
[2024-06-07] MEDS: LEVOTHYROXINE SOD 0.075 MG TAB PO SCH (09:08)
[2024-06-07] MEDS: AMIODARONE HCL 200 MG TAB PO SCH (09:09)
[2024-06-07] MEDS: MEXILETINE HCL 150 MG CAP PO SCH (09:09)
--- NOTE | 2024-06-07 13:04 | P.PN ---
Subjective Date of Service: 06/07/24 Chief Complaint: Shortness of breath Subjective: No new changes, Improving, New changes DC cardioversion was given to the patient for hypotension secondary to ventricular tachycardia or A-fib with rapid ventricular response yesterday, then started on amiodarone infusion, phenylephrine infusion for asymptomatic hypotension. Patient was taken to cardiac catheter lab this morning. Per patient no percutaneous intervention was performed but official coronary angiogram report is not available at the moment. He says he is doing okay, no more chest pain but shortness of breath on minimal exertion, denied any palpitation or dizziness or orthopnea or paroxysmal nocturnal dyspnea Review of Systems Other: Consitutional; fever(-), chills (-), rigor(-), night sweat(-), unintentional weight loss(-), malaise (-) HEENT; diplopia (-), rhinorrhea (-), epistaxis (-), otorrhea (-), otalgia (-) Respiratory; shortness of breath (+), wheezing (-), cough (-), sputum (-), pleuritic chest pain (-) Cardiovascular; chest pain (-), peripheral edema (-), paroxysmal nocturnal dyspnea (-), orthopnea (-) Gastrointestinal; nausea (-), vomiting (-), abdominal pain (-), diarrhea (-), constipation (-), melena (-), hematochezia (-) Genitourinary; urinary frequency (-), dysuria (-), urgency (-), flank pain (-), gross hematuria (-), incontinence (-) Skin; rash (-), 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 General: Obese, chronic ill-looking, in no apparent distress,. HEENT: Normocephalic, atraumatic, nonicteric sclera, nonanemic conjunctive. Neck: Supple, without JVD or goiter or thyroid mass. Respiratory: Normal breathing effort, clear to auscultation bilaterally, no crackles no wheezing or rhonchi. Cardiovascular: Irregularly irregular heartbeat, , no murmur no gallop. Gastrointestinal: Normal bowel sounds, nondistended, nontender, No ascites, , No masses, no hepatosplenomegaly. Extremities : No clubbing, No peripheral edema,. Integumentary: No rashes, petechia, suspected lesions. Lymphatics: No axilla or cervical lymphadenopathy. Neurology; alert awake oriented x3, no focal neurologic deficit, normal affection . mood and behavior. Assessment And Plan - Plan Patient is 74-year-old male with extensive cardiovascular history including coronary disease status post CABG, combined systolic and diastolic dysfunction last EF of 25% status post AICD, Crohn's disease on immunosuppressants, type II DM, A-fib on apixaban. He is being admitted after he presented with shortness of breath and chest pain radiating to his left arm for 2 days. His first troponin is negative. Patient has evidence of acute kidney injury, hyperkalemia and hyponatremia. Chest x-ray with pulmonary edema suggestive of decompensated CHF. He went into rapid A-fib in the ER. Acute hypoxemic respiratory failure associated #2 Pulmonary edema related to #3 Non-STEMI Cardiogenic shock secondary to non-STEMI or tachyarrhythmia Acute on chronic combined systolic and diastolic CHF Atrial fibrillation with rapid ventricular response on apixaban ANNA MARIE likely Cardiorenal syndrome Hyperkalemia related to #6, resolved DM-2 Elevated liver enzyme secondary to #3 Status post cardioversion for ventricular tachycardia or atrial fibrillation with rapid ventricle response, currently heart rate of 50s on amiodarone, systolic blood pressure 90 to 100 mmHg on phenylephrine drip, urine output overnight 1.8 L, hypokalemia resolved, stable serum creatinine, I will titrate down IV furosemide to 40 mg once a day, add 25 mg of spironolactone, repeat CMP tomorrow morning. Good glycemic control, I will keep him on dapagliflozin and insulin sliding scale DVT prophylaxis; heparin infusion Disposition, patient will stay in ICU today, patient has a high risk of clinical decline given his multiple comorbidities, advanced heart failure with non-STEMI at this admission
[2024-06-07] MEDS ORDERED: ACETAMINOPHEN 500 MG TAB PO PRN (13:35)
--- NOTE | 2024-06-07 14:26 | P.PN ---
Subjective Date of Service: 06/07/24 Chief Complaint: Shortness of breath Subjective: No new changes, No C/O voiced, Tolerating diet, Ambulating, Improving Review of Systems 10-point ROS is otherwise unremarkable Physical Examination - Vital Signs Temperature: 97.2 F Blood Pressure: 102/59 Pulse: 54 Respirations: 18 Pulse Ox (%): 98 - Physical Exam General: Alert, In no apparent distress HEENT: Atraumatic, PERRLA, EOMI Neck: Supple, JVD not distended Respiratory: Clear to auscultation bilaterally, Normal air movement Cardiovascular: Regular rate/rhythm, Normal S1 S2 Gastrointestinal: Normal bowel sounds, No tenderness Musculoskeletal: No tenderness Integumentary: No rashes Neurological: Normal speech, Normal tone, Normal affect Lymphatics: No axilla or inguinal lymphadenopathy Other Physical/Emotional Findings: - Physical Exam. General: Obese, chronic ill-looking, in no apparent distress,. HEENT: Normocephalic, atraumatic, nonicteric sclera, nonanemic conjunctive. Neck: Supple, without JVD or goiter or thyroid mass. Respiratory: Normal breathing effort, clear to auscultation bilaterally, no crackles no wheezing or rhonchi. Cardiovascular: Irregularly irregular heartbeat, , no murmur no gallop. Gastrointestinal: Normal bowel sounds, nondistended, nontender, No ascites, , No masses, no hepatosplenomegaly. Extremities : No clubbing, No peripheral edema,. Integumentary: No rashes, petechia, suspected lesions. Lymphatics: No axilla or cervical lymphadenopathy. Neurology; alert awake oriented x3, no focal neurologic deficit, normal affection . mood and behavior. - Studies Medications List Reviewed: Yes Assessment And Plan - Current Problems (Diagnosis) (1) NSTEMI (non-ST elevated myocardial infarction) Current Visit: Yes Status: Acute Plan: Patient coronary angiogram done today and shows patent LM-LCX stent with severe [place] CAD and patent grafts. continue ASA 81 mg daily continue Plavix 75 mg daily continue statin tight glycemic control. (2) Acute on chronic combined systolic (congestive) and diastolic (congestive) heart failure Current Visit: No Status: Acute Plan: continue lasix 40 mg IV for one more day then switch to 40 mg PO daily. continue patient home dose of aldactone (3) Ventricular arrhythmia Current Visit: No Status: Acute Plan: Patient had RVR vs VT, most likely VT, continue amdioarone 200 mg po BID Start Mexlietine 150 mg q 8 hours outpatient follow up with EP. (4) Atrial fibrillation Current Visit: No Status: Acute Plan: resume patient Eliquis 5 mg BID after finishing 48 hours of heparin drip since admission.
--- NOTE | 2024-06-08 01:28 | OP ---
Date of Procedure: 06/07/2024 Surgeon: Khanh Duff Procedure Performed: 1. Selective coronary angiogram of bypass graft. 2. Left heart catheterization. Indication For Procedure: [id number]. Complications: None. Estimated Blood Loss: Less than 50 mL. Access: Right common femoral artery, closed by Mynx. Sedation Time: 30 minutes with 1 of Versed and 25 of fentanyl. Description Of Procedure: After risks, benefits, and alternatives were explained to the patient, the patient agreed to proceed with the procedure and signed informed consent. The patient was brought b [facility] to the [facility] laborer, prepped and draped in a sterile fashion. Time-out was performed. Sedation was administered. Next, the right common femoral artery access was obtained using an ultrasound-guided m icropuncture technique. A JL4 catheter was advanced over J-wire to the aortic root. Selective angio gram was done on the left coronary system that was later exchanged for a JR4 catheter, was advanced t o the LV cavity, LVEDP was obtained, pullback did not any show any gradient. Same catheter was used for selective angiogram of the right coronary arteries and the SVG graft, that catheter was later pul led back to the subclavian arch, which was exchanged for an IM catheter and selective angiogram of th e internal mammary artery was done. At the end of the procedure, catheter was removed over a J-wire. Sheath was removed. Mynx was applied. Hemostasis was achieved. The patient was moved back to rec overy in stable condition. Findings: 1. Left main: Normal with a stent into left circ is patent. 2. LAD: Proximal 70% disease, then mid 100% occluded, gives a diagonal that has diffuse mild luminal irregularities. 3. Left circ ostial/proximal stent is patent and continue as large circ that gives collateral into th e RCA with mild luminal irregularities. 4. RCA: Small diffuse disease with proximal 99% disease, then followed by mid 100% occlusion. Grafts: 1. ALLISON to diagonal was patent with back flow into the LAD. 2. SVG to OM-2, it is patent with diffuse proximal to distal long 50% disease. Then it fills into th e small OM2 that gives small collaterals to the RPDA. Assessment And Plan: Significant [place] coronary artery disease with patent left main into left circ stent with patent ALLISON to diagonal and SVG to OM2 graft. Plan will be to continue medical management. SHARLENE/WILFRED Voice ID: [id number] Report ID: [id number]
[2024-06-08 06:06] LABS: Absolute Eosinophils 0.1 K/uL (0-0.5); Absolute Lymphocytes (CBC) 1.9 K/uL (0.7-4.9); Absolute Monocytes 0.6 K/uL (0.1-1.3); Absolute Neutrophil 2.9 K/uL (1.8-8.0); Basophils % 0.7 % (0-1.3); Eosinophils % 2.4 % (0-4.4); Hematocrit 36.3 % (39.6-49.0); Hemoglobin 11.8 g/dL (13.6-17.9); Lymphocytes % 33.8 % (15.3-44.8); MCH 29.1 pg (27.0-35.0); MCHC 32.4 g/dL (32.0-36.0); MCV 89.8 fL (80-100); MPV 8.6 fL (7.6-11.3); Monocytes % 11.2 % (3.3-12.3); Neutrophils % 51.9 % (41.7-73.7); Nucleated Red Blood Cells % 0.1 % (0-0); Platelets 193 thou/uL (152-406); RBC Red Blood Cell Count 4.04 M/uL (4.33-5.43); Red Cell Distribution Width 16.8 % (12.1-15.2)
[2024-06-08 06:25] LABS: Albumin 4.5 g/dL (3.4-5.0); Albumin/Globulin Ratio 1.4 (1.1-1.8); Bilirubin Total 0.6 mg/dL (0.2-1.0); Globulin 3.3 g/dL (2.3-3.5); Magnesium 2.6 mg/dL (1.6-2.4); Protein, Total 7.8 g/dL (6.4-8.2)
--- NOTE | 2024-06-08 09:17 | P.PN ---
Subjective Date of Service: 06/08/24 Chief Complaint: Shortness of breath Subjective: No new changes He says he is doing fine, denies any chest pain or shortness of breath. Tolerating oral diet well without any nausea and vomiting. Review of Systems Other: Consitutional; fever(-), chills (-), rigor(-), night sweat(-), unintentional weight loss(-), malaise (+) HEENT; diplopia (-), rhinorrhea (-), epistaxis (-), otorrhea (-), otalgia (-) Respiratory; shortness of breath (-), wheezing (-), cough (-), sputum (-), pleuritic chest pain (-) Cardiovascular; chest pain (-), peripheral edema (-), paroxysmal nocturnal dyspnea (-), orthopnea (-) Gastrointestinal; nausea (-), vomiting (-), abdominal pain (-), diarrhea (-), constipation (-), melena (-), hematochezia (-) Genitourinary; urinary frequency (-), dysuria (-), urgency (-), flank pain (-), gross hematuria (-), incontinence (-) Skin; 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 General: Obese, chronic ill-looking, in no apparent distress,. HEENT: Normocephalic, atraumatic, nonicteric sclera, nonanemic conjunctive. Neck: Supple, without JVD or goiter or thyroid mass. Respiratory: Normal breathing effort, clear to auscultation bilaterally, no crackles no wheezing or rhonchi. Cardiovascular: Irregularly irregular heartbeat, , no murmur no gallop. Gastrointestinal: Normal bowel sounds, nondistended, nontender, No ascites, , No masses, no hepatosplenomegaly. Extremities : No clubbing, No peripheral edema, no hematoma or bleeding at right femoral artery puncture site. Integumentary: No rashes, petechia, suspected lesions. Lymphatics: No axilla or cervical lymphadenopathy. Neurology; alert awake oriented x3, no focal neurologic deficit, normal affection . mood and behavior. - Studies Medications List Reviewed: Yes Assessment And Plan - Plan Patient is 74-year-old male with extensive cardiovascular history including coronary disease status post CABG, combined systolic and diastolic dysfunction last EF of 25% status post AICD, Crohn's disease on immunosuppressants, type II DM, A-fib on apixaban. He is being admitted after he presented with shortness of breath and chest pain radiating to his left arm for 2 days. His first troponin is negative. Patient has evidence of acute kidney injury, hyperkalemia and hyponatremia. Chest x-ray with pulmonary edema suggestive of decompensated CHF. He went into rapid A-fib in the ER. Acute hypoxemic respiratory failure associated #2 Pulmonary edema related to #3 Non-STEMI Cardiogenic shock secondary to non-STEMI and presumed VT Presumed ventricular tachycardia status post cardioversion at bedside Acute on chronic combined systolic and diastolic CHF Atrial fibrillation with rapid ventricular response on apixaban ANNA MARIE likely Cardiorenal syndrome, resolved Hyperkalemia related to #6, resolved Controlled DM-2 Elevated liver enzyme secondary to #3 Gradually improving, coronary angiogram result review, severe [place] coronary artery disease but patent stents and graft, medical treatment recommended, mexiletine added by cardiology for ventricular tachycardia, currently normal sinus rhythm on amiodarone and mexiletine. Systolic blood pressure has been over 100 mmHg off phenylephrine over the past 24-hour, urine output 2 L, 98% oxygenation by pulse oximetry on room air, I will change heparin infusion to apixaban and downgrade patient to general medical floor today. I will request a follow-up chest x-ray tomorrow morning.
[2024-06-08] MEDS: FUROSEMIDE 40 MG/4 ML VIAL IV SCH (09:35)
[2024-06-08] MEDS: SPIRONOLACTONE 25 MG TABLET PO SCH (15:47)
[2024-06-08] MEDS: APIXABAN 5 MG TABLET PO SCH (20:29)
--- NOTE | 2024-06-09 08:20 | RAD REPORT ---
Procedure: Chest Single View HISTORY: Shortness of breath COMPARISON: June 05, 2024 FINDINGS: Bilateral pulmonary opacities have resolved. No significant pleural effusion noted. The heart is mildly enlarged. Pacemaker lead in place. Postsurgical changes involve the chest IMPRESSION: Position of the pulmonary edema
[2024-06-09] MEDS: FUROSEMIDE 40 MG TABLET PO SCH (08:50)
[2024-06-09] MEDS: MAGNESIUM OXIDE 400 MG TAB ONE (08:54)
--- NOTE | 2024-06-09 10:36 | P.PN ---
Subjective Date of Service: 06/09/24 Chief Complaint: Shortness of breath Subjective: No new changes He was downgraded to general medical floor yesterday. No overnight event, he states that he is doing fine, no shortness of breath at rest, no orthopnea or paroxysmal nocturnal dyspnea. No more chest pain. Review of Systems Other: Consitutional; fever(-), chills (-), rigor(-), night sweat(-), unintentional weight loss(-), malaise (-) HEENT; diplopia (-), rhinorrhea (-), epistaxis (-), otorrhea (-), otalgia (-) Respiratory; shortness of breath (+), wheezing (-), cough (-), sputum (-), pleuritic chest pain (-) Cardiovascular; chest pain (-), peripheral edema (-), paroxysmal nocturnal dyspnea (-), orthopnea (-) Gastrointestinal; nausea (-), vomiting (-), abdominal pain (-), diarrhea (-), constipation (-), melena (-), hematochezia (-) Genitourinary; urinary frequency (-), dysuria (-), urgency (-), flank pain (-), gross hematuria (-), incontinence (-) Skin; 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 General: Obese, chronic ill-looking, in no apparent distress,. HEENT: Normocephalic, atraumatic, nonicteric sclera, nonanemic conjunctive. Neck: Supple, without JVD or goiter or thyroid mass. Respiratory: Normal breathing effort, clear to auscultation bilaterally, no crackles no wheezing or rhonchi. Cardiovascular: Irregularly irregular heartbeat, , no murmur no gallop. Gastrointestinal: Normal bowel sounds, nondistended, nontender, No ascites, , No masses, no hepatosplenomegaly. Extremities : No clubbing, No peripheral edema, no hematoma or bleeding at right femoral artery puncture site. Integumentary: No rashes, petechia, suspected lesions. Lymphatics: No axilla or cervical lymphadenopathy. Neurology; alert awake oriented x3, no focal neurologic deficit, normal affec tion . mood and behavior. - Studies Medications List Reviewed: Yes Assessment And Plan - Plan Patient is 74-year-old male with extensive cardiovascular history including coronary disease status post CABG, combined systolic and diastolic dysfunction last EF of 25% status post AICD, Crohn's disease on immunosuppressants, type II DM, A-fib on apixaban. He is being admitted after he presented with shortness of breath and chest pain radiating to his left arm for 2 days. His first troponin is negative. Patient has evidence of acute kidney injury, hyperkalemia and hyponatremia. Chest x-ray with pulmonary edema suggestive of decompensated CHF. He went into rapid A-fib in the ER. Acute hypoxemic respiratory failure associated #2, resolved Pulmonary edema related to #3, resolving Non-STEMI, troponin over 10,000, repeat transthoracic echocardiogram revealed no regional wall motion abnormality or structural heart disease Cardiogenic shock secondary to non-STEMI and presumed VT Presumed ventricular tachycardia status post cardioversion at bedside Acute on chronic combined systolic and diastolic CHF, improved Atrial fibrillation with rapid ventricular response on apixaban, improved ANNA MARIE likely Cardiorenal syndrome, resolved Hyperkalemia related to #6, resolved Controlled DM-2 Elevated liver enzyme secondary to #3 Slowly recovered, coronary angiogram on June 07 severe [place] coronary artery disease but patent stents and graft, medical treatment recommended, mexiletine added by cardiology for ventricular tachycardia, currently normal sinus rhythm on amiodarone and mexiletine. Telemetry reviewed normal sinus rhythm with interventricular conduction delay, systolic blood pressure has been over 100 mmHg off phenylephrine over the past 2 days, urine output 2 L, 98% oxygenation by pulse oximetry on room air, chest x-ray today personally reviewed nearly resolution of pulmonary edema. I will change IV furosemide to oral furosemide today, encourage patient to get out of bed and ambulate. Possible discharge home tomorrow
[2024-06-09] MEDS: POLYETHYL GLY 3350 17 GM/DOSE PO ONE (16:18)
[2024-06-09] MEDS: POLYETHYL GLY 3350 17 GM/DOSE PO PRN (19:55)
[2024-06-10 06:57] LABS: Anion Gap 8.4 mEq/L (5.0-15.0); Potassium 3.4 mEq/L (3.5-5.1)
[2024-06-10] MEDS: POTASSIUM CL SA 10 MEQ TAB PO ONE (08:09)
[2024-06-10 08:14] VITALS: BP 103/56
[2024-06-10 08:44] VITALS: TEMP 97.8
[2024-06-10 09:41] VITALS: O2SAT 98
--- NOTE | 2024-06-10 12:02 | P.PN ---
Subjective Date of Service: 06/10/24 Chief Complaint: Shortness of breath Subjective: No new changes, No C/O voiced, Tolerating diet, Ambulating, Improving Review of Systems 10-point ROS is otherwise unremarkable Physical Examination - Vital Signs Temperature: 97.8 F Blood Pressure: 103/56 Pulse: 63 Respirations: 19 Pulse Ox (%): 98 - Physical Exam General: Alert, In no apparent distress HEENT: Atraumatic, PERRLA, EOMI Neck: Supple, JVD not distended Respiratory: Clear to auscultation bilaterally, Normal air movement Cardiovascular: Regular rate/rhythm, Normal S1 S2 Gastrointestinal: Normal bowel sounds, No tenderness Musculoskeletal: No tenderness Integumentary: No rashes Neurological: Normal speech, Normal tone, Normal affect Lymphatics: No axilla or inguinal lymphadenopathy Other Physical/Emotional Findings: - Physical Exam. General: Obese, chronic ill-looking, in no apparent distress,. HEENT: Normocephalic, atraumatic, nonicteric sclera, nonanemic conjunctive. Neck: Supple, without JVD or goiter or thyroid mass. Respiratory: Normal breathing effort, clear to auscultation bilaterally, no crackles no wheezing or rhonchi. Cardiovascular: Irregularly irregular heartbeat, , no murmur no gallop. Gastrointestinal: Normal bowel sounds, nondistended, nontender, No ascites, , No masses, no hepatosplenomegaly. Extremities : No clubbing, No peripheral edema, no hematoma or bleeding at right femoral artery puncture site. Integumentary: No rashes, petechia, suspected lesions. Lymphatics: No axilla or cervical lymphadenopathy. Neurology; alert awake oriented x3, no focal neurologic deficit, normal affection . mood and behavior. - Studies Medications List Reviewed: Yes Assessment And Plan - Current Problems (Diagnosis) (1) NSTEMI (non-ST elevated myocardial infarction) Current Visit: Yes Status: Acute Plan: Patient coronary angiogram done today and shows patent LM-LCX stent with severe [place] CAD and patent grafts. continue ASA 81 mg daily continue Plavix 75 mg daily continue statin tight glycemic control. (2) Acute on chronic combined systolic (congestive) and diastolic (congestive) heart failure Current Visit: No Status: Acute Plan: continue lasix 40 mg PO daily. continue patient home dose of aldactone (3) Ventricular arrhythmia Current Visit: No Status: Acute Plan: Patient had RVR vs VT, most likely VT, continue amdioarone 200 mg po BID continue Mexlietine 150 mg q 8 hours outpatient follow up with EP. (4) Atrial fibrillation Current Visit: No Status: Acute Plan: continue amiodarone and Eliquis.
--- NOTE | 2024-06-17 12:41 | EKG ---
Test Date: 2024-06-08 Test Time: 19:06:48 Naphthalene Operator Helper: . MEASUREMENT RESULTS: Intervals: Rate: 63 NE: 204 QRSD: 144 QT: 522 QTc: 534 [place]: P: 82 NE: 204 QRS: 12 T: 215 INTERPRETIVE STATEMENTS: Normal sinus rhythm Left ventricular hypertrophy with QRS widening and repolarization abnormality Cannot rule out Septal infarct, age undetermined Possible Lateral infarct, age undetermined Inferior infarct, possibly acute ACUTE MA Consider right ventricular involvement in acute inferior infarct Abnormal ECG Compared to ECG 06/06/2024 18:44:25 Left ventricular hypertrophy now present Early repolarization now present Sinus bradycardia no longer present Short NE interval no longer present Myocardial infarct finding still present Electronically Signed On 06-17-24 12:22:13 BALLISTICIAN by Khanh Duff
--- NOTE | 2024-06-17 12:50 | EKG ---
Test Date: 2024-06-06 Test Time: 18:40:38 Cheese Blender: STUART MEASUREMENT RESULTS: Intervals: Rate: 58 VT: 84 QRSD: 160 QT: 492 QTc: 482 [place]: P: 5 VT: 84 QRS: 8 T: 173 INTERPRETIVE STATEMENTS: Sinus bradycardia with short VT Possible Left atrial enlargement Nonspecific intraventricular block Abnormal ECG Compared to ECG 06/06/2024 11:57:23 Short VT interval now present Myocardial infarct finding no longer present Electronically Signed On 06-17-24 12:24:32 REPAIR SPECIALIST by Khanh Duff
--- NOTE | 2024-06-17 12:50 | EKG ---
Test Date: 2024-06-06 Test Time: 18:44:25 Grader Marker: STUART MEASUREMENT RESULTS: Intervals: Rate: 57 NC: 72 QRSD: 190 QT: 520 QTc: 506 [place]: P: 73 NC: 72 QRS: 9 T: 183 INTERPRETIVE STATEMENTS: Sinus bradycardia with short NC Nonspecific intraventricular block Cannot rule out Inferior infarct, age undetermined Abnormal ECG Compared to ECG 06/06/2024 18:40:38 Myocardial infarct finding now present Electronically Signed On 06-17-24 12:24:30 OIL INSPECTOR by Khanh Duff
--- NOTE | 2024-06-17 12:53 | EKG ---
Test Date: 2024-06-06 Test Time: 11:57:23 Animal Pathology Teacher: DEE DEE MEASUREMENT RESULTS: Intervals: Rate: 60 MO: 116 QRSD: 196 QT: 532 QTc: 532 [place]: P: 215 MO: 116 QRS: 30 T: 206 INTERPRETIVE STATEMENTS: Unusual P axis, possible ectopic atrial rhythm Nonspecific intraventricular block Inferior infarct, age undetermined Abnormal ECG Compared to ECG 06/05/2024 20:13:09 Myocardial infarct finding now present Left ventricular hypertrophy no longer present Early repolarization no longer present Electronically Signed On 06-17-24 12:25:14 CABLE INSTALLER REPAIRER by Khanh Duff
--- NOTE | 2024-06-17 12:55 | EKG ---
Test Date: 2024-06-05 Test Time: 19:41:14 Equipment Operator Warehouse: ДМИТРИЙ MEASUREMENT RESULTS: Intervals: Rate: 128 [place]: QRSD: 156 QT: 412 QTc: 601 [place]: P: [place]: QRS: 43 T: 240 INTERPRETIVE STATEMENTS: Ventricular tachycardia vs AF RVR Nonspecific intraventricular block Abnormal ECG Compared to ECG 04/02/2024 19:03:40 Uncertain supraventricular rhythm no longer present Electronically Signed On 06-17-24 12:26:48 FRONT MAKER by Khanh Duff
--- NOTE | 2024-06-17 12:55 | EKG ---
Test Date: 2024-06-05 Test Time: 20:13:09 Military Science Instructor: ДМИТРИЙ MEASUREMENT RESULTS: Intervals: Rate: 49 [place]: QRSD: 162 QT: 500 QTc: 451 [place]: P: [place]: QRS: 18 T: 234 INTERPRETIVE STATEMENTS: Junctional rhythm Left ventricular hypertrophy with QRS widening and repolarization abnormality Abnormal ECG Compared to ECG 06/05/2024 19:41:14 Left ventricular hypertrophy now present Early repolarization now present Electronically Signed On 06-17-24 12:26:16 WARDROBE SUPERVISOR by Khanh Duff
== END 2024-06-10 13:50 | disposition home or self-care (01) | DRG 280 ==
LOC: ER 19:26 → ERHOLD 22:37 → 3RD-ICU 06-06 14:08 → 4TH 06-08 16:08
PROVIDERS: ADMIT Internal Medicine; ATTEND Hospitalist
PROC: 5A2204Z Restoration of Cardiac Rhythm, Single (ICD-10-PCS; principal; 2024-06-06)
PROC: 4A023N7 Measurement of Cardiac Sampling and Pressure, Left Heart, Percutaneous Approach (ICD-10-PCS; 2024-06-07)
PROC: B2111ZZ Fluoroscopy of Multiple Coronary Arteries using Low Osmolar Contrast (ICD-10-PCS; 2024-06-07)
PROC: B2131ZZ Fluoroscopy of Multiple Coronary Artery Bypass Grafts using Low Osmolar Contrast (ICD-10-PCS; 2024-06-07)
DX: I21.4 Non-ST elevation (NSTEMI) myocardial infarction (principal); I50.43 Acute on chronic combined systolic (congestive) and diastolic (congestive) heart failure; R57.0 Cardiogenic shock; K72.00 Acute and subacute hepatic failure without coma; J81.0 Acute pulmonary edema; J96.01 Acute respiratory failure with hypoxia; I13.0 Hypertensive heart and chronic kidney disease with heart failure and stage 1 through stage 4 chronic kidney disease, or unspecified chronic kidney disease; I47.20 Ventricular tachycardia, unspecified; K50.90 Crohn's disease, unspecified, without complications; N17.9 Acute kidney failure, unspecified; E11.22 Type 2 diabetes mellitus with diabetic chronic kidney disease; I25.810 Atherosclerosis of coronary artery bypass graft(s) without angina pectoris; E87.1 Hypo-osmolality and hyponatremia; E66.01 Morbid (severe) obesity due to excess calories; I48.91 Unspecified atrial fibrillation; I25.10 Atherosclerotic heart disease of native coronary artery without angina pectoris; N18.9 Chronic kidney disease, unspecified; E87.5 Hyperkalemia; I25.2 Old myocardial infarction; Z95.5 Presence of coronary angioplasty implant and graft; Z68.36 Body mass index [BMI] 36.0-36.9, adult; Z95.810 Presence of automatic (implantable) cardiac defibrillator
CPT/HCPCS: 36415; 71045; 71250; 74176; 76937; 80048; 80053; 80061; 80076; 81003; 82947; 83690; 83735; 83880; 84100; 84484; 85025; 85610; 85730; 93005; 93306; 93458; 99152; 99285; C1760; C1893; J0282; J0461; J1160; J1644; J1940; J2003; J2250; J2371; J3010; J3475; J3480; J7040; J7050; J7060; P9047; Q9966

== ENCOUNTER 2024-06-13 14:37 | Emergency (ER) | payer OTHER ==
[2024-06-13] MEDS ORDERED: AMIODARONE IN DEXTROSE,ISO-OSM 360 MG/200 ML BAG IV ONE (15:05)
[2024-06-13 15:11] LABS: Absolute Lymphocytes (CBC) 0.7 K/uL (0.7-4.9); Absolute Monocytes 0.5 K/uL (0.1-1.3); Absolute Neutrophil 3.8 K/uL (1.8-8.0); Basophils % 0.5 % (0-1.3); Eosinophils % 0.1 % (0-4.4); Hematocrit 35.7 % (39.6-49.0); Hemoglobin 11.3 g/dL (13.6-17.9); Lymphocytes % 13.2 % (15.3-44.8); MCH 28.5 pg (27.0-35.0); MCHC 31.6 g/dL (32.0-36.0); MPV 9.3 fL (7.6-11.3); Monocytes % 10.5 % (3.3-12.3); Neutrophils % 75.7 % (41.7-73.7); Nucleated Red Blood Cells % 0.1 % (0-0); Platelets 185 thou/uL (152-406); RBC Red Blood Cell Count 3.96 M/uL (4.33-5.43); Red Cell Distribution Width 17.5 % (12.1-15.2)
[2024-06-13 15:16] LABS: PT Prothrombin Time 17.4 SECONDS (9.4-12.5); Protime INR 1.67
[2024-06-13 15:17] LABS: Arterial Blood Carboxyhemoglob 0.3 % (0-1.5); Blood Gas Oxyhemoglobin 46.9 % (94-97); Blood Gas THB 11.1 g/dl (12-18); Blood O2 Saturation 48.3 % (92-98.5)
--- NOTE | 2024-06-13 15:28 | RAD REPORT ---
EXAMINATION: ONE VIEW CHEST XR CLINICAL INDICATION: CHEST PAIN TECHNIQUE: Frontal chest projection is submitted. Examination is limited by patient positioning and t echnique. COMPARISON: 06/09/2024 FINDINGS: Mild interstitial pulmonary edema. The heart is moderately enlarged. Single-lead pacer/stimulator dev ice. Sternotomy wires. IMPRESSION: Mild CHF.
[2024-06-13 15:29] LABS: Albumin 3.9 g/dL (3.4-5.0); Albumin/Globulin Ratio 1.2 (1.1-1.8); Anion Gap 14.9 mEq/L (5.0-15.0); Bilirubin Direct 0.5 mg/dL (0-0.2); Bilirubin Indirect, Calculated 0.6 mg/dL (0.2-0.8); Bilirubin Total 1.1 mg/dL (0.2-1.0); Globulin 3.2 g/dL (2.3-3.5); Potassium 4.9 mEq/L (3.5-5.1); Protein, Total 7.1 g/dL (6.4-8.2)
[2024-06-13 15:32] LABS: Troponin High Sensitivity 76.5 pg/mL (<58.9)
--- NOTE | 2024-06-13 15:40 | EDPHYS ---
Physician Documentation [facility] Name: Hugo Liu Jr Age: 74 yrs Sex: Male : 1950 Arrival Date: 06/13/2024 Time: 14:37 Bed 3 Private MD: ED Physician Joe Polanco HPI: 06/13 15:26 This 74 yrs old Male presents to ER via EMS with complaints of Chest Pain, sp3 palpitations, near syncope. 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 I received a call from Dr. Moore stating that he is sending the patient in and will likely need cardioversion due to A-fib RVR that is unstable. He states he is medically maximized and will need to be transferred to [facility] for electrophysiology consultation. EMS arrived to find patient unstable and performed cardioversion and route with synchronized shock coupled with ketamine 100 mg. Patient also received 150 mg of amiodarone. Patient currently has no ongoing chest pain, shortness of breath or other symptoms other than feeling "groggy" from the medications he has received.. Historical: - Allergies: 14:54 Cipro; me1 14:54 Codeine; me1 14:54 paper tape; me1 - PMHx: 14:54 Congestive heart failure; Crohn's Disease; diabetes mellitus; Hypercholesterolemia; me1 Hypertensive disorder; [place]; - PSHx: 14:54 CABG; Coronary Angioplasty; defibrillator; Gastric Bypass (il); me1 - Immunization history:: Adult Immunizations unknown. - Infectious Disease History:: Denies. - Social history:: Smoking status: unknown. ROS: 15:30 Constitutional: Negative for fever, chills, and weight loss, ENT: Negative for injury, sp3 pain, and discharge, Neck: Negative for injury, pain, and swelling, Respiratory: Negative for shortness of breath, cough, wheezing, and pleuritic chest pain, Abdomen/GI: Negative for abdominal pain, nausea, vomiting, diarrhea, and constipation, MS/Extremity: Negative for injury and deformity, Neuro: Negative for headache, weakness, numbness, tingling, and seizure, Psych: Negative for depression, anxiety, suicide ideation, homicidal ideation, and hallucinations, Allergy/Immunology: Negative for hives, rash, and allergies, Endocrine: Negative for neck swelling, polydipsia, polyuria, polyphagia, and marked weight changes, 15:30 All other systems are negative, Exam: 15:34 Constitutional: This is a well developed, well nourished patient who is awake, alert, sp3 and in no acute distress. Head/Face: Normocephalic, atraumatic. Eyes: Pupils equal round and reactive to light, extra-ocular motions intact. Lids and lashes normal. Conjunctiva and sclera are non-icteric and not injected. Cornea within normal limits. Periorbital areas with no swelling, redness, or edema. ENT: Nares patent. No nasal discharge, no septal abnormalities noted. External auditory canals are clear. Oropharynx with no redness, swelling, or masses, exudates, or evidence of obstruction, uvula midline. Mucous membranes moist. Neck: Trachea midline, no thyromegaly or masses palpated, and no cervical lymphadenopathy. Supple, full range of motion without nuchal rigidity, or vertebral point tenderness. No Meningismus. Chest/axilla: Normal chest wall appearance and motion. Nontender with no deformity. No lesions are appreciated. Respiratory: Lungs have equal breath sounds bilaterally, clear to auscultation and percussion. No rales, rhonchi or wheezes noted. No increased work of breathing, no retractions or nasal flaring. Abdomen/GI: Soft, non-tender, with normal bowel sounds. No distension or tympany. No guarding or rebound. No evidence of tenderness throughout. Back: No spinal tenderness. No costovertebral tenderness. Full range of motion. Skin: Warm, dry with normal turgor. Normal color with no rashes, no lesions, and no evidence of cellulitis. MS/ Extremity: Pulses equal, no cyanosis. Neurovascular intact. Full, normal range of motion. Neuro: Awake and alert, GCS 15, oriented to person, place, time, and situation. Cranial nerves II-XII grossly intact. Motor strength 5/5 in all extremities. Sensory grossly intact. Cerebellar exam normal. Normal gait. Psych: Awake, alert, with orientation to person, place and time. Behavior, mood, and affect are within normal limits. Vital Signs: 14:45 BP 119 / 71; Pulse 53; Resp 17; Temp 97.7; Pulse Ox 96% 2 lpm ; Weight 93.89 kg; Pain me1 0/10; 15:30 BP 111 / 66; Pulse 51; Resp 20 S; Pulse Ox 100% on 2 lpm NC; aa5 16:40 BP 111 / 66; Pulse 49; Resp 18 S; Pulse Ox 99% on 2 lpm NC; aa5 17:02 BP 101 / 64; Pulse 55; Resp 16 S; Pulse Ox 98% on 2 lpm NC; aa5 14:45 Pain Scale: Adult me1 MDM: 14:46 Medical Screening Exam initiated sp3 15:34 Data reviewed: vital signs, nurses notes, EMS record, old medical records, lab test sp3 result(s), EKG, radiologic studies. ED course: 74-year-old male maximized on medical management for multiple arrhythmias including atrial fibrillation with RVR and ventricular tachycardia now presents from cardiology office for recurrent A-fib RVR and possible ventricular tachycardia. Patient was hypotensive at the clinic and EMS arrived to find patient in the state. They administered amiodarone and cardioverted patient after ketamine back to a baseline ventricular rhythm with no P wave. This is consistent with his prior EKGs here. Currently patient is stable with normal vital signs except pulse in the low 50s. EKG here demonstrates ventricular rhythm at 53 bpm, wide-complex with no ST depressions or elevations in absent HI given no P waves and QTc of 486. I have continued the amiodarone drip and we will transfer patient to [facility] for cardiology/electrophysiology consultation. Troponin is slightly elevated at 76 and lactate is high at over 5.. 15:58 ED course: Labs reviewed. Lactate of 5.2 however given patient's precarious arrhythmia sp3 status and history of CHF as well as edema on x-ray, we will hold off on giving IV fluids. Vital signs are currently normal. Patient is mentating Discussed the case with cardiology at [facility] and they have excepted and they state they will consult electrophysiology. We attempted to contact them directly however were not able to get through.. 06/13 14:48 Order name: Basic Metabolic Panel; Complete Time: 15:36 sp3 06/13 14:48 Order name: CBC with Diff; Complete Time: 15:36 3 06/13 14:48 Order name: LFT's; Complete Time: 15:36 06/13 14:48 Order name: Magnesium; Complete Time: 15:36 06/13 14:48 Order name: NT PRO-BNP; Complete Time: 15:36 3 06/13 14:48 Order name: PT-INR; Complete Time: 15:36 06/13 14:48 Order name: Troponin HS; Complete Time: 15:36 06/13 14:48 Order name: ABG: VBG; Complete Time: 15:36 3 06/13 14:48 Order name: Lactate w/ 2H reflex if indic.; Complete Time: 15:36 06/13 15:36 Order name: Ghost Lactate-NO COLLECT Timer EDMS 06/13 14:48 Order name: XRAY Chest (1 view); Complete Time: 15:36 06/13 14:48 Order name: EKG; Complete Time: 14:48 06/13 14:48 Order name: Cardiac monitoring; Complete Time: 15:04 06/13 14:48 Order name: EKG - Nurse/Tech; Complete Time: 15:04 06/13 14:48 Order name: IV Saline Lock; Complete Time: 15:06/13 14:48 Order name: Labs collected and sent; Complete Time: 15:06/13 14:48 Order name: O2 Per Protocol; Complete Time: 15:06/13 14:48 Order name: O2 Sat Monitoring; Complete Time: 15:06/13 14:48 Order name: Misc. Order: Pacer pads to patient and bedside defibrillator; Complete sp3 Time: 15:06/13 14:48 Order name: NPO; Complete Time: 15:04 Administered Medications: 15:07 Drug: amiodarone IVPB 900 mg, D5W IV 500 ml IVPB at 1 mg/min continuous; for 6 hrs, aa5 then change to 0.5 mg/min Route: IVPB; Rate: 1 mg/min; Site: left antecubital; 17:30 Follow up: IV Status: Infusion continued upon transfer aa5 Disposition: 15:59 Critical Care:. sp3 Disposition Summary: 06/13/24 15:39 Transfer Ordered Notes: Transfer Location: [facility] sp3 Reason: Higher level of care sp3 Condition: Fair sp3 Problem: an acute exacerbation sp3 Symptoms: have worsened sp3 Accepting Physician: OSVALDO EP Cards(06/13/24 17:40) aa5 Diagnosis - Slow ventricular tachycardia, resolved atrial fibrillation with RVR, arrhythmia sp3 requiring ablation Forms: - Medication Reconciliation Form sp3 - SBAR form sp3 Critical care time excluding procedures: 15:59 Critical care time: Bedside Care: 10 minutes, Consultation: 10 minutes, Family sp3 Intervention: 10 minutes. Total time: 30 minutes Signatures: Dispatcher [employer] Nadya Saucedo RN RN aa5 Joe Polanco MD MD sp3 Jo Ann Meza RN RN me1 Corrections: (The following items were deleted from the chart) 17:40 15:39 TBD EP Cards sp3 aa5
--- NOTE | 2024-06-13 15:40 | ER ---
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 Arrived me1 with patient on 2L o2 via nc and NS 500 ml infused. Per EKG patient was in a wide complex tachycardia at 129 bpm. 20 g to LAC by EMS and given amiodarone 150 mg over 10 minutes with no change to EKG. Given ketamine 100 mg and cardioversion done at 100 joules, converted back to sinus rhythm. NPA to right nostril, o2 sat 97-100% on 2 lpm via nc. Coronavirus screen: At this time, the client does not indicate any symptoms associated with coronavirus-19. Ebola Screen: Patient negative for fever greater than or equal to 101.5 degrees Fahrenheit, and additional compatible Ebola Virus Disease symptoms. Initial Sepsis Screen: Does the patient meet any 2 criteria? No. Patient's initial sepsis screen is negative. Does the patient have a suspected source of infection? No. Patient's initial sepsis screen is negative. Risk Assessment: Do you want to hurt yourself or someone else? Patient reports no desire to harm self or others. Onset of symptoms was June 13, 2024 at 14:00. 14:45 Method Of Arrival: EMS: [place] [id number] 14:45 Acuity: MADDI 2 me1 Historical: - Allergies: 14:54 Cipro; me1 14:54 Codeine; me1 14:54 paper tape; me1 - PMHx: 14:54 Congestive heart failure; Crohn's Disease; diabetes mellitus; Hypercholesterolemia; me1 Hypertensive disorder; [place]; - PSHx: 14:54 CABG; Coronary Angioplasty; defibrillator; Gastric Bypass (il); me1 - Immunization history:: Adult Immunizations unknown. - Infectious Disease History:: Denies. - Social history:: Smoking status: unknown. Screenin:00 Abuse screen: Denies threats or abuse. Nutritional screening: No deficits noted. aa5 Tuberculosis screening: No symptoms or risk factors identified. 15:00 [facility] ED Fall Risk Assessment (Adult) History of falling in the last 3 months, aa5 including since admission Confusion or Disorientation Intoxicated or Sedated Yes (3 pts) Impaired Gait Mobility Assist Device Used Altered Elimination Score/Fall Risk Level 3 or more points = High Risk Oriented to surroundings, Maintained a safe environment, Educated pt \T\ family on fall prevention, incl call for assistance when getting out of bed, Assessed \T\ reinforced patient's understanding of fall precautions. Assessment: 14:54 General: Appears comfortable, Behavior is calm, cooperative, drowsy. Pain: Denies pain. aa5 Neuro: Level of Consciousness is alert, obeys commands, Drowsy, awakens easily to verbal/tactile stimuli. . Oriented to person, place, time, situation, Appropriate for age. Cardiovascular: Denies chest pain, nausea, shortness of breath, Heart tones S1 S2 present Rhythm is Idioventricular. Respiratory: Airway is patent Respiratory effort is even, relaxed, Respiratory pattern is regular, symmetrical, Breath sounds are clear bilaterally. GI: Abdomen is obese, Bowel sounds present X 4 quads. Abd is soft and non tender X 4 quads. Patient currently denies nausea, vomiting. : No signs and/or symptoms were reported regarding the genitourinary system. Derm: Skin is pink, warm \T\ dry. Musculoskeletal: Range of motion: intact in all extremities. 14:54 EENT: No signs and/or symptoms were reported regarding the EENT system. aa5 16:20 Reassessment: Patient is alert, oriented x 3, equal unlabored respirations, skin aa5 warm/dry/pink. Pt's family at bedside. . 17:05 Reassessment: Patient is alert, oriented x 3, equal unlabored respirations, skin aa5 warm/dry/pink. Awaiting EMS for transfer. . 17:35 Reassessment: Patient is alert, oriented x 3, equal unlabored respirations, skin aa5 warm/dry/pink. Vital Signs: 14:45 BP 119 / 71; Pulse 53; Resp 17; Temp 97.7; Pulse Ox 96% 2 lpm ; Weight 93.89 kg; Pain me1 0/10; 15:30 BP 111 / 66; Pulse 51; Resp 20 S; Pulse Ox 100% on 2 lpm NC; aa5 16:40 BP 111 / 66; Pulse 49; Resp 18 S; Pulse Ox 99% on 2 lpm NC; aa5 17:02 BP 101 / 64; Pulse 55; Resp 16 S; Pulse Ox 98% on 2 lpm NC; aa5 14:45 Pain Scale: Adult [facility] ED Course: 14:44 Patient arrived in ED. me1 14:46 Joe Polanco MD is Attending Physician. sp3 14:50 Maintain EMS IV. Dressing intact. Good blood return noted. Site clean \T\ dry. Gauge \T\ aa 5 site: 20G to L AC . Flushed with 10 mL NS. 14:54 Triage completed. ia1 14:54 Arm band placed on Patient placed in an exam room. ia1 14:54 Patient has correct armband on for positive identification. Bed in low position. Call aa5 light in reach. Side rails up X2. Client placed on continuous cardiac and pulse oximetry monitoring. NIBP monitoring applied. electronic device monitor on. Pulse ox on. NIBP on. 15:00 Initial lab(s) drawn, by me, sent to lab. Inserted saline lock: 20 gauge in right aa5 antecubital area, using aseptic technique. Blood collected. Flushed with 10 mL NS. 15:10 Nadya Orantes, RN is Primary Nurse. aa5 15:23 XRAY Chest (1 view) In Process Unspecified. EDMS 15:46 spoke with Dione at [facility] [place]. bc6 16:08 acceptance received with Dione for Dr. Louis Burns at [facility] RM 405. bc6 16:22 No provider procedures requiring assistance completed. Patient transferred, IV remains aa5 in place. Oxygen administration via nasal cannula \T\ 2L/min. 16:30 zakia with [facility] accepted transfer. bc6 Administered Medications: 15:07 Drug: amiodarone IVPB 900 mg, D5W IV 500 ml IVPB at 1 mg/min continuous; for 6 hrs, aa5 then change to 0.5 mg/min Route: IVPB; Rate: 1 mg/min; Site: left antecubital; 17:30 Follow up: IV Status: Infusion continued upon transfer aa5 Medication: 16:22 VIS not applicable for this client. aa5 Outcome: 15:39 ER care complete, transfer ordered by . sp3 17:35 Transferred by ground EMS Transfer form completed. X-rays sent w/ patient. Note: aa5 Transferred to [facility]. Report given to [facility]. 17:35 Condition: stable aa5 17:35 Instructed on the need for transfer, Demonstrated understanding of instructions, 17:40 Patient left the ED. aa5 Signatures: Dispatcher [employer] EDNadya Hung RN RN aa5 Joe Polanco MD MD sp3 Alyson Adams 6 Jo Ann Meza RN RN me1 Corrections: (The following items were deleted from the chart) 16:27 15:30 BP 111 / 66; Pulse 51bpm; Resp 20bpm; Spontaneous; Pulse Ox 100% RA; aa5 aa5 16:58 14:35 General: Appears comfortable, Behavior is calm, cooperative, drowsy, aa5 aa5 16:58 14:35 Pain: Denies pain. aa5 aa5 16:58 14:35 Neuro: Level of Consciousness is alert, obeys commands, Drowsy, awakens easily to aa5 verbal/tactile stimuli. . Oriented to person, place, time, situation, Appropriate for age aa5 : 14:35 Cardiovascular: Denies chest pain, nausea, shortness of breath, Heart tones S1 S2 aa5 present Rhythm is Idioventricular aa5 : 14:35 Respiratory: Airway is patent Respiratory effort is even, relaxed, Respiratory aa5 pattern is regular, symmetrical, Breath sounds are clear bilaterally. aa5 16:58 14:35 GI: Abdomen is obese, Bowel sounds present X 4 quads. Abd is soft and non tender aa5 X 4 quads. Patient currently denies nausea, vomiting, aa5 : 14:35 : No signs and/or symptoms were reported regarding the genitourinary system. aa5aa5 16: 14:35 EENT: No signs and/or symptoms were reported regarding the EENT system. aa5 aa5 16:58 14:35 Derm: Skin is pink, warm \T\ dry. aa5 aa5 16: 14:35 Musculoskeletal: Range of motion: intact in all extremities, aa5 aa5
[2024-06-14 17:51] VITALS: TEMP 97.7
[2024-06-14 17:55] VITALS: BP 101/64; O2SAT 98
--- NOTE | 2024-06-17 12:16 | EKG ---
Test Date: 2024-06-13 Test Time: 14:47:43 Manager Department: LAVELLE MEASUREMENT RESULTS: Intervals: Rate: 53 ID: QRSD: [id number] QT: 518 QTc: 486 [place]: P: ID: QRS: 50 T: 238 INTERPRETIVE STATEMENTS: Wide QRS rhythm Left ventricular hypertrophy with QRS widening Abnormal ECG Compared to ECG 06/08/2024 19:06:48 Uncertain supraventricular rhythm now present Sinus rhythm no longer present Early repolarization no longer present Myocardial infarct finding no longer present Electronically Signed On 06-17-24 12:11:59 SALESPERSON NECKTIES by Khanh Duff
== END 2024-06-13 17:40 | disposition short-term general hospital (02) ==
LOC: ER 14:37
DX: I47.29 Other ventricular tachycardia (principal); I50.9 Heart failure, unspecified; I10 Essential (primary) hypertension; I25.2 Old myocardial infarction; Z95.1 Presence of aortocoronary bypass graft; Z95.810 Presence of automatic (implantable) cardiac defibrillator; Z98.84 Bariatric surgery status
CPT/HCPCS: 96365; 93005; 85025; 80048; 36415; 83735; 85610; 80076; 83605; 84484; 83880; 71045; 82805; 99285; 96366; 36600; J0282